=== PATIENT | male | born 1945 | race Caucasian/White ===

== ENCOUNTER 2018-06-16 09:45 | Observation (INO) | payer OTHER ==
--- OUTSIDE RECORDS SUMMARY | 2018-06-16 09:48 | XMS REPORT | Clinical Summary ---
:1945 [facility] Address [address] [place] [address] Care Team Providers Name Role Phone Ruslan Primary Care Provider Allergies No Known Allergies Medications Medication Sig Dispensed Refills Start Date End Date Status aspirin 81 MG EC Take 81 mg by mouth 0 Active tablet daily. DULoxetine Take 30 mg by mouth 0 Active (CYMBALTA) 30 MG once at bedtime. capsule gabapentin Take 800 mg by 0 Active (NEURONTIN) 800 MG mouth 3 (three) tablet times daily. traMADol (ULTRAM) Take 50 mg by mouth 0 Active 50 mg tablet daily. tamsulosin (FLOMAX) Take 0.4 mg by 0 Active 0.4 mg Cp24 24 hr mouth daily. capsule finasteride Take 5 mg by mouth 0 Active (PROSCAR) 5 mg daily. tablet atorvastatin Take 1 tablet (80 30 tablet 11 07/29/2016 07/29/2017 (LIPITOR) 80 MG mg total) by mouth tablet nightly. clopidogrel Take 1 tablet (75 30 tablet 2 07/29/2016 07/29/2017 (PLAVIX) 75 mg mg total) by mouth tablet daily. insulin NPH 22 units 10 mL 0 07/29/2016 07/29/2017 (HUMULIN,NOVOLIN) subcutaneous BID. 100 unit/mL injection senna-docusate Take 1 tablet by 60 tablet 11 07/29/2016 07/29/2017 (SENOKOT S) 8.6-50 mouth 2 (two) times mg per tablet daily. Active Problems Problem Noted Date Acute ischemic stroke 07/28/2016 Status post administration of tPA (rtPA) in a different facility within 2015 the last 24 hours prior to admission to current facility Diabetes mellitus Depression BPH (benign prostatic hyperplasia) Social History Tobacco Use Types Packs/Day Years Used Date Never Smoker Alcohol Use Drinks/Week oz/Week Comments No Sex Assigned at Date Recorded Not on file Job Start Date Occupation Industry Not on file Not on file Not on file Travel History Travel Start Travel End No recent travel history available. Last Filed Vital Signs Not on file Plan of Treatment Not on file Results Not on fileafter 06/15/2017 Insurance Payer Benefit Plan / Group Subscriber ID Type Phone Address MEDICARE MEDICARE A B xxxxxxxxxx Medicare AETNA - MGD CARE AETNA INDEMNITY NON CONTR xxxxxxxxx Comm Advance Directives For more information, please contact:[address] [phone] Code Status Date Activated Date Inactivated Comments Full Code 07/24/2016 2:48 PM 07/29/2016 7:23 PM This code status was determined by: Patient
--- NOTE | 2018-06-16 10:13 | RAD REPORT ---
EXAM DESCRIPTION: CT - CTHCSPWOC - 06/16/2018 10:01 am CLINICAL HISTORY: Fall, head and neck injury COMPARISON: CT head June 2017 TECHNIQUE: Axial 5 mm thick images of the head were obtained. Axial 2 mm thick images of the cervic al spine were obtained with sagittal and coronal reconstruction images generated and reviewed. All CT scans are performed using dose optimization technique as appropriate and may include automated exposure control or mA/KV adjustment according to patient size. FINDINGS: No intracranial hemorrhage, mass, edema or acute intracranial finding. No acute cortical b ased infarction identified. Moderate severity atrophy and chronic ischemic changes are present. Patie nt has a moderately large area of encephalomalacia from an old right parietal CVA. Ventricles are in proportion to volume loss. Dense arterial tree calcifications are present. Mastoid air cells are gerson r. Maxillary sinus air-fluid levels are present. There is fluid and mucosal thickening in the ethmoid air cells. Facial bones are incompletely visualized. A left posterior small scalp hematoma is presen t. Trauma is apparently to the posterior head and neck. Sinus findings are likely preexisting sinusit is. Partially imaged globes and orbital contents unremarkable. Cervical bodies are normal in height. There is a slight retrolisthesis of C5 on C6. C4-5, C5-6 and C6 -7 disc space narrowing present. Mild bilateral C4-5 more prominent bilateral C5-6, C6-7 bony foramin al stenosis. Facet degenerative changes are present. No fracture or acute bony abnormality. Central c anal detail is inherently limited. No paraspinal mass or hematoma. IMPRESSION: No hemorrhage, edema or acute intracranial finding. Patient has a small posterior left p arietal scalp hematoma. Patient has prominent atrophy and chronic ischemic change as well as old right parietal CVA change. Prominent cervical spine degenerative change C4-C7 as detailed. No acute findings seen. Air-fluid level in the paranasal sinuses. This is believed to be preexisting sinusitis. Trauma is bel ieved to be to the posterior head and neck.
[2018-06-16] MEDS ORDERED: TETANUS & DIPHTHERIA TOX,ADULT 0.5 ML VIAL ONE (10:38)
[2018-06-16 10:50] LABS: Absolute Lymphocytes (CBC) 0.4 K/uL (0.7-4.9); Absolute Monocytes 0.7 K/uL (0.1-1.3); Absolute Neutrophil 7.7 K/uL (1.8-8.0); Basophils % 0.2 % (0-1.3); Eosinophils % 0.6 % (0-4.4); Hematocrit 35.2 % (39.6-49.0); Lymphocytes % 4.6 % (15.3-44.8); MCH 31.6 pg (27.0-35.0); MCV 91.2 fL (80-100); MPV 8.4 fL (7.6-11.3); Monocytes % 7.9 % (3.3-12.3); RBC Red Blood Cell Count 3.86 M/uL (4.33-5.43)
[2018-06-16 10:58] LABS: Protime INR 1.08
--- NOTE | 2018-06-16 12:06 | RAD REPORT ---
EXAM DESCRIPTION: RAD - Pelvis - 06/16/2018 11:54 am CLINICAL HISTORY: BLUNT TRAUMA History of fall. 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 No fracture or dislocation. No AVN. Lower lum bar degenerative changes are seen. IMPRESSION: A fracture is not seen.
--- NOTE | 2018-06-16 12:07 | RAD REPORT ---
EXAM DESCRIPTION: RAD - Femur Left - 06/16/2018 11:54 am CLINICAL HISTORY: PAIN Fall COMPARISON: No comparisons FINDINGS: No acute fracture or dislocation is seen.
--- NOTE | 2018-06-16 12:07 | RAD REPORT ---
EXAM DESCRIPTION: RAD - Femur Right - 06/16/2018 11:54 am CLINICAL HISTORY: PAIN Fall COMPARISON: No comparisons FINDINGS: No fracture or dislocation is identified. Vascular calcification is noted.
--- NOTE | 2018-06-16 12:18 | EKG ---
Test Date: 2018-06-16 Test Time: 10:08:14 Certified Veterinary Technician: KAREN MEASUREMENT RESULTS: Intervals: Rate: 99 ID: [id number] QRSD: 98 QT: 336 QTc: 431 Kevin: P: 40 ID: [id number] QRS: -60 T: 69 INTERPRETIVE STATEMENTS: Normal sinus rhythm Left anterior fascicular block Abnormal ECG Compared to ECG 09/18/2017 09:13:01 Sinus arrhythmia no longer present Electronically Signed On 06-16-18 12:17:27 COMMUNICATIONS PROFESSOR by Yrn Kurtz
--- NOTE | 2018-06-16 12:35 | ER ---
Nurse's Notes [facility] Name: Clay Gagnon Age: 72 yrs Sex: Male : 1945 Arrival Date: 06/16/2018 Time: 09:46 Bed 7 Private MD: Diagnosis: Concussion;Superficial injury of head;Dehydration;Hyperglycemia, unspecified;Syncope and collapse Presentation: 06/16 09:46 Presenting complaint: EMS states: FALL IN BATHROOM. Care prior to arrival: IV ch initiated. 20 GA, in the left forearm, Glucose check: 348. Mechanism of Injury: Fall from standing position. Trauma event details: Injury occurred in the [facility], Injury occurred: at home. Injury occurred: June 16, 2018 Injury occurred at: 09:00. 09:46 Acuity: URIAH 2 09:46 Method Of Arrival: EMS: [facility] 13:50 Transition of care: patient was not received from another setting of care. Onset of ch symptoms was June 16, 2018 at 09:00. Risk Assessment: Do you want to hurt yourself or someone else? Patient reports no desire to harm self or others. Initial Sepsis Screen: Does the patient meet any 2 criteria? No. Patient's initial sepsis screen is negative. Does the patient have a suspected source of infection? No. Patient's initial sepsis screen is negative. Triage Assessment: 13:50 General: Appears in no apparent distress. comfortable. Trauma Activation: Consult Physician: ED Physician; Name: DARA; Notified At: 09:45; Arrived At: 09:45 Physician: General Surgeon; Name: ; Notified At: 09:45; Arrived At: Physician: Radiology; Name: ; Notified At: 09:45; Arrived At: Physician: Respiratory; Name: ; Notified At: 09:45; Arrived At: Physician: Lab; Name: ; Notified At: 09:45; Arrived At: Historical: - Allergies: 10:02 NKA; ch - Home Meds: 10:02 Dulcolax (bisacodyl) 5 mg Oral TbEC 2 tabs daily prn [Active]; paroxetine HCl 40 mg ch Oral tab 1 tab nightly [Active]; aspirin 325 mg Oral tab 1 tab once daily [Active]; gabapentin 800 mg Oral tab 1 tab 3 times per day [Active]; carbidopa-levodopa 25-100 mg Oral tab 1 tab 3 times per day [Active]; atorvastatin 80 mg Oral tab 1 tab nightly [Active]; duloxetine 30 mg Oral cpDR 1 cap once daily [Active]; metformin 1,000 mg Oral tab 1 tab 2 times per day [Active]; tamsulosin 0.4 mg Oral cp24 2 caps nightly [Active]; clopidogrel 75 mg Oral tab 1 tab once daily [Active]; donepezil 5 mg Oral tab 1 tab nightly [Active]; Januvia 100 mg Oral tab 1 tab once daily [Active]; finasteride 5 mg Oral tab 1 tab once daily [Active]; midodrine 5 mg Oral tab 1 tabs 3 times per day [Active]; Senokot 8.6 mg Oral tab 1 tabs twice daily [Active]; Centrum Silver 0.4-300-250 mg-mcg-mcg Oral tab daily [Active]; Novolin 70/30 [place] Sub-Q 20 unit daily [Active]; - PMHx: 10:02 CAD; CVA; Diabetes - IDDM; High Cholesterol; Parkinsons; ch 13:46 Dementia; ch - Immunization history: Last tetanus immunization: unknown. - Family history:: not pertinent. - Social history:: Smoking status: Patient/guardian denies using tobacco. - Ebola Screening: : Patient negative for fever greater than or equal to 101.5 degrees Fahrenheit, and additional compatible Ebola Virus Disease symptoms Patient denies exposure to infectious person Patient denies travel to an Ebola-affected area in the 21 days before illness onset No symptoms or risks identified at this time. - Hospitalizations: : No recent hospitalization is reported. Screenin:46 Abuse screen: Denies threats or abuse. Denies injuries from another. Tuberculosis ch screening: No symptoms or risk factors identified. 13:46 Nutritional screening: No deficits noted. Fall Risk Fall in past 12 months (25 points). ch Secondary diagnosis (15 points) IV access (20 points). Ambulatory Aid- Crutches/Cane/Walker (15 pts). Gait- Mental Status- Overestimates/Forgets Limitations (15 pts.). Total Morgan Fall Scale indicates High Risk Score (45 or more points). Fall prevention measures have been instituted. Side Rails Up X 2 Placed Close to Nursing Station Frequent Obs/Assessments Occuring Family Present and informed to notify staff if the need to leave the bedside As available patient and family educated on Fall Prevention Program and Strategies. Primary Survey: 09:46 A: Airway: patent. Breathing/Chest: Respiratory pattern: regular, Respiratory effort: ch spontaneous, unlabored, Breath sounds: clear. Circulation: Skin color: pink, Skin temperature: warm, dry. Disability Verbal Stimuli. 13:41 Reassessment Airway Airway Patent Breathing/Chest Respiratory pattern Regular ch Respiratory effort Spontaneous Unlabored Breath sounds Clear Circulation Heart rhythm Sinus rhythm Disability Alert. Secondary Survey: 09:52 HEENT: Head Other LEFT OCCIPUT CONTUSION. Gastrointestinal: No deficits noted. : ch INCONTINENT. Musculoskeletal: No deficits noted. 13:41 HEENT: Face No injury/deformity Eyes: No injury or deformity noted. Ears: clear Nose: ch clear. Assessment: 09:46 General: Appears in no apparent distress. comfortable, slender, Behavior is ch cooperative, appropriate for age, anxious, TREMULOUS. Pain: Complains of pain in pelvis. Neuro: Level of Consciousness is awake, obeys commands, confused, Oriented to person, place, situation. 09:50 Reassessment: PT TO CT. 11:00 Reassessment: PT RETURN TO RADIOLOGY. bp 12:00 Reassessment: PT TBA OBS, VS STABLE, NO ACUTE FINDINGS AT THIS TIME. bp 13:43 Reassessment: Patient appears in no apparent distress at this time. Patient and/or ch family updated on plan of care and expected duration. Pain level reassessed. pt urinates on himself, then tries to get out of bed. brief changed, linnens changed, pt cleaned. no s/s of distress. Patient states feeling better. Patient states symptoms have improved. Vital Signs: 09:46 BP 106 / 90; Pulse 99; Resp 19; Temp 98; Pulse Ox 95% ; Weight 68.04 kg; ch 10:30 BP 144 / 64; Pulse 98; Resp 22; Pulse Ox 96% ; bp 12:00 BP 135 / 65; Pulse 96; Resp 17; Pulse Ox 94% ; bp 12:53 BP 131 / 67; Pulse 91; Resp 23; Pulse Ox 93% ; bp 13:41 BP 137 / 67; Pulse 96; Resp 23; Temp 97.7(O); Pulse Ox 94% on R/A; Pain 6/10; ch [place] Coma Score: 09:46 Eye Response: spontaneous(4). Verbal Response: oriented(5). Motor Response: obeys commands(6). Total: 15. Trauma Score (Adult): 09:46 Eye Response: spontaneous(1); Verbal Response: oriented(1); Motor Response: obeys commands(2); Systolic BP: > 89 mm Hg(4); Respiratory Rate: 10 to 29 per min(4); Kishore Score: 15; Trauma Score: 12 ED Course: 09:46 Patient arrived in ED. ch 09:46 Patient has correct armband on for positive identification. Placed in gown. Bed in low ch position. Call light in reach. Side rails up X2. 09:46 Arm band placed on left wrist. Patient placed in an exam room, on a stretcher, on manager cardiac, on pulse oximetry. 09:46 Patient maintains SpO2 saturation greater than 95% on room air. Thermoregulation: warm blanket given to patient. 09:47 Damion Snider MD is Attending Physician. rn 09:48 Triage completed. ch 09:52 Maintain EMS IV. Dressing intact. Good blood return noted. Site clean \T\ dry. Gauge \T\ ch site: 20 GAUGE LEFT FA. 09:55 Chetna Brothers, RN is Primary Nurse. 09:58 CT completed. Patient tolerated procedure well. Patient moved to CT via stretcher. sj Patient moved back from CT. 10:01 CT Head C Spine In Process Unspecified. EDMS 10:09 EKG done, by medical technical writer. reviewed by Damion Snider MD. at1 11:52 XRAY Pelvis In Process Unspecified. EDMS 11:52 XRAY Femur RIGHT In Process Unspecified. EDMS 11:52 XRAY Femur LEFT In Process Unspecified. EDMS 12:34 Stoney Vu MD is Hospitalizing Provider. rn 12:51 Wound care: to SKIN TEAR located on scalp was cleaned with Hibiclens, dressed with bp STERI STRIPS. 13:46 No apparent distress. Resting quietly. ch 13:46 patcher bowling ball on. Pulse ox on. NIBP on. Warm blanket given. ch 13:46 No provider procedures requiring assistance completed. Patient admitted, IV remains in place. Administered Medications: 10:20 Drug: Tetanus-Diphtheria Toxoid Adult 0.5 ml {Kier Operator: [employer]. Exp: bp 07/29/2020. Lot #: [id number]. } Route: IM; Site: right deltoid; 13:34 Follow up: Response: No adverse reaction bp Intake: 09:46 PO: 0ml; Total: 0ml. ch Output: 09:46 Urine: 0ml; Total: 0ml. ch Outcome: 12:34 Decision to Hospitalize by Provider. rn 13:46 Admitted to Med/surg accompanied by nurse, accompanied by tech, family with patient, ch via stretcher, room 425, with chart, Report called to Lesli 13:46 Condition: stable 13:46 Discharge instructions given to patient, family, Instructed on the need for admit. 14:03 Patient left the ED. bp Signatures: Dispatcher [employer] EDMS Chetna Brothers, RN Leanne Cannon ch, Roman, MD MD rn Gonzales, Amanda, director business systems EKG Tat1 Sonny Toro RN RN bp
--- NOTE | 2018-06-16 12:35 | EDPHYS ---
Physician Documentation [facility] Name: Clay Gagnon Age: 72 yrs Sex: Male : 1945 Arrival Date: 06/16/2018 Time: 09:46 Bed 7 Private MD: ED Physician Damion Snider HPI: 06/16 09:51 This 72 yrs old Male presents to ER via EMS with complaints of Fall Injury. rn 09:51 Details of fall: The patient fell from an upright position. Onset: The symptoms/episode rn began/occurred just prior to arrival. Associated injuries: The patient sustained injury to the head. Severity of symptoms: At their worst the symptoms were mild, in the emergency department the symptoms are unchanged. The patient has not experienced similar symptoms in the past. Reports fall, head injury, doesn't remember all events, on blood thinners, has baseline dementia and coming from home. Reports chronic pain to lower extremities but both hips hurting more than usual.. Historical: - Allergies: 10:02 NKA; ch - Home Meds: 10:02 Dulcolax (bisacodyl) 5 mg Oral TbEC 2 tabs daily prn [Active]; paroxetine HCl 40 mg ch Oral tab 1 tab nightly [Active]; aspirin 325 mg Oral tab 1 tab once daily [Active]; gabapentin 800 mg Oral tab 1 tab 3 times per day [Active]; carbidopa-levodopa 25-100 mg Oral tab 1 tab 3 times per day [Active]; atorvastatin 80 mg Oral tab 1 tab nightly [Active]; duloxetine 30 mg Oral cpDR 1 cap once daily [Active]; metformin 1,000 mg Oral tab 1 tab 2 times per day [Active]; tamsulosin 0.4 mg Oral cp24 2 caps nightly [Active]; clopidogrel 75 mg Oral tab 1 tab once daily [Active]; donepezil 5 mg Oral tab 1 tab nightly [Active]; Januvia 100 mg Oral tab 1 tab once daily [Active]; finasteride 5 mg Oral tab 1 tab once daily [Active]; midodrine 5 mg Oral tab 1 tabs 3 times per day [Active]; Senokot 8.6 mg Oral tab 1 tabs twice daily [Active]; Centrum Silver 0.4-300-250 mg-mcg-mcg Oral tab daily [Active]; Novolin 70/30 [place] Sub-Q 20 unit daily [Active]; - PMHx: 10:02 CAD; CVA; Diabetes - IDDM; High Cholesterol; Parkinsons; ch 13:46 Dementia; ch - Immunization history: Last tetanus immunization: unknown. - Family history:: not pertinent. - Social history:: Smoking status: Patient/guardian denies using tobacco. - Ebola Screening: : Patient negative for fever greater than or equal to 101.5 degrees Fahrenheit, and additional compatible Ebola Virus Disease symptoms Patient denies exposure to infectious person Patient denies travel to an Ebola-affected area in the 21 days before illness onset No symptoms or risks identified at this time. - Hospitalizations: : No recent hospitalization is reported. ROS: 09:51 Constitutional: Negative for fever, chills, and weight loss, Eyes: Negative for injury, rn pain, redness, and discharge, Neck: Negative for injury, pain, and swelling, Cardiovascular: Negative for chest pain, palpitations, and edema, Respiratory: Negative for shortness of breath, cough, wheezing, and pleuritic chest pain, Abdomen/GI: Negative for abdominal pain, nausea, vomiting, diarrhea, and constipation, Back: Negative for injury and pain, MS/Extremity: + bilateral hip pain Skin: + contusion back of head Neuro: + headache Exam: 09:51 Constitutional: This is a well developed, well nourished patient who is awake, rn oriented to person and place, not time. Head/Face: Normocephalic, 2cm contusion and skin tear superior occiput of scalp, no active bleeding. Eyes: Pupils equal round and reactive to light, extra-ocular motions intact. ENT: Nares patent. No nasal discharge, no septal abnormalities noted. Tympanic membranes are normal and external auditory canals are clear. Oropharynx with no redness, swelling, or masses, exudates, or evidence of obstruction, uvula midline. Mucous membranes moist. Neck: no midline tenderness, no mass Cardiovascular: Regular rate and rhythm. No pulse deficits. Respiratory: Lungs have equal breath sounds bilaterally, clear to auscultation. No increased work of breathing Abdomen/GI: soft, non-tender Back: No spinal tenderness. MS/ Extremity: Pulses equal, no cyanosis. Neurovascular intact. Mild pain with ROM right hip. Neuro: Awake, GCS 15, oriented to person, place, not time. Cranial nerves II-XII grossly intact. Motor strength 5/5 in all extremities. Sensory grossly intact. Cerebellar exam normal. Vital Signs: 09:46 BP 106 / 90; Pulse 99; Resp 19; Temp 98; Pulse Ox 95% ; Weight 68.04 kg; ch 10:30 BP 144 / 64; Pulse 98; Resp 22; Pulse Ox 96% ; bp 12:00 BP 135 / 65; Pulse 96; Resp 17; Pulse Ox 94% ; bp 12:53 BP 131 / 67; Pulse 91; Resp 23; Pulse Ox 93% ; bp 13:41 BP 137 / 67; Pulse 96; Resp 23; Temp 97.7(O); Pulse Ox 94% on R/A; Pain 6/10; ch [place] Coma Score: 09:46 Eye Response: spontaneous(4). Verbal Response: oriented(5). Motor Response: obeys commands(6). Total: 15. Trauma Score (Adult): 09:46 Eye Response: spontaneous(1); Verbal Response: oriented(1); Motor Response: obeys commands(2); Systolic BP: > 89 mm Hg(4); Respiratory Rate: 10 to 29 per min(4); Kishore Score: 15; Trauma Score: 12 MDM: 09:47 Patient medically screened. rn 12:33 Differential diagnosis: abrasion, closed head injury, contusion, fracture. Data rn reviewed: vital signs, nurses notes, EMS record, lab test result(s), EKG, radiologic studies, CT scan, plain films, and as a result, I will admit patient. Counseling: I had a detailed discussion with the patient and/or guardian regarding: the historical points, exam findings, and any diagnostic results supporting the discharge/admit diagnosis, lab results, radiology results, the need for further work-up and treatment in the hospital. Response to treatment: the patient's symptoms have mildly improved after treatment, and as a result, I will admit patient. Admission orders: after a detailed discussion of the patient's condition and case, the admit orders are written by me. ED course: SPoke with Dr. Vu, will observe given head injury, syncope, dehydration, and hyperglycemia. WOund cleaned and steri-stripped.. 06/16 09:49 Order name: CBC with Diff; Complete Time: 11:21 rn 06/16 09:49 Order name: Basic Metabolic Panel; Complete Time: 11:21 rn 06/16 09:49 Order name: CT Head C Spine; Complete Time: 11:21 rn 06/16 09:49 Order name: XRAY Pelvis; Complete Time: 12:13 rn 06/16 09:49 Order name: Protime (+inr); Complete Time: 11:21 rn 06/16 09:49 Order name: Ptt, Activated; Complete Time: 11:21 rn 06/16 09:49 Order name: XRAY Femur RIGHT; Complete Time: 12:13 rn 06/16 09:49 Order name: XRAY Femur LEFT; Complete Time: 12:13 rn 06/16 09:49 Order name: IV Start; Complete Time: 09:55 rn 06/16 09:49 Order name: EKG - Nurse/Tech; Complete Time: 10:14 rn 06/16 09:49 Order name: EKG; Complete Time: 09:50 rn 06/16 13:34 Order name: Urine Dipstick-Ancillary (obtain specimen); Complete Time: 13:36 bp Administered Medications: 10:20 Drug: Tetanus-Diphtheria Toxoid Adult 0.5 ml {Drill Presser: Executive Intermediary. Exp: bp 07/29/2020. Lot #: [id number]. } Route: IM; Site: right deltoid; 13:34 Follow up: Response: No adverse reaction bp Disposition: 06/16/18 12:34 Hospitalization ordered by Stoney Vu for Observation. Preliminary diagnosis are Concussion, Superficial injury of head, Dehydration, Hyperglycemia, unspecified, Syncope and collapse. - Bed requested for Telemetry/MedSurg (observation). - Status is Observation. bp - Condition is Stable. - Problem is new. - Symptoms have improved. UTI on Admission? No Signatures: Dispatcher [employer] EDMS Pauline Soto Christina, RN RN ch Nieto, Roman, MD MD rn Peltier, Brian, RN RN bp Corrections: (The following items were deleted from the chart) 12:34 12:33 ED course: SPoke with Dr. Vu, will observe given head injury, syncope, rn dehydration, and hyperglycemia.. rn 13:27 12:34 Hospitalization Ordered by Stoney Vu MD for Observation. Preliminary diagnosis is bd Concussion; Superficial injury of head; Dehydration; Hyperglycemia, unspecified; Syncope and collapse. Bed requested for Telemetry/MedSurg (observation). Status is Observation. Condition is Stable. Problem is new. Symptoms have improved. UTI on Admission? No. rn 14:03 13:27 06/16/2018 12:34 Hospitalization Ordered by A Horace NUNEZ for Observation. bp Preliminary diagnosis is Concussion; Superficial injury of head; Dehydration; Hyperglycemia, unspecified; Syncope and collapse. Bed requested for Telemetry/MedSurg (observation). Status is Observation. Condition is Stable. Problem is new. Symptoms have improved. UTI on Admission? No. bd
[2018-06-16] MEDS ORDERED: Mastisol Adhesive Liq ONE (12:43)
[2018-06-16 14:16] VITALS: BMI 20.9
[2018-06-16] MEDS ORDERED: ONDANSETRON 4 MG/2 ML VIAL IV PRN (14:16)
[2018-06-16 14:49] LABS: Urine Blood TRACE (NEG); Urine Glucose 2+ (NEG); Urine Protein TRACE (NEG); Urine pH 5.5 (5.0-7.0)
[2018-06-16] MEDS: NA CHLORIDE 0.9% 1,000 ML IV SCH ×2 (15:35→19:24)
[2018-06-16] MEDS: ACETAMINOPHEN 500 MG TAB PO PRN (15:47)
[2018-06-16] MEDS ORDERED: INFLUENZA VACCINE (for 3y+) 0.5 ML DOSE IMVAC ONE (16:00)
[2018-06-16 16:31] LABS: Urine Appearance CLEAR; Urine Bilirubin NEGATIVE (NEG); Urine Blood NEGATIVE (NEG); Urine Color YELLOW; Urine Glucose 3+ (NEG); Urine Protein NEGATIVE (NEG); Urine Specific Gravity 1.025 (1.005-1.030)
[2018-06-16 16:32] LABS: Urine Microscopic Reflex NO UMIC
[2018-06-16] MEDS ORDERED: GLUCAGON 1 MG/VIAL IM PRN (18:13)
[2018-06-16] MEDS ORDERED: D50W 25 GM/50 ML SYRINGE IV PRN (18:13)
[2018-06-16] MEDS: INSULIN -REGULAR HUMAN 50 UNIT/0.5 ML ML SQ SCH ×2 (19:26→21:07)
[2018-06-17] MEDS: ACETAMINOPHEN 500 MG TAB PO PRN ×2 (00:21→07:37)
[2018-06-17 04:28] LABS: Absolute Monocytes 1.1 K/uL (0.1-1.3); Absolute Neutrophil 7.9 K/uL (1.8-8.0); Basophils % 0.3 % (0-1.3); Eosinophils % 0.1 % (0-4.4); Hematocrit 32.7 % (39.6-49.0); Lymphocytes % 9.8 % (15.3-44.8); MCH 30.9 pg (27.0-35.0); MCV 91.1 fL (80-100); MPV 8.8 fL (7.6-11.3); Monocytes % 10.6 % (3.3-12.3); RBC Red Blood Cell Count 3.59 M/uL (4.33-5.43)
[2018-06-17] MEDS: NA CHLORIDE 0.9% 1,000 ML IV SCH ×3 (04:37→20:16)
[2018-06-17 04:40] LABS: Potassium 4.2 mmol/L (3.5-5.1)
[2018-06-17] MEDS: INSULIN -REGULAR HUMAN 50 UNIT/0.5 ML ML SQ SCH ×4 (08:25→21:00)
[2018-06-17] MEDS: DULOXETINE 30 MG CAP PO SCH (08:26)
[2018-06-17] MEDS: ASPIRIN 325 MG TAB PO SCH (08:26)
[2018-06-17] MEDS: FINASTERIDE 5 MG TAB PO SCH (08:27)
[2018-06-17] MEDS: SITAGLIPTIN PHOS 100 MG TAB PO SCH (08:27)
[2018-06-17] MEDS: MIDODRINE HCL 5 MG TABLET PO SCH ×3 (08:27→22:05)
[2018-06-17] MEDS: GABAPENTIN 400 MG CAP PO SCH ×3 (08:28→22:06)
[2018-06-17] MEDS: CARBIDOPA/LEVODOPA 25/100 TAB PO SCH ×3 (08:28→22:07)
[2018-06-17] MEDS: CLOPIDOGREL 75 MG TABLET PO SCH (08:28)
[2018-06-17] MEDS: AMOX/K CLAV 875 MG TAB PO SCH ×2 (08:31→22:06)
--- NOTE | 2018-06-17 10:19 | RAD REPORT ---
EXAM DESCRIPTION: RAD - Chest Single View - 06/17/2018 9:30 am CLINICAL HISTORY: Fever COMPARISON: June 2017 TECHNIQUE: AP portable chest image was obtained 0917 hours . FINDINGS: Lungs are underinflated. No large mass or consolidations seen. Interstitial and patchy carmelo eolar opacification present in the right base. Shallow inspiration wall accentuate lung markings. How ever, early right base pneumonia is suspected. Failure/ volume overload not suspected. Heart and vasc ulature are normal. No measurable pleural effusion and no pneumothorax. No acute bony abnormality see n. Aortic tortuosity noted. IMPRESSION: Mild or early right lung base pneumonia.
[2018-06-17 21:00] VITALS: O2SAT 98
[2018-06-17] MEDS ORDERED: PARoxetine HCl 10 MG TAB PO SCH (21:00)
[2018-06-17] MEDS ORDERED: DONEPEZIL HCL 5 MG TAB PO SCH (21:00)
[2018-06-17] MEDS ORDERED: TAMSULOSIN 0.4 MG SR CAP PO SCH (21:00)
[2018-06-17] MEDS ORDERED: ATORVASTATIN 80 MG TAB PO SCH (21:00)
--- NOTE | 2018-06-17 23:17 | PN ---
Date of Progress Note: 06/17/2018 Subjective: The patient was seen this morning for followup. No new complaints or problems reported by the patient. He looked a lot more awake and alert this morning compared to yesterday. Denied any specific complaints. Objective: Vital Signs: Reviewed. HEENT: Unremarkable. Lungs: Clear to auscultation. Heart: Sounds normal. Abdomen: Soft. Bowel sounds normal. No guarding, rigidity, tenderness, or distention. Extremities: No leg edema. Neuro: No focal neurological deficit. He is able to move all the 4 extremities well against gravity . Posterior scalp abrasion looks unchanged. Laboratory Data: Sodium 142, potassium 4.2, chloride 111, bicarb 23, BUN 21, creatinine 1.0, glucose 162. White count 10, hemoglobin 11.1, platelets 168. Chest x-ray shows evidence of pneumonia. Impression: 1.Pneumonia. 2.Acute maxillary sinusitis. 3.Syncope. 4.Orthostatic hypotension. 5.Diabetes mellitus, type 2. Plan: We will go ahead and continue antibiotic Augmentin per order. Physical therapy to continue to work with the patient. Orthostatic vital signs reviewed. Continue home medications per order. Pos sible discharge to go home tomorrow depending on his condition. Social Service was consulted to help make arrangements for discharge planning including home health services and home physical therapy services. Continue SCD for DVT prophylaxis. AARON/MODL Voice ID: [id number] Report ID: [id number]
[2018-06-18] MEDS: NA CHLORIDE 0.9% 1,000 ML IV SCH (04:32)
--- NOTE | 2018-06-18 05:42 | HP ---
Date of Admission: 06/16/2018 Chief Complaint: Fall. History Of Present Illness: This is a 72-year-old male patient, who was at home and had fell down at home, was brought into emergency room. The patient has history of orthostatic hypotension, and he t akes his medication regularly as I understand; and today he fell down at home. We do not know exact circumstances surrounding this fall. We are not sure if the patient had lost consciousness or not wi th this fall. He had some head injury with superficial abrasion on the back of the scalp. He was br ought into emergency room, did not require any sutures. After he was evaluated in the ER, he was adm itted to the hospital. When I saw him, he was by himself. His was not with him. He was not or iented enough to answer any appropriate questions. Allergies: NO KNOWN ALLERGIES. Medications: List reviewed. Review of Systems: WASH TEST CHECKER: As mentioned above. Cardiovascular: As mentioned above. All other systems were reviewed and negative. Past Surgical History: Significant for appendectomy. Past Medical History: Significant for mixed hyperlipidemia, depression, type 2 diabetes mellitus, be nign prostatic hypertrophy with lower urinary symptoms, prior history of stroke, cerebral atheroscler osis, and orthostatic hypotension. Family History: Significant for diabetes, stroke, colon cancer. Social History: Negative for smoking, alcohol use. Physical Examination: Vital Signs: His last vital signs today before I saw him, temperature was 97.7, his pulse rate was 8 7, respiratory rate 18, blood pressure 135/64, oxygen saturation 95%. His height 5 feet 11 inches, w eight 150 pounds. General: The patient is awake, alert, not oriented, not in any distress. HEENT: Superficial abrasion to posterior scalp. No active bleeding. Conjunctivae nonerythematous. Sclerae white. Mouth, no thrush or edema noted. Ears/Nose, no mass, lesion, discharge noted. Neck: Supple. No JVD, lymph nodes, bruit, thyromegaly noted. Lungs: Bilateral good equal air entry. Clear to auscultation. No rhonchi. No rales. Heart: Normal heart sounds, no murmur or gallop. Abdomen: Soft, bowel sounds normal. No guarding, rigidity, tenderness, mass, hepatosplenomegaly, dis tention, or bruit noted. Extremities: No leg edema. No calf tenderness. Skin: No rash, ulcer, cellulitis. Lymphatics: No lymph node enlargement in neck, supraclavicular, infraclavicular region. Neuro: No focal neurological deficit. Chest: Unremarkable. External Genitalia: Deferred. Rectal: Deferred. Laboratory Data: White count 8.9, hemoglobin 12.2, platelets 171. Sodium 141, potassium 5, chloride 110, bicarb 24, BUN 22, creatinine 1.20, glucose . Urinalysis unremarkable. He has had a CAT scan of the head and cervical spine evidence of old stroke, no new or acute changes. Femur x-ray: Negative for fracture. EKG: No acute ST-T changes. Impression: 1.Syncope. 2.Orthostatic hypotension. 3.Acute maxillary sinusitis. 4.Mixed hyperlipidemia. 5.Type 2 diabetes mellitus. 6.Depression. 7.Anemia, unspecified. 8.Cerebral atherosclerosis. 9.Benign prostatic hypertrophy with lower urinary symptoms. Plan: Admit the patient to hospital for further evaluation and management of this problem. Home med ications will be continued per order. We will go ahead and start antibiotic, Augmentin. I will see him tomorrow for followup. Fall precaution was ordered. DVT prophylaxis was ordered with SCD. We w ill consult Physical Therapy tomorrow to help ambulate the patient, and we will also monitor his orthostatic vital signs tomorrow. AARON/MODL Voice ID: [id number]
[2018-06-18] MEDS: INSULIN -REGULAR HUMAN 50 UNIT/0.5 ML ML SQ SCH (07:30)
[2018-06-18 08:56] VITALS: BP 121/56; TEMP 99.6
[2018-06-18] MEDS: DULOXETINE 30 MG CAP PO SCH (09:11)
[2018-06-18] MEDS: SITAGLIPTIN PHOS 100 MG TAB PO SCH (09:11)
[2018-06-18] MEDS: AMOX/K CLAV 875 MG TAB PO SCH (09:11)
[2018-06-18] MEDS: ASPIRIN 325 MG TAB PO SCH (09:11)
[2018-06-18] MEDS: MIDODRINE HCL 5 MG TABLET PO SCH (09:11)
[2018-06-18] MEDS: CARBIDOPA/LEVODOPA 25/100 TAB PO SCH (09:11)
[2018-06-18] MEDS: GABAPENTIN 400 MG CAP PO SCH (09:11)
[2018-06-18] MEDS: FINASTERIDE 5 MG TAB PO SCH (09:11)
[2018-06-18] MEDS: CLOPIDOGREL 75 MG TABLET PO SCH (09:12)
[2018-06-18] MEDS ORDERED: INFLUENZA VACCINE (for 3y+) 0.5 ML DOSE IMVAC ONE (10:00)
--- NOTE | 2018-06-19 05:10 | DS ---
Date of Discharge: 06/18/2018 Disposition: Discharged to go home. Physical Examination: HEENT: Unremarkable. Lungs: Clear to auscultation. Heart: Sounds normal. Abdomen: Soft. Bowel sounds normal. No guarding, rigidity, tenderness, or distention. Extremities: No leg edema. Skin: Left posterior scalp area has superficial abrasion healing very well. No discharge or bleedin g. No sign of cellulitis. Hospital Course: A 72-year-old male patient admitted to the hospital after a fall. Please see laura Simon for more information. After the patient was evaluated in the emergency room, he was admi tted to the hospital with syncope. Further evaluation was unremarkable except his CAT scan of the he ad had shown some evidence of sinusitis. He had low-grade fever. Chest x-ray was done, which showed evidence of pneumonia. He was started on Augmentin; and this morning, he is afebrile, feeling ovidio r. He is having some sinus congestion as reported today, but giving antibiotic should help resolve p neumonia as well as this sinus infection. His vital signs otherwise remained stable. Physical Thera py was consulted, and Social Service was consulted to help make arrangements for home health services and home physical therapy. Final Diagnoses: 1.Syncope. 2.Pneumonia. 3.Acute maxillary sinusitis. 4.Orthostatic hypotension. 5.Mixed hyperlipidemia. 6.Type 2 diabetes mellitus. 7.Depression. 8.Cerebral atherosclerosis. 9.Benign prostatic hypertrophy, with lower urinary symptoms. 10.Anemia, unspecified. AARON/MODL Voice ID: [id number] Report ID: [id number]
== END 2018-06-18 11:25 | disposition home health service (06) ==
LOC: ER 09:45 → ERHOLD 12:36 → 4TH 13:52
PROVIDERS: ADMIT Internal Medicine; ATTEND Internal Medicine
DX: R55 Syncope and collapse (principal); J18.9 Pneumonia, unspecified organism; J01.00 Acute maxillary sinusitis, unspecified; I95.1 Orthostatic hypotension; E78.2 Mixed hyperlipidemia; E11.9 Type 2 diabetes mellitus without complications; F32.9 Major depressive disorder, single episode, unspecified; I67.2 Cerebral atherosclerosis; N40.1 Benign prostatic hyperplasia with lower urinary tract symptoms; D64.9 Anemia, unspecified; Z23 Encounter for immunization; S00.01XA Abrasion of scalp, initial encounter; W18.30XA Fall on same level, unspecified, initial encounter; Y92.009 Unspecified place in unspecified non-institutional (private) residence as the place of occurrence of the external cause
CPT/HCPCS: 36415; 70450; 71045; 72125; 72170; 73552 ×2; 80048 ×2; 81003 ×2; 82962 ×7; 85025 ×2; 85610; 85730; 90714; 93005; 97163; 99285; G0008 ×2; G0378 ×2; J7030 ×5; Q2035

== ENCOUNTER 2018-12-19 23:52 | Emergency (ER) | payer OTHER ==
--- OUTSIDE RECORDS SUMMARY | 2018-12-19 23:54 | XMS REPORT | Clinical Summary ---
:1945 Author Organization [facility] Address [address] [place] [address] Care Team Providers Name Role Phone Ruslan Primary Care Provider Allergies No Known Allergies Medications Medication Sig Dispensed Refills Start Date End Date Status aspirin 81 MG EC tablet Take 81 mg by 0 Active mouth daily. DULoxetine (CYMBALTA) Take 30 mg by 0 Active 30 MG capsule mouth once at bedtime. gabapentin (NEURONTIN) Take 800 mg by 0 Active 800 MG tablet mouth 3 (three) times daily. traMADol (ULTRAM) 50 mg Take 50 mg by 0 Active tablet mouth daily. tamsulosin (FLOMAX) 0.4 Take 0.4 mg by 0 Active mg Cp24 24 hr capsule mouth daily. finasteride (PROSCAR) 5 Take 5 mg by 0 Active mg tablet mouth daily. Active Problems Problem Noted Date Acute [...] Not on file Results Not on fileafter 12/18/2017 Insurance Payer Benefit Plan / Group Subscriber ID Type Phone Address MEDICARE MEDICARE A B xxxxxxxxxx Medicare AETNA - MGD CARE AETNA INDEMNITY NON CONTR xxxxxxxxx Comm (Home) [place] [address] Advance Directives For more information, please contact:[address] [phone] Code Status Date Activated Date Inactivated Comments Full Code 07/24/2016 2:48 PM 07/29/2016 7:23 PM This code status was determined by: Patient
[2018-12-20 00:17] LABS: Absolute Lymphocytes (CBC) 1.7 K/uL (0.7-4.9); Absolute Monocytes 0.6 K/uL (0.1-1.3); Absolute Neutrophil 3.5 K/uL (1.8-8.0); Basophils % 0.6 % (0-1.3); Eosinophils % 3.2 % (0-4.4); Hematocrit 34.3 % (39.6-49.0); Lymphocytes % 28.9 % (15.3-44.8); MPV 8.6 fL (7.6-11.3); Monocytes % 9.8 % (3.3-12.3)
[2018-12-20 00:20] LABS: Protime INR 0.89
[2018-12-20 00:27] LABS: Potassium 4.8 mmol/L (3.5-5.1)
[2018-12-20] MEDS ORDERED: ALTEPLASE 100 ML IV ONE (00:54)
[2018-12-20] MEDS ORDERED: Nicardipine/NS 25 MG/250 ML KIT IV ONE (01:06)
--- NOTE | 2018-12-20 01:17 | ER ---
Nurse's Notes [facility] Name: Clay Blackwell Jr Age: 73 yrs Sex: Male : 1945 Arrival Date: 12/19/2018 Time: 23:53 Bed 4 Private MD: Diagnosis: CVA Presentation: 12/19 23:54 Presenting complaint: EMS states: called for pt with AMS, states hx of cva and la1 tia. Last seen normal was approximately 2230. Pt with expressive aphasia and alert, oriented x1 to name only. Transition of care: patient was not received from another setting of care. An acute neurological deficit is present. The patients blood glucose was checked prior to arriving to the hospital and was found to be hyperglycemic. Onset of symptoms was December 19, 2018 at 22:30. Risk Assessment: Do you want to hurt yourself or someone else? Patient reports no desire to harm self or others. Initial Sepsis Screen: Does the patient meet any 2 criteria? No. Patient's initial sepsis screen is negative. Does the patient have a suspected source of infection? No. Patient's initial sepsis screen is negative. Care prior to arrival: IV initiated. Glucose check: 324. 23:54 Method Of Arrival: EMS: [facility] la1 23:54 Acuity: URIAH 1 la1 Triage Assessment: 12/20 00:38 The onset of the patients symptoms was December 19, 2018 at 22:30. jd3 Stroke Activation: Physician: Stroke Attending; Name: Shauna; Notified At: 23:48; Arrived At: 22:48 Physician: Chief Stroke Resident; Name: ; Notified At: 23:48; Arrived At: Physician: Stroke Resident; Name: ; Notified At: 23:48; Arrived At: Physician: ED Attending; Name: ; Notified At: 23:48; Arrived At: Physician: ED Resident; Name: ; Notified At: 23:48; Arrived At: Historical: - Allergies: 02:16 NKA; jd3 - Home Meds: 02:47 aspirin 325 mg Oral tab 1 tab once daily [Active]; atorvastatin 80 mg Oral tab 1 tab jd3 nightly [Active]; carbidopa-levodopa 25-100 mg Oral tab 1 tab 3 times per day [Active]; Centrum Silver 0.4-300-250 mg-mcg-mcg Oral tab daily [Active]; clopidogrel 75 mg Oral tab 1 tab once daily [Active]; donepezil 5 mg Oral tab 1 tab nightly [Active]; Dulcolax (bisacodyl) 5 mg Oral TbEC 2 tabs daily prn [Active]; duloxetine 30 mg Oral cpDR 1 cap once daily [Active]; finasteride 5 mg Oral tab 1 tab once daily [Active]; gabapentin 800 mg Oral tab 1 tab 3 times per day [Active]; Januvia 100 mg Oral tab 1 tab once daily [Active]; metformin 1,000 mg Oral tab 1 tab 2 times per day [Active]; midodrine 5 mg Oral tab 1 tabs 3 times per day [Active]; Novolin 70/30 [place]let Sub-Q 20 unit daily [Active]; paroxetine HCl 40 mg Oral tab 1 tab nightly [Active]; Senokot 8.6 mg Oral tab 1 tabs twice daily [Active]; tamsulosin 0.4 mg Oral cp24 2 caps nightly [Active]; - PMHx: 02:16 CAD; CVA; Dementia; Diabetes - IDDM; High Cholesterol; Parkinsons; jd3 - Immunization history:: Adult Immunizations unknown. - Social history:: Smoking status: unknown. - Ebola Screening: : Patient negative for fever greater than or equal to 101.5 degrees Fahrenheit, and additional compatible Ebola Virus Disease symptoms. Screenin:33 Abuse screen: Denies threats or abuse. Nutritional screening: No deficits noted. jd3 Tuberculosis screening: No symptoms or risk factors identified. Fall Risk Ambulatory Aid- None/Bed Rest/Nurse Assist (0 pts). Gait- Weak (10 pts.). Mental Status- Overestimates/Forgets Limitations (15 pts.). Total Morgan Fall Scale indicates Low Risk Score (25-44 pts). Fall prevention measures have been instituted. Side Rails Up X 2 Placed close to Nursing Station Frequent Obs/Assesments occuring. Assessment: 12/19 23:53 Reassessment: code stroke called at 2348. la1 12/20 00:21 VAN Scoring: Arm Drift: Patients demonstrates NO arm weakness. Patient is VAN Negative. jd3 The patient is alert, and able to follow commands. The patient does not exhibit slurred or garbled speech. The patient is exhibiting difficulty speaking. The patient does not exhibit difficulty understanding words. The patient is able to swallow own secretions with no drooling or need for suction. Patient tolerated one teaspoon of water. No drooling, immediate coughing, gurgling, or clearing of the throat was noted. The patient tolerated 90mL of water. No drooling, immediate coughing, gurgling, or clearing of the throat was noted. The patient passed the bedside swallow screening. Oral medications may be given as ordered. Contact Physician for further diet orders. Provider notified of bedside swallow screening results: Can Villatoro MD. General: Appears comfortable, Behavior is cooperative, anxious. Pain: Denies pain. Neuro: Level of Consciousness is awake, alert, obeys commands, Oriented to person, Flexo Operator are equal bilaterally Moves all extremities. Full function Speech pt with no slurring. pt reports trouble fluidly saying sentences and gets words mixed up with other words.. Facial symmetry appears normal, Intact. Cardiovascular: Denies chest pain, Capillary refill < 3 seconds Patient's skin is warm and dry. Rhythm is regular. Respiratory: Airway is patent Respiratory effort is even, unlabored, Respiratory pattern is regular, symmetrical, Denies shortness of breath. GI: No signs and/or symptoms were reported involving the gastrointestinal system. : No signs and/or symptoms were reported regarding the genitourinary system. EENT: Reports blurred vision in left eye. Derm: Skin is intact, Skin is dry, Skin is normal, Skin temperature is warm. Musculoskeletal: Circulation, motion, and sensation intact. Range of motion:. 00:40 Reassessment: PT person to notify Michael Diez called at [phone] who stated pt is la1 baseline alert, oriented x4 without troubles speaking or forming thoughts. 00:49 Reassessment: Spoke with pt's regarding consent for TPA, states she needs to aa1 speak with her daughter and will call back. Informed pt's that this is an extremely time sensitive matter and to call back as soon as possible. 01:02 Reassessment: Verbal consent obtained from over the phone with second RN Karla to la1 give TPA at 1303 at [phone] )lindsay blackwell. 01:15 T-PA (Activase) Screening: Indications: Definite evidence of stroke, ischemic, embolic, jd3 or hypertensive: Yes. Treatment will start within 4.5 hours onset of symptoms: Yes. Consent for thrombolytic therapy: Yes. Contraindications: Blood pressure is more than 185/110: Yes. 01:15 Reassessment: Patient appears in no apparent distress at this time. Patient and/or jd3 family updated on plan of care and expected duration. Pain level reassessed. 01:30 Reassessment: Patient appears in no apparent distress at this time. Patient and/or jd3 family updated on plan of care and expected duration. Pain level reassessed. pt with even and unlabored respirations, no signs of distress noted at this time. 02:22 Reassessment: [facility] jd3 02:30 Reassessment: Patient appears in no apparent distress at this time. No changes from [facility] previously documented assessment. Patient and/or family updated on plan of care and expected duration. Pain level reassessed. Patient states feeling better. 02:59 Reassessment: Patient appears in no apparent distress at this time. No changes from j previously documented assessment. Patient and/or family updated on plan of care and expected duration. Pain level reassessed. Vital Signs: 00:30 BP 182 / 76; Pulse 58; Resp 16 S; Temp 97.8(O); Pulse Ox 100% on R/A; Weight 72.57 kg jd3 (R); Height 5 ft. 8 in. (172.72 cm) (R); Pain 0/10; 00:47 Weight 76.7 kg (M); ag4 01:00 BP 164 / 72; Pulse 59; Resp 16; Pulse Ox 100% on R/A; aa1 01:23 BP 125 / 62; Pulse 67; Resp 18; Pulse Ox 100% on R/A; aa1 02:30 BP 140 / 71; Pulse 73; Resp 14 S; Pulse Ox 100% on R/A; Pain 0/10; jd3 00:47 Body Mass Index 25.71 (76.70 kg, 172.72 cm) ag4 NIH Stroke Scale Scores: 00:20 NIHSS Score: 5 jd3 01:02 NIHSS Score: 3 kdr 02:40 NIHSS Score: 3 jd3 ED Course: 12/19 23:53 Patient arrived in ED. la1 23:56 Triage completed. la1 12/20 00:01 Can Villatoro MD is Attending Physician. kdr 00:21 CT Stroke Brain w/o Contrast In Process Unspecified. EDMS 00:21 Osito Luevano, LUZ is Primary Nurse. jd3 00:35 X-ray completed. Portable x-ray completed in exam room. Patient tolerated procedure mh1 well. 00:36 Stroke CXR 1 View In Process Unspecified. EDMS 00:36 Patient has correct armband on for positive identification. Placed in gown. Bed in low jd3 position. Call light in reach. Side rails up X2. 00:38 Arm band placed on. jd3 00:55 Inserted saline lock: 18 gauge in right antecubital area, using aseptic technique. jd3 Blood collected. Maintain EMS IV. Dressing intact. Good blood return noted. Site clean \T\ dry. Gauge \T\ site: 20 G Left AC. 01:52 CT Head Angio In Process Unspecified. EDMS 01:53 CT Neck Angio In Process Unspecified. EDMS 02:41 No provider procedures requiring assistance completed. Patient transferred, IV remains jd3 in place. Administered Medications: 00:57 Drug: Cardene 5 mg/hr Route: IV; Rate: calculated rate; Site: left antecubital; aa1 03:00 Follow up: Response: No adverse reaction; IV Status: Order to discontinue infusion; IV jd3 Intake: 53ml 01:18 Drug: Alteplase (Bolus for Stroke) - Activase 0.09 mg/kg {Co-Signature: aa1 (Karla Guerra RN).} Route: IV Thrombolytics; Infused Over: 1 mins; 03:03 Follow up: Response: No adverse reaction; infusion completed jd3 Point of Care Testing: Blood Glucose: 00:07 Blood Glucose: 296 mg/dL; jd3 Ranges: Intake: 03:00 IV: 53ml; Total: 53ml. jd3 Outcome: 01:16 ER care complete, transfer ordered by . kdr 02:44 Condition: stable jd3 02:44 Instructed on the need for transfer, Demonstrated understanding of instructions. 02:58 [place] by ground EMS [place] [facility] [place]. jefraín X-rays sent w/ patient. Note: report given to EMS 03:04 Patient left the ED. juancho NIH Stroke Scale - NIH Stroke Score Date: 12/20/2018 Time: 00:20 Total Score = 5 1a. Level of Consciousness (LOC) - 0(Alert) 1b. Level of Consciousness (LOC) (Year \T\ Age) - 1(One) 1c. LOC Commands (Open \T\ Closes Eyes/Spine Surgeon) - 0(Both) 2. Best Gaze (Lateral Gaze Paresis) - 0(Normal) 3. Visual Field Loss - 1(Partial hemianopia) 4. Facial Palsy - 0(Normal) 5a. Left Arm: Motor (10-second hold) - 0(No drift) 5b. Right Arm: Motor (10-second hold) - 0(No drift) 6a. Left Leg: Motor (5-second hold - always test supine) - 0(No drift) 6b. Right Leg: Motor (5-second hold - always test supine) - 0(No drift) 7. Limb Ataxia (finger/nose \T\ heel/church - test with eyes open) - 1(Present in one limb) 8. Sensory Loss (pinprick arms/legs/face) - 0(Normal) 9. Best Language: Aphasia (description/naming/reading) - 2(Severe aphasia) 10. Dysarthria (speech clarity - read or repeat words) - 0(Normal) 11. Extinction and Inattention (visual/tactile/auditory/spatial/personal) - 0(No abnormality) Initials: juancho NIH Stroke Scale - NIH Stroke Score Date: 12/20/2018 Time: 01:02 Total Score = 3 1a. Level of Consciousness (LOC) - 0(Alert) 1b. Level of Consciousness (LOC) (Year \T\ Age) - 1(One) 1c. LOC Commands (Open \T\ Closes Eyes/Spine Surgeon) - 0(Both) 2. Best Gaze (Lateral Gaze Paresis) - 0(Normal) 3. Visual Field Loss - 0(No visual loss) 4. Facial Palsy - 0(Normal) 5a. Left Arm: Motor (10-second hold) - 0(No drift) 5b. Right Arm: Motor (10-second hold) - 0(No drift) 6a. Left Leg: Motor (5-second hold - always test supine) - 0(No drift) 6b. Right Leg: Motor (5-second hold - always test supine) - 0(No drift) 7. Limb Ataxia (finger/nose \T\ heel/church - test with eyes open) - 0(Absent) 8. Sensory Loss (pinprick arms/legs/face) - 0(Normal) 9. Best Language: Aphasia (description/naming/reading) - 1(Mild to moderate aphasia) 10. Dysarthria (speech clarity - read or repeat words) - 1(Mild to Moderate) 11. Extinction and Inattention (visual/tactile/auditory/spatial/personal) - 0(No abnormality) Initials: [facility] NIH Stroke Scale - NIH Stroke Score Date: 12/20/2018 Time: 02:40 Total Score = 3 1a. Level of Consciousness (LOC) - 0(Alert) 1b. Level of Consciousness (LOC) (Year \T\ Age) - 1(One) 1c. LOC Commands (Open \T\ Closes Eyes/Spine Surgeon) - 0(Both) 2. Best Gaze (Lateral Gaze Paresis) - 0(Normal) 3. Visual Field Loss - 1(Partial hemianopia) 4. Facial Palsy - 0(Normal) 5a. Left Arm: Motor (10-second hold) - 0(No drift) 5b. Right Arm: Motor (10-second hold) - 0(No drift) 6a. Left Leg: Motor (5-second hold - always test supine) - 0(No drift) 6b. Right Leg: Motor (5-second hold - always test supine) - 0(No drift) 7. Limb Ataxia (finger/nose \T\ heel/church - test with eyes open) - 0(Absent) 8. Sensory Loss (pinprick arms/legs/face) - 0(Normal) 9. Best Language: Aphasia (description/naming/reading) - 1(Mild to moderate aphasia) 10. Dysarthria (speech clarity - read or repeat words) - 0(Normal) 11. Extinction and Inattention (visual/tactile/auditory/spatial/personal) - 0(No abnormality) Initials: jd3 Signatures: Dispatcher [employer] EDMS Karla Guerra, LUZ RN aa1 Can Villatoro MD MD kdr Harvey, [facility] Ben Giron RN RN la1 Osito Luevano RN RN jd3 José Miguel Molina ag4 Karla Guerra RN aa1 Corrections: (The following items were deleted from the chart) 12/19 23:54 23:53 Reassessment: code stroke called at 2300 laTrish la1 12/20 00:41 00:21 NIHSS Score: 4 jd3 jd3 00:41 00:40 NIHSS Score: 5 jd3 jd3 02:40 01:15 Reassessment: aa1 jd3 02:44 02:42 Response: No adverse reaction jd3 jd3 02:50 00:59 T-PA (Activase) Screening: Indications: Definite evidence of stroke, jd3 ischemic, embolic, or hypertensive: Yes. Treatment will start within 4.5 hours onset of symptoms: Yes. Consent for thrombolytic therapy: Yes. Contraindications: Blood pressure is more than 185/110: Yes. jd3 03:03 02:10 Response: No adverse reaction [facility] jd3
--- NOTE | 2018-12-20 01:17 | EDPHYS ---
Physician Documentation [facility] Name: Clay Gagnon Jr Age: 73 yrs Sex: Male : 1945 Arrival Date: 12/19/2018 Time: 23:53 Bed 4 Private MD: ED Physician Can Villatoro HPI: 12/20 01:02 This 73 yrs old Male presents to ER via EMS with complaints of S/S of kdr Possible Stroke. 01:02 The patient's problem is reported as altered mental status, disoriented to place, time, kdr confused, responds to to verbal stimuli, to tactile stimuli, to noxious stimuli, dysphasia, incoherent speech, expressive aphasia. Onset: The symptoms/episode began/occurred suddenly, at 22:30. Duration: This was a single incident, The episode is continuous, the symptoms became persistent. Context: the episode(s) was witnessed, by family, occurred at home, occurred while the patient was at rest. The symptoms are alleviated by nothing. The symptoms are aggravated by nothing. Severity of symptoms: At their worst the symptoms were moderate in the emergency department the symptoms are unchanged. Patient's baseline: Neuro: alert and fully oriented, Motor: no deficits, Ambulation: walks without assistance, Speech: normal for age. It is unknown whether or not the patient has had similar symptoms in the past, The patient has had other CVA's that last known was in 2017. It is unknown whether or not the patient has recently seen a physician. Historical: - Allergies: 02:16 NKA; jd3 - Home Meds: 02:47 aspirin 325 mg Oral tab 1 tab once daily [Active]; atorvastatin 80 mg Oral tab 1 tab jd3 nightly [Active]; carbidopa-levodopa 25-100 mg Oral tab 1 tab 3 times per day [Active]; Centrum Silver 0.4-300-250 mg-mcg-mcg Oral tab daily [Active]; clopidogrel 75 mg Oral tab 1 tab once daily [Active]; donepezil 5 mg Oral tab 1 tab nightly [Active]; Dulcolax (bisacodyl) 5 mg Oral TbEC 2 tabs daily prn [Active]; duloxetine 30 mg Oral cpDR 1 cap once daily [Active]; finasteride 5 mg Oral tab 1 tab once daily [Active]; gabapentin 800 mg Oral tab 1 tab 3 times per day [Active]; Januvia 100 mg Oral tab 1 tab once daily [Active]; metformin 1,000 mg Oral tab 1 tab 2 times per day [Active]; midodrine 5 mg Oral tab 1 tabs 3 times per day [Active]; Novolin 70/30 [place] Sub-Q 20 unit daily [Active]; paroxetine HCl 40 mg Oral tab 1 tab nightly [Active]; Senokot 8.6 mg Oral tab 1 tabs twice daily [Active]; tamsulosin 0.4 mg Oral cp24 2 caps nightly [Active]; - PMHx: 02:16 CAD; CVA; Dementia; Diabetes - IDDM; High Cholesterol; Parkinsons; jd3 - Immunization history:: Adult Immunizations unknown. - Social history:: Smoking status: unknown. - Ebola Screening: : Patient negative for fever greater than or equal to 101.5 degrees Fahrenheit, and additional compatible Ebola Virus Disease symptoms. ROS: 01:02 Constitutional: Diffiuclt to obtain since the patient has expressive aphasia Eyes: kdr Negative for injury, pain, redness, and discharge, Neck: Negative for injury, pain, and swelling. 01:02 Unable to obtain ROS due to altered mental status. Exam: 01:02 Radiologist reports: Old right frontal infarct o/w negative kdr 01:02 Constitutional: The patient appears 01:02 Neuro: Orientation: to person, Not oriented to place, time, situation, Mentation: able to follow commands, slow to respond, confused, Memory: unable to test, Cerebellar function: dysmetria is noted on the left, unable to test. 04:08 Constitutional: This is a well developed, well nourished patient who is awake, alert, kdr and in moderate distress. Head/Face: Normocephalic, atraumatic. Eyes: Pupils equal round and reactive to light, extra-ocular motions intact. Lids and lashes normal. Conjunctiva and sclera are non-icteric and not injected. Cornea within normal limits. Periorbital areas with no swelling, redness, or edema. Neck: Trachea midline, no thyromegaly or masses palpated, and no cervical lymphadenopathy. Supple, full range of motion without nuchal rigidity, or vertebral point tenderness. No Meningismus. Chest/axilla: Normal chest wall appearance and motion. Nontender with no deformity. No lesions are appreciated. Cardiovascular: Regular rate and rhythm with a normal S1 and S2. No gallops, murmurs, or rubs. Normal PMI, no JVD. No pulse deficits. Respiratory: Lungs have equal breath sounds bilaterally, clear to auscultation and percussion. No rales, rhonchi or wheezes noted. No increased work of breathing, no retractions or nasal flaring. Abdomen/GI: Soft, non-tender, with normal bowel sounds. No distension or tympany. No guarding or rebound. No evidence of tenderness throughout. Back: No spinal tenderness. No costovertebral tenderness. Full range of motion. Skin: Warm, dry with normal turgor. Normal color with no rashes, no lesions, and no evidence of cellulitis. MS/ Extremity: Pulses equal, no cyanosis. Neurovascular intact. Full, normal range of motion. Psych: Awake, alert, with orientation to person, place and time. Behavior, mood, and affect are within normal limits. 04:08 Neuro: The patient appears to have both receptive and expressive aphasia. Vital Signs: 00:30 BP 182 / 76; Pulse 58; Resp 16 S; Temp 97.8(O); Pulse Ox 100% on R/A; Weight 72.57 kg jd3 (R); Height 5 ft. 8 in. (172.72 cm) (R); Pain 0/10; 00:47 Weight 76.7 kg (M); ag4 01:00 BP 164 / 72; Pulse 59; Resp 16; Pulse Ox 100% on R/A; aa1 01:23 BP 125 / 62; Pulse 67; Resp 18; Pulse Ox 100% on R/A; aa1 02:30 BP 140 / 71; Pulse 73; Resp 14 S; Pulse Ox 100% on R/A; Pain 0/10; jd3 00:47 Body Mass Index 25.71 (76.70 kg, 172.72 cm) ag4 NIH Stroke Scale Scores: 00:20 NIHSS Score: 5 jd3 01:02 NIHSS Score: 3 kdr 02:40 NIHSS Score: 3 jd3 MDM: 00:52 ED course: Awaiting to call back. Initially she had declined to give consent kdr without talking to her daughter who is a nurse. Also the patient's BP has elevated taking him out of range for t-PA at this time. Will get Cardene drip started while awaiting callback from /daughter.. 01:02 Data reviewed: vital signs, nurses notes, lab test result(s), radiologic studies. kdr Counseling: I had a detailed discussion with the patient and/or guardian regarding: the historical points, exam findings, and any diagnostic results supporting the discharge/admit diagnosis, lab results, radiology results, the need to transfer to another facility. 01:16 Patient medically screened. kdr 12/20 00:04 Order name: Basic Metabolic Panel; Complete Time: 00:34 kdr 12/20 00:04 Order name: CBC with Diff; Complete Time: 00:34 kdr 12/20 00:04 Order name: Protime (+inr); Complete Time: 00:34 kdr 12/20 00:04 Order name: Ptt, Activated; Complete Time: 00:34 kdr 12/20 00:04 Order name: CT Stroke Brain w/o Contrast kdr 12/20 00:04 Order name: Stroke CXR 1 View kdr 12/20 00:04 Order name: EKG; Complete Time: 00:07 kdr 12/20 00:04 Order name: Accucheck; Complete Time: 00:39 kdr 12/20 00:04 Order name: Cardiac monitoring; Complete Time: 00:39 kdr 12/20 00:04 Order name: EKG - Nurse/Tech; Complete Time: 00:39 kdr 12/20 00:44 Order name: CT Head Angio kdr 12/20 01:10 Order name: CT Neck Angio cm6 12/20 00:04 Order name: IV Saline Lock; Complete Time: 00:39 kdr 12/20 00:04 Order name: Labs collected and sent; Complete Time: 00:39 kdr 12/20 00:04 Order name: NPO; Complete Time: 00:39 kdr 12/20 00:04 Order name: O2 Per Protocol; Complete Time: 00:39 kdr 12/20 00:04 Order name: O2 Sat Monitoring; Complete Time: 00:40 kdr 12/20 00:04 Order name: Stroke Swallow Screen; Complete Time: 00:40 kdr Administered Medications: 00:57 Drug: Cardene 5 mg/hr Route: IV; Rate: calculated rate; Site: left antecubital; aa1 03:00 Follow up: Response: No adverse reaction; IV Status: Order to discontinue infusion; IV jd3 Intake: 53ml 01:18 Drug: Alteplase (Bolus for Stroke) - Activase 0.09 mg/kg {Co-Signature: aa1 (Karla Guerra RN).} Route: IV Thrombolytics; Infused Over: 1 mins; 03:03 Follow up: Response: No adverse reaction; infusion completed jd3 Point of Care Testing: Blood Glucose: 00:07 Blood Glucose: 296 mg/dL; jd3 Ranges: Critical Glucose Levels:Adult <50 mg/dl or >400 mg/dl <40 mg/dl or >180 mg/dl Disposition: 12/20/18 01:[address] [facility]. Diagnosis is CVA. - Reason for transfer: Higher level of care. - Accepting physician is Dr. Balderas. - Condition is Fair. - Problem is new. - Symptoms have improved. NIH Stroke Scale - NIH Stroke Score Date: 12/20/2018 Time: 00:20 Total Score = 5 1a. Level of Consciousness (LOC) - 0(Alert) 1b. Level of Consciousness (LOC) (Year \T\ Age) - 1(One) 1c. LOC Commands (Open \T\ Closes Eyes/Sap Basis Architect) - 0(Both) 2. Best Gaze (Lateral Gaze Paresis) - 0(Normal) 3. Visual Field Loss - 1(Partial hemianopia) 4. Facial Palsy - 0(Normal) 5a. Left Arm: Motor (10-second hold) - 0(No drift) 5b. Right Arm: Motor (10-second hold) - 0(No drift) 6a. Left Leg: Motor (5-second hold - always test supine) - 0(No drift) 6b. Right Leg: Motor (5-second hold - always test supine) - 0(No drift) 7. Limb Ataxia (finger/nose \T\ heel/church - test with eyes open) - 1(Present in one limb) 8. Sensory Loss (pinprick arms/legs/face) - 0(Normal) 9. Best Language: Aphasia (description/naming/reading) - 2(Severe aphasia) 10. Dysarthria (speech clarity - read or repeat words) - 0(Normal) 11. Extinction and Inattention (visual/tactile/auditory/spatial/personal) - 0(No abnormality) Initials: jd3 NIH Stroke Scale - NIH Stroke Score Date: 12/20/2018 Time: 01:02 Total Score = 3 1a. Level of Consciousness (LOC) - 0(Alert) 1b. Level of Consciousness (LOC) (Year \T\ Age) - 1(One) 1c. LOC Commands (Open \T\ Closes Eyes/Sap Basis Architect) - 0(Both) 2. Best Gaze (Lateral Gaze Paresis) - 0(Normal) 3. Visual Field Loss - 0(No visual loss) 4. Facial Palsy - 0(Normal) 5a. Left Arm: Motor (10-second hold) - 0(No drift) 5b. Right Arm: Motor (10-second hold) - 0(No drift) 6a. Left Leg: Motor (5-second hold - always test supine) - 0(No drift) 6b. Right Leg: Motor (5-second hold - always test supine) - 0(No drift) 7. Limb Ataxia (finger/nose \T\ heel/church - test with eyes open) - 0(Absent) 8. Sensory Loss (pinprick arms/legs/face) - 0(Normal) 9. Best Language: Aphasia (description/naming/reading) - 1(Mild to moderate aphasia) 10. Dysarthria (speech clarity - read or repeat words) - 1(Mild to Moderate) 11. Extinction and Inattention (visual/tactile/auditory/spatial/personal) - 0(No abnormality) Initials: maritza NIH Stroke Scale - NIH Stroke Score Date: 12/20/2018 Time: 02:40 Total Score = 3 1a. Level of Consciousness (LOC) - 0(Alert) 1b. Level of Consciousness (LOC) (Year \T\ Age) - 1(One) 1c. LOC Commands (Open \T\ Closes Eyes/Sap Basis Architect) - 0(Both) 2. Best Gaze (Lateral Gaze Paresis) - 0(Normal) 3. Visual Field Loss - 1(Partial hemianopia) 4. Facial Palsy - 0(Normal) 5a. Left Arm: Motor (10-second hold) - 0(No drift) 5b. Right Arm: Motor (10-second hold) - 0(No drift) 6a. Left Leg: Motor (5-second hold - always test supine) - 0(No drift) 6b. Right Leg: Motor (5-second hold - always test supine) - 0(No drift) 7. Limb Ataxia (finger/nose \T\ heel/church - test with eyes open) - 0(Absent) 8. Sensory Loss (pinprick arms/legs/face) - 0(Normal) 9. Best Language: Aphasia (description/naming/reading) - 1(Mild to moderate aphasia) 10. Dysarthria (speech clarity - read or repeat words) - 0(Normal) 11. Extinction and Inattention (visual/tactile/auditory/spatial/personal) - 0(No abnormality) Initials: jd3 Signatures: Dispatcher [employer] EDKarla Bella RN RN aa1 Can Villatoro MD MD kdr Osito Luevano RN RN jd3 Karla Guerra RN aa1 Corrections: (The following items were deleted from the chart) 03:04 01:16 12/20/2018 01:[address] [facility]. jd3 Diagnosis is CVA. Reason for transfer: Higher level of care. Accepting physician is Dr. Balderas. Condition is Fair. Problem is new. Symptoms have improved. kdr
[2018-12-20] MEDS ORDERED: NA CHLORIDE 0.9% 50 ML IV ONE (02:06)
[2018-12-20 06:55] VITALS: TEMP 97.8; O2SAT 100
[2018-12-20 06:59] VITALS: BP 140/71
--- NOTE | 2018-12-20 08:46 | EKG ---
Test Date: 2018-12-19 Test Time: 23:53:44 Dairy Nutritionist: MEASUREMENT RESULTS: Intervals: Rate: 60 CT: 160 QRSD: 102 QT: 412 QTc: 412 [place]: P: 34 CT: 160 QRS: -37 T: 2 INTERPRETIVE STATEMENTS: Normal sinus rhythm Left axis deviation Minimal voltage criteria for LVH, may be normal variant Abnormal ECG Compared to ECG 06/16/2018 10:08:14 Left-axis deviation now present Left ventricular hypertrophy now present Left anterior fascicular block no longer present Electronically Signed On 12-20-18 08:45:57 CDT by Yrn Kurtz
--- NOTE | 2018-12-21 10:10 | RAD REPORT ---
EXAM DESCRIPTION: RAD - Chest Single View - 12/20/2018 12:36 am CLINICAL HISTORY: The patient is 73 years old and is Male; AMS TECHNIQUE: Frontal view of the chest. COMPARISON: Chest radiograph June 17, 2018. FINDINGS: LUNGS: Unremarkable. No consolidation. PLEURAL SPACE: Unremarkable. No pneumothorax. HEART: Unremarkable. No cardiomegaly. MEDIASTINUM: Unremarkable. BONES/JOINTS: Minimal degenerative change of the bones is noted. IMPRESSION: No acute cardiopulmonary process. Electronically signed by: Kaylynn Mckinney MD 12/20/2018 12:46 AM CDT Due to temporary technical issues with the PACS/Fluency reporting system, reports are being signed by the in house radiologist as a courtesy to ensure prompt reporting. The interpreting radiologist is f ully responsible for the content of the report.
--- NOTE | 2018-12-21 10:12 | RAD REPORT ---
EXAM DESCRIPTION: CT - Head angio - 12/20/2018 2:15 am CLINICAL HISTORY: CVA;Confused COMPARISON: None. TECHNIQUE: CT HEAD ANGIOGRAPHY WITH IV CONTRAST, CT NECK ANGIOGRAPHY WITH IV CONTRAST on 12/20/2018 1 2:44 AM CDT This exam was performed according to our departmental dose-optimization program, which includes autom ated exposure control, adjustment of the mA and/or kV according to patient size and/or use of iterati ve reconstruction technique. MIP reconstructions were generated. Stenoses are calculated by NASCET criteria. FINDINGS: There are mild calcifications at the origin of the right internal carotid artery without f low-limiting stenosis. The left internal carotid artery is patent. Both common carotid arteries are p atent. The extracranial vertebral arteries are diffusely patent. Intracranially, there are heavy calc ifications of the distal vertebral arteries without stenosis. The basilar system is otherwise unremar kable. The A1 segment of the left anterior cerebral artery is not seen. Difficult to exclude multiple stenos es involving the proximal and distal M1 segment of the right middle cerebral artery. There is a possi ble high-grade stenosis of the distal left internal carotid artery. There appears to be stenosis of t he proximal M1 segment of the right middle cerebral artery. IMPRESSION: No convincing stenosis of the extracranial vasculature. 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 Electronically signed by: John Carnes MD 12/20/2018 2:06 AM CDT Due to temporary technical issues with the PACS/Fluency reporting system, reports are being signed by the in house radiologist as a courtesy to ensure prompt reporting. The interpreting radiologist is f ully responsible for the content of the report.
--- NOTE | 2018-12-21 10:16 | RAD REPORT ---
EXAM DESCRIPTION: CT - Ct Stroke Brain Wo Cont - 12/20/2018 12:31 am ADDENDUM #1 Clinical findings were discussed with and acknowledged by Dr. Can Villatoro on 12/20/2018 12:24 AM CDT . Electronically signed by: John Carnes MD 12/20/2018 12:57 AM CDT End of Addendum CLINICAL HISTORY: Expressive aphasia; Confused COMPARISON: None. TECHNIQUE: CT HEAD WITHOUT IV CONTRAST on 12/20/2018 12:04 AM CDT This exam was performed according to our departmental dose-optimization program, which includes autom ated exposure control, adjustment of the mA and/or kV according to patient size and/or use of iterati ve reconstruction technique. FINDINGS: There is no acute hemorrhage, mass effect or midline shift. There is encephalomalacia in t he right frontal and parietal lobes. There is a small old right basal ganglia lacunar infarct. There is no hydrocephalus. There is no significant volume loss for age. There are mild patchy hypodensities within the periventricular and subcortical white matter, consistent with microangiopathic ischemic c hanges. The calvarium is intact. Orbits and globes are unremarkable. The paranasal sinuses are clear. Mastoid air cells are clear. IMPRESSION: No acute intracranial findings. Electronically signed by: John Carnes MD 12/20/2018 12:24 AM CDT Due to temporary technical issues with the PACS/Fluency reporting system, reports are being signed by the in house radiologist as a courtesy to ensure prompt reporting. The interpreting radiologist is f ully responsible for the content of the report.
--- NOTE | 2018-12-21 10:26 | RAD REPORT ---
EXAM DESCRIPTION: CT - Neck Angio - 12/20/2018 1:53 am CLINICAL HISTORY: CVA;Confused COMPARISON: None. TECHNIQUE: CT HEAD ANGIOGRAPHY WITH IV CONTRAST, CT NECK ANGIOGRAPHY WITH IV CONTRAST on 12/20/2018 1 2:44 AM CDT This exam was performed according to our departmental dose-optimization program, which includes autom ated exposure control, adjustment of the mA and/or kV according to patient size and/or use of iterati ve reconstruction technique. MIP reconstructions were generated. Stenoses are calculated by NASCET criteria. FINDINGS: There are mild calcifications at the origin of the right internal carotid artery without f low-limiting stenosis. The left internal carotid artery is patent. Both common carotid arteries are p atent. The extracranial vertebral arteries are diffusely patent. Intracranially, there are heavy calc ifications of the distal vertebral arteries without stenosis. The basilar system is otherwise unremar kable. The A1 segment of the left anterior cerebral artery is not seen. Difficult to exclude multiple stenos es involving the proximal and distal M1 segment of the right middle cerebral artery. There is a possi ble high-grade stenosis of the distal left internal carotid artery. There appears to be stenosis of t he proximal M1 segment of the right middle cerebral artery. IMPRESSION: No convincing stenosis of the extracranial vasculature. 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 Electronically signed by: John Carnes MD 12/20/2018 2:06 AM CDT Due to temporary technical issues with the PACS/Fluency reporting system, reports are being signed by the in house radiologist as a courtesy to ensure prompt reporting. The interpreting radiologist is f ully responsible for the content of the report.
== END 2018-12-20 03:04 | disposition short-term general hospital (02) ==
LOC: ER 23:52
DX: I63.9 Cerebral infarction, unspecified (principal); R47.01 Aphasia; R29.705 NIHSS score 5; E11.9 Type 2 diabetes mellitus without complications; E78.00 Pure hypercholesterolemia, unspecified; G20 Parkinson's disease; F02.80 Dementia in other diseases classified elsewhere, unspecified severity, without behavioral disturbance, psychotic disturbance, mood disturbance, and anxiety; Z79.4 Long term (current) use of insulin; Z79.82 Long term (current) use of aspirin
CPT/HCPCS: 96365; 92977; 93005; 85025; 80048; 36415; 85610; 85730; 70496; 70498; 70450; 71045; 99291; 96366; 96374; Q9967 ×2; J2997

== ENCOUNTER 2018-12-24 10:42 | Inpatient (IN) | payer OTHER ==
--- OUTSIDE RECORDS SUMMARY | 2018-12-24 20:14 | XMS REPORT ---
:1945 [facility] Address [address] [place] [place] [address] Care Team Providers Name Role Phone CHERI PRESLEY Unavailable Unavailable Problems This patient has no known problems. Allergies, Adverse Reactions, Alerts This patient has no known allergies or adverse reactions. Medications This patient has no known medications. Results Test Description Test Time Test Comments Text Results Atomic Results Result Comments POCT-GLUCOSE METER 2018-12-24 18:12:00 Test Item Value Reference Range Comments POC-GLUCOSE METER (BEAKER) (test 178 mg/dL 70-110 TESTED AT [address] emwy=6724) [facility] [address] POCT-GLUCOSE [id number] 13:20:00 Test Item Value Reference Range Comments POC-GLUCOSE METER (BEAKER) 286 mg/dL 70-110 TESTED AT [address] (test uftk=1359) [facility] [address] POCT-GLUCOSE [id number] 10:35:00 Test Item Value Reference Range Comments POC-GLUCOSE METER (BEAKER) 267 mg/dL 70-110 TESTED AT [address] (test ujtj=1141) [facility] [address] POCT-GLUCOSE [id number] 21:15:00 Test Item Value Reference Range Comments POC-GLUCOSE METER (BEAKER) 249 mg/dL 70-110 TESTED AT [address] (test umtt=0233) [facility] [address] POCT-GLUCOSE [id number] 17:08:00 Test Item Value Reference Range Comments POC-GLUCOSE METER (BEAKER) 160 mg/dL 70-110 TESTED AT [address] (test ptfr=5692) [facility] [address] POCT-GLUCOSE [id number] 12:15:00 Test Item Value Reference Range Comments POC-GLUCOSE METER (BEAKER) 322 mg/dL 70-110 Verify with Lab draw/TESTED AT (test lmfg=4676) [address] [address] POCT-GLUCOSE [id number] 08:32:00 Test Item Value Reference Range Comments POC-GLUCOSE METER (BEAKER) 282 mg/dL 70-110 TESTED AT [address] (test psby=6622) [facility] [address] POCT-GLUCOSE [id number] 21:09:00 Test Item Value Reference Range Comments POC-GLUCOSE METER (BEAKER) 163 mg/dL 70-110 TESTED AT [address] (test pvsj=6388) [facility] [address] POCT-GLUCOSE [id number] 17:20:00 Test Item Value Reference Range Comments POC-GLUCOSE METER (BEAKER) 393 mg/dL 70-110 TESTED AT [address] (test cklw=0929) [facility] [address] POCT-GLUCOSE [id number] 13:10:00 Test Item Value Reference Range Comments POC-GLUCOSE METER (BEAKER) 344 mg/dL 70-110 Notified LUZ NUNEZ/TESTED AT [facility] (test akpg=9553) [address] [place] [address] POCT-GLUCOSE [id number] 08:54:00 Test Item Value Reference Range Comments POC-GLUCOSE METER (BEAKER) 245 mg/dL 70-110 TESTED AT [address] (test qlio=2670) [facility] [address] BASIC METABOLIC [id number] 04:26:00 Test Item Value Reference Range Comments SODIUM (BEAKER) (test 138 meq/L 136-145 ihha=502) POTASSIUM (BEAKER) (test 4.3 meq/L 3.5-5.1 ofoq=300) CHLORIDE (BEAKER) (test 109 meq/L 98-107 rcce=687) CO2 (BEAKER) (test 23 meq/L 22-29 bhuo=908) BLOOD UREA NITROGEN 29 mg/dL 7-21 (BEAKER) (test wrlh=424) CREATININE (BEAKER) (test 1.17 mg/dL 0.57-1.25 nlvn=158) GLUCOSE RANDOM (BEAKER) 220 mg/dL 70-105 (test wrrx=420) CALCIUM (BEAKER) (test 9.3 mg/dL 8.4-10.2 swii=173) EGFR (BEAKER) (test 61 mL/min/1.73 sq m ESTIMATED GFR IS NOT lirz=7733) ACCURATE CREATININE CLEARANCE IN PREDICTING GLOMERULAR FILTRATION RATE. ESTIMATED GFR IS NOT APPLICABLE FOR DIALYSIS PATIENTS. CBC W/PLT COUNT & AUTO [id number] 04:05:00 Test Item Value Reference Range Comments WHITE BLOOD CELL COUNT (BEAKER) (test nsig=892) 6.6 K/ L 3.5-10.5 RED BLOOD CELL COUNT (BEAKER) (test nwpc=670) 3.97 M/ L 4.63-6.08 HEMOGLOBIN (BEAKER) (test agff=351) 12.0 GM/DL 13.7-17.5 HEMATOCRIT (BEAKER) (test mlfj=130) 36.7 % 40.1-51.0 MEAN CORPUSCULAR VOLUME (BEAKER) (test mmtr=498) 92.4 fL 79.0-92.2 MEAN CORPUSCULAR HEMOGLOBIN (BEAKER) (test 30.2 pg 25.7-32.2 vpvz=828) MEAN CORPUSCULAR HEMOGLOBIN CONC (BEAKER) (test 32.7 GM/DL 32.3-36.5 yyai=989) RED CELL DISTRIBUTION WIDTH (BEAKER) (test 13.0 % 11.6-14.4 zpws=490) PLATELET COUNT (BEAKER) (test vigw=233) 174 K/CU MM 150-450 MEAN PLATELET VOLUME (BEAKER) (test ggck=886) 10.0 fL 9.4-12.4 NUCLEATED RED BLOOD CELLS (BEAKER) (test 0 /100 WBC 0-0 afco=198) NEUTROPHILS RELATIVE PERCENT (BEAKER) (test 66 % imea=153) LYMPHOCYTES RELATIVE PERCENT (BEAKER) (test 20 % qcrc=327) MONOCYTES RELATIVE PERCENT (BEAKER) (test 10 % syan=945) EOSINOPHILS RELATIVE PERCENT (BEAKER) (test 3 % qocd=856) BASOPHILS RELATIVE PERCENT (BEAKER) (test 1 % bnvz=715) NEUTROPHILS ABSOLUTE COUNT (BEAKER) (test 4.32 K/ L 1.78-5.38 ntoj=361) LYMPHOCYTES ABSOLUTE COUNT (BEAKER) (test 1.31 K/ L 1.32-3.57 xywj=068) MONOCYTES ABSOLUTE COUNT (BEAKER) (test 0.66 K/ L 0.30-0.82 toel=367) EOSINOPHILS ABSOLUTE COUNT (BEAKER) (test 0.22 K/ L 0.04-0.54 utcx=900) BASOPHILS ABSOLUTE COUNT (BEAKER) (test 0.03 K/ L 0.01-0.08 pgcw=272) IMMATURE GRANULOCYTES-RELATIVE PERCENT (BEAKER) 0 % 0-1 (test xtbc=9773) POCT-GLUCOSE [id number] 22:36:00 Test Item Value Reference Range Comments POC-GLUCOSE METER (BEAKER) 231 mg/dL 70-110 TESTED AT [address] (test hgon=2937) [facility] [address] POCT-GLUCOSE [id number] 18:13:00 Test Item Value Reference Range Comments POC-GLUCOSE METER (BEAKER) 258 mg/dL 70-110 TESTED AT [address] (test rdxd=3538) [facility] [address] POCT-GLUCOSE [id number] 12:31:00 Test Item Value Reference Range Comments POC-GLUCOSE METER (BEAKER) 264 mg/dL 70-110 TESTED AT [address] (test qdlr=3276) [facility] [address] POCT-GLUCOSE [id number] 08:18:00 Test Item Value Reference Range Comments POC-GLUCOSE METER (BEAKER) 238 mg/dL 70-110 TESTED AT [address] (test lycd=7942) [facility] [address] BASIC METABOLIC [id number] 07:43:00 Test Item Value Reference Range Comments SODIUM (BEAKER) (test 138 meq/L 136-145 lgxd=996) POTASSIUM (BEAKER) (test 4.5 meq/L 3.5-5.1 Specimen slightly fjco=498) hemolyzed CHLORIDE (BEAKER) (test 108 meq/L 98-107 zmoa=998) CO2 (BEAKER) (test 23 meq/L 22-29 uhtv=917) BLOOD UREA NITROGEN 20 mg/dL 7-21 (BEAKER) (test hrpi=700) CREATININE (BEAKER) (test 1.12 mg/dL 0.57-1.25 Specimen slightly qcwy=827) hemolyzed GLUCOSE RANDOM (BEAKER) 207 mg/dL 70-105 (test cvvv=320) CALCIUM (BEAKER) (test 9.4 mg/dL 8.4-10.2 ddmb=755) EGFR (BEAKER) (test 65 mL/min/1.73 sq m ESTIMATED GFR IS NOT mewm=8774) ACCURATE CREATININE CLEARANCE IN PREDICTING GLOMERULAR FILTRATION RATE. ESTIMATED GFR IS NOT APPLICABLE FOR DIALYSIS PATIENTS. CBC W/PLT COUNT & AUTO [id number] 05:36:00 Test Item Value Reference Range Comments WHITE BLOOD CELL COUNT (BEAKER) (test vnuz=165) 6.6 K/ L 3.5-10.5 RED BLOOD CELL COUNT (BEAKER) (test hgkb=139) 4.18 M/ L 4.63-6.08 HEMOGLOBIN (BEAKER) (test dcqq=047) 12.7 GM/DL 13.7-17.5 HEMATOCRIT (BEAKER) (test jjpg=367) 38.5 % 40.1-51.0 MEAN CORPUSCULAR VOLUME (BEAKER) (test hsoa=334) 92.1 fL 79.0-92.2 MEAN CORPUSCULAR HEMOGLOBIN (BEAKER) (test 30.4 pg 25.7-32.2 uhyb=441) MEAN CORPUSCULAR HEMOGLOBIN CONC (BEAKER) (test 33.0 GM/DL 32.3-36.5 awka=307) RED CELL DISTRIBUTION WIDTH (BEAKER) (test 12.9 % 11.6-14.4 xxui=389) PLATELET COUNT (BEAKER) (test oapc=396) 179 K/CU MM 150-450 MEAN PLATELET VOLUME (BEAKER) (test bqtb=892) 9.8 fL 9.4-12.4 NUCLEATED RED BLOOD CELLS (BEAKER) (test 0 /100 WBC 0-0 xumy=608) NEUTROPHILS RELATIVE PERCENT (BEAKER) (test 62 % qtur=825) LYMPHOCYTES RELATIVE PERCENT (BEAKER) (test 23 % xhuo=107) MONOCYTES RELATIVE PERCENT (BEAKER) (test 10 % pepb=392) EOSINOPHILS RELATIVE PERCENT (BEAKER) (test 3 % yfkh=125) BASOPHILS RELATIVE PERCENT (BEAKER) (test 1 % lrke=351) NEUTROPHILS ABSOLUTE COUNT (BEAKER) (test 4.11 K/ L 1.78-5.38 oman=109) LYMPHOCYTES ABSOLUTE COUNT (BEAKER) (test 1.53 K/ L 1.32-3.57 etif=234) MONOCYTES ABSOLUTE COUNT (BEAKER) (test 0.68 K/ L 0.30-0.82 pauf=440) EOSINOPHILS ABSOLUTE COUNT (BEAKER) (test 0.22 K/ L 0.04-0.54 kwpd=958) BASOPHILS ABSOLUTE COUNT (BEAKER) (test 0.05 K/ L 0.01-0.08 fbfb=883) IMMATURE GRANULOCYTES-RELATIVE PERCENT (BEAKER) 0 % 0-1 (test atfi=3573) MR, BRAIN, WITHOUT [id number] 02:37:00Reason for exam:->strokeFINAL REPORT MR, BRAIN, WITHOUT CONTRAST INDICATION: Strokestroke TECHNIQUE: Multiplanar, multisequence MR imaging of the brain was obtained. COMPARISON: None FINDINGS: Tiny focus of restricted diffusion within the right inferior frontal lobe with concomitant decreased signal onADC and FLAIR hyperintensity (axial DTI image 20), which may represent tiny acute infarct. Of note, acute blood products would similarly restricted diffusion ( which is a relevant consideration considering intraventricular blood products) Remote appearing right MCA distribution infarct with no restricted diffusion and significant volume loss throughout the frontal and parietal parenchyma. Additional remote infarcts involving the anterior and posterior watershed distribution on the right, and right centrum semiovale are also present. Layering hemosiderin level within the lateral ventricles compatiblewith blood products. No hydrocephalus. Brain parenchyma is otherwise normal in morphology. Midline structures are normally developed. Scattered T2/FLAIR hyperintense foci within the periventricular andsubcortical white matter are nonspecific, however , statistically represent chronic microvascular ischemic changes. No hydrocephalus. Orbits are within normal limits. No obstructive paranasal sinus disease. IMPRESSION: Tiny focus of restricted diffusion within the right inferior frontal lobe with concomitant decreased signal on ADC and FLAIR hyperintensity (axial DTI image 20), which may represent tiny acute infarct. Of note, acute blood products with similarly restricted diffusion (which is a relevant consideration considering intraventricular blood products) Chronic appearing right MCA infarct Layering blood products within the lateral ventricles. No hydrocephalus. Findings regarding layering blood products within the lateral ventricles were discussed with neurology by Dr. Henry 2:33 AM. Reportedly, CT and CT angiogram from outside institution were acquired better not available currently for review (not yet uploaded to PACS) Signed: Alfreda Henry MDReport Verified Date/Time: 12/21/2018 02:37:32 Reading Location: [facility] Neuro Reading Room POCT-GLUCOSE [id number] 23:22:00 Test Item Value Reference Range Comments POC-GLUCOSE METER (BEAKER) 214 mg/dL 70-110 TESTED AT [address] (test inkh=7559) [place] [address] [id number] 21:29:00 Test Item Value Reference Range Comments RPR SCREEN (BEAKER) (test vdwz=756) Nonreactive Nonreactive POCT-GLUCOSE [id number] 17:29:00 Test Item Value Reference Range Comments POC-GLUCOSE METER (BEAKER) 243 mg/dL 70-110 TESTED AT [address] (test nlug=7476) [place] [address] POCT-GLUCOSE [id number] 16:32:00 Test Item Value Reference Range Comments POC-GLUCOSE METER (BEAKER) 221 mg/dL 70-110 TESTED AT [address] (test gcrb=3168) [place] [address] HEMOGLOBIN [id number] 12:18:00 Test Item Value Reference Range Comments HEMOGLOBIN A1C (BEAKER) (test cbru=995) 10.9 % 4.3-6.1 POCT-GLUCOSE [id number] 11:59:00 Test Item Value Reference Range Comments POC-GLUCOSE METER (BEAKER) 165 mg/dL 70-110 TESTED AT [address] (test tsxw=1348) [place] [address] POCT-GLUCOSE [id number] 10:11:00 Test Item Value Reference Range Comments POC-GLUCOSE METER (BEAKER) 191 mg/dL 70-110 TESTED AT [address] (test ikcs=8787) [place] [address] BASIC METABOLIC [id number] 07:30:00 Test Item Value Reference Range Comments SODIUM (BEAKER) (test 138 meq/L 136-145 czpo=433) POTASSIUM (BEAKER) (test 4.3 meq/L 3.5-5.1 Specimen slightly emeo=349) hemolyzed CHLORIDE (BEAKER) (test 106 meq/L 98-107 oyir=069) CO2 (BEAKER) (test 19 meq/L 22-29 ptjv=558) BLOOD UREA NITROGEN 23 mg/dL 7-21 (BEAKER) (test ikiy=271) CREATININE (BEAKER) (test 1.23 mg/dL 0.57-1.25 Specimen slightly rubv=069) hemolyzed GLUCOSE RANDOM (BEAKER) 232 mg/dL 70-105 (test pfzh=319) CALCIUM (BEAKER) (test 9.2 mg/dL 8.4-10.2 bxnw=858) EGFR (BEAKER) (test 58 mL/min/1.73 sq m ESTIMATED GFR IS NOT meyl=6676) ACCURATE CREATININE CLEARANCE IN PREDICTING GLOMERULAR FILTRATION RATE. ESTIMATED GFR IS NOT APPLICABLE FOR DIALYSIS PATIENTS. TSH/FREE T4 IF [id number] 06:32:00 Test Item Value Reference Range Comments THYROID STIMULATING HORMONE (BEAKER) (test 0.73 uIU/mL 0.35-4.94 pbpu=277) VITAMIN B12 AND [id number] 06:32:00 Test Item Value Reference Range Comments VITAMIN B12 (BEAKER) (test ofop=504) 540 pg/mL 213-816 FOLATE (BEAKER) (test bojx=457) 12.0 ng/mL >=7.0 POCT-GLUCOSE [id number] 06:29:00 Test Item Value Reference Range Comments POC-GLUCOSE METER (BEAKER) 236 mg/dL 70-110 TESTED AT [address] (test pxwo=4667) [facility] [address] LIPID [id number] 06:05:00 Test Item Value Reference Range Comments TRIGLYCERIDES (BEAKER) (test 108 mg/dL Specimen slightly hemolyzed hvng=623) CHOLESTEROL (BEAKER) (test 148 mg/dL Specimen slightly hemolyzed qoqg=629) HDL CHOLESTEROL (BEAKER) (test 38 mg/dL ckcw=756) LDL CHOLESTEROL CALCULATED 88 mg/dL (BEAKER) (test qevq=973) Triglyceride Reference Range: Low Risk <150 Borderline 150- 199 High Risk 200-499 Very High Risk >=500Cholesterol Reference Range: Low Risk <200 Borderline 200-239 High Risk > 240HDL Cholesterol Reference Range: Low Risk >=60 High Risk <40LDL Cholesterol Reference Range: Optimal <100 Near Optimal 100-129 Borderline 130-159 High 160-189 Very High >=190HEPATIC FUNCTION [id number] 06:05:00 Test Item Value Reference Range Comments TOTAL PROTEIN (BEAKER) (test 5.8 gm/dL 6.0-8.3 Specimen slightly hemolyzed pgng=756) ALBUMIN (BEAKER) (test 3.4 g/dL 3.5-5.0 Specimen slightly hemolyzed euwd=7140) BILIRUBIN TOTAL (BEAKER) (test 0.4 mg/dL 0.2-1.2 Specimen slightly hemolyzed fxwj=035) BILIRUBIN DIRECT (BEAKER) (test 0.2 mg/dL 0.1-0.5 Specimen slightly hemolyzed ozsb=564) ALKALINE PHOSPHATASE (BEAKER) 118 U/L 40-150 (test jlac=725) AST (SGOT) (BEAKER) (test 15 U/L 5-34 Specimen slightly hemolyzed uqwv=098) ALT (SGPT) (BEAKER) (test 9 U/L 6-55 Specimen slightly hemolyzed bojr=699)
--- OUTSIDE RECORDS SUMMARY | 2018-12-24 20:14 | XMS REPORT | Clinical Summary ---
:1945 Author Organization [facility] Address [address] [place] [address] Care Team Providers Name Role Phone Pcp, No Primary Care Provider Unavailable Allergies No Known Allergies Medications Medication Sig Dispensed Refills Start End Date Status Date aspirin 81 MG EC Take 81 mg by 0 Active tablet mouth daily. DULoxetine Take 30 mg by 0 Active (CYMBALTA) 30 MG mouth once at capsule bedtime. gabapentin Take 800 mg by 0 Active (NEURONTIN) 800 MG mouth 3 (three) tablet times daily. finasteride Take 5 mg by mouth 0 Active (PROSCAR) 5 mg daily. tablet metFORMIN 0 Active (GLUCOPHAGE) 1000 9 MG tablet atorvastatin 0 Active (LIPITOR) 80 MG 9 tablet tamsulosin (FLOMAX) AT BEDTIME 0 Active 0.4 mg Cap 24 hr 7 capsule PARoxetine (PAXIL) AT BEDTIME 0 Active 40 MG tablet 7 midodrine 1.25 MG THREE TIMES A DAY 0 Active halftab half tablet 7 donepezil (ARICEPT) AT BEDTIME 0 Active 5 MG tablet 7 carbidopa-levodopa THREE TIMES A DAY 0 Active (PARCOPA) 25-100 mg 7 per disintegrating tablet bisacodyl 5 mg Tab DAILY NEEDED 0 Active PRN For 7 Constipation nystatin Apply topically 2 30 g 0 01/01/20 Active (MYCOSTATIN) (two) times daily 9 19 100,000 unit/gram for 7 days. ointment JANUVIA 100 mg Take 0.5 tablets 0 Active tablet (50 mg total) by 9 mouth daily. glucometer (COOL Use to check blood 1 each 0 Active BLOOD GLUCOSE sugar. 9 MET[address]) [facility] blood sugar 1 strip by 100 strip 0 Active diagnostic (COOL Miscellaneous 9 GLUCOSE TEST STRIP) route 3 (three) Strp times daily. lancets (SURE-TOUCH Use to check blood 100 each 0 Active LANCET) [facility] sugar. 9 traMADol (ULTRAM) Take 50 mg by 0 12/25/19 Discontinued 50 mg tablet mouth daily. 19 tamsulosin (FLOMAX) Take 0.4 mg by 0 12/25/19 Discontinued 0.4 mg Cp24 24 hr mouth daily. 19 capsule JANUVIA 100 mg 0 12/25/19 Discontinued tablet 9 19 donepezil (ARICEPT) 3 12/25/19 Discontinued 5 MG tablet 9 19 clopidogrel 0 12/25/19 Discontinued (PLAVIX) 75 mg 9 19 tablet carbidopa-levodopa 3 12/25/19 Discontinued (SINEMET) 25-100 mg 9 19 per tablet metFORMIN TWICE DAILY WITH 0 12/25/19 Discontinued (GLUCOPHAGE) 1000 MEALS 7 19 MG tablet finasteride DAILY 0 12/25/19 Discontinued (PROSCAR) 5 mg 7 19 tablet gabapentin THREE TIMES A DAY 0 12/25/19 Discontinued (NEURONTIN) 800 MG 7 19 tablet enoxaparin DAILY 0 12/25/19 Discontinued (LOVENOX) 80 mg/0.8 8 19 mL Syrg DULoxetine DAILY 0 12/25/19 Discontinued (CYMBALTA) 30 MG 7 19 capsule aspirin 325 MG DAILY 0 12/25/19 Discontinued tablet 7 19 atorvastatin AT BEDTIME 0 12/25/19 Discontinued (LIPITOR) 80 MG 7 19 tablet clopidogrel DAILY 0 12/25/19 Discontinued (PLAVIX) 75 mg 7 19 tablet Active Problems Problem Noted Date Stroke 12/20/2018 Received intravenous tissue plasminogen activator (tPA) in emergency 2018 department Essential hypertension 12/20/2018 Acute ischemic stroke 12/20/2018 Parkinson's disease 12/20/2018 Acute ischemic stroke 07/28/2016 Status post administration of tPA (rtPA) in a different facility within 2015 the last 24 hours prior to admission to current facility Diabetes mellitus Depression BPH (benign prostatic hyperplasia) Encounters Date Type Specialty Care Team Description 12/20/2018 - Hospital Encounter General Internal Mark Adan Acute ischemic stroke (HCC); 12/24/2018 Medicine Melina, Status post administration of tPA (rtPA) in a different facility within the last 24 hours prior to admission to current facility; Type 2 diabetes mellitus with diabetic polyneuropathy, without long-term current use of insulin (HCC); Elvi Shaw, Depression, unspecified depression type; Benign prostatic hyperplasia with urinary frequency; Essential hypertension; Parkinson's disease (HCC); Received intravenous tissue plasminogen activator (tPA) in emergency department; Impaired mobility and ADLs; Abnormal gait 12/20/2018 Travel after 12/23/2017 Social History Tobacco Use Types Packs/Day Years Used Date Never Smoker Alcohol Use Drinks/Week oz/Week Comments No Sex Assigned at Date Recorded Not on file Job Start Date Occupation Industry Not on file Not on file Not on file Travel History Travel Start Travel End No recent travel history available. Last Filed Vital Signs Vital Sign Reading Time Taken Blood Pressure 117/62 12/24/2018 3:18 PM CDT Pulse 64 12/24/2018 3:18 PM CDT Temperature 35.6 C (96.1 F) 12/24/2018 3:18 PM CDT Respiratory Rate 16 12/24/2018 3:18 PM CDT Oxygen Saturation 96% 12/24/2018 3:18 PM CDT Inhaled Oxygen Concentration 30% 12/22/2018 6:00 AM CDT Weight 74.7 kg (164 lb 9.6 oz) 12/24/2018 6:00 AM CDT Height 180.3 cm (5' 11") 12/20/2018 4:15 AM CDT Body Mass Index 22.96 12/24/2018 6:00 AM CDT Plan of Treatment Not on file Procedures Procedure Name Priority Date/Time Associated Diagnosis Comments POCT-GLUCOSE METER Routine 12/24/2018 5:21 PM Results for this CDT procedure are in the results section. POCT-GLUCOSE METER Routine 12/24/2018 1:17 PM Results for this CDT procedure are in the results section. ECG 12-LEAD Routine 12/24/2018 1:07 PM CDT Procedure Note - Interface, External Ris In - 12/24/2018 1:48 PM CDT Ventricular Rate 65 BPM Atrial Rate 65 BPM P-R Interval 144 ms QRS Duration 102 ms Q-T Interval 418 ms QTC Calculation(Bazett) 434 ms P [place] -7 degrees R [place] -55 degrees T [place] 25 degrees Sinus rhythm with Premature atrial complexes Left anterior fascicular block Abnormal ECG When compared with ECG of 25-JUL-2016 15:10, Premature atrial complexes are now Present POCT-GLUCOSE METER Routine 12/24/2018 10:30 AM CDT ECHOCARDIOGRAM REPORT - SCAN 12/23/2018 9:13 PM CDT POCT-GLUCOSE METER Routine 12/23/2018 9:09 PM CDT POCT-GLUCOSE METER Routine 12/23/2018 5:02 PM CDT POCT-GLUCOSE METER Routine 12/23/2018 12:13 PM CDT POCT-GLUCOSE METER Routine 12/23/2018 7:56 AM CDT POCT-GLUCOSE METER Routine 12/22/2018 9:05 PM CDT 2D ECHO W/ DOPPLER Routine 12/22/2018 8:09 PM CDT Results for this (CW/PW/COLOR) procedure are in the results section. POCT-GLUCOSE METER Routine 12/22/2018 5:18 PM CDT POCT-GLUCOSE METER Routine 12/22/2018 1:03 PM CDT POCT-GLUCOSE METER Routine 12/22/2018 8:51 AM CDT CBC W/PLT COUNT & AUTO Routine 12/22/2018 3:36 AM CDT Results for this DIFFERENTIAL procedure are in the results section. CBC W/PLT COUNT & AUTO Routine 12/22/2018 3:36 AM CDT Results for this DIFFERENTIAL procedure are in the results section. BASIC METABOLIC PANEL (7) Routine 12/22/2018 3:36 AM CDT POCT-GLUCOSE METER Routine 12/21/2018 10:28 PM CDT POCT-GLUCOSE METER Routine 12/21/2018 5:43 PM CDT POCT-GLUCOSE METER Routine 12/21/2018 11:55 AM CDT POCT-GLUCOSE METER Routine 12/21/2018 8:16 AM CDT BASIC METABOLIC PANEL (7) Routine 12/21/2018 6:57 AM CDT CBC W/PLT COUNT & AUTO Routine 12/21/2018 5:08 AM CDT Results for this DIFFERENTIAL procedure are in the results section. CBC W/PLT COUNT & AUTO Routine 12/21/2018 5:08 AM CDT Results for this DIFFERENTIAL procedure are in the results section. MR BRAIN WITHOUT IV CONTRAST Routine 12/21/2018 2:05 AM CDT POCT-GLUCOSE METER Routine 12/20/2018 10:03 PM CDT POCT-GLUCOSE METER Routine 12/20/2018 5:11 PM CDT POCT-GLUCOSE METER Routine 12/20/2018 4:30 PM CDT POCT-GLUCOSE METER Routine 12/20/2018 11:56 AM CDT POCT-GLUCOSE METER Routine 12/20/2018 10:09 AM CDT POCT-GLUCOSE METER Routine 12/20/2018 6:22 AM CDT BASIC METABOLIC PANEL (7) Routine 12/20/2018 5:04 AM CDT VITAMIN B12 AND FOLATE Routine 12/20/2018 5:04 AM CDT TSH/FREE T4 IF INDICATED Routine 12/20/2018 5:04 AM CDT RPR Routine 12/20/2018 5:04 AM CDT LIPID PANEL Routine 12/20/2018 5:04 AM CDT HEPATIC FUNCTION PANEL Routine 12/20/2018 5:04 AM CDT HEMOGLOBIN A1C Routine 12/20/2018 5:04 AM CDT after 12/23/2017 Results POC-Glucose meter (12/24/2018 5:21 PM CDT)Only the most recent of21 resultswithin the time period is included. POC-Glucose Meter 178 (H)Comment: TESTED AT 70 - 110 mg/dL [place] [id number] [facility] [id number] Specimen Blood Performing Organization Address City/State/Zipcode Phone Number [address] [address] [phone] CENTER ECHOCARDIOGRAM REPORT - SCAN (12/23/2018 9:13 PM CDT) Narrative Performed At 2D Echo W/Doppler(CW/PW/Color) (12/22/2018 8:09 PM CDT) Ejection Fraction [facility] Specimen Narrative Performed At Transthoracic Echocardiography Report (TTE) 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 Clinical History BUBBLE STUDY DM,STROKE, HTN HGB 12 HCT 36.7 % Contrast Medium: Definity. Amount - 2 ml Height: 71 inches Weight: 78.47 kg (173 lbs) BSA: 1.98 m^2 BMI: 24.13 kg/m^2 HR: 76 bpm BP: 102/56 mmHg Summary LV endocardium is well visualized with IV ultrasound enhancing agent. The left ventricle is chamber size (by vol index) is normal. No evidence of LV hypertrophy. All of the LV segments contract normally . LVEF by Quiros's method of disk assessment is normal (60%) . Grade 1 diastolic dysfunction (impaired relaxation and low-normal LA pressure). Unable to estimate peak systolic PA pressure; inadequate TR velocity signal. Otherwise, essentially normal exam. IV saline contrast injection was negative for a PFO (patent foramen ovale) at rest and post Valsalva . Signature Findings Rhythm/BPRegular sinus rhythm during the exam. Left Ventricle LV endocardium is well visualized with IV ul trasound enhancing agent. Th e left ventricle is chamber size (by vol index) is normal. No evidence of LV hypertrophy. Al l of the LV segments contract normally . LV EF by Quiros's method of disk assessment is no rmal (60%) . Gr john 1 diastolic dysfunction (impaired relaxation an d low-normal LA pressure). Left AtriumLA size is normal . Right VentricleThe right ventricular chamber size and systolic fu nction are within normal limits. Right Atrium RA cavity size is normal . Atrial SeptumIV saline contrast injection was negative for a PFO (p atent foramen ovale) at rest and post Valsalva . Aortic Valve Normal AoV structure and function. Mitral Valve Normal MV structure and function. Tricuspid ValveNormal TV structure and function. Un able to estimate peak systolic PA pressure; in adequate TR velocity signal. Pulmonic Valve Normal PV structure and function. AortaAortic root size (SInus of Valsalva diameter) is no rmal . PericardiumNo pericardial effusion is visualized. IVC/SVC/PA/PV/PleuralThe inferior vena cava is not well visualized. Chambers/Structures Left Ventricle LVIDd: 4.17 cm LV Septum Diastolic: 0.96 cm LV Septum Systolic: 2.95 cm LV PW Diastolic: 0.8 cm LVEDV Quiros's:60.72 ml LVESV Quiros's:23.19 mlLVEDVI: 31 ml/m^2 LVEF Quiros's: 61.8 %LVESV I: 12 ml/m^2 LVOT Diameter: 2.15 cm Doppler/Quantitative Measurements Mitral Valve MV Peak E-Wave: 0.51 m/sMV Peak A-Wave: 1.25 m/s E/A Ratio: 0.41 Peak Gradient: 1.03 mmHg Deceleration Time: 359.3 msec MV Ollie. Peak: Tissue Doppler E' Septal Velocity: 0.08 m/sE/E': 6.17 Aortic Valve Peak Velocity: 1.5 m/s Mean Velocity: 1.02 m/s Peak Gradient: 9.02 mmHg Mean Gradient: 4.75 mmHg AV Area (continuity): 2.55 cm^2 AV VTI: 23.67 cm AV DVI: 0.7 LVOT Peak Velocity: 0.92 m/s Peak Gradient: 3.39 mmHg Mean Velocity: 0.69 m/s Mean Gradient: 2.09 mmHg LVOT Diameter: 2.15 cmLVOT VTI: 16.62 cm LVOT Area: 3.63 cm^2LVOT SV:60.31 ml LVOT CO: 4.58 l/min LVOT CI: 2.31 l/min/m^2 Tricuspid Valve TR Velocity: 1.91 m/s TR Gradient: 14.6 mmHg Procedure Note Interface, External Ris In - 12/23/2018 11:31 AM CDT Transthoracic Echocardiography Report (TTE) Demographics Patient Name CLAY SWEENEY Date of Study 12/22/2018 FERMÍN Gender Male Visit Number [id number] Race Unknown Room Number 2214 Number Date of 1945 Referring Physician Adan Flores Age 73 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 Clinical History BUBBLE STUDY DM,STROKE, HTN HGB 12 HCT 36.7 % Contrast Medium: Definity. Amount - 2 ml Height: 71 inches Weight: 78.47 kg (173 lbs) BSA: 1.98 m^2 BMI: 24.13 kg/m^2 HR: 76 bpm BP: 102/56 mmHg Summary LV endocardium is well visualized with IV ultrasound enhancing agent. The left ventricle is chamber size (by vol index) is normal. No evidence of LV hypertrophy. All of the LV segments contract normally . LVEF by Quiros's method of disk assessment is normal (60%) . Grade 1 diastolic dysfunction (impaired relaxation and low-normal LA pressure). Unable to estimate peak systolic PA pressure; inadequate TR velocity signal. Otherwise, essentially normal exam. IV saline contrast injection was negative for a PFO (patent foramen ovale) at rest and post Valsalva . Signature Findings Rhythm/BP Regular sinus rhythm during the exam. Left Ventricle LV endocardium is well visualized with IV ultrasound enhancing agent. The left ventricle is chamber size (by vol index) is normal. No evidence of LV hypertrophy. All of the LV segments contract normally . LVEF by Quiros's method of disk assessment is normal (60%) . Grade 1 diastolic dysfunction (impaired relaxation and low-normal LA pressure). Left Atrium LA size is normal . Right Ventricle The right ventricular chamber size and systolic function are within normal limits. Right Atrium RA cavity size is normal . Atrial Septum IV saline contrast injection was negative for a PFO (patent foramen ovale) at rest and post Valsalva . Aortic Valve Normal AoV structure and function. Mitral Valve Normal MV structure and function. Tricuspid Valve Normal TV structure and function. Unable to estimate peak systolic PA pressure; inadequate TR velocity signal. Pulmonic Valve Normal PV structure and function. Aorta Aortic root size (SInus of Valsalva diameter) is normal . Pericardium No pericardial effusion is visualized. IVC/SVC/PA/PV/Pleural The inferior vena cava is not well visualized. Chambers/Structures Left Ventricle LVIDd: 4.17 cm LV Septum Diastolic: 0.96 cm LV Septum Systolic: 2.95 cm LV PW Diastolic: 0.8 cm LVEDV Quiros's:60.72 ml LVESV Quiros's:23.19 ml LVEDVI: 31 ml/m^2 LVEF Quiros's: 61.8 % LVESVI: 12 ml/m^2 LVOT Diameter: 2.15 cm Doppler/Quantitative Measurements Mitral Valve MV Peak E-Wave: 0.51 m/s MV Peak A-Wave: 1.25 m/s E/A Ratio: 0.41 Peak Gradient: 1.03 mmHg Deceleration Time: 359.3 msec MV Ollie. Peak: Tissue Doppler E' Septal Velocity: 0.08 m/s E/E': 6.17 Aortic Valve Peak Velocity: 1.5 m/s Mean Velocity: 1.02 m/s Peak Gradient: 9.02 mmHg Mean Gradient: 4.75 mmHg AV Area (continuity): 2.55 cm^2 AV VTI: 23.67 cm AV DVI: 0.7 LVOT Peak Velocity: 0.92 m/s Peak Gradient: 3.39 mmHg Mean Velocity: 0.69 m/s Mean Gradient: 2.09 mmHg LVOT Diameter: 2.15 cm LVOT VTI: 16.62 cm LVOT Area: 3.63 cm^2 LVOT SV:60.31 ml LVOT CO: 4.58 l/min LVOT CI: 2.31 l/min/m^2 Tricuspid Valve TR Velocity: 1.91 m/s TR Gradient: 14.6 mmHg Performing Organization Address City/State/Zipcode Phone Number [email or web address] CBC with platelet count + automated diff (12/22/2018 3:36 AM CDT)Only the most recent of2 resultswithin the time period is included. WBC 6.6 3.5 - 10.5 K/L [facility] RBC 3.97 (L) 4.63 - 6.08 M/L [facility] Hemoglobin 12.0 (L) 13.7 - 17.5 GM/DL [facility] Hematocrit 36.7 (L) 40.1 - 51.0 % [facility] MCV 92.4 (H) 79.0 - 92.2 fL [facility] MCH 30.2 25.7 - 32.2 pg [facility] MCHC 32.7 32.3 - 36.5 GM/DL [facility] RDW 13.0 11.6 - 14.4 % [facility] Platelets 174 150 - 450 K/CU MM [facility] MPV 10.0 9.4 - 12.4 fL [facility] nRBC 0 0 - 0 /100 WBC [facility] % Neutros 66 % [facility] % Lymphs 20 % [facility] % Monos 10 % [facility] % Eos 3 % [facility] % Baso 1 % [facility] # Neutros 4.32 1.78 - 5.38 K/L [facility] # Lymphs 1.31 (L) 1.32 - 3.57 K/L [facility] # Monos 0.66 0.30 - 0.82 K/L [facility] # Eos 0.22 0.04 - 0.54 K/L [facility] # Baso 0.03 0.01 - 0.08 K/L [facility] Immature Granulocytes-Relative 0 0 - 1 % [facility] Specimen Blood Performing Organization Address City/[facility]/Zipcode Phone Number [facility] [address] [place] [address] [phone] [place] Basic Metabolic Panel (12/22/2018 3:36 AM CDT)Only the most recent of3 resultswithin the time period is included. Sodium 138 136 - 145 meq/L [facility] Potassium 4.3 3.5 - 5.1 meq/L [facility] Chloride 109 (H) 98 - 107 meq/L [facility] CO2 23 22 - 29 meq/L [facility] BUN 29 (H) 7 - 21 mg/dL [facility] Creatinine 1.17 0.57 - 1.25 mg/dL [facility] Glucose 220 (H) 70 - 105 mg/dL [facility] Calcium 9.3 8.4 - 10.2 mg/dL [facility] EGFR 61Comment: ESTIMATED GFR IS mL/min/1.73 sq m [facility] NOT ACCURATE CRE[facility]ININE [facility] CENTER CLEARANCE IN PREDICTING GLOMERULAR FILTRATION RATE. ESTIMATED GFR IS NOT APPLICABLE FOR DIALYSIS PATIENTS. Specimen Blood Performing Organization Address City/[facility]/Zipcode Phone Number [facility] [address] [place] [address] [phone] [place] MR brain without IV contrast (12/21/2018 2:05 AM CDT) Specimen Narrative Performed At FINAL REPORT [employer] MR, BRAIN, WITHOUT CONTRAST INDICATION: Stroke stroke TECHNIQUE: Multiplanar, multisequence MR imaging of the brain was obtained. COMPARISON: None FINDINGS: Tiny focus of restricted diffusion within the right inferior frontal lobe with concomitant decreased signal on ADC and FLAIR hyperintensity (axial DTI image 20), which may represent tiny acute infarct. Of note, acute blood products would similarly restricted diffusion (which is a relevant consideration considering intraventricular blood products) Remote appearing right MCA distribution infarct with no restricted diffusion and significant volume loss throughout the frontal and parietal parenchyma. Additional remote infarcts involving the anterior and posterior watershed distribution on the right, and right centrum semiovale are also present. Layering hemosiderin level within the lateral ventricles compatible with blood products. No hydrocephalus. Brain parenchyma is otherwise normal in morphology. Midline structures are normally developed. Scattered T2/FLAIR hyperintense foci within the periventricular and subcortical white matter are nonspecific, however, statistically represent chronic microvascular ischemic changes. No [...] review (not yet uploaded to PACS) Signed: Eulalio Henry MD Report Verified Date/Time:12/21/2018 02:37:32 Reading Location: [address] Neuro Reading Room Procedure Note Interface, External Ris In - 12/21/2018 2:39 AM CDT FINAL REPORT MR, BRAIN, WITHOUT CONTRAST INDICATION: Stroke stroke TECHNIQUE: Multiplanar, multisequence MR imaging of the brain was obtained. COMPARISON: None FINDINGS: Tiny focus of restricted diffusion within the right inferior frontal lobe with concomitant decreased signal on ADC and FLAIR hyperintensity (axial DTI image 20), which may represent tiny acute infarct. Of note, acute blood products would similarly restricted diffusion (which is a relevant consideration considering intraventricular blood products) Remote appearing right MCA distribution infarct with no restricted diffusion and significant volume loss throughout the frontal and parietal parenchyma. Additional remote infarcts involving the anterior and posterior watershed distribution on the right, and right centrum semiovale are also present. Layering hemosiderin level within the lateral ventricles compatible with blood products. No hydrocephalus. Brain parenchyma is otherwise normal in morphology. Midline structures are normally developed. Scattered T2/FLAIR hyperintense foci within the periventricular and subcortical white matter are nonspecific, however, statistically represent chronic microvascular ischemic changes. No [...] review (not yet uploaded to PACS) Signed: Eulalio Henry MD Report Verified Date/Time: 12/21/2018 02:37:32 Reading Location: [address] Neuro Reading Room Performing Organization Address City/[facility] Phone Number [facility] Vitamin B12 and Folate (12/20/2018 5:04 AM CDT) Vitamin B12 540 213 - 816 pg/mL [facility] Folate 12.0 >=7.0 ng/mL [facility] Specimen Blood Performing Organization Address City/[facility] Cent[facility]ode Phone Number [address] [address] [phone] CENTER TSH/Free T4 If Indicated (12/20/2018 5:04 AM CDT) TSH 0.73 0.35 - 4.94 uIU/mL [facility] Specimen Blood Performing Organization Address City/[facility]/Zipcode Phone Number [address] [address] [phone] CENTER RPR (12/20/2018 5:04 AM CDT) RPR Nonreactive Nonreactive [facility] Specimen Blood Performing Organization Address City/[facility]/Zipcode Phone Number [facility] [address] [place] [address] CENTER Hemoglobin A1c (12/20/2018 5:04 AM CDT) Hemoglobin A1C 10.9 (H) 4.3 - 6.1 % [facility] Specimen Blood Performing Organization Address [facility] Cent[facility]ode Phone Number [facility] [address] [place] [phone] [place] Hepatic function panel (12/20/2018 5:04 AM CDT) Protein, Total 5.8 (L)Comment: Specimen 6.0 - 8.3 gm/dL [facility] slightly hemolyzed [facility] Albumin 3.4 (L)Comment: Specimen 3.5 - 5.0 g/dL [facility] slightly hemolyzed [facility] Total Bilirubin 0.4Comment: Specimen 0.2 - 1.2 mg/dL [facility] Bilirubin, Direct 0.2Comment: Specimen 0.1 - 0.5 mg/dL [facility] slightly hemolyzed [facility] Alkaline Phosphatase 118 40 - 150 U/L [facility] AST 15Comment: Specimen 5 - 34 U/L [facility] slightly hemolyzed [facility] ALT 9Comment: Specimen 6 - 55 U/L [facility] slightly hemolyzed [facility] Specimen Blood Performing Organization Address City/[facility] Centercode Phone Number [facility] [address] [place] [phone] [place] Lipid panel (12/20/2018 5:04 AM CDT) Triglycerides 108Comment: Specimen slightly mg/dL [facility] hemolyzed [facility] Cholesterol 148Comment: Specimen slightly mg/dL [facility] hemolyzed [facility] HDL 38 mg/dL [facility] LDL Calculated 88 mg/dL [facility] Specimen Blood Narrative Performed At Triglyceride Reference Range: [facility] Low Risk <150 [id number] High Risk 200-499 Very High Risk>=500 Cholesterol Reference Range: Low Risk <200 [id number] High Risk>240 HDL Cholesterol Reference Range: Low Risk >=60 High Risk <40 LDL Cholesterol Reference Range: Optimal<100 Near [id number] [id number] Very High >=190 Performing Organization Address City/State/Zipcode Phone Number [facility] [address] [place], [place] [id number] CENTER after 12/23/2017 Insurance Payer Benefit Plan / Group Subscriber ID Type Phone Address MEDICARE MEDICARE A B xxxxxxxxxx Medicare AETNA - MGD CARE AETNA INDEMNITY NON CONTR xxxxxxxxx Comm Advance Directives For more information, please contact:[address] [phone] Code Status Date Activated Date Inactivated Comments Full Code 12/20/2018 4:47 AM This code status was determined by: Patient Full Code 07/24/2016 2:48 PM 07/29/2016 7:23 PM This code status was determined by: Patient
[2018-12-24] MEDS ORDERED: D50W 25 GM/50 ML SYRINGE IV PRN (20:48)
[2018-12-24] MEDS ORDERED: GLUCAGON 1 MG/VIAL IM PRN (20:48)
[2018-12-24] MEDS ORDERED: PARoxetine HCl 10 MG TAB PO SCH (21:00)
[2018-12-24] MEDS: INSULIN -REGULAR HUMAN 50 UNIT/0.5 ML ML SQ SCH (21:00)
[2018-12-24 21:20] VITALS: BMI 23.5
[2018-12-24] MEDS: CARBIDOPA/LEVODOPA 25/100 TAB PO SCH (22:14)
[2018-12-24] MEDS: GABAPENTIN 400 MG CAP PO SCH (22:14)
[2018-12-24] MEDS: ATORVASTATIN 80 MG TAB PO SCH (22:14)
[2018-12-24] MEDS: DONEPEZIL HCL 5 MG TAB PO SCH (22:14)
[2018-12-24] MEDS: TAMSULOSIN 0.4 MG SR CAP PO SCH (22:14)
[2018-12-24] MEDS: DULOXETINE 30 MG CAP PO SCH (22:15)
[2018-12-24 23:00] LABS: Urine Appearance CLEAR; Urine Bilirubin NEGATIVE (NEG); Urine Blood NEGATIVE (NEG); Urine Color YELLOW; Urine Glucose NEGATIVE (NEG); Urine Protein NEGATIVE (NEG); Urine Specific Gravity <=1.005 (1.005-1.030); Urine pH 5.5 (5.0-7.0)
[2018-12-24 23:18] LABS: Urine Bacteria <20 /HPF (NONE SEEN); Urine RBC <5 /HPF (NONE SEEN)
[2018-12-24 23:19] LABS: Urine Culture Reflex Order NOT NEEDED
[2018-12-24] MEDS: TRAMADOL HCL 50 MG TAB PO PRN (23:31)
[2018-12-25] MEDS ORDERED: BISACODYL E.C. 5 MG TAB PO PRN (00:23)
[2018-12-25 06:52] LABS: Absolute Monocytes 0.6 K/uL (0.1-1.3); Absolute Neutrophil 3.6 K/uL (1.8-8.0); Basophils % 0.7 % (0-1.3); Eosinophils % 4.5 % (0-4.4); Hematocrit 33.2 % (39.6-49.0); Lymphocytes % 18.6 % (15.3-44.8); MPV 8.3 fL (7.6-11.3); Monocytes % 10.7 % (3.3-12.3); RBC Red Blood Cell Count 3.71 M/uL (4.33-5.43)
[2018-12-25 07:09] LABS: Albumin 3.1 g/dL (3.4-5.0); Magnesium 1.9 mg/dL (1.8-2.4); Potassium 4.5 mmol/L (3.5-5.1); Prealbumin 20.7 mg/dL (20-40)
[2018-12-25] MEDS: ENOXAPARIN 40 MG/0.4 ML SQ SCH (07:19)
[2018-12-25] MEDS: INSULIN -REGULAR HUMAN 50 UNIT/0.5 ML ML SQ SCH ×4 (07:30→20:55)
[2018-12-25] MEDS: TRAMADOL HCL 50 MG TAB PO PRN ×2 (08:47→19:54)
[2018-12-25] MEDS: FINASTERIDE 5 MG TAB PO SCH (08:49)
[2018-12-25] MEDS: CARBIDOPA/LEVODOPA 25/100 TAB PO SCH ×3 (08:49→21:52)
[2018-12-25] MEDS: ASPIRIN EC 81 MG TAB PO SCH (08:49)
[2018-12-25] MEDS: GABAPENTIN 400 MG CAP PO SCH ×3 (08:49→21:00)
[2018-12-25] MEDS: SITAGLIPTIN PHOS 100 MG TAB PO SCH (08:54)
[2018-12-25] MEDS: METFORMIN HCL 500 MG TAB PO SCH ×2 (08:54→17:06)
[2018-12-25] MEDS ORDERED: MIDODRINE HCL 5 MG TABLET PO SCH (09:00)
--- NOTE | 2018-12-25 09:34 | P.RH.PN ---
Estimated Length of Stay: 14 Expected Discharge Date: 01/06/19 Discharge Disposition Plan: Home Family Support: Yes Assisted Goal: Mobility, Transfers, Self Care Vital Signs: Last Vital Signs Temp 97.6 F 12/25/18 06:30 Pulse 67 12/25/18 06:30 Resp 16 12/25/18 06:30 BP 116/62 12/25/18 06:30 Pulse Ox 98 12/25/18 06:30 Laboratory: Laboratory Last Values WBC 5.5 K/uL (4.3-10.9) 12/25/18 06:18 RBC 3.71 M/uL (4.33-5.43) L 12/25/18 06:18 Hgb 11.3 g/dL (13.6-17.9) L 12/25/18 06:18 Hct 33.2 % (39.6-49.0) L 12/25/18 06:18 MCV 89.7 fL (80-100) 12/25/18 06:18 MCH 30.4 pg (27.0-35.0) 12/25/18 06:18 MCHC 33.9 g/dL (32.0-36.0) 12/25/18 06:18 RDW 13.4 % (12.1-15.2) 12/25/18 06:18 Plt Count 189 K/uL (152-406) 12/25/18 06:18 MPV 8.3 fL (7.6-11.3) 12/25/18 06:18 Neutrophils % 65.5 % (41.7-73.7) 12/25/18 06:18 Lymphocytes % 18.6 % (15.3-44.8) 12/25/18 06:18 Monocytes % 10.7 % (3.3-12.3) 12/25/18 06:18 Eosinophils % 4.5 % (0-4.4) H 12/25/18 06:18 Basophils % 0.7 % (0-1.3) 12/25/18 06:18 Absolute Neutrophils 3.6 K/uL (1.8-8.0) 12/25/18 06:18 Absolute Lymphocytes 1.0 K/uL (0.7-4.9) 12/25/18 06:18 Absolute Monocytes 0.6 K/uL (0.1-1.3) 12/25/18 06:18 Absolute Eosinophils 0.2 K/uL (0-0.5) 12/25/18 06:18 Absolute Basophils 0.0 K/uL (0-0.5) 12/25/18 06:18 Sodium 142 mmol/L (136-145) 12/25/18 06:18 Potassium 4.5 mmol/L (3.5-5.1) 12/25/18 06:18 Chloride 112 mmol/L (98-107) H 12/25/18 06:18 Carbon Dioxide 27 mmol/L (21-32) 12/25/18 06:18 BUN 18 mg/dL (7-18) 12/25/18 06:18 Creatinine 1.03 mg/dL (0.55-1.3) 12/25/18 06:18 Estimated GFR 71 mL/min (=/>90) L 12/25/18 06:18 Glucose 130 mg/dL (74-106) H 12/25/18 06:18 POC Glucose 151 mg/dl (65-120) H 12/25/18 07:39 Calcium 9.1 mg/dL (8.5-10.1) 12/25/18 06:18 Magnesium 1.9 mg/dL (1.8-2.4) 12/25/18 06:18 Albumin 3.1 g/dL (3.4-5.0) L 12/25/18 06:18 Prealbumin 20.7 mg/dL (20-40) 12/25/18 06:18 Urine Color Yellow 12/24/18 22:30 Urine Appearance Clear 12/24/18 22:30 Urine pH 5.5 (5.0-7.0) 12/24/18 22:30 Ur Specific [place] <=1.005 (1.005-1.030) 12/24/18 22:30 Urine Ketones Negative (NEG) 12/24/18 22:30 Urine Blood Negative (NEG) 12/24/18 22:30 Urine Nitrite Negative (NEG) 12/24/18 22:30 Urine Bilirubin Negative (NEG) 12/24/18 22:30 Urine Urobilinogen 1.0 mg/dL (0.2-1.0) 12/24/18 22:30 Ur Leukocyte Esterase 1+ (NEG) H 12/24/18 22:30 Urine RBC <5 /HPF (NONE SEEN) 12/24/18 22:30 Urine WBC <5 /HPF (<5) 12/24/18 22:30 Ur Squamous Epith Cells <5 /HPF (NONE SEEN) 12/24/18 22:30 Urine Bacteria <20 /HPF (NONE SEEN) 12/24/18 22:30 Urine Culture Reflexed Not needed 12/24/18 22:30 Urine Glucose Negative (NEG) 12/24/18 22:30 Urine Total Protein Negative (NEG) 12/24/18 22:30 Weight: 168 lb 12.8 oz Wound Present: No Negative Pressure Wound Therapy Present: No Physician Update: Labs have been reviewed and are stable. Hgb is 11.3, WBC 5.5, Glucose 130 to 151, prealbumin 20.7. UA shows 1+ esterase. He is being evaluated by physical, occupational and speech therapy. Summary: Patient's care plan and fdc goals have been reviewed and revised as necessary. Please see the Rehabilitation Signature page for all necessary signatures.
[2018-12-25] MEDS: NYSTATIN OINT 15 GM TUBE TOP SCH ×2 (11:21→19:51)
[2018-12-25] MEDS: MIDODRINE HCL 5 MG TABLET PO SCH (19:51)
[2018-12-25] MEDS: ATORVASTATIN 80 MG TAB PO SCH (21:50)
[2018-12-25] MEDS: DULOXETINE 30 MG CAP PO SCH (21:51)
[2018-12-25] MEDS: DONEPEZIL HCL 5 MG TAB PO SCH (21:51)
[2018-12-25] MEDS: TAMSULOSIN 0.4 MG SR CAP PO SCH (21:52)
[2018-12-26] MEDS: INSULIN -REGULAR HUMAN 50 UNIT/0.5 ML ML SQ SCH ×4 (07:30→20:10)
[2018-12-26] MEDS: ENOXAPARIN 40 MG/0.4 ML SQ SCH (07:39)
[2018-12-26] MEDS: NYSTATIN OINT 15 GM TUBE TOP SCH ×2 (07:39→19:58)
[2018-12-26] MEDS: MIDODRINE HCL 5 MG TABLET PO SCH ×2 (08:26→19:58)
[2018-12-26] MEDS: ASPIRIN EC 81 MG TAB PO SCH (08:28)
[2018-12-26] MEDS: GABAPENTIN 400 MG CAP PO SCH ×3 (08:29→19:59)
[2018-12-26] MEDS: SITAGLIPTIN PHOS 100 MG TAB PO SCH (08:29)
[2018-12-26] MEDS: METFORMIN HCL 500 MG TAB PO SCH ×2 (08:29→18:11)
[2018-12-26] MEDS: FINASTERIDE 5 MG TAB PO SCH (08:30)
[2018-12-26] MEDS: CARBIDOPA/LEVODOPA 25/100 TAB PO SCH ×3 (08:34→19:59)
[2018-12-26] MEDS: TRAMADOL HCL 50 MG TAB PO PRN (11:10)
[2018-12-26] MEDS: DULOXETINE 30 MG CAP PO SCH (19:59)
[2018-12-26] MEDS: DONEPEZIL HCL 5 MG TAB PO SCH (19:59)
[2018-12-26] MEDS: TAMSULOSIN 0.4 MG SR CAP PO SCH (19:59)
[2018-12-26] MEDS: ATORVASTATIN 80 MG TAB PO SCH (20:02)
[2018-12-27] MEDS: ENOXAPARIN 40 MG/0.4 ML SQ SCH (06:53)
[2018-12-27] MEDS: NYSTATIN OINT 15 GM TUBE TOP SCH ×2 (06:54→19:28)
[2018-12-27] MEDS: INSULIN -REGULAR HUMAN 50 UNIT/0.5 ML ML SQ SCH ×4 (08:13→20:21)
[2018-12-27] MEDS: ASPIRIN EC 81 MG TAB PO SCH (08:14)
[2018-12-27] MEDS: GABAPENTIN 400 MG CAP PO SCH ×3 (08:14→20:07)
[2018-12-27] MEDS: MIDODRINE HCL 5 MG TABLET PO SCH ×2 (08:14→19:28)
[2018-12-27] MEDS: METFORMIN HCL 500 MG TAB PO SCH ×2 (08:14→16:25)
[2018-12-27] MEDS: SITAGLIPTIN PHOS 100 MG TAB PO SCH (08:15)
[2018-12-27] MEDS: FINASTERIDE 5 MG TAB PO SCH (08:16)
[2018-12-27] MEDS: CARBIDOPA/LEVODOPA 25/100 TAB PO SCH ×3 (08:16→20:08)
[2018-12-27] MEDS: TRAMADOL HCL 50 MG TAB PO PRN (15:18)
[2018-12-27] MEDS: TAMSULOSIN 0.4 MG SR CAP PO SCH (20:08)
[2018-12-27] MEDS: DONEPEZIL HCL 5 MG TAB PO SCH (20:08)
[2018-12-27] MEDS: ATORVASTATIN 80 MG TAB PO SCH (20:08)
[2018-12-27] MEDS: DULOXETINE 30 MG CAP PO SCH (20:08)
[2018-12-28] MEDS: ENOXAPARIN 40 MG/0.4 ML SQ SCH (06:53)
[2018-12-28] MEDS: INSULIN -REGULAR HUMAN 50 UNIT/0.5 ML ML SQ SCH ×4 (07:30→20:35)
[2018-12-28] MEDS: GABAPENTIN 400 MG CAP PO SCH ×3 (08:19→20:34)
[2018-12-28] MEDS: METFORMIN HCL 500 MG TAB PO SCH ×2 (08:20→17:01)
[2018-12-28] MEDS: FINASTERIDE 5 MG TAB PO SCH (08:20)
[2018-12-28] MEDS: SITAGLIPTIN PHOS 100 MG TAB PO SCH (08:20)
[2018-12-28] MEDS: CARBIDOPA/LEVODOPA 25/100 TAB PO SCH ×3 (08:21→20:34)
[2018-12-28] MEDS: ASPIRIN EC 81 MG TAB PO SCH (08:22)
[2018-12-28] MEDS: NYSTATIN OINT 15 GM TUBE TOP SCH ×2 (08:22→20:35)
[2018-12-28] MEDS: MIDODRINE HCL 5 MG TABLET PO SCH ×2 (08:22→20:34)
[2018-12-28] MEDS: ATORVASTATIN 80 MG TAB PO SCH (20:34)
[2018-12-28] MEDS: DULOXETINE 30 MG CAP PO SCH (20:34)
[2018-12-28] MEDS: TAMSULOSIN 0.4 MG SR CAP PO SCH (20:34)
[2018-12-28] MEDS: DONEPEZIL HCL 5 MG TAB PO SCH (20:34)
[2018-12-28] MEDS: LOPERAMIDE HCL 2 MG CAPSULE PO PRN (22:04)
[2018-12-29] MEDS: LOPERAMIDE HCL 2 MG CAPSULE PO PRN (04:00)
[2018-12-29] MEDS: ENOXAPARIN 40 MG/0.4 ML SQ SCH (07:03)
[2018-12-29] MEDS: INSULIN -REGULAR HUMAN 50 UNIT/0.5 ML ML SQ SCH ×4 (07:30→20:31)
[2018-12-29] MEDS: GABAPENTIN 400 MG CAP PO SCH ×3 (08:24→20:31)
[2018-12-29] MEDS: METFORMIN HCL 500 MG TAB PO SCH ×2 (08:24→17:06)
[2018-12-29] MEDS: CARBIDOPA/LEVODOPA 25/100 TAB PO SCH ×3 (08:25→20:31)
[2018-12-29] MEDS: MIDODRINE HCL 5 MG TABLET PO SCH ×2 (08:25→20:02)
[2018-12-29] MEDS: FINASTERIDE 5 MG TAB PO SCH (08:25)
[2018-12-29] MEDS: ASPIRIN EC 81 MG TAB PO SCH (08:26)
[2018-12-29] MEDS: SITAGLIPTIN PHOS 100 MG TAB PO SCH (08:26)
[2018-12-29] MEDS: NYSTATIN OINT 15 GM TUBE TOP SCH (08:27)
[2018-12-29] MEDS ORDERED: NYSTATIN OINT 15 GM TUBE TOP PRN (08:29)
[2018-12-29] MEDS: TAMSULOSIN 0.4 MG SR CAP PO SCH (20:03)
[2018-12-29] MEDS: DONEPEZIL HCL 5 MG TAB PO SCH (20:03)
[2018-12-29] MEDS: ATORVASTATIN 80 MG TAB PO SCH (20:03)
[2018-12-29] MEDS: DULOXETINE 30 MG CAP PO SCH (20:03)
[2018-12-30] MEDS: ENOXAPARIN 40 MG/0.4 ML SQ SCH (07:18)
[2018-12-30] MEDS: INSULIN -REGULAR HUMAN 50 UNIT/0.5 ML ML SQ SCH ×4 (07:19→20:44)
[2018-12-30] MEDS: ASPIRIN EC 81 MG TAB PO SCH (08:08)
[2018-12-30] MEDS: METFORMIN HCL 500 MG TAB PO SCH ×2 (08:08→16:27)
[2018-12-30] MEDS: MIDODRINE HCL 5 MG TABLET PO SCH ×2 (08:09→19:57)
[2018-12-30] MEDS: SITAGLIPTIN PHOS 100 MG TAB PO SCH (08:09)
[2018-12-30] MEDS: GABAPENTIN 400 MG CAP PO SCH ×3 (08:09→20:00)
[2018-12-30] MEDS: CARBIDOPA/LEVODOPA 25/100 TAB PO SCH ×3 (08:10→20:00)
[2018-12-30] MEDS: FINASTERIDE 5 MG TAB PO SCH (08:10)
[2018-12-30] MEDS: TAMSULOSIN 0.4 MG SR CAP PO SCH (20:00)
[2018-12-30] MEDS: DULOXETINE 30 MG CAP PO SCH (20:00)
[2018-12-30] MEDS: ATORVASTATIN 80 MG TAB PO SCH (20:00)
[2018-12-30] MEDS: DONEPEZIL HCL 5 MG TAB PO SCH (20:00)
[2018-12-31 06:54] LABS: Absolute Lymphocytes (CBC) 1.2 K/uL (0.7-4.9); Absolute Monocytes 0.6 K/uL (0.1-1.3); Absolute Neutrophil 3.2 K/uL (1.8-8.0); Basophils % 0.7 % (0-1.3); Eosinophils % 6.4 % (0-4.4); Hematocrit 32.8 % (39.6-49.0); MPV 8.5 fL (7.6-11.3); Monocytes % 11.7 % (3.3-12.3); RBC Red Blood Cell Count 3.68 M/uL (4.33-5.43)
[2018-12-31 07:13] LABS: Albumin 3.1 g/dL (3.4-5.0); Potassium 4.3 mmol/L (3.5-5.1); Prealbumin 17.4 mg/dL (20-40)
[2018-12-31] MEDS: INSULIN -REGULAR HUMAN 50 UNIT/0.5 ML ML SQ SCH ×4 (07:30→20:20)
[2018-12-31] MEDS: ENOXAPARIN 40 MG/0.4 ML SQ SCH (07:33)
[2018-12-31] MEDS: GABAPENTIN 400 MG CAP PO SCH ×3 (08:14→20:01)
[2018-12-31] MEDS: SITAGLIPTIN PHOS 100 MG TAB PO SCH (08:15)
[2018-12-31] MEDS: ASPIRIN EC 81 MG TAB PO SCH (08:15)
[2018-12-31] MEDS: TRAMADOL HCL 50 MG TAB PO PRN (08:15)
[2018-12-31] MEDS: CARBIDOPA/LEVODOPA 25/100 TAB PO SCH ×3 (08:16→20:01)
[2018-12-31] MEDS: MIDODRINE HCL 5 MG TABLET PO SCH ×2 (08:16→19:58)
[2018-12-31] MEDS: FINASTERIDE 5 MG TAB PO SCH (08:16)
[2018-12-31] MEDS: METFORMIN HCL 500 MG TAB PO SCH ×2 (08:17→16:26)
--- NOTE | 2018-12-31 11:28 | FAST ---
SHIFT START DATE/TIME: 12/31/2018 07:00 (CDT) SHIFT END DATE/TIME: 12/31/2018 19:00 (CDT) NAME JACQUIE SWEENEY DATE OF : 1945 DATE OF ADMISSION: 12/24/2018 20:11 (CDT) PHONE: AGE: 73 GENDER: Male ENCOUNTER PHYSICIAN: Dr. Jose Johns M.D. ADMISSION DIAGNOSIS: - Stroke 01 - Left Body (Right Brain) (01.1) Right Tiny Frontal Lobe Infarct. EATING: EATING - STEP 1: Does the patient require the assistance of a person or device, or need extra time when eating? Yes. EATING - STEP 2: Does the patient require the assistance of a helper? Yes. EATING - STEP 3: Does the patient perform half or more of the eating tasks? Yes. EATING - STEP 4: Does the patient need only supervision, cuing, coaxing OR help to apply an orthosis OR help to cut fo od, open containers, pour liquids, or butter bread? Yes. EATING - SCORE: 5-SUP GROOMING: Comb/brush hair Oral care Wash, rinse, and dry face Wash, rinse, and dry hands GROOMING - STEP 1: Does the patient require the assistance of a person or device, or need extra time when grooming? Yes. GROOMING - STEP 2: Does the patient require the assistance of a helper? Yes. GROOMING - STEP 3: How much assistance does the patient require from the helper? Cuing, coaxing, instructions, or encour agement for completion of grooming GROOMING - SCORE: 5-SUP BATHING: Activity did not occur on this shift BATHING - SCORE: 0-UNK DRESSING - UPPER BODY: Activity did not occur on this shift ARTICLES SCORE Total number of steps: 0 DRESSING - UPPER BODY - SCORE: 0-UNK DRESSING - LOWER BODY: Activity did not occur on this shift ARTICLES SCORE Total number of steps: 0 DRESSING - LOWER BODY - SCORE: 0-UNK TOILETING: TOILETING - STEP 1: Does the patient require the assistance of a person or device, or need extra time with toileting? Yes . TOILETING - STEP 2: Does the patient require the assistance of a helper? Yes. TOILETING - STEP 3: How much assistance does the patient require from the helper? Hands-on assistance from the helper TOILETING - STEP 4: Of the 3 tasks: 1) Adjusting clothing prior to use, 2) Cleansing of perineal area, 3) Adjusting clot leyla after use; How many tasks does the patient perform WITHOUT assistance of the helper? Two tasks TOILETING - SCORE: 3-MOD BLADDER MANAGEMENT: BLADDER MANAGEMENT - STEP 1: Does the patient control the bladder completely and intentionally without equipment or devices or med ications, and is always continent? No. BLADDER MANAGEMENT - STEP 2: Does the patient require the assistance of a helper? No, patient requires and independently uses an a ssistive device, such as a urinal, bedpan, bedside commode, catheter, absorbent pad, or collecting de vice BLADDER MANAGEMENT - SCORE: 6-JAKY BOWEL MANAGEMENT: Activity did not occur on this shift BOWEL MANAGEMENT - SCORE: 7-IND TRANSFERS: BED, CHAIR, WHEELCHAIR: TRANSFERS: BED, CHAIR, WHEELCHAIR - STEP 1: Does the patient require assistance of a person or device, or need extra time with bed, chair, or whe elchair transfers? Yes. TRANSFERS: BED, CHAIR, WHEELCHAIR - STEP 2: Does the patient require the assistance of a helper? Yes. TRANSFERS: BED, CHAIR, WHEELCHAIR - STEP 3: How much assistance does the patient require from the helper? Steadying/guiding assistance TRANSFERS: BED, CHAIR, WHEELCHAIR - SCORE: 4-MIN TRANSFERS: TOILET: TRANSFERS: TOILET - STEP 1: Does the patient require the assistance of a person or device, or need extra time with toilet transfe rs? Yes. TRANSFERS: TOILET - STEP 2: Does the patient require the assistance of a helper? Yes. TRANSFERS: TOILET - STEP 3: How much assistance does the patient require from the helper? Patient performs half or more of the tr ansferring tasks TRANSFERS: TOILET - STEP 4: Does the patient need only incidental help such as contact guard or steadying during toilet transfer? Yes. TRANSFERS: TOILET - SCORE: 4-MIN TRANSFERS: SHOWER: Activity did not occur on this shift TRANSFERS: SHOWER - SCORE: 0-UNK TRANSFERS: TUB: Activity did not occur on this shift TRANSFERS: TUB - SCORE: 0-UNK LOCOMOTION: WALK: Activity did not occur on this shift LOCOMOTION: WALK - SCORE: 0-UNK LOCOMOTION: WHEELCHAIR: Activity did not occur on this shift LOCOMOTION: WHEELCHAIR - SCORE: 0-UNK COMPREHENSION: COMPREHENSION - SCORE: 0-UNK EXPRESSION EXPRESSION - SCORE: 0-UNK SOCIAL INTERACTION: SOCIAL INTERACTION - SCORE: 0-UNK PROBLEM SOLVING: PROBLEM SOLVING - SCORE: 0-UNK MEMORY: MEMORY - SCORE: 0-UNK SIGNATURE PANEL: The following modified sections: Eating - Score, Grooming - Score, Bathing - Score, Dressing - Upper Body - Score, Dressing - Lower Body - Score, Toileting - Score, Bladder Management - Score, Bowel Man agement - Score, Transfers: Bed, Chair, Wheelchair - Score, Transfers: Toilet - Score, Transfers: Nevin wer - Score, Transfers: Tub - Score, Locomotion: Walk - Score, Locomotion: Wheelchair - Score, Compre hension - Score, Expression - Score, Social Interaction - Score, Problem Solving - Score, Memory - Sc ore were [electronically] signed by Mansoor Watt on FriDec 31 2018 11:27:49 GMT-0500 (Central Daylight Time)
--- NOTE | 2018-12-31 11:38 | R.PREADM ---
ANTICIPATED REHAB ADMISSION DATE 12/26/2018 REFERRING FACILITY [facility] REFERRAL DATE AND TIME 12/24/2018 12:44 (CDT) ACUTE ADMIT DATE 12/20/2018 Previous Rehabilitation(s): No. ACUTE FEEDER/FOLDER/DC LICENSED EMBALMER Consuelo Rashid REFERRING PHYSICIAN Elvi Shaw REHAB FACILITY [facility] CLINICAL LIAISON Caleb Daley PHYSICIAN REVIEWER Dr. Jose Johns M.D. [facility]# [id number] [id number] NAME CLAY GAGNON ADDRESS [address] [place] [address] [facility] PHONE [facility] [address] DATE OF 1945 AGE 73 GENDER male MARITAL STATUS RACE white ADMIT FROM 02 - [facility] PRE-HOSPITAL LIVING SETTING 01 - Home (private home/apt. board/care, assisted living, usp, transitional living) HOME TYPE AND DETAILS Type of home: apartment # of levels in the residence: 1 # of steps to enter the residence: 0 # of steps within the residence: 0 PRE-HOSPITAL LIVING WITH Family/Relatives FAMILY SUPPORT Yes PRIMARY FAMILY CONTACT NAME Keri Rodriguez PRIMARY FAMILY CONTACT PHONE 1ST EMERGENCY CONTACT Keri Rodriguez 1ST CONTACT PHONE PATIENT EMPLOYMENT STATUS Retired (for age) PATIENT EMPLOYER No Employer PAYOR INFORMATION: 1ST PAYOR NAME MEDICARE 1ST PAYOR PHONE [phone] 1ST PAYOR INJURY/ILLNESS DUE TO ACCIDENT? No ANOTHER REPUBLICAN RESPONSIBLE? No PRIMARY REHAB/ACUTE DIAGNOSIS: Right Tiny Frontal Lobe Infarct ONSET DATE 12/20/2018 REHAB IMPAIRMENT CATEGORY (CELINE): 01 Stroke (STR) MEETS 60% rule AFFECTED EXTREMITIES: LLE, and LUE PRIMARY DIAGNOSIS-RELATED SURGERIES: N/A COMORBID REHAB/ACUTE DIAGNOSES: - Non-Tiered Type 2 diabetes mellitus with diabetic neuropathy, unspecified (E11.40) - N/A BPH DEPRESSION CAD TIA MCA CVA parkinson's disease INTERVENTIONS: - Depression Medications Psycho/social Safety - CAD 02 sats Activity management Medications VS RISK FOR COMPLICATIONS: - Depression Serotonin side effects - CAD CHF Cardiac Arrest AL Pain SUMMARY OF ACUTE HOSPITALIZATION: Pt. is a 73 yo Right-handed white male. On 12/20/2018 Pt. presented to [facility] with sudden onset of left-side weakness. On 12/20/2018 he was admitted to [facility] with diagnosis Right Tiny Frontal Lobe Infarct. His impairment category is Stroke 01 - Left Body (Right Brain) (01.1). Pre-morbidly, Pt. was independent/mod-I in Self-Care, Sphincter Control, Transfers Control, Locomotio n, Communication, and Social Cognition; and he had good Sphincter Control. Currently, he has deficits of Self-Care, Transfers Control, Locomotion, Endurance, Balance, and Safet y Awareness. Pt. is now referred to [facility] for acute in-patient rehabilitation in order to maximize patient's functional independence in activities of daily living, strength, ROM, and mobi lity. Patient has realistic goal of being discharged at assistance level 6-Juanita to reside at Home with Fam shakeel/Relatives. Clay Gagnon is a 73 year old male that lives in an apartment with his . Patient is independent with ADLs and ambulation. On 12/20/2018, he was doing well until he woke up to help his to go to the bathroom, and while pulling her up felt dizzy, felt down and hit the left side of his head and reported left sided weakness and was admitted to [facility] and treated. He is now medically stable but in need of 24-hour nursing, doctor supervision and oversite participate in 3hours of therapy a day/15 hours per week and receive care with an intensive interdisciplinary approach. PAST MEDICAL HISTORY BPH CAD DEPRESSION MCA CVA TIA Type 2 diabetes mellitus with diabetic neuropathy, unspecified (E11.40) parkinson's disease PAST SURGICAL HISTORY: APPENDECTOMY MEDICATION ALLERGIES: No Known Drug Allergies (NKDA) ENVIRONMENTAL ALLERGIES: None Known - Substance Allergies None Known - Other Allergies None Known CODE STATUS: Full code WEIGHT/HEIGHT/BMI: WEIGHT 164 lbs HEIGHT 5' 11" BMI 22.9 DIET: - Diet Type Regular - Diet - Solid Texture Regular - Diet - Liquid Texture Regular - Tube Feed N/A REVIEW OF SYSTEMS: - Gen Alert and awake Lying in bed No apparent distress Oriented to: person, time, and place - Vital Signs Temperature: 96.6 F SBP/DBP: 148/72 Pulse: 68 Resp: 18 Vital signs stable, afebrile - CVS RRR VITAL SIGNS Temperature: 96.6 F SBP/DBP: 148/72 Pulse: 68 Resp: 18 Vital signs stable, afebrile FUNCTIONAL STATUS: - Self-Care A. Eating Ind sup B. Grooming Ind CGA C. Bathing Ind sup D. Dressing - Upper Ind sup E. Dressing - Lower Ind maxA F. Toileting Ind sup - Sphincter Control G: Bladder control Ind Ind H: Bowel control Ind Ind - Transfers Control I. Bed/Chair/Wheelchair Ind Lamar J. Toilet Ind CGA K. Tub/Shower Ind ADNO - Locomotion L. Walk/Wheelchair (C) Ind Lamar L. Walk/Wheelchair (W) Ind Lamar M. Stairs Ind ADNO - Communication N. Comprehension (B) Ind Juanita O. Expression (B) Ind Juanita - Social Cognition P. Social Interaction Ind Juanita Q. Problem Solving Ind Juanita R. Memory Ind Juanita - Endurance Fair - Balance Fair - Safety Awareness Fair CURRENT FUNC. DEFICITS: Self-Care, Transfers Control, Locomotion, Endurance, Balance, and Safety Awareness THERAPY NOTES FROM ACUTE CARE: Attached. SPECIAL NEEDS: - Safety Concerns Skin breakdown precautions needed due to skin breakdown risk PATIENT NEEDS ACTIVE AND ONGOING THERAPEUTIC INTERVENTION OF MULTIPLE THERAPY DISCIPLINES, INCLUDING: - Occupational Therapy Evaluate and Treat. Visual Perceptual Training. Cognitive Retraining. - Speech Therapy Cognitive Training. Memory Strategies. Expressive Language Skills. Speech Intelligibility Training. R eceptive Language Skills. - Physical Therapy Evaluate and Treat. PATIENT NEEDS CLOSE MEDICAL SUPERVISION BY A REHABILITATION PHYSICIAN FOR: Bowel and Bladder Management Coordination of Treatment Team Diabetes Management Medical and Co-Morbidity Management Pain Management DVT Management PATIENT REQUIRES 24X7 REHAB NURSING FOR MEDICAL AND FUNCTIONAL MGT. OF THE FOLLOWING DEFICITS: ADL's Ambulation Bowel and Bladder Management Cognition Communication Disease Management Medication Management Patient/Family Education Providing Safe Environment Transfers Pain Management DVT Management PATIENT REQUIRES INTENSIVE, COORDINATED INTERDISCIPLINARY APPROACH TO REHAB: Arranging Home Equipment/Services Discharge Planning Family Intervention/Training Ramp Agent/Case Management PATIENT REHAB POTENTIAL: Expected level of measurable improvement will be of a practical value to patient's functional capacit y or adaptations to impairments Has a viable Discharge Plan Medically appropriate; condition is sufficiently stable to participate in intensive rehab program Patient is able and expected to receive 3 hours of individualized therapy daily on at least 5 of ever y 7 days Patient's prognosis for significant practical improvement within a reasonable period of time appears Good DISCHARGE PLAN: - Estimated Length of Stay (days) 17. - Consensus on plan Discharge plan has been discussed with primary caregiver. Patient/Family is in agreement with the greta n. Primary caregiver is in agreement with the plan. - Patient/Family Goals Return home with assistance. - Planned Living Setting Upon Discharge Home, to live with Family/Relatives. Transitional Living. RECOMMENDED CARE LEVEL: IRF RECOMMENDATION DETAILS: Recommended Admission to Comprehensive Rehabilitation Program to Increase Functional [place] SCREENER'S COMPLETENESS CONFIRMATION: - Screening Confirmation The patient data collection on this preadmission screening form is finished PHYSICIANS REVIEW AND ADMISSION DETERMINATION Admit - Based on my review of the Pre-Admission Screening results, in my medical judgment and experie nce, I concur with the findings and recommend admission to [facility], as this patient requires an IRF level of care. SIGNATURE PANEL: Clinical Liaison - [electronically] signed by Caleb Daley on 12/24/2018 at 13:29 (CDT) Physician Reviewer - [electronically] signed by Dr. Jose Johns M.D. on 12/24/2018 at 13:52 (CDT )
--- NOTE | 2018-12-31 11:38 | R.HP ---
FACILITY: [facility] ENCOUNTER DATE AND TIME: 12/25/2018 12:46 (CDT) MR#: [id number] NAME CLAY GAGNON AD[address]ESS: [address] CITY: [place] STATE: [place]IP [id number] PHONE: DATE OF : 1945 AGE: 73 GENDER: Male DEXTERITY Right-handed MARITAL STATUS RACE White PRE-HOSPITAL LIVING SETTING 01 - Home (private home/apt. board/care, assisted living, care home, transitional living) PRE-HOSPITAL LIVING WITH Family/Relatives ENCOUNTER PHYSICIAN: Dr. Jose Johns M.D. REFERRING DOCTOR: rhonda Shaw DATE OF ADMISSION: 12/24/2018 20:11 (CDT) REFERRING FACILITY [facility] HOME TYPE AND DETAILS: Type of home: apartment # of levels in the residence: 1 # of steps to enter the residence: 0 # of steps within the residence: 0 ADMISSION DIAGNOSIS: Right Tiny Frontal Lobe Infarct ONSET DATE: 12/20/2018 PRIMARY DIAGNOSIS-RELATED SURGERIES: N/A SECONDARY/COMORBID DIAGNOSES (TIERED): - Non-Tiered Type 2 diabetes mellitus with diabetic neuropathy, unspecified (E11.40) - N/A BPH DEPRESSION CAD TIA MCA CVA parkinson's disease HISTORY OF PRESENT ILLNESS (HPI): Pt. is a 73 yo Right-handed white male. On 12/20/2018 Pt. presented to [facility] with sudden worsening expressive and rec eptive aphasia with moreleft-side weakness. On 12/20/2018 he was admitted to [facility] with diagnosis Right Tiny Frontal Lobe Infarct. His impairment category is Stroke 01 - Left Body (Right Brain) (01.1). Pre-morbidly, Pt. was independent/mod-I in Self-Care, Sphincter Control, Transfers Control, Locomotio n, Communication, and Social Cognition; and he had good Sphincter Control. Currently, he has deficits of Self-Care, Transfers Control, Locomotion, Endurance, Balance, and Safet y Awareness. Pt. is now referred to [facility] for acute in-patient rehabilitation in order to maximize patient's functional independence in activities of daily living, strength, ROM, and mobi lity. Patient has realistic goal of being discharged at assistance level 6-Juanita to reside at Home with Fam shakeel/Relatives. Clay Gagnon is a 73 year old male that lives in an apartment with his . Patient is independent with ADLs and ambulation. On 12/20/2018, he was doing well until he woke up to help his to go to the bathroom, and while pulling her up felt dizzy, felt down and hit the left side of his head and reported left sided weakness and was admitted to [facility] and treated. He is now medically stable but in need of 24-hour nursing, doctor supervision and oversite participate in 3hours of therapy a day/15 hours per week and receive care with an intensive interdisciplinary approach. MEDICATION ALLERGIES: No Known Drug Allergies (NKDA) ENVIRONMENTAL ALLERGIES: None Known - Substance Allergies None Known - Other Allergies None Known PAST MEDICAL HISTORY: BPH CAD DEPRESSION MCA CVA TIA Type 2 diabetes mellitus with diabetic neuropathy, unspecified (E11.40) parkinson's disease PAST SURGICAL HISTORY: APPENDECTOMY FAMILY HISTORY: Family history is not contributory. SOCIAL HISTORY: - Home Living Family/Relatives REVIEW OF SYSTEMS: - Gen No Chills Fatigue No Fever - Eyes No Double Vision No itchiness - ENMT Difficulty Swallowing - CVS No Chest Discomfort No Chest Pain Fatigue No Weight Gain - Resp No Cough No Shortness of Breath - GI Continent No Abdominal Pain No Constipation No Diarrhea - Continent No Kidney Pain No Painful Urination No Urinary Urgency - MSK No Joint Pain Muscle Cramps Stiffness - Skin No Itching No Rash No Suspicious Lesions - Neuro Coordination Difficulty Difficulty with Concentration Memory Loss No Seizures Weakness - Psych No Anxiety No Depression No HIV Exposure No Persistent Infections No Seasonal Allergies - Endo No Cold/Heat Intolerance No Excessive Hunger No Excessive Thirst No Excessive Urination PHYSICAL EXAM - Gen Alert and awake Lying in bed No apparent distress Oriented to: person and place - Skin No skin breakdown. Normacephalic - Eyes No abnormalities - ENMT No abnormalities - Neck No abnormalities - CVS RRR - Chest No abnormalities - Resp Clear to auscultation - Abd +bowel sounds - GI Non distended Deferred - No abnormalities - Ext No significant edema - MSK 4+/5 weakness in left upper and lower extremity - Neuro 4/5 strength left upper and lower extremities. - Psych Mild depression. VITAL SIGNS Temperature: 96.6 F SBP/DBP: 148/72 Pulse: 68 Resp: 18 NURSING: - Shower allowing shower - Lab Results blood Sugar Check ACHS - Bladder care per protocol - Skin care per protocol PRECAUTIONS: - Weight Bearing Precaution WBAT left LE ACTIVITIES OOB only with supervision FUNCTIONAL STATUS: - Self-Care A. Eating Ind sup B. Grooming Ind CGA C. Bathing Ind sup D. Dressing - Upper Ind sup E. Dressing - Lower Ind maxA F. Toileting Ind sup - Sphincter Control G: Bladder control Ind Ind H: Bowel control Ind Ind - Transfers Control I. Bed/Chair/Wheelchair Ind Lamar J. Toilet Ind CGA K. Tub/Shower Ind ADNO - Locomotion L. Walk/Wheelchair (C) Ind Lamar L. Walk/Wheelchair (W) Ind Lamar M. Stairs Ind ADNO - Communication N. Comprehension (B) Ind Juanita O. Expression (B) Ind Juanita - Social Cognition P. Social Interaction Ind Juanita Q. Problem Solving Ind Juanita R. Memory Ind Juanita - Endurance Fair - Balance Fair - Safety Awareness Fair CURRENT FUNC. DEFICITS: Self-Care, Transfers Control, Locomotion, Endurance, Balance, and Safety Awareness ASSESSMENT: Pt. is a 73 yo Right-handed white male.On 12/20/2018 Pt. presented to [facility] w ith sudden onset of left-side weakness.On 12/20/2018 he was admitted to [facility] with diagnosis Right Tiny Frontal Lobe Infarct.His impairment category is Stroke 01 - Left Body ([facility] Brain) (01.1).Pre-morbidly, Pt. was independent/mod-I in Self-Care, Sphincter Control, Transfers Control, Locomotion, Communication, and Social Cognition; and he had good Sphincter Control.Currently , he has deficits of Self-Care, Transfers Control, Locomotion, Endurance, Balance, and Safety Awarene ss.Pt. is now referred to [facility] for acute in-patient rehabilitation in or jay to maximize patient's functional independence in activities of daily living, strength, ROM, and m obility.- Rehab Goal Patient has realistic goal of being discharged at assistance level 6-Juanita to reside at Home with Fam shakeel/Relatives. Clay Gagnon is a 73 year old male that lives in an apartment with his . Patient is independent with ADLs and ambulation. On 12/20/2018, he was doing well until he woke up to help his to go to the bathroom, and while pulling her up felt dizzy, felt down and hit the left side of his head and reported left sided weakness and was admitted to [facility] and treated. He is now medically stable but in need of 24-hour nursing, doctor supervision and oversite participate in 3hours of therapy a day/15 hours per week and receive care with an intensive interdisciplinary approach.REHAB PLAN: for Dementia, TBI, Stroke, or others - Physical Therapy Gait dysfunction - to improve, our physical therapists will perform initial evaluation of pt's status upon admission and devise an individualized program for Gait Training, and Wheel Chair mobility Inability to transfer - to improve, our physical therapists will perform initial evaluation of pt's s tatus upon admission and devise an individualized program for Bed mobility Need for home safety evaluation - to improve, our physical therapists will perform initial evaluation of pt's status upon admission and devise an individualized program for Home Evaluation Need in caregiver upon discharge - to improve, our physical therapists will perform initial evaluatio n of pt's status upon admission and devise an individualized program for Caregiver Training New precaution - to improve, our physical therapists will perform initial evaluation of pt's status u elías admission and devise an individualized program for Patient precaution education Edema - to improve, our physical therapists will perform initial evaluation of pt's status upon admi ssion and devise an individualized program for Elevation Training, and Lymphedema Therapy Poor balance - to improve, our physical therapists will perform initial evaluation of pt's status upo n admission and devise an individualized program for Balance Training Poor endurance - to improve, our physical therapists will perform initial evaluation of pt's status u elías admission and devise an individualized program for Endurance Training Weakness - to improve, our physical therapists will perform initial evaluation of pt's status upon ad mission and devise an individualized program for Aquatic Therapy, Neuromuscular Reeducation, and Stre ngthening Achieving independence - to improve, our physical therapists will perform initial evaluation of pt's status upon admission and devise an individualized program for Community Reintegration Activities - Occupational Therapy ADL deficits - to improve, our occupation therapists will perform initial evaluation of pt's status u elías admission and devise an individualized program for Bathing, Bed mobility, Community Reintegration , Cooking, Dressing, Eating, Fine Motor Skills, Grooming, Homemaking, Kitchen Mobility, Laundry, Nafisa ent Education, Safety Awareness, Splinting - Positioning, Transfers(Toilet, Tub, Shower), and Wheel C hair Management Need for health care consultant - to improve, our occupation therapists will perform initial evaluation of pt's s tatus upon admission and devise an individualized program for Caregiver Training Weakness - to improve, our occupation therapists will perform initial evaluation of pt's status upon admission and devise an individualized program for Aquatic Therapy, Balance, Endurance, UE ROM, and U E strengthening MEDICAL PLAN: - Diet Type Start Regular - Diet - Liquid Texture Start Regular - Tube Feed Start N/A - Lab Results blood Sugar Check ACHS - Bladder care per protocol - Weight Bearing Precaution WBAT left LE - Skin care per protocol - Diet - Solid Texture Regular - Shower shower DISCHARGE PLAN: - Estimated Length of Stay (days) 17. - Consensus on plan Discharge plan has been discussed with primary caregiver. Patient/Family is in agreement with the greta n. Primary caregiver is in agreement with the plan. - Patient/Family Goals Return home with assistance. - Planned Living Setting Upon Discharge Home, to live with Family/Relatives. Transitional Living. SIGNATURE PANEL: (CDT)
--- NOTE | 2018-12-31 11:38 | FAST ---
ENCOUNTER DATE AND TIME: 12/25/2018 08:00 (CDT) NAME JACQUIE SWEENEY DATE OF : 1945 DATE OF ADMISSION: 12/24/2018 20:11 (CDT) PHONE: AGE: 73 GENDER: Male ENCOUNTER PHYSICIAN: Dr. Jose Johns M.D. ADMISSION DIAGNOSIS: - Stroke 01 - Left Body (Right Brain) (01.1) Right Tiny Frontal Lobe Infarct. EATING: Activity did not occur on this shift EATING - SCORE: 0-UNK GROOMING: Comb/brush hair Wash, rinse, and dry face Wash, rinse, and dry hands GROOMING - STEP 1: Does the patient require the assistance of a person or device, or need extra time when grooming? Yes. GROOMING - STEP 2: Does the patient require the assistance of a helper? Yes. GROOMING - STEP 3: How much assistance does the patient require from the helper? Only prior equipment preparation/set up from the helper GROOMING - SCORE: 5-SUP BATHING: Abdomen Buttocks Chest Left arm Left upper leg Perineal area Right arm Right lower leg and foot Right upper leg BATHING - STEP 1: Does the patient require the assistance of a person or device, or need extra time when bathing? Yes. BATHING - STEP 2: Does the patient require the assistance of a helper? Yes. BATHING - STEP 3: How much assistance does the patient require from the helper? Only incidental help such as placement of a wash cloth in his/her hand a few times as s/he bathes OR help to bathe just one or two areas of the body BATHING - SCORE: 4-MIN DRESSING - UPPER BODY: T-shirt/pullover shirt (four steps) ARTICLES SCORE Total number of steps: 4 DRESSING - UPPER BODY - STEP 1: Does the patient require help from a person or device, or need extra time when dressing above the nessa st? Yes. DRESSING - UPPER BODY - STEP 2: Does the patient require the assistance of a helper? Yes. DRESSING - UPPER BODY - STEP 3: Does the helper touch the patient while dressing? No. DRESSING - UPPER BODY - SCORE: 5-SUP DRESSING - LOWER BODY: Sock - Left foot (one step) Sock - Right foot (one step) Underwear (three steps) ARTICLES SCORE Total number of steps: 5 DRESSING - LOWER BODY - STEP 1: Does the patient require help from a person or device, or need extra time when dressing below the nessa st? Yes. DRESSING - LOWER BODY - STEP 2: Does the patient require the assistance of a helper? Yes. DRESSING - LOWER BODY - STEP 3: Does the helper touch the patient while dressing? Yes. DRESSING - LOWER BODY - STEP 4: How many of the total steps does the patient complete on his/her own? 5 DRESSING - LOWER BODY - SCORE: 4-MIN TOILETING: Activity did not occur on this shift TOILETING - SCORE: 0-UNK BLADDER MANAGEMENT: Activity did not occur on this shift BLADDER MANAGEMENT - SCORE: 7-IND BOWEL MANAGEMENT: Activity did not occur on this shift BOWEL MANAGEMENT - SCORE: 7-IND TRANSFERS: BED, CHAIR, WHEELCHAIR: Activity did not occur on this shift TRANSFERS: BED, CHAIR, WHEELCHAIR - SCORE: 0-UNK TRANSFERS: TOILET: Activity did not occur on this shift TRANSFERS: TOILET - SCORE: 0-UNK TRANSFERS: SHOWER: Activity did not occur on this shift TRANSFERS: SHOWER - SCORE: 0-UNK TRANSFERS: TUB: TRANSFERS: TUB - STEP 1: Does the patient require the assistance of a person or device, or need extra time with tub transfers? Yes. TRANSFERS: TUB - STEP 2: Does the patient require the assistance of a helper? Yes. TRANSFERS: TUB - STEP 3: How much assistance does the patient require from the helper? Incidental help such as contact guardin g or steadying, OR help to lift one leg into the tub TRANSFERS: TUB - SCORE: 4-MIN LOCOMOTION: WALK: Activity did not occur on this shift LOCOMOTION: WALK - SCORE: 0-UNK LOCOMOTION: WHEELCHAIR: Activity did not occur on this shift LOCOMOTION: WHEELCHAIR - SCORE: 0-UNK LOCOMOTION: STAIRS: Activity did not occur on this shift LOCOMOTION: STAIRS - SCORE: 0-UNK COMPREHENSION: COMPREHENSION: TYPE: Both COMPREHENSION - STEP 1: Does the patient require help from a person or device, or need extra time to understand complex and a bstract ideas (such as current events, finances, discharge planning, medical issues, relationships, e tc)? Yes. COMPREHENSION - STEP 2: Does the patient require help to understand questions or statements about basic needs or ideas (such as hunger, thirst, sleep, safety, daily schedule, room location, or discomfort) half or more of the t zane? No. COMPREHENSION - STEP 3: How often does the patient need help to understand directions and conversation about basic needs? 10% - 24% of the time COMPREHENSION - SCORE: 4-MIN EXPRESSION EXPRESSION: TYPE: Both EXPRESSION - STEP 1: Does the patient require help from a person or device, or need extra time expressing complex and abst ract ideas (such as current events, finances, discharge planning, medical issues, relationships, etc) ? Yes. EXPRESSION - STEP 2: Does the patient require help to express basic necessities or ideas (such as hunger, thirst, sleep, s afety, daily schedule, room location, or discomfort) half or more of the time? No. EXPRESSION - STEP 3: How often does the patient need help to express directions and conversation about basic needs? 10-24% of the time EXPRESSION - SCORE: 4-MIN SOCIAL INTERACTION: SOCIAL INTERACTION - STEP 1: Does the patient require a helper to interact with others in social and therapeutic situations? Yes. SOCIAL INTERACTION - STEP 2: Does the patient interact appropriately half or more of the time? Yes. SOCIAL INTERACTION - STEP 3: How often does the patient need help to interact appropriately? Less than 10% of the time SOCIAL INTERACTION - SCORE: 5-SUP PROBLEM SOLVING: PROBLEM SOLVING - STEP 1: Does the patient need help from a person or device, or need extra time to solve complex problems such as managing a checking account or confronting interpersonal problems? Yes. PROBLEM SOLVING - STEP 2: Does the patient solve basic routine problems half or more of the time? Yes. PROBLEM SOLVING - STEP 3: How often does the patient need help to solve basic routine problems? 25%-49% of the time PROBLEM SOLVING - SCORE: 3-MOD MEMORY: MEMORY - STEP 1: Does the patient need help from a person or device, or need extra time to remember frequently encount ered people, daily routines, and executing requests? Yes. MEMORY - STEP 2: How often does the patient need help to remember frequently encountered people, daily routines, and e xecuting requests? 25% - 49% of the time MEMORY - SCORE: 3-MOD SIGNATURE PANEL: The following modified sections: Eating - Score, Grooming - Score, Bathing - Score, Dressing - Upper Body - Score, Dressing - Lower Body - Score, Toileting - Score, Transfers: Bed, Chair, Wheelchair - S core, Transfers: Toilet - Score, Transfers: Shower - Score, Transfers: Tub - Score, Comprehension - S core, Expression - Score, Social Interaction - Score, Problem Solving - Score, Memory - Score were [e lectronically] signed by Veronica Sung OT on FriDec 25 2018 12:50:56 T-0500 ([place] Da ylight Time)
--- NOTE | 2018-12-31 11:38 | FAST ---
SHIFT START DATE/TIME: 12/25/2018 19:00 (CDT) SHIFT END DATE/TIME: 12/26/2018 07:00 (CDT) NAME JACQUIE SWEENEY DATE OF : 1945 DATE OF ADMISSION: 12/24/2018 20:11 (CDT) PHONE: AGE: 73 GENDER: Male ENCOUNTER PHYSICIAN: Dr. Jose Johns M.D. ADMISSION DIAGNOSIS: - Stroke 01 - Left Body (Right Brain) (01.1) Right Tiny Frontal Lobe Infarct. EATING: Activity did not occur on this shift EATING - SCORE: 0-UNK GROOMING: Activity did not occur on this shift GROOMING - SCORE: 0-UNK BATHING: Activity did not occur on this shift BATHING - SCORE: 0-UNK DRESSING - UPPER BODY: Patient is not dressing in public clothing ARTICLES SCORE Total number of steps: 0 DRESSING - UPPER BODY - SCORE: 0-UNK DRESSING - LOWER BODY: Patient is not dressing in public clothing ARTICLES SCORE Total number of steps: 0 DRESSING - LOWER BODY - SCORE: 0-UNK TOILETING: TOILETING - STEP 1: Does the patient require the assistance of a person or device, or need extra time with toileting? Yes . TOILETING - STEP 2: Does the patient require the assistance of a helper? Yes. TOILETING - STEP 3: How much assistance does the patient require from the helper? Hands-on assistance from the helper TOILETING - STEP 4: Of the 3 tasks: 1) Adjusting clothing prior to use, 2) Cleansing of perineal area, 3) Adjusting clot leyla after use; How many tasks does the patient perform WITHOUT assistance of the helper? Three tasks with steadying assistance from the helper TOILETING - SCORE: 4-MIN BLADDER MANAGEMENT: BLADDER MANAGEMENT - STEP 1: Does the patient control the bladder completely and intentionally without equipment or devices or med ications, and is always continent? No. BLADDER MANAGEMENT - STEP 2: Does the patient require the assistance of a helper? Yes. BLADDER MANAGEMENT - STEP 3: How much assistance does the patient require from the helper? Only set-up of equipment - such as plac ing it within reach of the patient or emptying a device - to maintain either satisfactory voiding pat tern or managing an external device, such as an absorbent pad, ileal device, or catheter BLADDER MANAGEMENT - SCORE: 5-SUP BOWEL MANAGEMENT: Activity did not occur on this shift BOWEL MANAGEMENT - SCORE: 7-IND TRANSFERS: BED, CHAIR, WHEELCHAIR: TRANSFERS: BED, CHAIR, WHEELCHAIR - STEP 1: Does the patient require assistance of a person or device, or need extra time with bed, chair, or whe elchair transfers? Yes. TRANSFERS: BED, CHAIR, WHEELCHAIR - STEP 2: Does the patient require the assistance of a helper? Yes. TRANSFERS: BED, CHAIR, WHEELCHAIR - STEP 3: How much assistance does the patient require from the helper? Steadying/guiding assistance TRANSFERS: BED, CHAIR, WHEELCHAIR - SCORE: 4-MIN TRANSFERS: TOILET: Activity did not occur on this shift TRANSFERS: TOILET - SCORE: 0-UNK TRANSFERS: SHOWER: Activity did not occur on this shift TRANSFERS: SHOWER - SCORE: 0-UNK TRANSFERS: TUB: Activity did not occur on this shift TRANSFERS: TUB - SCORE: 0-UNK LOCOMOTION: WALK: Activity did not occur on this shift LOCOMOTION: WALK - SCORE: 0-UNK LOCOMOTION: WHEELCHAIR: Activity did not occur on this shift LOCOMOTION: WHEELCHAIR - SCORE: 0-UNK COMPREHENSION: COMPREHENSION: TYPE: Both COMPREHENSION - STEP 1: Does the patient require help from a person or device, or need extra time to understand complex and a bstract ideas (such as current events, finances, discharge planning, medical issues, relationships, e tc)? No. COMPREHENSION - STEP 2: Does the patient need extra time, require an assistive device (such as glasses for visual comprehensi on or a hearing aid for auditory comprehension) or does s/he have mild difficulty understanding compl ex and abstract information? Yes. COMPREHENSION - SCORE: 6-JAKY EXPRESSION EXPRESSION: TYPE: Both EXPRESSION - STEP 1: Does the patient require help from a person or device, or need extra time expressing complex and abst ract ideas (such as current events, finances, discharge planning, medical issues, relationships, etc) ? No. EXPRESSION - STEP 2: Does the patient need extra time, require an assistive device (such as augmentive communication syste m or a communication board), OR does s/he have mild difficulty expressing complex and abstract ideas (including mild dysarthria or mild word-find problems)? Yes. EXPRESSION - SCORE: 6-JAKY SOCIAL INTERACTION: SOCIAL INTERACTION - STEP 1: Does the patient require a helper to interact with others in social and therapeutic situations? No. SOCIAL INTERACTION - STEP 2: Does the patient need extra time in social situations, OR does s/he interact with staff, other patien ts, and family members ONLY in structured environments, OR does s/he require medication for social in teraction? Yes, patient needs extra time SOCIAL INTERACTION - SCORE: 6-JAKY PROBLEM SOLVING: PROBLEM SOLVING - STEP 1: Does the patient need help from a person or device, or need extra time to solve complex problems such as managing a checking account or confronting interpersonal problems? No. PROBLEM SOLVING - STEP 2: Does the patient require extra time to make decisions or solve problems, OR does s/he have slight dif ficulty reading, initiating, or self-correcting in unfamiliar situations? Yes, patient needs extra ti me. PROBLEM SOLVING - SCORE: 6-JAKY MEMORY: MEMORY - STEP 1: Does the patient need help from a person or device, or need extra time to remember frequently encount ered people, daily routines, and executing requests? No. MEMORY - STEP 2: Does the patient have slight difficulty recognizing frequently encountered people, daily routines, or executing requests without the need for repetition or using self-initiated or environmental cues to remember? Yes. MEMORY - SCORE: 6-JAKY SIGNATURE PANEL: This form was reviewed and signed by Ayde Moreno CNA on Sat Dec 26 2018 02:11:26 GMT-0500 ([place] Daylight Time) The following modified sections: Eating - Score, Grooming - Score, Bathing - Score, Dressing - Upper Body - Score, Dressing - Lower Body - Score, Toileting - Score, Bladder Management - Score, Bowel Man agement - Score, Transfers: Bed, Chair, Wheelchair - Score, Transfers: Toilet - Score, Transfers: Nevin wer - Score, Transfers: Tub - Score, Locomotion: Walk - Score, Locomotion: Wheelchair - Score, Compre hension - Score, Expression - Score, Social Interaction - Score, Problem Solving - Score, Memory - Sc ore were [electronically] signed by Ayde Moreno CNA on Sat Dec 26 2018 02:09:55 GMT-0500 ([place] Daylight Time)
--- NOTE | 2018-12-31 11:38 | FAST ---
SHIFT START DATE/TIME: 12/25/2018 07:00 (CDT) SHIFT END DATE/TIME: 12/25/2018 19:00 (CDT) NAME JACQUIE SWEENEY DATE OF : 1945 DATE OF ADMISSION: 12/24/2018 20:11 (CDT) PHONE: AGE: 73 GENDER: Male ENCOUNTER PHYSICIAN: Dr. Jose Johns M.D. ADMISSION DIAGNOSIS: - Stroke 01 - Left Body (Right Brain) (01.1) Right Tiny Frontal Lobe Infarct. EATING: EATING - STEP 1: Does the patient require the assistance of a person or device, or need extra time when eating? Yes. EATING - STEP 2: Does the patient require the assistance of a helper? No, patient only requires an assistive device, O R s/he takes more than reasonable time to eat, OR there is a safety concern, OR s/he requires modifie d food consistency EATING - SCORE: 6-JAKY GROOMING: Activity did not occur on this shift GROOMING - SCORE: 0-UNK BATHING: Activity did not occur on this shift BATHING - SCORE: 0-UNK DRESSING - UPPER BODY: Activity did not occur on this shift ARTICLES SCORE Total number of steps: 0 DRESSING - UPPER BODY - SCORE: 0-UNK DRESSING - LOWER BODY: Activity did not occur on this shift ARTICLES SCORE Total number of steps: 0 DRESSING - LOWER BODY - SCORE: 0-UNK TOILETING: TOILETING - STEP 1: Does the patient require the assistance of a person or device, or need extra time with toileting? Yes . TOILETING - STEP 2: Does the patient require the assistance of a helper? Yes. TOILETING - STEP 3: How much assistance does the patient require from the helper? Hands-on assistance from the helper TOILETING - STEP 4: Of the 3 tasks: 1) Adjusting clothing prior to use, 2) Cleansing of perineal area, 3) Adjusting clot leyla after use; How many tasks does the patient perform WITHOUT assistance of the helper? No tasks; h elper performs all three tasks TOILETING - SCORE: 1-DEP BLADDER MANAGEMENT: [place] removes incontinent device (Depends, pull ups, etc.); cleans the patient after accident / inco ntinent episode; and, applies new incontinent device. BLADDER MANAGEMENT - SCORE: 1-DEP BLADDER MANAGEMENT - FREQUENCY OF ACCIDENTS: BLADDER MANAGEMENT(FA) - STEP 1: How many accidents has the patient had during the current shift? 1 BOWEL MANAGEMENT: BOWEL MANAGEMENT - STEP 1: Does the patient control bowels completely and intentionally without equipment devices or medications AND is always continent? Yes. BOWEL MANAGEMENT - SCORE: 7-IND BOWEL MANAGEMENT - FREQUENCY OF ACCIDENTS: BOWEL MANAGEMENT(FA) - STEP 1: How many accidents has the patient had during the current shift? 0 TRANSFERS: BED, CHAIR, WHEELCHAIR: TRANSFERS: BED, CHAIR, WHEELCHAIR - STEP 1: Does the patient require assistance of a person or device, or need extra time with bed, chair, or whe elchair transfers? Yes. TRANSFERS: BED, CHAIR, WHEELCHAIR - STEP 2: Does the patient require the assistance of a helper? Yes. TRANSFERS: BED, CHAIR, WHEELCHAIR - STEP 3: How much assistance does the patient require from the helper? Steadying/guiding assistance TRANSFERS: BED, CHAIR, WHEELCHAIR - SCORE: 4-MIN TRANSFERS: TOILET: Activity did not occur on this shift TRANSFERS: TOILET - SCORE: 0-UNK TRANSFERS: SHOWER: Activity did not occur on this shift TRANSFERS: SHOWER - SCORE: 0-UNK TRANSFERS: TUB: Activity did not occur on this shift TRANSFERS: TUB - SCORE: 0-UNK LOCOMOTION: WALK: Activity did not occur on this shift LOCOMOTION: WALK - SCORE: 0-UNK LOCOMOTION: WHEELCHAIR: Activity did not occur on this shift LOCOMOTION: WHEELCHAIR - SCORE: 0-UNK COMPREHENSION: COMPREHENSION - SCORE: 0-UNK EXPRESSION EXPRESSION - SCORE: 0-UNK SOCIAL INTERACTION: SOCIAL INTERACTION - SCORE: 0-UNK PROBLEM SOLVING: PROBLEM SOLVING - SCORE: 0-UNK MEMORY: MEMORY - SCORE: 0-UNK SIGNATURE PANEL: The following modified sections: Eating - Score, Grooming - Score, Bathing - Score, Dressing - Upper Body - Score, Dressing - Lower Body - Score, Toileting - Score, Bladder Management - Score, Bowel Man agement - Score, Transfers: Bed, Chair, Wheelchair - Score, Transfers: Toilet - Score, Transfers: Nevin wer - Score, Transfers: Tub - Score, Locomotion: Walk - Score, Locomotion: Wheelchair - Score, Compre hension - Score, Expression - Score, Social Interaction - Score, Problem Solving - Score, Memory - Sc ore were [electronically] signed by Rhonda Rodas CNA on FriDec 25 2018 16:19:02 T-0500 (Centra l Daylight Time)
--- NOTE | 2018-12-31 11:38 | PAPE ---
PATIENT: [facility] MR# [id number] REFERRING DOCTOR rhonda Shaw EVALUATION DATE AND TIME 12/25/2018 12:52 (CDT) NAME JACQUIE SWEENEY DATE OF 1945 AGE 73 PHONE GENDER male EVALUATING PHYSICIAN Dr. Jose Johns M.D. ADMISSION DIAGNOSIS: Right Tiny Frontal Lobe Infarct ONSET DATE 12/20/2018 SECONDARY/COMORBID DIAGNOSES TIERED: - Non-Tiered Type 2 diabetes mellitus with diabetic neuropathy, unspecified (E11.40) - N/A BPH DEPRESSION CAD TIA MCA CVA parkinson's disease POST-ADMISSION FUNCTIONAL/MEDICAL STATUS: - Bladder Same accident frequency: Ind - No accidents in the past 7 days - Bowel Same accident frequency: Ind - No accidents in the past 7 days - Walking Same score based on distance walked: 3(>=150ft) - Wheelchair Same score based on distance traveled: 0(N/A) STATUS CHANGE EVALUATION: No change in Functional or Medical Status is identified compared with Pre-Admission screening. PATIENT NEEDS CLOSE MEDICAL SUPERVISION BY A REHABILITATION PHYSICIAN FOR: Bowel and Bladder Management Coordination of Treatment Team Diabetes Management Medical and Co-Morbidity Management Pain Management DVT Management PATIENT REQUIRES 24X7 REHAB NURSING FOR MEDICAL AND FUNCTIONAL MGT. OF THE FOLLOWING DEFICITS: ADL's Ambulation Bowel and Bladder Management Cognition Communication Disease Management Medication Management Patient/Family Education Providing Safe Environment Transfers Pain Management DVT Management PATIENT REQUIRES INTENSIVE, COORDINATED INTERDISCIPLINARY APPROACH TO REHAB: Arranging Home Equipment/Services Discharge Planning Family Intervention/Training Field Support Engineer/Case Management LIST OF IDENTIFIED AND POTENTIAL PROBLEMS: Alteration in leisure activities Bladder, Incontinence Bowel, Incontinence Depression, Actual or Potential Diabetes, Hyperglycemia/hypoglycemia Issues Infection, Actual or Potential Mobility Impaired Pain, Alteration in Comfort Self Care Deficit Skin Integrity, Actual or Potential Urinary Tract Infection (UTI), Actual or Potential RISK FOR COMPLICATIONS - Depression Serotonin side effects. - CAD CHF. Cardiac Arrest. UT. Pain. INTERVENTIONS - Depression Medications. Psycho/social. Safety. - CAD 02 sats. Activity management. Medications. VS. PATIENT COULD BE AT RISK FOR COMPLICATIONS FROM ADVERSE MEDICAL CONDITIONS DUE TO HIS/HER COMORBIDITI ES AND THE RIGORS OF THE INTENSIVE REHABILLITATION PROGRAM. METHODS OR INTERVENTIONS TO AVOID COMPLIC ATIONS INCLUDE: - Deep Vein Thrombosis (DVT) Prophylaxis therapy for prevention . Sequential Compression Device (SCD). TE D Hose. - Bleeding Stroke patients assessed for lethargy or change in status. - Infection Clinical staff to assess and manage the signs and symptoms of infection including fever, redness, war mth, etc. - Urinary Tract Infection - Aspiration Clinical staff will assess and manage coughing, drooling, congestion. - Falls Patient will be evaluated for Fall Precautions and will be placed on Fall Precautions as indicated pe r protocol. - Skin Breakdown Nursing will assess skin daily using assessment tool and will place on Skin Breakdown Precautions as indicated per protocol. - Pain Clinical staff may employ non-medication methods such as massage, distraction, decrease stimulus, etc . as needed. Clinical staff will assess patient's pain level every shift per protocol to assess and e nsure pain management effectiveness. Medications will be given and the pain level re-assessed. PRELIMINARY PLAN OF CARE: - Physical Therapy Patient needs Physical Therapy for a daily minimum of 1.5 hours at least 5 out of 7 days, to improve: Mobility, Strengthening, Transfers, Stretching, ROM, Endurance, Ability to manage stairs, Gait, and Balance. - Speech Therapy Patient needs Speech Therapy for a daily minimum of 0.5 hours at least 5 out of 7 days, to improve: S wallowing, Cognition, Language Skills, and Compensatory Strategies. - Rehabilitation Nursing Patient requires 24x7 Rehabilitation Nursing for: Pain Issues, Identifying and preventing risk factor s, Monitoring and reporting current medical conditions, Assisting with ambulation and transfer, Nalini ting with all ADL-s, Teaching patients about disease process and medications, Family teaching, Provid ing safe environment, Bowel and Bladder Issues, Skin Integrity, and Medication Management. Patient needs Field Support Engineer and/or Case Management for: Discharge Planning, Arranging Home Equipmen t or Services, and Family Interventions. - Dietary and Nutrition Services Patient needs Dietary and Nutrition Services for: Adequate Nutrition, Nutritional Supplements, and Nu tritional Education. - Occupational Therapy Patient needs Occupational Therapy for a daily minimum of 1.5 hours at least 5 out of 7 days, to impr ove Activities of Daily Living, including: Eating, Grooming, Bathing, Dressing, Toileting, Toilet Tra nsfers, Community Reintegration, Higher functional activities, Adaptive Equipment, Splinting, Househo ld Tasks, and Other activities as determined. POTENTIAL FUNCTIONAL GOALS FOR PATIENT TO ACHIEVE BY DISCHARGE: - Safety Precaution Patient will remain free from falls or injury at time of discharge. - Bed Mobility Patient will perform bed mobility at 4-Lamar level of assistance. - Transfers Patient will complete transfers from bed to chair at 4-Lamar level of assistance. - Mobility Patient will ambulate 150 ft with 4-Lamar level of assistance with RW. PATIENT REHAB POTENTIAL Expected level of measurable improvement will be of a practical value to patient's functional capacit y or adaptations to impairments Has a viable Discharge Plan Medically appropriate; condition is sufficiently stable to participate in intensive rehab program Patient is able and expected to receive 3 hours of individualized therapy daily on at least 5 of ever y 7 days Patient's prognosis for significant practical improvement within a reasonable period of time appears Good DISCHARGE PLAN: - Estimated Length of Stay (days) 17. - Consensus on plan Discharge plan has been discussed with primary caregiver. Patient/Family is in agreement with the greta n. Primary caregiver is in agreement with the plan. - Patient/Family Goals Return home with assistance. - Planned Living Setting Upon Discharge Home, to live with Family/Relatives. Transitional Living. CONCLUSION ON REHABILITATION NECESSITY: I have evaluated patient's pre-admission functional status and, comparing it to the patient's post-ad mission functional status now, I conclude that the pre-admission assessment was accurate. Patient's c ondition on admission supports the medical necessity of admission to IRF. It is safe to proceed with patient's therapy program. SIGNATURE PANEL: (CDT)
--- NOTE | 2018-12-31 11:38 | FAST ---
SHIFT START DATE/TIME: 12/24/2018 19:00 (CDT) SHIFT END DATE/TIME: 12/25/2018 07:00 (CDT) NAME JACQUIE SWEENEY DATE OF : 1945 DATE OF ADMISSION: 12/24/2018 20:11 (CDT) PHONE: AGE: 73 GENDER: Male ENCOUNTER PHYSICIAN: Dr. Jose Johns M.D. ADMISSION DIAGNOSIS: - Stroke 01 - Left Body (Right Brain) (01.1) Right Tiny Frontal Lobe Infarct. EATING: Activity did not occur on this shift EATING - SCORE: 0-UNK GROOMING: Activity did not occur on this shift GROOMING - SCORE: 0-UNK BATHING: Activity did not occur on this shift BATHING - SCORE: 0-UNK DRESSING - UPPER BODY: Activity did not occur on this shift ARTICLES SCORE Total number of steps: 0 DRESSING - UPPER BODY - SCORE: 0-UNK DRESSING - LOWER BODY: Activity did not occur on this shift ARTICLES SCORE Total number of steps: 0 DRESSING - LOWER BODY - SCORE: 0-UNK TOILETING: TOILETING - SCORE: 0-UNK BLADDER MANAGEMENT: [place] removes incontinent device (Depends, pull ups, etc.); cleans the patient after accident / inco ntinent episode; and, applies new incontinent device. BLADDER MANAGEMENT - SCORE: 1-DEP BLADDER MANAGEMENT - FREQUENCY OF ACCIDENTS: BLADDER MANAGEMENT(FA) - STEP 1: How many accidents has the patient had during the current shift? 0 BOWEL MANAGEMENT: Activity did not occur on this shift BOWEL MANAGEMENT - SCORE: 7-IND BOWEL MANAGEMENT - FREQUENCY OF ACCIDENTS: BOWEL MANAGEMENT(FA) - STEP 1: How many accidents has the patient had during the current shift? 0 TRANSFERS: BED, CHAIR, WHEELCHAIR: TRANSFERS: BED, CHAIR, WHEELCHAIR - STEP 1: Does the patient require assistance of a person or device, or need extra time with bed, chair, or whe elchair transfers? Yes. TRANSFERS: BED, CHAIR, WHEELCHAIR - STEP 2: Does the patient require the assistance of a helper? Yes. TRANSFERS: BED, CHAIR, WHEELCHAIR - STEP 3: How much assistance does the patient require from the helper? Steadying/guiding assistance TRANSFERS: BED, CHAIR, WHEELCHAIR - SCORE: 4-MIN TRANSFERS: TOILET: Activity did not occur on this shift TRANSFERS: TOILET - SCORE: 0-UNK TRANSFERS: SHOWER: Activity did not occur on this shift TRANSFERS: SHOWER - SCORE: 0-UNK TRANSFERS: TUB: Activity did not occur on this shift TRANSFERS: TUB - SCORE: 0-UNK LOCOMOTION: WALK: Activity did not occur on this shift LOCOMOTION: WALK - SCORE: 0-UNK LOCOMOTION: WHEELCHAIR: Activity did not occur on this shift LOCOMOTION: WHEELCHAIR - SCORE: 0-UNK COMPREHENSION: COMPREHENSION: TYPE: Both COMPREHENSION - STEP 1: Does the patient require help from a person or device, or need extra time to understand complex and a bstract ideas (such as current events, finances, discharge planning, medical issues, relationships, e tc)? Yes. COMPREHENSION - STEP 2: Does the patient require help to understand questions or statements about basic needs or ideas (such as hunger, thirst, sleep, safety, daily schedule, room location, or discomfort) half or more of the t zane? No. COMPREHENSION - STEP 3: How often does the patient need help to understand directions and conversation about basic needs? Les s than 10% of the time COMPREHENSION - SCORE: 5-SUP EXPRESSION EXPRESSION: TYPE: Both EXPRESSION - STEP 1: Does the patient require help from a person or device, or need extra time expressing complex and abst ract ideas (such as current events, finances, discharge planning, medical issues, relationships, etc) ? Yes. EXPRESSION - STEP 2: Does the patient require help to express basic necessities or ideas (such as hunger, thirst, sleep, s afety, daily schedule, room location, or discomfort) half or more of the time? No. EXPRESSION - STEP 3: How often does the patient need help to express directions and conversation about basic needs? Less t jiang 10% of the time EXPRESSION - SCORE: 5-SUP SOCIAL INTERACTION: SOCIAL INTERACTION - STEP 1: Does the patient require a helper to interact with others in social and therapeutic situations? No. SOCIAL INTERACTION - STEP 2: Does the patient need extra time in social situations, OR does s/he interact with staff, other patien ts, and family members ONLY in structured environments, OR does s/he require medication for social in teraction? Yes, patient requires medication for social interaction SOCIAL INTERACTION - SCORE: 6-JAKY PROBLEM SOLVING: PROBLEM SOLVING - STEP 1: Does the patient need help from a person or device, or need extra time to solve complex problems such as managing a checking account or confronting interpersonal problems? Yes. PROBLEM SOLVING - STEP 2: Does the patient solve basic routine problems half or more of the time? Yes. PROBLEM SOLVING - STEP 3: How often does the patient need help to solve basic routine problems? 10%-24% of the time PROBLEM SOLVING - SCORE: 4-MIN MEMORY: MEMORY - STEP 1: Does the patient need help from a person or device, or need extra time to remember frequently encount ered people, daily routines, and executing requests? Yes. MEMORY - STEP 2: How often does the patient need help to remember frequently encountered people, daily routines, and e xecuting requests? 10% - 24% of the time MEMORY - SCORE: 4-MIN SIGNATURE PANEL: The following modified sections: Dressing - Lower Body - Score, Eating - Score, Grooming - Score, Bat leyla - Score, Dressing - Upper Body - Score, Bladder Management - Score, Bowel Management - Score, Tr ansfers: Bed, Chair, Wheelchair - Score, Transfers: Toilet - Score, Transfers: Shower - Score, Transf ers: Tub - Score, Locomotion: Walk - Score, Locomotion: Wheelchair - Score, Comprehension - Score, Ex pression - Score, Social Interaction - Score, Problem Solving - Score, Memory - Score were [gertrudis see] signed by Theresa Lundberg RN on FriDec 25 2018 05:17:14 T-0500 (Central Daylight Time)
--- NOTE | 2018-12-31 11:38 | FAST ---
ENCOUNTER DATE AND TIME: 12/25/2018 08:00 (CDT) NAME JACQUIE SWEENEY DATE OF : 1945 DATE OF ADMISSION: 12/24/2018 20:11 (CDT) PHONE: AGE: 73 GENDER: Male ENCOUNTER PHYSICIAN: Dr. Jose Johns M.D. ADMISSION DIAGNOSIS: - Stroke 01 - Left Body (Right Brain) (01.1) Right Tiny Frontal Lobe Infarct. EATING: Activity did not occur on this shift EATING - SCORE: 0-UNK GROOMING: Activity did not occur on this shift GROOMING - SCORE: 0-UNK BATHING: Activity did not occur on this shift BATHING - SCORE: 0-UNK DRESSING - UPPER BODY: Activity did not occur on this shift Patient is not dressing in public clothing ARTICLES SCORE Total number of steps: 0 DRESSING - UPPER BODY - SCORE: 0-UNK DRESSING - LOWER BODY: Activity did not occur on this shift Patient is not dressing in public clothing ARTICLES SCORE Total number of steps: 0 DRESSING - LOWER BODY - SCORE: 0-UNK TOILETING: Activity did not occur on this shift TOILETING - SCORE: 0-UNK BLADDER MANAGEMENT: Activity did not occur on this shift BLADDER MANAGEMENT - SCORE: 7-IND BOWEL MANAGEMENT: Activity did not occur on this shift BOWEL MANAGEMENT - SCORE: 7-IND TRANSFERS: BED, CHAIR, WHEELCHAIR: TRANSFERS: BED, CHAIR, WHEELCHAIR - STEP 1: Does the patient require assistance of a person or device, or need extra time with bed, chair, or whe elchair transfers? Yes. TRANSFERS: BED, CHAIR, WHEELCHAIR - STEP 2: Does the patient require the assistance of a helper? Yes. TRANSFERS: BED, CHAIR, WHEELCHAIR - STEP 3: How much assistance does the patient require from the helper? Steadying/guiding assistance TRANSFERS: BED, CHAIR, WHEELCHAIR - SCORE: 4-MIN TRANSFERS: TOILET: Activity did not occur on this shift TRANSFERS: TOILET - SCORE: 0-UNK TRANSFERS: SHOWER: Activity did not occur on this shift TRANSFERS: SHOWER - SCORE: 0-UNK TRANSFERS: TUB: Activity did not occur on this shift TRANSFERS: TUB - SCORE: 0-UNK LOCOMOTION: WALK: LOCOMOTION: WALK - STEP 1: Does the patient need help from a person or device, or need extra time to walk 150 feet? Yes. LOCOMOTION: WALK - STEP 2: How much assistance does the patient require to walk a minimum of 150 feet? Only incidental help such as contact guarding or steadying LOCOMOTION: WALK - SCORE: 4-MIN LOCOMOTION: WHEELCHAIR: Activity did not occur on this shift LOCOMOTION: WHEELCHAIR - SCORE: 0-UNK LOCOMOTION: STAIRS: LOCOMOTION: STAIRS - STEP 1: Does the patient need help to go up and down 12 to 14 stairs? Yes. LOCOMOTION: STAIRS - STEP 2: How much assistance does the patient need from the helper to go a minimum of 12 to 14 stairs? Only in cidental help such as contact guarding or steadying LOCOMOTION: STAIRS - SCORE: 4-MIN COMPREHENSION: COMPREHENSION - SCORE: 0-UNK EXPRESSION EXPRESSION - SCORE: 0-UNK SOCIAL INTERACTION: SOCIAL INTERACTION - SCORE: 0-UNK PROBLEM SOLVING: PROBLEM SOLVING - SCORE: 0-UNK MEMORY: MEMORY - SCORE: 0-UNK SIGNATURE PANEL: The following modified sections: Transfers: Bed, Chair, Wheelchair - Score, Transfers: Toilet - Score , Locomotion: Walk - Score, Locomotion: Wheelchair - Score, Locomotion: Stairs - Score were [electron fransico] signed by Rolo Boyce PT on FriDec 25 2018 16:19:49 T-0500 (Central Daylight Time)
--- NOTE | 2018-12-31 11:39 | FAST ---
SHIFT START DATE/TIME: 12/29/2018 19:00 (CDT) SHIFT END DATE/TIME: 12/30/2018 07:00 (CDT) NAME JACQUIE SWEENEY DATE OF : 1945 DATE OF ADMISSION: 12/24/2018 20:11 (CDT) PHONE: AGE: 73 GENDER: Male ENCOUNTER PHYSICIAN: Dr. Jose Johns M.D. ADMISSION DIAGNOSIS: - Stroke 01 - Left Body (Right Brain) (01.1) Right Tiny Frontal Lobe Infarct. EATING: Activity did not occur on this shift EATING - SCORE: 0-UNK GROOMING: Activity did not occur on this shift GROOMING - SCORE: 0-UNK BATHING: Activity did not occur on this shift BATHING - SCORE: 0-UNK DRESSING - UPPER BODY: Patient is not dressing in public clothing ARTICLES SCORE Total number of steps: 0 DRESSING - UPPER BODY - SCORE: 0-UNK DRESSING - LOWER BODY: Patient is not dressing in public clothing ARTICLES SCORE Total number of steps: 0 DRESSING - LOWER BODY - SCORE: 0-UNK TOILETING: TOILETING - STEP 1: Does the patient require the assistance of a person or device, or need extra time with toileting? Yes . TOILETING - STEP 2: Does the patient require the assistance of a helper? Yes. TOILETING - STEP 3: How much assistance does the patient require from the helper? Hands-on assistance from the helper TOILETING - STEP 4: Of the 3 tasks: 1) Adjusting clothing prior to use, 2) Cleansing of perineal area, 3) Adjusting clot leyla after use; How many tasks does the patient perform WITHOUT assistance of the helper? No tasks; michael mayers performs all three tasks TOILETING - SCORE: 1-DEP BLADDER MANAGEMENT: BLADDER MANAGEMENT - STEP 1: Does the patient control the bladder completely and intentionally without equipment or devices or med ications, and is always continent? No. BLADDER MANAGEMENT - STEP 2: Does the patient require the assistance of a helper? Yes. BLADDER MANAGEMENT - STEP 3: How much assistance does the patient require from the helper? Only set-up of equipment - such as plac ing it within reach of the patient or emptying a device - to maintain either satisfactory voiding pat tern or managing an external device, such as an absorbent pad, ileal device, or catheter BLADDER MANAGEMENT - SCORE: 5-SUP BOWEL MANAGEMENT: Activity did not occur on this shift BOWEL MANAGEMENT - SCORE: 7-IND TRANSFERS: BED, CHAIR, WHEELCHAIR: Activity did not occur on this shift TRANSFERS: BED, CHAIR, WHEELCHAIR - SCORE: 0-UNK TRANSFERS: TOILET: Activity did not occur on this shift TRANSFERS: TOILET - SCORE: 0-UNK TRANSFERS: SHOWER: Activity did not occur on this shift TRANSFERS: SHOWER - SCORE: 0-UNK TRANSFERS: TUB: Activity did not occur on this shift TRANSFERS: TUB - SCORE: 0-UNK LOCOMOTION: WALK: Activity did not occur on this shift LOCOMOTION: WALK - SCORE: 0-UNK LOCOMOTION: WHEELCHAIR: Activity did not occur on this shift LOCOMOTION: WHEELCHAIR - SCORE: 0-UNK COMPREHENSION: COMPREHENSION: TYPE: Both COMPREHENSION - STEP 1: Does the patient require help from a person or device, or need extra time to understand complex and a bstract ideas (such as current events, finances, discharge planning, medical issues, relationships, e tc)? Yes. COMPREHENSION - STEP 2: Does the patient require help to understand questions or statements about basic needs or ideas (such as hunger, thirst, sleep, safety, daily schedule, room location, or discomfort) half or more of the t zane? No. COMPREHENSION - STEP 3: How often does the patient need help to understand directions and conversation about basic needs? 10% - 24% of the time COMPREHENSION - SCORE: 4-MIN EXPRESSION EXPRESSION: TYPE: Both EXPRESSION - STEP 1: Does the patient require help from a person or device, or need extra time expressing complex and abst ract ideas (such as current events, finances, discharge planning, medical issues, relationships, etc) ? No. EXPRESSION - STEP 2: Does the patient need extra time, require an assistive device (such as augmentive communication syste m or a communication board), OR does s/he have mild difficulty expressing complex and abstract ideas (including mild dysarthria or mild word-find problems)? Yes. EXPRESSION - SCORE: 6-JAKY SOCIAL INTERACTION: SOCIAL INTERACTION - STEP 1: Does the patient require a helper to interact with others in social and therapeutic situations? No. SOCIAL INTERACTION - STEP 2: Does the patient need extra time in social situations, OR does s/he interact with staff, other patien ts, and family members ONLY in structured environments, OR does s/he require medication for social in teraction? Yes, patient needs extra time SOCIAL INTERACTION - SCORE: 6-JAKY PROBLEM SOLVING: PROBLEM SOLVING - STEP 1: Does the patient need help from a person or device, or need extra time to solve complex problems such as managing a checking account or confronting interpersonal problems? Yes. PROBLEM SOLVING - STEP 2: Does the patient solve basic routine problems half or more of the time? Yes. PROBLEM SOLVING - STEP 3: How often does the patient need help to solve basic routine problems? 10%-24% of the time PROBLEM SOLVING - SCORE: 4-MIN MEMORY: MEMORY - STEP 1: Does the patient need help from a person or device, or need extra time to remember frequently encount ered people, daily routines, and executing requests? No. MEMORY - STEP 2: Does the patient have slight difficulty recognizing frequently encountered people, daily routines, or executing requests without the need for repetition or using self-initiated or environmental cues to remember? Yes. MEMORY - SCORE: 6-JAKY SIGNATURE PANEL: The following modified sections: Eating - Score, Grooming - Score, Dressing - Upper Body - Score, Kong ssing - Lower Body - Score, Toileting - Score, Bladder Management - Score, Bowel Management - Score, Transfers: Bed, Chair, Wheelchair - Score, Transfers: Toilet - Score, Transfers: Shower - Score, Call sfers: Tub - Score, Locomotion: Walk - Score, Locomotion: Wheelchair - Score, Comprehension - Score, Expression - Score, Social Interaction - Score, Problem Solving - Score, Memory - Score were [electro nically] signed by Shanon Torre CNA on FriDec 30 2018 01:23:24 GMT-0500 (Central Daylight Time)
--- NOTE | 2018-12-31 11:39 | FAST ---
SHIFT START DATE/TIME: 12/27/2018 07:00 (CDT) SHIFT END DATE/TIME: 12/27/2018 19:00 (CDT) NAME JACQUIE SWEENEY DATE OF : 1945 DATE OF ADMISSION: 12/24/2018 20:11 (CDT) PHONE: AGE: 73 GENDER: Male ENCOUNTER PHYSICIAN: Dr. Jose Johns M.D. ADMISSION DIAGNOSIS: - Stroke 01 - Left Body (Right Brain) (01.1) Right Tiny Frontal Lobe Infarct. EATING: EATING - STEP 1: Does the patient require the assistance of a person or device, or need extra time when eating? Yes. EATING - STEP 2: Does the patient require the assistance of a helper? Yes. EATING - STEP 3: Does the patient perform half or more of the eating tasks? Yes. EATING - STEP 4: Does the patient need only supervision, cuing, coaxing OR help to apply an orthosis OR help to cut fo od, open containers, pour liquids, or butter bread? Yes. EATING - SCORE: 5-SUP GROOMING: Comb/brush hair Oral care GROOMING - STEP 1: Does the patient require the assistance of a person or device, or need extra time when grooming? Yes. GROOMING - STEP 2: Does the patient require the assistance of a helper? Yes. GROOMING - STEP 3: How much assistance does the patient require from the helper? Only prior equipment preparation/set up from the helper GROOMING - SCORE: 5-SUP BATHING: Activity did not occur on this shift BATHING - SCORE: 0-UNK DRESSING - UPPER BODY: Activity did not occur on this shift ARTICLES SCORE Total number of steps: 0 DRESSING - UPPER BODY - SCORE: 0-UNK DRESSING - LOWER BODY: Activity did not occur on this shift ARTICLES SCORE Total number of steps: 0 DRESSING - LOWER BODY - SCORE: 0-UNK TOILETING: TOILETING - STEP 1: Does the patient require the assistance of a person or device, or need extra time with toileting? Yes . TOILETING - STEP 2: Does the patient require the assistance of a helper? Yes. TOILETING - STEP 3: How much assistance does the patient require from the helper? Hands-on assistance from the helper TOILETING - STEP 4: Of the 3 tasks: 1) Adjusting clothing prior to use, 2) Cleansing of perineal area, 3) Adjusting clot leyla after use; How many tasks does the patient perform WITHOUT assistance of the helper? Two tasks TOILETING - SCORE: 3-MOD BLADDER MANAGEMENT: BLADDER MANAGEMENT - STEP 1: Does the patient control the bladder completely and intentionally without equipment or devices or med ications, and is always continent? No. BLADDER MANAGEMENT - STEP 2: Does the patient require the assistance of a helper? No, patient requires and independently uses an a ssistive device, such as a urinal, bedpan, bedside commode, catheter, absorbent pad, or collecting de vice BLADDER MANAGEMENT - SCORE: 6-JAKY BOWEL MANAGEMENT: BOWEL MANAGEMENT - STEP 1: Does the patient control bowels completely and intentionally without equipment devices or medications AND is always continent? No. BOWEL MANAGEMENT - STEP 2: Does the patient require the assistance of a helper? No, patient requires and manages independently a n assistive device such as a bedpan, bedside commode, absorbent pad, incontinent device, or collectin g device BOWEL MANAGEMENT - SCORE: 6-JAKY BOWEL MANAGEMENT - FREQUENCY OF ACCIDENTS: BOWEL MANAGEMENT(FA) - STEP 1: How many accidents has the patient had during the current shift? 1 TRANSFERS: BED, CHAIR, WHEELCHAIR: TRANSFERS: BED, CHAIR, WHEELCHAIR - STEP 1: Does the patient require assistance of a person or device, or need extra time with bed, chair, or whe elchair transfers? Yes. TRANSFERS: BED, CHAIR, WHEELCHAIR - STEP 2: Does the patient require the assistance of a helper? Yes. TRANSFERS: BED, CHAIR, WHEELCHAIR - STEP 3: How much assistance does the patient require from the helper? Steadying/guiding assistance TRANSFERS: BED, CHAIR, WHEELCHAIR - SCORE: 4-MIN TRANSFERS: TOILET: TRANSFERS: TOILET - STEP 1: Does the patient require the assistance of a person or device, or need extra time with toilet transfe rs? Yes. TRANSFERS: TOILET - STEP 2: Does the patient require the assistance of a helper? Yes. TRANSFERS: TOILET - STEP 3: How much assistance does the patient require from the helper? Patient performs half or more of the tr ansferring tasks TRANSFERS: TOILET - STEP 4: Does the patient need only incidental help such as contact guard or steadying during toilet transfer? No. Patient needs more than incidental help TRANSFERS: TOILET - SCORE: 3-MOD TRANSFERS: SHOWER: Activity did not occur on this shift TRANSFERS: SHOWER - SCORE: 0-UNK TRANSFERS: TUB: Activity did not occur on this shift TRANSFERS: TUB - SCORE: 0-UNK LOCOMOTION: WALK: Activity did not occur on this shift LOCOMOTION: WALK - SCORE: 0-UNK LOCOMOTION: WHEELCHAIR: Activity did not occur on this shift LOCOMOTION: WHEELCHAIR - SCORE: 0-UNK COMPREHENSION: COMPREHENSION: TYPE: Both COMPREHENSION - STEP 1: Does the patient require help from a person or device, or need extra time to understand complex and a bstract ideas (such as current events, finances, discharge planning, medical issues, relationships, e tc)? Yes. COMPREHENSION - STEP 2: Does the patient require help to understand questions or statements about basic needs or ideas (such as hunger, thirst, sleep, safety, daily schedule, room location, or discomfort) half or more of the t zane? No. COMPREHENSION - STEP 3: How often does the patient need help to understand directions and conversation about basic needs? Les s than 10% of the time COMPREHENSION - SCORE: 5-SUP EXPRESSION EXPRESSION: TYPE: Both EXPRESSION - STEP 1: Does the patient require help from a person or device, or need extra time expressing complex and abst ract ideas (such as current events, finances, discharge planning, medical issues, relationships, etc) ? Yes. EXPRESSION - STEP 2: Does the patient require help to express basic necessities or ideas (such as hunger, thirst, sleep, s afety, daily schedule, room location, or discomfort) half or more of the time? No. EXPRESSION - STEP 3: How often does the patient need help to express directions and conversation about basic needs? Less t jiang 10% of the time EXPRESSION - SCORE: 5-SUP SOCIAL INTERACTION: SOCIAL INTERACTION - STEP 1: Does the patient require a helper to interact with others in social and therapeutic situations? Yes. SOCIAL INTERACTION - STEP 2: Does the patient interact appropriately half or more of the time? Yes. SOCIAL INTERACTION - STEP 3: How often does the patient need help to interact appropriately? Less than 10% of the time SOCIAL INTERACTION - SCORE: 5-SUP PROBLEM SOLVING: PROBLEM SOLVING - STEP 1: Does the patient need help from a person or device, or need extra time to solve complex problems such as managing a checking account or confronting interpersonal problems? Yes. PROBLEM SOLVING - STEP 2: Does the patient solve basic routine problems half or more of the time? Yes. PROBLEM SOLVING - STEP 3: How often does the patient need help to solve basic routine problems? Less than 10% of the time PROBLEM SOLVING - SCORE: 5-SUP MEMORY: MEMORY - STEP 1: Does the patient need help from a person or device, or need extra time to remember frequently encount ered people, daily routines, and executing requests? Yes. MEMORY - STEP 2: How often does the patient need help to remember frequently encountered people, daily routines, and e xecuting requests? 10% - 24% of the time MEMORY - SCORE: 4-MIN SIGNATURE PANEL: The following modified sections: Eating - Score, Grooming - Score, Bathing - Score, Dressing - Upper Body - Score, Dressing - Lower Body - Score, Toileting - Score, Bladder Management - Score, Bowel Man agement - Score, Transfers: Bed, Chair, Wheelchair - Score, Transfers: Toilet - Score, Transfers: Nevin wer - Score, Transfers: Tub - Score, Locomotion: Walk - Score, Locomotion: Wheelchair - Score, Compre hension - Score, Expression - Score, Social Interaction - Score, Problem Solving - Score, Memory - Sc ore were [electronically] signed by Mansoor Watt on FriDec 27 2018 10:11:47 T-0500 (Central Daylight Time)
--- NOTE | 2018-12-31 11:39 | FAST ---
SHIFT START DATE/TIME: 12/30/2018 19:00 (CDT) SHIFT END DATE/TIME: 12/31/2018 07:00 (CDT) NAME JACQUIE SWEENEY DATE OF : 1945 DATE OF ADMISSION: 12/24/2018 20:11 (CDT) PHONE: AGE: 73 GENDER: Male ENCOUNTER PHYSICIAN: Dr. Jose Johns M.D. ADMISSION DIAGNOSIS: - Stroke 01 - Left Body (Right Brain) (01.1) Right Tiny Frontal Lobe Infarct. EATING: Activity did not occur on this shift EATING - SCORE: 0-UNK GROOMING: Activity did not occur on this shift GROOMING - SCORE: 0-UNK BATHING: Activity did not occur on this shift BATHING - SCORE: 0-UNK DRESSING - UPPER BODY: Activity did not occur on this shift ARTICLES SCORE Total number of steps: 0 DRESSING - UPPER BODY - SCORE: 0-UNK DRESSING - LOWER BODY: Activity did not occur on this shift ARTICLES SCORE Total number of steps: 0 DRESSING - LOWER BODY - SCORE: 0-UNK TOILETING: Activity did not occur on this shift TOILETING - SCORE: 0-UNK BLADDER MANAGEMENT: BLADDER MANAGEMENT - STEP 1: Does the patient control the bladder completely and intentionally without equipment or devices or med ications, and is always continent? No. BLADDER MANAGEMENT - STEP 2: Does the patient require the assistance of a helper? Yes. BLADDER MANAGEMENT - STEP 3: How much assistance does the patient require from the helper? Patient requires contact assistance fro m the helper BLADDER MANAGEMENT - STEP 4: How much contact assistance does the patient require from the helper? Patient requires moderate heidy tance, and performs 50% to 75% of bladder management tasks - [place] positions AND holds urinal or bed ortega BLADDER MANAGEMENT - SCORE: 3-MOD BOWEL MANAGEMENT: Activity did not occur on this shift BOWEL MANAGEMENT - SCORE: 7-IND TRANSFERS: BED, CHAIR, WHEELCHAIR: TRANSFERS: BED, CHAIR, WHEELCHAIR - STEP 1: Does the patient require assistance of a person or device, or need extra time with bed, chair, or whe elchair transfers? Yes. TRANSFERS: BED, CHAIR, WHEELCHAIR - STEP 2: Does the patient require the assistance of a helper? Yes. TRANSFERS: BED, CHAIR, WHEELCHAIR - STEP 3: How much assistance does the patient require from the helper? Steadying/guiding assistance TRANSFERS: BED, CHAIR, WHEELCHAIR - SCORE: 4-MIN TRANSFERS: TOILET: TRANSFERS: TOILET - STEP 1: Does the patient require the assistance of a person or device, or need extra time with toilet transfe rs? Yes. TRANSFERS: TOILET - STEP 2: Does the patient require the assistance of a helper? Yes. TRANSFERS: TOILET - STEP 3: How much assistance does the patient require from the helper? Patient performs half or more of the tr ansferring tasks TRANSFERS: TOILET - STEP 4: Does the patient need only incidental help such as contact guard or steadying during toilet transfer? Yes. TRANSFERS: TOILET - SCORE: 4-MIN TRANSFERS: SHOWER: Activity did not occur on this shift TRANSFERS: SHOWER - SCORE: 0-UNK TRANSFERS: TUB: Activity did not occur on this shift TRANSFERS: TUB - SCORE: 0-UNK LOCOMOTION: WALK: Activity did not occur on this shift LOCOMOTION: WALK - SCORE: 0-UNK LOCOMOTION: WHEELCHAIR: Activity did not occur on this shift LOCOMOTION: WHEELCHAIR - SCORE: 0-UNK COMPREHENSION: COMPREHENSION: TYPE: Both COMPREHENSION - STEP 1: Does the patient require help from a person or device, or need extra time to understand complex and a bstract ideas (such as current events, finances, discharge planning, medical issues, relationships, e tc)? No. COMPREHENSION - STEP 2: Does the patient need extra time, require an assistive device (such as glasses for visual comprehensi on or a hearing aid for auditory comprehension) or does s/he have mild difficulty understanding compl ex and abstract information? No. COMPREHENSION - SCORE: 7-IND EXPRESSION EXPRESSION: TYPE: Both EXPRESSION - STEP 1: Does the patient require help from a person or device, or need extra time expressing complex and abst ract ideas (such as current events, finances, discharge planning, medical issues, relationships, etc) ? No. EXPRESSION - STEP 2: Does the patient need extra time, require an assistive device (such as augmentive communication syste m or a communication board), OR does s/he have mild difficulty expressing complex and abstract ideas (including mild dysarthria or mild word-find problems)? No. EXPRESSION - SCORE: 7-IND SOCIAL INTERACTION: SOCIAL INTERACTION - STEP 1: Does the patient require a helper to interact with others in social and therapeutic situations? No. SOCIAL INTERACTION - STEP 2: Does the patient need extra time in social situations, OR does s/he interact with staff, other patien ts, and family members ONLY in structured environments, OR does s/he require medication for social in teraction? Yes, patient requires medication for social interaction SOCIAL INTERACTION - SCORE: 6-JAKY PROBLEM SOLVING: Patient requires bed/chair alarms due to attempts to get up unassisted when helper is needed. PROBLEM SOLVING - STEP 1: How often do the bed/chair alarms go off? Occasionally - the alarms go off about 25% or less PROBLEM SOLVING - SCORE: 4-MIN MEMORY: MEMORY - STEP 1: How often do the bed/chair alarms go off? Occasionally - the alarms go off about 25% of the time or l ess MEMORY - SCORE: 4-MIN SIGNATURE PANEL: The following modified sections: Eating - Score, Grooming - Score, Bathing - Score, Dressing - Upper Body - Score, Dressing - Lower Body - Score, Toileting - Score, Bladder Management - Score, Bowel Man agement - Score, Transfers: Bed, Chair, Wheelchair - Score, Transfers: Toilet - Score, Transfers: Nevin wer - Score, Transfers: Tub - Score, Locomotion: Walk - Score, Locomotion: Wheelchair - Score, Compre hension - Score, Expression - Score, Social Interaction - Score, Problem Solving - Score, Memory - Sc ore were [electronically] signed by Sarah Ann CNA on FriDec 31 2018 02:07:52 T-0500 ([facility] Time)
--- NOTE | 2018-12-31 11:39 | FAST ---
ENCOUNTER DATE AND TIME: 12/29/2018 08:00 (CDT) NAME JACQUIE SWEENEY DATE OF : 1945 DATE OF ADMISSION: 12/24/2018 20:11 (CDT) PHONE: AGE: 73 GENDER: Male ENCOUNTER PHYSICIAN: Dr. Jose Johns M.D. ADMISSION DIAGNOSIS: - Stroke 01 - Left Body (Right Brain) (01.1) Right Tiny Frontal Lobe Infarct. EATING: Activity did not occur on this shift EATING - SCORE: 0-UNK GROOMING: Activity did not occur on this shift GROOMING - SCORE: 0-UNK BATHING: Activity did not occur on this shift BATHING - SCORE: 0-UNK DRESSING - UPPER BODY: Activity did not occur on this shift Patient is not dressing in public clothing ARTICLES SCORE Total number of steps: 0 DRESSING - UPPER BODY - SCORE: 0-UNK DRESSING - LOWER BODY: Activity did not occur on this shift Patient is not dressing in public clothing ARTICLES SCORE Total number of steps: 0 DRESSING - LOWER BODY - SCORE: 0-UNK TOILETING: Activity did not occur on this shift TOILETING - SCORE: 0-UNK BLADDER MANAGEMENT: Activity did not occur on this shift BLADDER MANAGEMENT - SCORE: 7-IND BOWEL MANAGEMENT: Activity did not occur on this shift BOWEL MANAGEMENT - SCORE: 7-IND TRANSFERS: BED, CHAIR, WHEELCHAIR: TRANSFERS: BED, CHAIR, WHEELCHAIR - STEP 1: Does the patient require assistance of a person or device, or need extra time with bed, chair, or whe elchair transfers? Yes. TRANSFERS: BED, CHAIR, WHEELCHAIR - STEP 2: Does the patient require the assistance of a helper? Yes. TRANSFERS: BED, CHAIR, WHEELCHAIR - STEP 3: How much assistance does the patient require from the helper? Only supervision TRANSFERS: BED, CHAIR, WHEELCHAIR - SCORE: 5-SUP TRANSFERS: TOILET: Activity did not occur on this shift TRANSFERS: TOILET - SCORE: 0-UNK TRANSFERS: SHOWER: Activity did not occur on this shift TRANSFERS: SHOWER - SCORE: 0-UNK TRANSFERS: TUB: Activity did not occur on this shift TRANSFERS: TUB - SCORE: 0-UNK LOCOMOTION: WALK: LOCOMOTION: WALK - STEP 1: Does the patient need help from a person or device, or need extra time to walk 150 feet? Yes. LOCOMOTION: WALK - STEP 2: How much assistance does the patient require to walk a minimum of 150 feet? Only supervision, cuing, or coaxing LOCOMOTION: WALK - SCORE: 5-SUP LOCOMOTION: WHEELCHAIR: LOCOMOTION: WHEELCHAIR - STEP 1: Does the patient need help to go 150 feet in a wheelchair? Yes. LOCOMOTION: WHEELCHAIR - STEP 2: How much assistance does the patient need from the helper? Only supervision, cuing, or coaxing LOCOMOTION: WHEELCHAIR - SCORE: 5-SUP LOCOMOTION: STAIRS: LOCOMOTION: STAIRS - STEP 1: Does the patient need help to go up and down 12 to 14 stairs? Yes. LOCOMOTION: STAIRS - STEP 2: How much assistance does the patient need from the helper to go a minimum of 12 to 14 stairs? Only vuong pervision, cuing, or coaxing LOCOMOTION: STAIRS - SCORE: 5-SUP COMPREHENSION: COMPREHENSION - SCORE: 0-UNK EXPRESSION EXPRESSION - SCORE: 0-UNK SOCIAL INTERACTION: SOCIAL INTERACTION - SCORE: 0-UNK PROBLEM SOLVING: PROBLEM SOLVING - SCORE: 0-UNK MEMORY: MEMORY - SCORE: 0-UNK SIGNATURE PANEL: The following modified sections: Transfers: Bed, Chair, Wheelchair - Score, Transfers: Toilet - Score , Locomotion: Walk - Score, Locomotion: Wheelchair - Score, Locomotion: Stairs - Score were [electron fransico] signed by Pan Hannah PTA on FriDec 29 2018 15:31:14 GMT-0500 (Central Daylight Time)
--- NOTE | 2018-12-31 11:39 | R.PN ---
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 SUBJECTIVE: Pt denied any depression. Pt denied any Shortness of Breath. VITAL SIGNS Temperature: 97.4 F SBP/DBP: 126/64 Pulse: 65 Resp: 16 MEDICATION ALLERGIES: No Known Drug Allergies (NKDA) ENVIRONMENTAL ALLERGIES: None Known - Substance Allergies None Known - Other Allergies None Known NURSING: - Shower allowing shower - Lab Results blood Sugar Check ACHS - Bladder care per protocol - Skin care per protocol PRECAUTIONS: - Weight Bearing Precaution WBAT left LE ACTIVITIES OOB only with supervision THERAPIES: - Occupational Therapy Evaluate and Treat. Visual Perceptual Training. Cognitive Retraining. - Speech Therapy Cognitive Training. Memory Strategies. Expressive Language Skills. Speech Intelligibility Training. R eceptive Language Skills. - Physical Therapy Evaluate and Treat. PHYSICAL EXAM - Gen Alert and awake Lying in bed No apparent distress Oriented to: person and place - Skin No skin breakdown. Normacephalic - Eyes No abnormalities - ENMT No abnormalities - Neck No abnormalities - CVS RRR - Chest No abnormalities - Resp Clear to auscultation - Abd +bowel sounds - GI Non distended Deferred - No abnormalities - Ext No significant edema - MSK 4+/5 weakness in left upper and lower extremity - Neuro 4/5 strength left upper and lower extremities. - Psych Mild depression. ASSESSMENT: Pt. is a 73 yo Right-handed white male.On 12/20/2018 Pt. presented to [facility] w ith sudden worsening expressive and receptive aphasia with moreleft-side weakness.On 12/20/2018 Pt. p resented to [facility] with sudden onset of left-side weakness.On 12/20/2018 he wa s admitted to [facility] with diagnosis Right Tiny Frontal Lobe Infarct.His impair ment category is Stroke 01 - Left Body (Right Brain) (01.1).Pre-morbidly, Pt. was independent/mod-I in Self-Care, Sphincter Control, Transfers Control, Locomotion, Communication, and Social Cognition; and he had good Sphincter Control.Currently, he has deficits of Self-Care, Transfers Control, Locomot ion, Endurance, Balance, and Safety Awareness.Pt. is now referred to [facility] for acute in-patient rehabilitation in order to maximize patient's functional independence in activ ities of daily living, strength, ROM, and mobility.- Rehab Goal Patient has realistic goal of being discharged at assistance level 6-Juanita to reside at Home with Fam shakeel/Relatives. MDM/PLAN: - Physical Therapy Gait dysfunction - to improve, our physical therapists will perform initial evaluation of pt's statu s upon admission and devise an individualized program for Gait Training, and Wheel Chair mobility Inability to transfer - to improve, our physical therapists will perform initial evaluation of pt's status upon admission and devise an individualized program for Bed mobility Need for home safety evaluation - to improve, our physical therapists will perform initial evaluatio n of pt's status upon admission and devise an individualized program for Home Evaluation Need in caregiver upon discharge - to improve, our physical therapists will perform initial evaluati on of pt's status upon admission and devise an individualized program for Caregiver Training New precaution - to improve, our physical therapists will perform initial evaluation of pt's status upon admission and devise an individualized program for Patient precaution education Edema - to improve, our physical therapists will perform initial evaluation of pt's status upon admis corinne and devise an individualized program for Elevation Training, and Lymphedema Therapy Poor balance - to improve, our physical therapists will perform initial evaluation of pt's status up on admission and devise an individualized program for Balance Training Poor endurance - to improve, our physical therapists will perform initial evaluation of pt's status upon admission and devise an individualized program for Endurance Training Weakness - to improve, our physical therapists will perform initial evaluation of pt's status upon a dmission and devise an individualized program for Aquatic Therapy, Neuromuscular Reeducation, and Str engthening Achieving independence - to improve, our physical therapists will perform initial evaluation of pt's status upon admission and devise an individualized program for Community Reintegration Activities - Occupational Therapy ADL deficits - to improve, our occupation therapists will perform initial evaluation of pt's status upon admission and devise an individualized program for Bathing, Bed mobility, Community Reintegratio n, Cooking, Dressing, Eating, Fine Motor Skills, Grooming, Homemaking, Kitchen Mobility, Laundry, Pat ient Education, Safety Awareness, Splinting - Positioning, Transfers(Toilet, Tub, Shower), and Wheel Chair Management Need for hearing healthcare practitioner - to improve, our occupation therapists will perform initial evaluation of pt's status upon admission and devise an individualized program for Caregiver Training Weakness - to improve, our occupation therapists will perform initial evaluation of pt's status upon admission and devise an individualized program for Aquatic Therapy, Balance, Endurance, UE ROM, and UE strengthening - Diet Type Continue Regular - Diet - Liquid Texture Continue Regular - Tube Feed Continue N/A - Lab Results blood Sugar Check ACHS - Bladder care per protocol - Weight Bearing Precaution WBAT left LE - Skin care per protocol - Diet - Solid Texture Continue Regular - Shower allowing shower for Dementia, TBI, Stroke, or others FUNCTIONAL STATUS: UPDATED AT WEEKLY TEAM CONFERENCE - Bladder Same accident frequency: 7-Ind - No accidents in the past 7 days - Bowel Same accident frequency: 7-Ind - No accidents in the past 7 days - Walking Same score based on distance walked: 3(>=150ft) - Wheelchair Same score based on distance traveled: 0(N/A) FUNCTIONAL STATUS: - Self-Care A. Eating sup B. Grooming CGA C. Bathing sup D. Dressing - Upper sup E. Dressing - Lower maxA F. Toileting sup - Sphincter Control G: Bladder control Ind H: Bowel control Ind - Transfers Control I. Bed/Chair/Wheelchair Lamar J. Toilet CGA K. Tub/Shower ADNO - Locomotion L. Walk/Wheelchair (C) Lamar L. Walk/Wheelchair (W) Lamar M. Stairs ADNO - Communication N. Comprehension (B) Juanita O. Expression (B) Juanita - Social Cognition P. Social Interaction Juanita Q. Problem Solving Juanita R. Memory Juanita - Endurance Fair - Balance Fair - Safety Awareness Fair [facility] DEFICITS: Self-Care, Transfers Control, Locomotion, Endurance, Balance, and Safety Awareness SIGNATURE PANEL: (CDT)
--- NOTE | 2018-12-31 11:39 | FAST ---
ENCOUNTER DATE AND TIME: 12/28/2018 08:00 (CDT) NAME JACQUIE SWEENEY DATE OF : 1945 DATE OF ADMISSION: 12/24/2018 20:11 (CDT) PHONE: AGE: 73 GENDER: Male ENCOUNTER PHYSICIAN: Dr. Jose Johns M.D. ADMISSION DIAGNOSIS: - Stroke 01 - Left Body (Right Brain) (01.1) Right Tiny Frontal Lobe Infarct. EATING: Activity did not occur on this shift EATING - SCORE: 0-UNK GROOMING: Activity did not occur on this shift GROOMING - SCORE: 0-UNK BATHING: Activity did not occur on this shift BATHING - SCORE: 0-UNK DRESSING - UPPER BODY: Activity did not occur on this shift Patient is not dressing in public clothing ARTICLES SCORE Total number of steps: 0 DRESSING - UPPER BODY - SCORE: 0-UNK DRESSING - LOWER BODY: Activity did not occur on this shift Patient is not dressing in public clothing ARTICLES SCORE Total number of steps: 0 DRESSING - LOWER BODY - SCORE: 0-UNK TOILETING: Activity did not occur on this shift TOILETING - SCORE: 0-UNK BLADDER MANAGEMENT: Activity did not occur on this shift BLADDER MANAGEMENT - SCORE: 7-IND BOWEL MANAGEMENT: Activity did not occur on this shift BOWEL MANAGEMENT - SCORE: 7-IND TRANSFERS: BED, CHAIR, WHEELCHAIR: TRANSFERS: BED, CHAIR, WHEELCHAIR - STEP 1: Does the patient require assistance of a person or device, or need extra time with bed, chair, or whe elchair transfers? Yes. TRANSFERS: BED, CHAIR, WHEELCHAIR - STEP 2: Does the patient require the assistance of a helper? Yes. TRANSFERS: BED, CHAIR, WHEELCHAIR - STEP 3: How much assistance does the patient require from the helper? Only supervision TRANSFERS: BED, CHAIR, WHEELCHAIR - SCORE: 5-SUP TRANSFERS: TOILET: Activity did not occur on this shift TRANSFERS: TOILET - SCORE: 0-UNK TRANSFERS: SHOWER: Activity did not occur on this shift TRANSFERS: SHOWER - SCORE: 0-UNK TRANSFERS: TUB: Activity did not occur on this shift TRANSFERS: TUB - SCORE: 0-UNK LOCOMOTION: WALK: LOCOMOTION: WALK - STEP 1: Does the patient need help from a person or device, or need extra time to walk 150 feet? Yes. LOCOMOTION: WALK - STEP 2: How much assistance does the patient require to walk a minimum of 150 feet? Only supervision, cuing, or coaxing LOCOMOTION: WALK - SCORE: 5-SUP LOCOMOTION: WHEELCHAIR: Activity did not occur on this shift LOCOMOTION: WHEELCHAIR - SCORE: 0-UNK LOCOMOTION: STAIRS: LOCOMOTION: STAIRS - STEP 1: Does the patient need help to go up and down 12 to 14 stairs? Yes. LOCOMOTION: STAIRS - STEP 2: How much assistance does the patient need from the helper to go a minimum of 12 to 14 stairs? Only vuong pervision, cuing, or coaxing LOCOMOTION: STAIRS - SCORE: 5-SUP COMPREHENSION: COMPREHENSION - SCORE: 0-UNK EXPRESSION EXPRESSION - SCORE: 0-UNK SOCIAL INTERACTION: SOCIAL INTERACTION - SCORE: 0-UNK PROBLEM SOLVING: PROBLEM SOLVING - SCORE: 0-UNK MEMORY: MEMORY - SCORE: 0-UNK SIGNATURE PANEL: The following modified sections: Transfers: Bed, Chair, Wheelchair - Score, Transfers: Toilet - Score , Locomotion: Walk - Score, Locomotion: Wheelchair - Score, Locomotion: Stairs - Score were [james bateman] signed by Rolo Boyce PT on FriDec 28 2018 16:06:25 GMT-0500 (Central Daylight Time)
--- NOTE | 2018-12-31 11:39 | FAST ---
SHIFT START DATE/TIME: 12/28/2018 07:00 (CDT) SHIFT END DATE/TIME: 12/28/2018 19:00 (CDT) NAME JACQUIE SWEENEY DATE OF : 1945 DATE OF ADMISSION: 12/24/2018 20:11 (CDT) PHONE: AGE: 73 GENDER: Male ENCOUNTER PHYSICIAN: Dr. Jose Johns M.D. ADMISSION DIAGNOSIS: - Stroke 01 - Left Body (Right Brain) (01.1) Right Tiny Frontal Lobe Infarct. EATING: EATING - STEP 1: Does the patient require the assistance of a person or device, or need extra time when eating? Yes. EATING - STEP 2: Does the patient require the assistance of a helper? Yes. EATING - STEP 3: Does the patient perform half or more of the eating tasks? Yes. EATING - STEP 4: Does the patient need only supervision, cuing, coaxing OR help to apply an orthosis OR help to cut fo od, open containers, pour liquids, or butter bread? Yes. EATING - SCORE: 5-SUP GROOMING: Comb/brush hair Wash, rinse, and dry face Wash, rinse, and dry hands GROOMING - STEP 1: Does the patient require the assistance of a person or device, or need extra time when grooming? Yes. GROOMING - STEP 2: Does the patient require the assistance of a helper? Yes. GROOMING - STEP 3: How much assistance does the patient require from the helper? Only prior equipment preparation/set up from the helper GROOMING - SCORE: 5-SUP BATHING: Activity did not occur on this shift BATHING - SCORE: 0-UNK DRESSING - UPPER BODY: T-shirt/pullover shirt (four steps) ARTICLES SCORE Total number of steps: 4 DRESSING - UPPER BODY - STEP 1: Does the patient require help from a person or device, or need extra time when dressing above the nessa st? Yes. DRESSING - UPPER BODY - STEP 2: Does the patient require the assistance of a helper? Yes. DRESSING - UPPER BODY - STEP 3: Does the helper touch the patient while dressing? No. DRESSING - UPPER BODY - SCORE: 5-SUP DRESSING - LOWER BODY: Sock - Left foot (one step) Sock - Right foot (one step) Underwear (three steps) Zippered pants (four steps) ARTICLES SCORE Total number of steps: 9 DRESSING - LOWER BODY - STEP 1: Does the patient require help from a person or device, or need extra time when dressing below the nessa st? Yes. DRESSING - LOWER BODY - STEP 2: Does the patient require the assistance of a helper? Yes. DRESSING - LOWER BODY - STEP 3: Does the helper touch the patient while dressing? No. DRESSING - LOWER BODY - SCORE: 5-SUP TOILETING: TOILETING - STEP 1: Does the patient require the assistance of a person or device, or need extra time with toileting? Yes . TOILETING - STEP 2: Does the patient require the assistance of a helper? Yes. TOILETING - STEP 3: How much assistance does the patient require from the helper? Hands-on assistance from the helper TOILETING - STEP 4: Of the 3 tasks: 1) Adjusting clothing prior to use, 2) Cleansing of perineal area, 3) Adjusting clot leyla after use; How many tasks does the patient perform WITHOUT assistance of the helper? Two tasks TOILETING - SCORE: 3-MOD BLADDER MANAGEMENT: BLADDER MANAGEMENT - STEP 1: Does the patient control the bladder completely and intentionally without equipment or devices or med ications, and is always continent? No. BLADDER MANAGEMENT - STEP 2: Does the patient require the assistance of a helper? No, patient requires and independently uses an a ssistive device, such as a urinal, bedpan, bedside commode, catheter, absorbent pad, or collecting de vice BLADDER MANAGEMENT - SCORE: 6-JAKY BLADDER MANAGEMENT - FREQUENCY OF ACCIDENTS: BLADDER MANAGEMENT(FA) - STEP 1: How many accidents has the patient had during the current shift? 0 BOWEL MANAGEMENT: [place] removes incontinent device (depends, pull ups, etc.); cleans the patient after accident / inco ntinent episode; and, applies new device (depends, pull-ups, padding, etc.). BOWEL MANAGEMENT - SCORE: 1-DEP BOWEL MANAGEMENT - FREQUENCY OF ACCIDENTS: BOWEL MANAGEMENT(FA) - STEP 1: How many accidents has the patient had during the current shift? 1 TRANSFERS: BED, CHAIR, WHEELCHAIR: TRANSFERS: BED, CHAIR, WHEELCHAIR - STEP 1: Does the patient require assistance of a person or device, or need extra time with bed, chair, or whe elchair transfers? Yes. TRANSFERS: BED, CHAIR, WHEELCHAIR - STEP 2: Does the patient require the assistance of a helper? Yes. TRANSFERS: BED, CHAIR, WHEELCHAIR - STEP 3: How much assistance does the patient require from the helper? Steadying/guiding assistance TRANSFERS: BED, CHAIR, WHEELCHAIR - SCORE: 4-MIN TRANSFERS: TOILET: TRANSFERS: TOILET - STEP 1: Does the patient require the assistance of a person or device, or need extra time with toilet transfe rs? Yes. TRANSFERS: TOILET - STEP 2: Does the patient require the assistance of a helper? Yes. TRANSFERS: TOILET - STEP 3: How much assistance does the patient require from the helper? Patient performs half or more of the tr ansferring tasks TRANSFERS: TOILET - STEP 4: Does the patient need only incidental help such as contact guard or steadying during toilet transfer? No. Patient needs more than incidental help TRANSFERS: TOILET - SCORE: 3-MOD TRANSFERS: SHOWER: Activity did not occur on this shift TRANSFERS: SHOWER - SCORE: 0-UNK TRANSFERS: TUB: Activity did not occur on this shift TRANSFERS: TUB - SCORE: 0-UNK LOCOMOTION: WALK: Activity did not occur on this shift LOCOMOTION: WALK - SCORE: 0-UNK LOCOMOTION: WHEELCHAIR: Activity did not occur on this shift LOCOMOTION: WHEELCHAIR - SCORE: 0-UNK COMPREHENSION: COMPREHENSION: TYPE: Both COMPREHENSION - STEP 1: Does the patient require help from a person or device, or need extra time to understand complex and a bstract ideas (such as current events, finances, discharge planning, medical issues, relationships, e tc)? Yes. COMPREHENSION - STEP 2: Does the patient require help to understand questions or statements about basic needs or ideas (such as hunger, thirst, sleep, safety, daily schedule, room location, or discomfort) half or more of the t zane? No. COMPREHENSION - STEP 3: How often does the patient need help to understand directions and conversation about basic needs? Les s than 10% of the time COMPREHENSION - SCORE: 5-SUP EXPRESSION EXPRESSION: TYPE: Both EXPRESSION - STEP 1: Does the patient require help from a person or device, or need extra time expressing complex and abst ract ideas (such as current events, finances, discharge planning, medical issues, relationships, etc) ? Yes. EXPRESSION - STEP 2: Does the patient require help to express basic necessities or ideas (such as hunger, thirst, sleep, s afety, daily schedule, room location, or discomfort) half or more of the time? No. EXPRESSION - STEP 3: How often does the patient need help to express directions and conversation about basic needs? Less t jiang 10% of the time EXPRESSION - SCORE: 5-SUP SOCIAL INTERACTION: SOCIAL INTERACTION - STEP 1: Does the patient require a helper to interact with others in social and therapeutic situations? Yes. SOCIAL INTERACTION - STEP 2: Does the patient interact appropriately half or more of the time? Yes. SOCIAL INTERACTION - STEP 3: How often does the patient need help to interact appropriately? Less than 10% of the time SOCIAL INTERACTION - SCORE: 5-SUP PROBLEM SOLVING: PROBLEM SOLVING - STEP 1: Does the patient need help from a person or device, or need extra time to solve complex problems such as managing a checking account or confronting interpersonal problems? Yes. PROBLEM SOLVING - STEP 2: Does the patient solve basic routine problems half or more of the time? Yes. PROBLEM SOLVING - STEP 3: How often does the patient need help to solve basic routine problems? Less than 10% of the time PROBLEM SOLVING - SCORE: 5-SUP MEMORY: MEMORY - STEP 1: Does the patient need help from a person or device, or need extra time to remember frequently encount ered people, daily routines, and executing requests? Yes. MEMORY - STEP 2: How often does the patient need help to remember frequently encountered people, daily routines, and e xecuting requests? Less than 10% of the time MEMORY - SCORE: 5-SUP SIGNATURE PANEL: The following modified sections: Eating - Score, Grooming - Score, Bathing - Score, Dressing - Upper Body - Score, Dressing - Lower Body - Score, Toileting - Score, Bladder Management - Score, Bowel Man agement - Score, Transfers: Bed, Chair, Wheelchair - Score, Transfers: Toilet - Score, Transfers: Nevin wer - Score, Transfers: Tub - Score, Locomotion: Walk - Score, Locomotion: Wheelchair - Score, Compre hension - Score, Expression - Score, Social Interaction - Score, Problem Solving - Score, Memory - Sc ore were [electronically] signed by Sarah FosterNJenna on FriDec 28 2018 14:46:21 T-0500 (Centra l Daylight Time)
--- NOTE | 2018-12-31 11:39 | FAST ---
SHIFT START DATE/TIME: 12/28/2018 19:00 (CDT) SHIFT END DATE/TIME: 12/29/2018 07:00 (CDT) NAME JACQUIE SWEENEY DATE OF : 1945 DATE OF ADMISSION: 12/24/2018 20:11 (CDT) PHONE: AGE: 73 GENDER: Male ENCOUNTER PHYSICIAN: Dr. Jose Johns M.D. ADMISSION DIAGNOSIS: - Stroke 01 - Left Body (Right Brain) (01.1) Right Tiny Frontal Lobe Infarct. EATING: Activity did not occur on this shift EATING - SCORE: 0-UNK GROOMING: Activity did not occur on this shift GROOMING - SCORE: 0-UNK BATHING: Activity did not occur on this shift BATHING - SCORE: 0-UNK DRESSING - UPPER BODY: Patient is not dressing in public clothing ARTICLES SCORE Total number of steps: 0 DRESSING - UPPER BODY - SCORE: 0-UNK DRESSING - LOWER BODY: Patient is not dressing in public clothing ARTICLES SCORE Total number of steps: 0 DRESSING - LOWER BODY - SCORE: 0-UNK TOILETING: TOILETING - STEP 1: Does the patient require the assistance of a person or device, or need extra time with toileting? Yes . TOILETING - STEP 2: Does the patient require the assistance of a helper? Yes. TOILETING - STEP 3: How much assistance does the patient require from the helper? Hands-on assistance from the helper TOILETING - STEP 4: Of the 3 tasks: 1) Adjusting clothing prior to use, 2) Cleansing of perineal area, 3) Adjusting clot leyla after use; How many tasks does the patient perform WITHOUT assistance of the helper? No tasks; h talib performs all three tasks TOILETING - SCORE: 1-DEP BLADDER MANAGEMENT: [place] removes incontinent device (Depends, pull ups, etc.); cleans the patient after accident / inco ntinent episode; and, applies new incontinent device. BLADDER MANAGEMENT - SCORE: 1-DEP BLADDER MANAGEMENT - FREQUENCY OF ACCIDENTS: BLADDER MANAGEMENT(FA) - STEP 1: How many accidents has the patient had during the current shift? 1 BOWEL MANAGEMENT: [place] removes incontinent device (depends, pull ups, etc.); cleans the patient after accident / inco ntinent episode; and, applies new device (depends, pull-ups, padding, etc.). BOWEL MANAGEMENT - SCORE: 1-DEP BOWEL MANAGEMENT - FREQUENCY OF ACCIDENTS: BOWEL MANAGEMENT(FA) - STEP 1: How many accidents has the patient had during the current shift? 1 TRANSFERS: BED, CHAIR, WHEELCHAIR: Activity did not occur on this shift TRANSFERS: BED, CHAIR, WHEELCHAIR - SCORE: 0-UNK TRANSFERS: TOILET: Activity did not occur on this shift TRANSFERS: TOILET - SCORE: 0-UNK TRANSFERS: SHOWER: Activity did not occur on this shift TRANSFERS: SHOWER - SCORE: 0-UNK TRANSFERS: TUB: Activity did not occur on this shift TRANSFERS: TUB - SCORE: 0-UNK LOCOMOTION: WALK: Activity did not occur on this shift LOCOMOTION: WALK - SCORE: 0-UNK LOCOMOTION: WHEELCHAIR: Activity did not occur on this shift LOCOMOTION: WHEELCHAIR - SCORE: 0-UNK COMPREHENSION: COMPREHENSION: TYPE: Both COMPREHENSION - STEP 1: Does the patient require help from a person or device, or need extra time to understand complex and a bstract ideas (such as current events, finances, discharge planning, medical issues, relationships, e tc)? Yes. COMPREHENSION - STEP 2: Does the patient require help to understand questions or statements about basic needs or ideas (such as hunger, thirst, sleep, safety, daily schedule, room location, or discomfort) half or more of the t zane? No. COMPREHENSION - STEP 3: How often does the patient need help to understand directions and conversation about basic needs? 10% - 24% of the time COMPREHENSION - SCORE: 4-MIN EXPRESSION EXPRESSION: TYPE: Both EXPRESSION - STEP 1: Does the patient require help from a person or device, or need extra time expressing complex and abst ract ideas (such as current events, finances, discharge planning, medical issues, relationships, etc) ? No. EXPRESSION - STEP 2: Does the patient need extra time, require an assistive device (such as augmentive communication syste m or a communication board), OR does s/he have mild difficulty expressing complex and abstract ideas (including mild dysarthria or mild word-find problems)? No. EXPRESSION - SCORE: 7-IND SOCIAL INTERACTION: SOCIAL INTERACTION - STEP 1: Does the patient require a helper to interact with others in social and therapeutic situations? No. SOCIAL INTERACTION - STEP 2: Does the patient need extra time in social situations, OR does s/he interact with staff, other patien ts, and family members ONLY in structured environments, OR does s/he require medication for social in teraction? Yes, patient requires medication for social interaction SOCIAL INTERACTION - SCORE: 6-JAKY PROBLEM SOLVING: PROBLEM SOLVING - STEP 1: Does the patient need help from a person or device, or need extra time to solve complex problems such as managing a checking account or confronting interpersonal problems? Yes. PROBLEM SOLVING - STEP 2: Does the patient solve basic routine problems half or more of the time? Yes. PROBLEM SOLVING - STEP 3: How often does the patient need help to solve basic routine problems? 10%-24% of the time PROBLEM SOLVING - SCORE: 4-MIN MEMORY: MEMORY - STEP 1: Does the patient need help from a person or device, or need extra time to remember frequently encount ered people, daily routines, and executing requests? No. MEMORY - STEP 2: Does the patient have slight difficulty recognizing frequently encountered people, daily routines, or executing requests without the need for repetition or using self-initiated or environmental cues to remember? Yes. MEMORY - SCORE: 6-JAKY SIGNATURE PANEL: The following modified sections: Eating - Score, Grooming - Score, Dressing - Upper Body - Score, Kong ssing - Lower Body - Score, Toileting - Score, Bladder Management - Score, Bowel Management - Score, Transfers: Bed, Chair, Wheelchair - Score, Transfers: Toilet - Score, Transfers: Shower - Score, Call sfers: Tub - Score, Locomotion: Walk - Score, Locomotion: Wheelchair - Score, Comprehension - Score, Expression - Score, Social Interaction - Score, Problem Solving - Score, Memory - Score were [electro nically] signed by Shanon Torre CNA on FriDec 29 2018 01:15:46 GMT-0500 (Central Daylight Time)
--- NOTE | 2018-12-31 11:39 | FAST ---
ENCOUNTER DATE AND TIME: 12/30/2018 08:00 (CDT) NAME JACQUIE SWEENEY DATE OF : 1945 DATE OF ADMISSION: 12/24/2018 20:11 (CDT) PHONE: AGE: 73 GENDER: Male ENCOUNTER PHYSICIAN: Dr. Jose Johns M.D. ADMISSION DIAGNOSIS: - Stroke 01 - Left Body (Right Brain) (01.1) Right Tiny Frontal Lobe Infarct. EATING: Activity did not occur on this shift EATING - SCORE: 0-UNK GROOMING: Wash, rinse, and dry face Wash, rinse, and dry hands GROOMING - STEP 1: Does the patient require the assistance of a person or device, or need extra time when grooming? No. GROOMING - SCORE: 7-IND BATHING: Abdomen Buttocks Chest Left arm Left lower leg and foot Left upper leg Perineal area Right arm Right lower leg and foot Right upper leg BATHING - STEP 1: Does the patient require the assistance of a person or device, or need extra time when bathing? Yes. BATHING - STEP 2: Does the patient require the assistance of a helper? Yes. BATHING - STEP 3: How much assistance does the patient require from the helper? Only supervision, cuing, coaxing, instr uctions, encouragement BATHING - SCORE: 5-SUP DRESSING - UPPER BODY: T-shirt/pullover shirt (four steps) ARTICLES SCORE Total number of steps: 4 DRESSING - UPPER BODY - STEP 1: Does the patient require help from a person or device, or need extra time when dressing above the nessa st? No. DRESSING - UPPER BODY - SCORE: 7-IND DRESSING - LOWER BODY: Elastic waist pants (three steps) Sock - Left foot (one step) Sock - Right foot (one step) Underwear (three steps) ARTICLES SCORE Total number of steps: 8 DRESSING - LOWER BODY - STEP 1: Does the patient require help from a person or device, or need extra time when dressing below the nessa st? Yes. DRESSING - LOWER BODY - STEP 2: Does the patient require the assistance of a helper? Yes. DRESSING - LOWER BODY - STEP 3: Does the helper touch the patient while dressing? No. DRESSING - LOWER BODY - SCORE: 5-SUP TOILETING: Activity did not occur on this shift TOILETING - SCORE: 0-UNK BLADDER MANAGEMENT: Activity did not occur on this shift BLADDER MANAGEMENT - SCORE: 7-IND BOWEL MANAGEMENT: Activity did not occur on this shift BOWEL MANAGEMENT - SCORE: 7-IND TRANSFERS: BED, CHAIR, WHEELCHAIR: Activity did not occur on this shift TRANSFERS: BED, CHAIR, WHEELCHAIR - SCORE: 0-UNK TRANSFERS: TOILET: Activity did not occur on this shift TRANSFERS: TOILET - SCORE: 0-UNK TRANSFERS: SHOWER: Activity did not occur on this shift TRANSFERS: SHOWER - SCORE: 0-UNK TRANSFERS: TUB: TRANSFERS: TUB - STEP 1: Does the patient require the assistance of a person or device, or need extra time with tub transfers? Yes. TRANSFERS: TUB - STEP 2: Does the patient require the assistance of a helper? Yes. TRANSFERS: TUB - STEP 3: How much assistance does the patient require from the helper? Incidental help such as contact guardin g or steadying, OR help to lift one leg into the tub TRANSFERS: TUB - SCORE: 4-MIN LOCOMOTION: WALK: Activity did not occur on this shift LOCOMOTION: WALK - SCORE: 0-UNK LOCOMOTION: WHEELCHAIR: Activity did not occur on this shift LOCOMOTION: WHEELCHAIR - SCORE: 0-UNK LOCOMOTION: STAIRS: Activity did not occur on this shift LOCOMOTION: STAIRS - SCORE: 0-UNK COMPREHENSION: COMPREHENSION - SCORE: 0-UNK EXPRESSION EXPRESSION - SCORE: 0-UNK SOCIAL INTERACTION: SOCIAL INTERACTION - SCORE: 0-UNK PROBLEM SOLVING: PROBLEM SOLVING - SCORE: 0-UNK MEMORY: MEMORY - SCORE: 0-UNK SIGNATURE PANEL: The following modified sections: Eating - Score, Grooming - Score, Bathing - Score, Dressing - Upper Body - Score, Dressing - Lower Body - Score, Toileting - Score, Transfers: Bed, Chair, Wheelchair - S core, Transfers: Toilet - Score, Transfers: Shower - Score, Transfers: Tub - Score, Comprehension - S core, Expression - Score, Social Interaction - Score, Problem Solving - Score, Memory - Score were [e lectronically] signed by ANGELICA Pal on FriDec 30 2018 12:26:50 GMT-0500 ([facility] Time)
--- NOTE | 2018-12-31 11:39 | FAST ---
SHIFT START DATE/TIME: 12/29/2018 07:00 (CDT) SHIFT END DATE/TIME: 12/29/2018 19:00 (CDT) NAME JACQUIE SWEENEY DATE OF : 1945 DATE OF ADMISSION: 12/24/2018 20:11 (CDT) PHONE: AGE: 73 GENDER: Male ENCOUNTER PHYSICIAN: Dr. Jose Johns M.D. ADMISSION DIAGNOSIS: - Stroke 01 - Left Body (Right Brain) (01.1) Right Tiny Frontal Lobe Infarct. EATING: EATING - STEP 1: Does the patient require the assistance of a person or device, or need extra time when eating? Yes. EATING - STEP 2: Does the patient require the assistance of a helper? Yes. EATING - STEP 3: Does the patient perform half or more of the eating tasks? Yes. EATING - STEP 4: Does the patient need only supervision, cuing, coaxing OR help to apply an orthosis OR help to cut fo od, open containers, pour liquids, or butter bread? Yes. EATING - SCORE: 5-SUP GROOMING: Comb/brush hair Wash, rinse, and dry face Wash, rinse, and dry hands GROOMING - STEP 1: Does the patient require the assistance of a person or device, or need extra time when grooming? Yes. GROOMING - STEP 2: Does the patient require the assistance of a helper? Yes. GROOMING - STEP 3: How much assistance does the patient require from the helper? Only prior equipment preparation/set up from the helper GROOMING - SCORE: 5-SUP BATHING: Activity did not occur on this shift BATHING - SCORE: 0-UNK DRESSING - UPPER BODY: T-shirt/pullover shirt (four steps) ARTICLES SCORE Total number of steps: 4 DRESSING - UPPER BODY - STEP 1: Does the patient require help from a person or device, or need extra time when dressing above the nessa st? Yes. DRESSING - UPPER BODY - STEP 2: Does the patient require the assistance of a helper? Yes. DRESSING - UPPER BODY - STEP 3: Does the helper touch the patient while dressing? No. DRESSING - UPPER BODY - SCORE: 5-SUP DRESSING - LOWER BODY: Elastic waist pants (three steps) Slip-on shoe - Left foot (one step) Slip-on shoe - Right foot (one step) Underwear (three steps) ARTICLES SCORE Total number of steps: 8 DRESSING - LOWER BODY - STEP 1: Does the patient require help from a person or device, or need extra time when dressing below the nessa st? Yes. DRESSING - LOWER BODY - STEP 2: Does the patient require the assistance of a helper? Yes. DRESSING - LOWER BODY - STEP 3: Does the helper touch the patient while dressing? No. DRESSING - LOWER BODY - SCORE: 5-SUP TOILETING: TOILETING - STEP 1: Does the patient require the assistance of a person or device, or need extra time with toileting? Yes . TOILETING - STEP 2: Does the patient require the assistance of a helper? Yes. TOILETING - STEP 3: How much assistance does the patient require from the helper? Hands-on assistance from the helper TOILETING - STEP 4: Of the 3 tasks: 1) Adjusting clothing prior to use, 2) Cleansing of perineal area, 3) Adjusting clot leyla after use; How many tasks does the patient perform WITHOUT assistance of the helper? Two tasks TOILETING - SCORE: 3-MOD BLADDER MANAGEMENT: [place] removes incontinent device (Depends, pull ups, etc.); cleans the patient after accident / inco ntinent episode; and, applies new incontinent device. BLADDER MANAGEMENT - SCORE: 1-DEP BLADDER MANAGEMENT - FREQUENCY OF ACCIDENTS: BLADDER MANAGEMENT(FA) - STEP 1: How many accidents has the patient had during the current shift? 2 BOWEL MANAGEMENT: [place] removes incontinent device (depends, pull ups, etc.); cleans the patient after accident / inco ntinent episode; and, applies new device (depends, pull-ups, padding, etc.). BOWEL MANAGEMENT - SCORE: 1-DEP BOWEL MANAGEMENT - FREQUENCY OF ACCIDENTS: BOWEL MANAGEMENT(FA) - STEP 1: How many accidents has the patient had during the current shift? 1 TRANSFERS: BED, CHAIR, WHEELCHAIR: TRANSFERS: BED, CHAIR, WHEELCHAIR - STEP 1: Does the patient require assistance of a person or device, or need extra time with bed, chair, or whe elchair transfers? Yes. TRANSFERS: BED, CHAIR, WHEELCHAIR - STEP 2: Does the patient require the assistance of a helper? Yes. TRANSFERS: BED, CHAIR, WHEELCHAIR - STEP 3: How much assistance does the patient require from the helper? Steadying/guiding assistance TRANSFERS: BED, CHAIR, WHEELCHAIR - SCORE: 4-MIN TRANSFERS: TOILET: TRANSFERS: TOILET - STEP 1: Does the patient require the assistance of a person or device, or need extra time with toilet transfe rs? Yes. TRANSFERS: TOILET - STEP 2: Does the patient require the assistance of a helper? Yes. TRANSFERS: TOILET - STEP 3: How much assistance does the patient require from the helper? Patient performs half or more of the tr ansferring tasks TRANSFERS: TOILET - STEP 4: Does the patient need only incidental help such as contact guard or steadying during toilet transfer? No. Patient needs more than incidental help TRANSFERS: TOILET - SCORE: 3-MOD TRANSFERS: SHOWER: Activity did not occur on this shift TRANSFERS: SHOWER - SCORE: 0-UNK TRANSFERS: TUB: Activity did not occur on this shift TRANSFERS: TUB - SCORE: 0-UNK LOCOMOTION: WALK: Activity did not occur on this shift LOCOMOTION: WALK - SCORE: 0-UNK LOCOMOTION: WHEELCHAIR: LOCOMOTION: WHEELCHAIR - STEP 1: Does the patient need help to go 150 feet in a wheelchair? Yes. LOCOMOTION: WHEELCHAIR - STEP 2: How much assistance does the patient need from the helper? Only supervision, cuing, or coaxing LOCOMOTION: WHEELCHAIR - SCORE: 5-SUP COMPREHENSION: COMPREHENSION: TYPE: Both COMPREHENSION - STEP 1: Does the patient require help from a person or device, or need extra time to understand complex and a bstract ideas (such as current events, finances, discharge planning, medical issues, relationships, e tc)? Yes. COMPREHENSION - STEP 2: Does the patient require help to understand questions or statements about basic needs or ideas (such as hunger, thirst, sleep, safety, daily schedule, room location, or discomfort) half or more of the t zane? No. COMPREHENSION - STEP 3: How often does the patient need help to understand directions and conversation about basic needs? Les s than 10% of the time COMPREHENSION - SCORE: 5-SUP EXPRESSION EXPRESSION: TYPE: Both EXPRESSION - STEP 1: Does the patient require help from a person or device, or need extra time expressing complex and abst ract ideas (such as current events, finances, discharge planning, medical issues, relationships, etc) ? Yes. EXPRESSION - STEP 2: Does the patient require help to express basic necessities or ideas (such as hunger, thirst, sleep, s afety, daily schedule, room location, or discomfort) half or more of the time? No. EXPRESSION - STEP 3: How often does the patient need help to express directions and conversation about basic needs? Less t jiang 10% of the time EXPRESSION - SCORE: 5-SUP SOCIAL INTERACTION: SOCIAL INTERACTION - STEP 1: Does the patient require a helper to interact with others in social and therapeutic situations? Yes. SOCIAL INTERACTION - STEP 2: Does the patient interact appropriately half or more of the time? Yes. SOCIAL INTERACTION - STEP 3: How often does the patient need help to interact appropriately? Less than 10% of the time SOCIAL INTERACTION - SCORE: 5-SUP PROBLEM SOLVING: PROBLEM SOLVING - STEP 1: Does the patient need help from a person or device, or need extra time to solve complex problems such as managing a checking account or confronting interpersonal problems? Yes. PROBLEM SOLVING - STEP 2: Does the patient solve basic routine problems half or more of the time? Yes. PROBLEM SOLVING - STEP 3: How often does the patient need help to solve basic routine problems? Less than 10% of the time PROBLEM SOLVING - SCORE: 5-SUP MEMORY: MEMORY - STEP 1: Does the patient need help from a person or device, or need extra time to remember frequently encount ered people, daily routines, and executing requests? Yes. MEMORY - STEP 2: How often does the patient need help to remember frequently encountered people, daily routines, and e xecuting requests? Less than 10% of the time MEMORY - SCORE: 5-SUP SIGNATURE PANEL: The following modified sections: Eating - Score, Grooming - Score, Bathing - Score, Dressing - Upper Body - Score, Dressing - Lower Body - Score, Toileting - Score, Bladder Management - Score, Bowel Man agement - Score, Transfers: Bed, Chair, Wheelchair - Score, Transfers: Toilet - Score, Transfers: Nevin wer - Score, Transfers: Tub - Score, Locomotion: Walk - Score, Locomotion: Wheelchair - Score, Expres corinne - Score, Social Interaction - Score, Problem Solving - Score, Memory - Score, Comprehension - Sc ore were [electronically] signed by Sarah FosterNJenna on FriDec 29 2018 12:54:41 T-0500 ([place] Daylight Time)
--- NOTE | 2018-12-31 11:39 | FAST ---
SHIFT START DATE/TIME: 12/26/2018 07:00 (CDT) SHIFT END DATE/TIME: 12/26/2018 19:00 (CDT) NAME JACQUIE SWEENEY DATE OF : 1945 DATE OF ADMISSION: 12/24/2018 20:11 (CDT) PHONE: AGE: 73 GENDER: Male ENCOUNTER PHYSICIAN: Dr. Jose Johns M.D. ADMISSION DIAGNOSIS: - Stroke 01 - Left Body (Right Brain) (01.1) Right Tiny Frontal Lobe Infarct. EATING: EATING - STEP 1: Does the patient require the assistance of a person or device, or need extra time when eating? Yes. EATING - STEP 2: Does the patient require the assistance of a helper? No, patient only requires an assistive device, O R s/he takes more than reasonable time to eat, OR there is a safety concern, OR s/he requires modifie d food consistency EATING - SCORE: 6-JAKY GROOMING: Comb/brush hair Oral care Wash, rinse, and dry face Wash, rinse, and dry hands GROOMING - STEP 1: Does the patient require the assistance of a person or device, or need extra time when grooming? Yes. GROOMING - STEP 2: Does the patient require the assistance of a helper? Yes. GROOMING - STEP 3: How much assistance does the patient require from the helper? Cuing, coaxing, instructions, or encour agement for completion of grooming GROOMING - SCORE: 5-SUP BATHING: Activity did not occur on this shift BATHING - SCORE: 0-UNK DRESSING - UPPER BODY: Activity did not occur on this shift ARTICLES SCORE Total number of steps: 0 DRESSING - UPPER BODY - SCORE: 0-UNK DRESSING - LOWER BODY: Activity did not occur on this shift ARTICLES SCORE Total number of steps: 0 DRESSING - LOWER BODY - SCORE: 0-UNK TOILETING: TOILETING - STEP 1: Does the patient require the assistance of a person or device, or need extra time with toileting? Yes . TOILETING - STEP 2: Does the patient require the assistance of a helper? Yes. TOILETING - STEP 3: How much assistance does the patient require from the helper? Hands-on assistance from the helper TOILETING - STEP 4: Of the 3 tasks: 1) Adjusting clothing prior to use, 2) Cleansing of perineal area, 3) Adjusting clot leyla after use; How many tasks does the patient perform WITHOUT assistance of the helper? Three tasks with steadying assistance from the helper TOILETING - SCORE: 4-MIN BLADDER MANAGEMENT: BLADDER MANAGEMENT - STEP 1: Does the patient control the bladder completely and intentionally without equipment or devices or med ications, and is always continent? No. BLADDER MANAGEMENT - STEP 2: Does the patient require the assistance of a helper? No, patient requires and independently uses an a ssistive device, such as a urinal, bedpan, bedside commode, catheter, absorbent pad, or collecting de vice BLADDER MANAGEMENT - SCORE: 6-JAKY BOWEL MANAGEMENT: BOWEL MANAGEMENT - STEP 1: Does the patient control bowels completely and intentionally without equipment devices or medications AND is always continent? No. BOWEL MANAGEMENT - STEP 2: Does the patient require the assistance of a helper? No, patient requires and manages independently a n assistive device such as a bedpan, bedside commode, absorbent pad, incontinent device, or collectin g device BOWEL MANAGEMENT - SCORE: 6-JAKY TRANSFERS: BED, CHAIR, WHEELCHAIR: TRANSFERS: BED, CHAIR, WHEELCHAIR - STEP 1: Does the patient require assistance of a person or device, or need extra time with bed, chair, or whe elchair transfers? Yes. TRANSFERS: BED, CHAIR, WHEELCHAIR - STEP 2: Does the patient require the assistance of a helper? Yes. TRANSFERS: BED, CHAIR, WHEELCHAIR - STEP 3: How much assistance does the patient require from the helper? Steadying/guiding assistance TRANSFERS: BED, CHAIR, WHEELCHAIR - SCORE: 4-MIN TRANSFERS: TOILET: TRANSFERS: TOILET - STEP 1: Does the patient require the assistance of a person or device, or need extra time with toilet transfe rs? Yes. TRANSFERS: TOILET - STEP 2: Does the patient require the assistance of a helper? Yes. TRANSFERS: TOILET - STEP 3: How much assistance does the patient require from the helper? Patient performs half or more of the tr ansferring tasks TRANSFERS: TOILET - STEP 4: Does the patient need only incidental help such as contact guard or steadying during toilet transfer? Yes. TRANSFERS: TOILET - SCORE: 4-MIN TRANSFERS: SHOWER: Activity did not occur on this shift TRANSFERS: SHOWER - SCORE: 0-UNK TRANSFERS: TUB: Activity did not occur on this shift TRANSFERS: TUB - SCORE: 0-UNK LOCOMOTION: WALK: Activity did not occur on this shift LOCOMOTION: WALK - SCORE: 0-UNK LOCOMOTION: WHEELCHAIR: Activity did not occur on this shift LOCOMOTION: WHEELCHAIR - SCORE: 0-UNK COMPREHENSION: COMPREHENSION: TYPE: Both COMPREHENSION - STEP 1: Does the patient require help from a person or device, or need extra time to understand complex and a bstract ideas (such as current events, finances, discharge planning, medical issues, relationships, e tc)? Yes. COMPREHENSION - STEP 2: Does the patient require help to understand questions or statements about basic needs or ideas (such as hunger, thirst, sleep, safety, daily schedule, room location, or discomfort) half or more of the t zane? No. COMPREHENSION - STEP 3: How often does the patient need help to understand directions and conversation about basic needs? 25% - 49% of the time COMPREHENSION - SCORE: 3-MOD EXPRESSION EXPRESSION: TYPE: Both EXPRESSION - STEP 1: Does the patient require help from a person or device, or need extra time expressing complex and abst ract ideas (such as current events, finances, discharge planning, medical issues, relationships, etc) ? Yes. EXPRESSION - STEP 2: Does the patient require help to express basic necessities or ideas (such as hunger, thirst, sleep, s afety, daily schedule, room location, or discomfort) half or more of the time? No. EXPRESSION - STEP 3: How often does the patient need help to express directions and conversation about basic needs? 25-49% of the time EXPRESSION - SCORE: 3-MOD SOCIAL INTERACTION: SOCIAL INTERACTION - STEP 1: Does the patient require a helper to interact with others in social and therapeutic situations? Yes. SOCIAL INTERACTION - STEP 2: Does the patient interact appropriately half or more of the time? Yes. SOCIAL INTERACTION - STEP 3: How often does the patient need help to interact appropriately? 10-24% of the time SOCIAL INTERACTION - SCORE: 4-MIN PROBLEM SOLVING: PROBLEM SOLVING - STEP 1: Does the patient need help from a person or device, or need extra time to solve complex problems such as managing a checking account or confronting interpersonal problems? Yes. PROBLEM SOLVING - STEP 2: Does the patient solve basic routine problems half or more of the time? Yes. PROBLEM SOLVING - STEP 3: How often does the patient need help to solve basic routine problems? 10%-24% of the time PROBLEM SOLVING - SCORE: 4-MIN MEMORY: MEMORY - STEP 1: Does the patient need help from a person or device, or need extra time to remember frequently encount ered people, daily routines, and executing requests? Yes. MEMORY - STEP 2: How often does the patient need help to remember frequently encountered people, daily routines, and e xecuting requests? 10% - 24% of the time MEMORY - SCORE: 4-MIN SIGNATURE PANEL: The following modified sections: Eating - Score, Grooming - Score, Bathing - Score, Dressing - Upper Body - Score, Dressing - Lower Body - Score, Toileting - Score, Bladder Management - Score, Bowel Man agement - Score, Transfers: Bed, Chair, Wheelchair - Score, Transfers: Toilet - Score, Transfers: Nevin wer - Score, Transfers: Tub - Score, Locomotion: Walk - Score, Locomotion: Wheelchair - Score, Compre hension - Score, Expression - Score, Social Interaction - Score, Problem Solving - Score, Memory - Sc ore were [electronically] signed by Mansoor Watt on FriDec 26 2018 08:35:13 GMT-0500 (Central Daylight Time)
--- NOTE | 2018-12-31 11:39 | FAST ---
SHIFT START DATE/TIME: 12/26/2018 19:00 (CDT) SHIFT END DATE/TIME: 12/27/2018 07:00 (CDT) NAME JACQUIE SWEENEY DATE OF : 1945 DATE OF ADMISSION: 12/24/2018 20:11 (CDT) PHONE: AGE: 73 GENDER: Male ENCOUNTER PHYSICIAN: Dr. Jose Johns M.D. ADMISSION DIAGNOSIS: - Stroke 01 - Left Body (Right Brain) (01.1) Right Tiny Frontal Lobe Infarct. EATING: Activity did not occur on this shift EATING - SCORE: 0-UNK GROOMING: Activity did not occur on this shift GROOMING - SCORE: 0-UNK BATHING: Activity did not occur on this shift BATHING - SCORE: 0-UNK DRESSING - UPPER BODY: Activity did not occur on this shift ARTICLES SCORE Total number of steps: 0 DRESSING - UPPER BODY - SCORE: 0-UNK DRESSING - LOWER BODY: Activity did not occur on this shift ARTICLES SCORE Total number of steps: 0 DRESSING - LOWER BODY - SCORE: 0-UNK TOILETING: Activity did not occur on this shift TOILETING - SCORE: 0-UNK BLADDER MANAGEMENT: Austin removes incontinent device (Depends, pull ups, etc.); cleans the patient after accident / inco ntinent episode; and, applies new incontinent device. BLADDER MANAGEMENT - SCORE: 1-DEP BOWEL MANAGEMENT: Austin removes incontinent device (depends, pull ups, etc.); cleans the patient after accident / inco ntinent episode; and, applies new device (depends, pull-ups, padding, etc.). BOWEL MANAGEMENT - SCORE: 1-DEP TRANSFERS: BED, CHAIR, WHEELCHAIR: Activity did not occur on this shift TRANSFERS: BED, CHAIR, WHEELCHAIR - SCORE: 0-UNK TRANSFERS: TOILET: Activity did not occur on this shift TRANSFERS: TOILET - SCORE: 0-UNK TRANSFERS: SHOWER: Activity did not occur on this shift TRANSFERS: SHOWER - SCORE: 0-UNK TRANSFERS: TUB: Activity did not occur on this shift TRANSFERS: TUB - SCORE: 0-UNK LOCOMOTION: WALK: Activity did not occur on this shift LOCOMOTION: WALK - SCORE: 0-UNK LOCOMOTION: WHEELCHAIR: Activity did not occur on this shift LOCOMOTION: WHEELCHAIR - SCORE: 0-UNK COMPREHENSION: COMPREHENSION: TYPE: Both COMPREHENSION - STEP 1: Does the patient require help from a person or device, or need extra time to understand complex and a bstract ideas (such as current events, finances, discharge planning, medical issues, relationships, e tc)? No. COMPREHENSION - STEP 2: Does the patient need extra time, require an assistive device (such as glasses for visual comprehensi on or a hearing aid for auditory comprehension) or does s/he have mild difficulty understanding compl ex and abstract information? No. COMPREHENSION - SCORE: 7-IND EXPRESSION EXPRESSION: TYPE: Both EXPRESSION - STEP 1: Does the patient require help from a person or device, or need extra time expressing complex and abst ract ideas (such as current events, finances, discharge planning, medical issues, relationships, etc) ? No. EXPRESSION - STEP 2: Does the patient need extra time, require an assistive device (such as augmentive communication syste m or a communication board), OR does s/he have mild difficulty expressing complex and abstract ideas (including mild dysarthria or mild word-find problems)? No. EXPRESSION - SCORE: 7-IND SOCIAL INTERACTION: SOCIAL INTERACTION - STEP 1: Does the patient require a helper to interact with others in social and therapeutic situations? No. SOCIAL INTERACTION - STEP 2: Does the patient need extra time in social situations, OR does s/he interact with staff, other patien ts, and family members ONLY in structured environments, OR does s/he require medication for social in teraction? Yes, patient requires medication for social interaction SOCIAL INTERACTION - SCORE: 6-JAKY PROBLEM SOLVING: Patient requires bed/chair alarms due to attempts to get up unassisted when helper is needed. PROBLEM SOLVING - STEP 1: How often do the bed/chair alarms go off? Occasionally - the alarms go off about 25% or less PROBLEM SOLVING - SCORE: 4-MIN MEMORY: MEMORY - STEP 1: How often do the bed/chair alarms go off? Occasionally - the alarms go off about 25% of the time or l ess MEMORY - SCORE: 4-MIN SIGNATURE PANEL: The following modified sections: Eating - Score, Grooming - Score, Bathing - Score, Dressing - Upper Body - Score, Dressing - Lower Body - Score, Toileting - Score, Bladder Management - Score, Bowel Man agement - Score, Transfers: Bed, Chair, Wheelchair - Score, Transfers: Toilet - Score, Transfers: Nevin wer - Score, Transfers: Tub - Score, Locomotion: Walk - Score, Locomotion: Wheelchair - Score, Compre hension - Score, Expression - Score, Social Interaction - Score, Problem Solving - Score, Memory - Sc ore were [electronically] signed by Sarah Ann CNA on FriDec 27 2018 01:01:28 T-0500 ([facility] ylight Time)
--- NOTE | 2018-12-31 11:39 | FAST ---
ENCOUNTER DATE AND TIME: 12/28/2018 08:00 (CDT) NAME JACQUIE SWEENEY DATE OF : 1945 DATE OF ADMISSION: 12/24/2018 20:11 (CDT) PHONE: AGE: 73 GENDER: Male ENCOUNTER PHYSICIAN: Dr. Jose Johns M.D. ADMISSION DIAGNOSIS: - Stroke 01 - Left Body (Right Brain) (01.1) Right Tiny Frontal Lobe Infarct. EATING: Activity did not occur on this shift EATING - SCORE: 0-UNK GROOMING: Comb/brush hair Wash, rinse, and dry face Wash, rinse, and dry hands GROOMING - STEP 1: Does the patient require the assistance of a person or device, or need extra time when grooming? No. GROOMING - SCORE: 7-IND BATHING: Abdomen Buttocks Chest Left arm Left lower leg and foot Left upper leg Perineal area Right arm Right lower leg and foot Right upper leg BATHING - STEP 1: Does the patient require the assistance of a person or device, or need extra time when bathing? Yes. BATHING - STEP 2: Does the patient require the assistance of a helper? Yes. BATHING - STEP 3: How much assistance does the patient require from the helper? Only incidental help such as placement of a wash cloth in his/her hand a few times as s/he bathes OR help to bathe just one or two areas of the body BATHING - SCORE: 4-MIN DRESSING - UPPER BODY: T-shirt/pullover shirt (four steps) ARTICLES SCORE Total number of steps: 4 DRESSING - UPPER BODY - STEP 1: Does the patient require help from a person or device, or need extra time when dressing above the nessa st? Yes. DRESSING - UPPER BODY - STEP 2: Does the patient require the assistance of a helper? Yes. DRESSING - UPPER BODY - STEP 3: Does the helper touch the patient while dressing? No. DRESSING - UPPER BODY - SCORE: 5-SUP DRESSING - LOWER BODY: Slip-on shoe - Left foot (one step) Slip-on shoe - Right foot (one step) Sock - Left foot (one step) Sock - Right foot (one step) Underwear (three steps) Zippered pants (four steps) ARTICLES SCORE Total number of steps: 11 DRESSING - LOWER BODY - STEP 1: Does the patient require help from a person or device, or need extra time when dressing below the nessa st? Yes. DRESSING - LOWER BODY - STEP 2: Does the patient require the assistance of a helper? Yes. DRESSING - LOWER BODY - STEP 3: Does the helper touch the patient while dressing? Yes. DRESSING - LOWER BODY - STEP 4: How many of the total steps does the patient complete on his/her own? 11 DRESSING - LOWER BODY - SCORE: 4-MIN TOILETING: Activity did not occur on this shift TOILETING - SCORE: 0-UNK BLADDER MANAGEMENT: Activity did not occur on this shift BLADDER MANAGEMENT - SCORE: 7-IND BOWEL MANAGEMENT: Activity did not occur on this shift BOWEL MANAGEMENT - SCORE: 7-IND TRANSFERS: BED, CHAIR, WHEELCHAIR: Activity did not occur on this shift TRANSFERS: BED, CHAIR, WHEELCHAIR - SCORE: 0-UNK TRANSFERS: TOILET: Activity did not occur on this shift TRANSFERS: TOILET - SCORE: 0-UNK TRANSFERS: SHOWER: Activity did not occur on this shift TRANSFERS: SHOWER - SCORE: 0-UNK TRANSFERS: TUB: TRANSFERS: TUB - STEP 1: Does the patient require the assistance of a person or device, or need extra time with tub transfers? Yes. TRANSFERS: TUB - STEP 2: Does the patient require the assistance of a helper? Yes. TRANSFERS: TUB - STEP 3: How much assistance does the patient require from the helper? Incidental help such as contact guardin g or steadying, OR help to lift one leg into the tub TRANSFERS: TUB - SCORE: 4-MIN LOCOMOTION: WALK: Activity did not occur on this shift LOCOMOTION: WALK - SCORE: 0-UNK LOCOMOTION: WHEELCHAIR: Activity did not occur on this shift LOCOMOTION: WHEELCHAIR - SCORE: 0-UNK LOCOMOTION: STAIRS: Activity did not occur on this shift LOCOMOTION: STAIRS - SCORE: 0-UNK COMPREHENSION: COMPREHENSION: TYPE: Both COMPREHENSION - STEP 1: Does the patient require help from a person or device, or need extra time to understand complex and a bstract ideas (such as current events, finances, discharge planning, medical issues, relationships, e tc)? Yes. COMPREHENSION - STEP 2: Does the patient require help to understand questions or statements about basic needs or ideas (such as hunger, thirst, sleep, safety, daily schedule, room location, or discomfort) half or more of the t zane? No. COMPREHENSION - STEP 3: How often does the patient need help to understand directions and conversation about basic needs? 25% - 49% of the time COMPREHENSION - SCORE: 3-MOD EXPRESSION EXPRESSION: TYPE: Both EXPRESSION - STEP 1: Does the patient require help from a person or device, or need extra time expressing complex and abst ract ideas (such as current events, finances, discharge planning, medical issues, relationships, etc) ? Yes. EXPRESSION - STEP 2: Does the patient require help to express basic necessities or ideas (such as hunger, thirst, sleep, s afety, daily schedule, room location, or discomfort) half or more of the time? No. EXPRESSION - STEP 3: How often does the patient need help to express directions and conversation about basic needs? 10-24% of the time EXPRESSION - SCORE: 4-MIN SOCIAL INTERACTION: SOCIAL INTERACTION - STEP 1: Does the patient require a helper to interact with others in social and therapeutic situations? Yes. SOCIAL INTERACTION - STEP 2: Does the patient interact appropriately half or more of the time? Yes. SOCIAL INTERACTION - STEP 3: How often does the patient need help to interact appropriately? Less than 10% of the time SOCIAL INTERACTION - SCORE: 5-SUP PROBLEM SOLVING: PROBLEM SOLVING - STEP 1: Does the patient need help from a person or device, or need extra time to solve complex problems such as managing a checking account or confronting interpersonal problems? Yes. PROBLEM SOLVING - STEP 2: Does the patient solve basic routine problems half or more of the time? Yes. PROBLEM SOLVING - STEP 3: How often does the patient need help to solve basic routine problems? 25%-49% of the time PROBLEM SOLVING - SCORE: 3-MOD MEMORY: MEMORY - STEP 1: Does the patient need help from a person or device, or need extra time to remember frequently encount ered people, daily routines, and executing requests? Yes. MEMORY - STEP 2: How often does the patient need help to remember frequently encountered people, daily routines, and e xecuting requests? 25% - 49% of the time MEMORY - SCORE: 3-MOD SIGNATURE PANEL: The following modified sections: Eating - Score, Grooming - Score, Bathing - Score, Dressing - Upper Body - Score, Dressing - Lower Body - Score, Toileting - Score, Transfers: Bed, Chair, Wheelchair - S core, Transfers: Toilet - Score, Transfers: Shower - Score, Transfers: Tub - Score, Comprehension - S core, Expression - Score, Social Interaction - Score, Problem Solving - Score, Memory - Score were [e lectronically] signed by Veronica Sung OT on FriDec 28 2018 13:01:17 [facility]-0500 ([place] ylight Time)
--- NOTE | 2018-12-31 11:40 | FAST ---
SHIFT START DATE/TIME: 12/30/2018 07:00 (CDT) SHIFT END DATE/TIME: 12/30/2018 19:00 (CDT) NAME JACQUIE SWEENEY DATE OF : 1945 DATE OF ADMISSION: 12/24/2018 20:11 (CDT) PHONE: AGE: 73 GENDER: Male ENCOUNTER PHYSICIAN: Dr. Jose Johns M.D. ADMISSION DIAGNOSIS: - Stroke 01 - Left Body (Right Brain) (01.1) Right Tiny Frontal Lobe Infarct. EATING: EATING - STEP 1: Does the patient require the assistance of a person or device, or need extra time when eating? Yes. EATING - STEP 2: Does the patient require the assistance of a helper? Yes. EATING - STEP 3: Does the patient perform half or more of the eating tasks? Yes. EATING - STEP 4: Does the patient need only supervision, cuing, coaxing OR help to apply an orthosis OR help to cut fo od, open containers, pour liquids, or butter bread? Yes. EATING - SCORE: 5-SUP GROOMING: Comb/brush hair Oral care Wash, rinse, and dry face Wash, rinse, and dry hands GROOMING - STEP 1: Does the patient require the assistance of a person or device, or need extra time when grooming? Yes. GROOMING - STEP 2: Does the patient require the assistance of a helper? Yes. GROOMING - STEP 3: How much assistance does the patient require from the helper? Incidental touching assistance from the helper while grooming GROOMING - SCORE: 4-MIN BATHING: Activity did not occur on this shift BATHING - SCORE: 0-UNK DRESSING - UPPER BODY: Activity did not occur on this shift ARTICLES SCORE Total number of steps: 0 DRESSING - UPPER BODY - SCORE: 0-UNK DRESSING - LOWER BODY: Activity did not occur on this shift ARTICLES SCORE Total number of steps: 0 DRESSING - LOWER BODY - SCORE: 0-UNK TOILETING: TOILETING - STEP 1: Does the patient require the assistance of a person or device, or need extra time with toileting? Yes . TOILETING - STEP 2: Does the patient require the assistance of a helper? Yes. TOILETING - STEP 3: How much assistance does the patient require from the helper? Hands-on assistance from the helper TOILETING - STEP 4: Of the 3 tasks: 1) Adjusting clothing prior to use, 2) Cleansing of perineal area, 3) Adjusting clot leyla after use; How many tasks does the patient perform WITHOUT assistance of the helper? Three tasks with steadying assistance from the helper TOILETING - SCORE: 4-MIN BLADDER MANAGEMENT: BLADDER MANAGEMENT - STEP 1: Does the patient control the bladder completely and intentionally without equipment or devices or med ications, and is always continent? No. BLADDER MANAGEMENT - STEP 2: Does the patient require the assistance of a helper? No, patient requires and independently uses an a ssistive device, such as a urinal, bedpan, bedside commode, catheter, absorbent pad, or collecting de vice BLADDER MANAGEMENT - SCORE: 6-JAKY BOWEL MANAGEMENT: Activity did not occur on this shift BOWEL MANAGEMENT - SCORE: 7-IND TRANSFERS: BED, CHAIR, WHEELCHAIR: TRANSFERS: BED, CHAIR, WHEELCHAIR - STEP 1: Does the patient require assistance of a person or device, or need extra time with bed, chair, or whe elchair transfers? Yes. TRANSFERS: BED, CHAIR, WHEELCHAIR - STEP 2: Does the patient require the assistance of a helper? Yes. TRANSFERS: BED, CHAIR, WHEELCHAIR - STEP 3: How much assistance does the patient require from the helper? Steadying/guiding assistance TRANSFERS: BED, CHAIR, WHEELCHAIR - SCORE: 4-MIN TRANSFERS: TOILET: TRANSFERS: TOILET - STEP 1: Does the patient require the assistance of a person or device, or need extra time with toilet transfe rs? Yes. TRANSFERS: TOILET - STEP 2: Does the patient require the assistance of a helper? Yes. TRANSFERS: TOILET - STEP 3: How much assistance does the patient require from the helper? Patient performs half or more of the tr ansferring tasks TRANSFERS: TOILET - STEP 4: Does the patient need only incidental help such as contact guard or steadying during toilet transfer? Yes. TRANSFERS: TOILET - SCORE: 4-MIN TRANSFERS: SHOWER: Activity did not occur on this shift TRANSFERS: SHOWER - SCORE: 0-UNK TRANSFERS: TUB: Activity did not occur on this shift TRANSFERS: TUB - SCORE: 0-UNK LOCOMOTION: WALK: Activity did not occur on this shift LOCOMOTION: WALK - SCORE: 0-UNK LOCOMOTION: WHEELCHAIR: Activity did not occur on this shift LOCOMOTION: WHEELCHAIR - SCORE: 0-UNK COMPREHENSION: COMPREHENSION: TYPE: Both COMPREHENSION - STEP 1: Does the patient require help from a person or device, or need extra time to understand complex and a bstract ideas (such as current events, finances, discharge planning, medical issues, relationships, e tc)? Yes. COMPREHENSION - STEP 2: Does the patient require help to understand questions or statements about basic needs or ideas (such as hunger, thirst, sleep, safety, daily schedule, room location, or discomfort) half or more of the t zane? No. COMPREHENSION - STEP 3: How often does the patient need help to understand directions and conversation about basic needs? 25% - 49% of the time COMPREHENSION - SCORE: 3-MOD EXPRESSION EXPRESSION: TYPE: Both EXPRESSION - STEP 1: Does the patient require help from a person or device, or need extra time expressing complex and abst ract ideas (such as current events, finances, discharge planning, medical issues, relationships, etc) ? Yes. EXPRESSION - STEP 2: Does the patient require help to express basic necessities or ideas (such as hunger, thirst, sleep, s afety, daily schedule, room location, or discomfort) half or more of the time? No. EXPRESSION - STEP 3: How often does the patient need help to express directions and conversation about basic needs? 10-24% of the time EXPRESSION - SCORE: 4-MIN SOCIAL INTERACTION: SOCIAL INTERACTION - STEP 1: Does the patient require a helper to interact with others in social and therapeutic situations? Yes. SOCIAL INTERACTION - STEP 2: Does the patient interact appropriately half or more of the time? Yes. SOCIAL INTERACTION - STEP 3: How often does the patient need help to interact appropriately? Less than 10% of the time SOCIAL INTERACTION - SCORE: 5-SUP PROBLEM SOLVING: PROBLEM SOLVING - STEP 1: Does the patient need help from a person or device, or need extra time to solve complex problems such as managing a checking account or confronting interpersonal problems? Yes. PROBLEM SOLVING - STEP 2: Does the patient solve basic routine problems half or more of the time? Yes. PROBLEM SOLVING - STEP 3: How often does the patient need help to solve basic routine problems? 10%-24% of the time PROBLEM SOLVING - SCORE: 4-MIN MEMORY: MEMORY - STEP 1: Does the patient need help from a person or device, or need extra time to remember frequently encount ered people, daily routines, and executing requests? Yes. MEMORY - STEP 2: How often does the patient need help to remember frequently encountered people, daily routines, and e xecuting requests? 25% - 49% of the time MEMORY - SCORE: 3-MOD SIGNATURE PANEL: The following modified sections: Eating - Score, Grooming - Score, Bathing - Score, Dressing - Upper Body - Score, Dressing - Lower Body - Score, Toileting - Score, Bladder Management - Score, Bowel Man agement - Score, Transfers: Bed, Chair, Wheelchair - Score, Transfers: Toilet - Score, Transfers: Nevin wer - Score, Transfers: Tub - Score, Locomotion: Walk - Score, Locomotion: Wheelchair - Score, Compre hension - Score, Expression - Score, Social Interaction - Score, Problem Solving - Score, Memory - Sc ore were [electronically] signed by Mansoor Watt on FriDec 30 2018 14:41:58 T-0500 (Central Daylight Time)
--- NOTE | 2018-12-31 15:39 | FAST ---
ENCOUNTER DATE AND TIME: 12/31/2018 08:00 (CDT) NAME JACQUIE SWEENEY DATE OF : 1945 DATE OF ADMISSION: 12/24/2018 20:11 (CDT) PHONE: AGE: 73 GENDER: Male ENCOUNTER PHYSICIAN: Dr. Jose Johns M.D. ADMISSION DIAGNOSIS: - Stroke 01 - Left Body (Right Brain) (01.1) Right Tiny Frontal Lobe Infarct. EATING: Activity did not occur on this shift EATING - SCORE: 0-UNK GROOMING: Activity did not occur on this shift GROOMING - SCORE: 0-UNK BATHING: Activity did not occur on this shift BATHING - SCORE: 0-UNK DRESSING - UPPER BODY: Activity did not occur on this shift Patient is not dressing in public clothing ARTICLES SCORE Total number of steps: 0 DRESSING - UPPER BODY - SCORE: 0-UNK DRESSING - LOWER BODY: Activity did not occur on this shift Patient is not dressing in public clothing ARTICLES SCORE Total number of steps: 0 DRESSING - LOWER BODY - SCORE: 0-UNK TOILETING: Activity did not occur on this shift TOILETING - SCORE: 0-UNK BLADDER MANAGEMENT: Activity did not occur on this shift BLADDER MANAGEMENT - SCORE: 7-IND BOWEL MANAGEMENT: Activity did not occur on this shift BOWEL MANAGEMENT - SCORE: 7-IND TRANSFERS: BED, CHAIR, WHEELCHAIR: TRANSFERS: BED, CHAIR, WHEELCHAIR - STEP 1: Does the patient require assistance of a person or device, or need extra time with bed, chair, or whe elchair transfers? Yes. TRANSFERS: BED, CHAIR, WHEELCHAIR - STEP 2: Does the patient require the assistance of a helper? Yes. TRANSFERS: BED, CHAIR, WHEELCHAIR - STEP 3: How much assistance does the patient require from the helper? Only supervision TRANSFERS: BED, CHAIR, WHEELCHAIR - SCORE: 5-SUP TRANSFERS: TOILET: Activity did not occur on this shift TRANSFERS: TOILET - SCORE: 0-UNK TRANSFERS: SHOWER: Activity did not occur on this shift TRANSFERS: SHOWER - SCORE: 0-UNK TRANSFERS: TUB: Activity did not occur on this shift TRANSFERS: TUB - SCORE: 0-UNK LOCOMOTION: WALK: LOCOMOTION: WALK - STEP 1: Does the patient need help from a person or device, or need extra time to walk 150 feet? Yes. LOCOMOTION: WALK - STEP 2: How much assistance does the patient require to walk a minimum of 150 feet? Only supervision, cuing, or coaxing LOCOMOTION: WALK - SCORE: 5-SUP LOCOMOTION: WHEELCHAIR: LOCOMOTION: WHEELCHAIR - STEP 1: Does the patient need help to go 150 feet in a wheelchair? Yes. LOCOMOTION: WHEELCHAIR - STEP 2: How much assistance does the patient need from the helper? Only supervision, cuing, or coaxing LOCOMOTION: WHEELCHAIR - SCORE: 5-SUP LOCOMOTION: STAIRS: LOCOMOTION: STAIRS - STEP 1: Does the patient need help to go up and down 12 to 14 stairs? Yes. LOCOMOTION: STAIRS - STEP 2: How much assistance does the patient need from the helper to go a minimum of 12 to 14 stairs? Only vuong pervision, cuing, or coaxing LOCOMOTION: STAIRS - SCORE: 5-SUP COMPREHENSION: COMPREHENSION - SCORE: 0-UNK EXPRESSION EXPRESSION - SCORE: 0-UNK SOCIAL INTERACTION: SOCIAL INTERACTION - SCORE: 0-UNK PROBLEM SOLVING: PROBLEM SOLVING - SCORE: 0-UNK MEMORY: MEMORY - SCORE: 0-UNK SIGNATURE PANEL: The following modified sections: Transfers: Bed, Chair, Wheelchair - Score, Transfers: Toilet - Score , Locomotion: Walk - Score, Locomotion: Wheelchair - Score, Locomotion: Stairs - Score were [electron ically] signed by Pan Hannah PTA on FriDec 31 2018 15:38:32 GMT-0500 (Central Daylight Time)
--- NOTE | 2018-12-31 18:02 | R.PN ---
ENCOUNTER DATE AND TIME: 12/31/2018 17:57 (CDT) NAME JACQUIE SWEENEY DATE OF : 1945 DATE OF ADMISSION: 12/24/2018 20:11 (CDT) Right Tiny Frontal Lobe InfarctCHIEF COMPLAINT: Right frontal lobe stroke with left sided deficits. SUBJECTIVE: Pt denied any depression. Pt denied any Shortness of Breath. Ambulated 500' with standby assistance using a rolling walker. Up and down 15 steps with standby assi stance. Hgb 11.5, prealbumin 17.4, glucose 160 to 281. VITAL SIGNS Temperature: 97.4 F SBP/DBP: 118/60 Pulse: 62 Resp: 16 MEDICATION ALLERGIES: No Known Drug Allergies (NKDA) ENVIRONMENTAL ALLERGIES: None Known - Substance Allergies None Known - Other Allergies None Known NURSING: - Shower allowing shower - Lab Results blood Sugar Check ACHS - Bladder care per protocol - Skin care per protocol PRECAUTIONS: - Weight Bearing Precaution WBAT left LE ACTIVITIES OOB only with supervision THERAPIES: - Occupational Therapy Evaluate and Treat. Visual Perceptual Training. Cognitive Retraining. - Speech Therapy Cognitive Training. Memory Strategies. Expressive Language Skills. Speech Intelligibility Training. R eceptive Language Skills. - Physical Therapy Evaluate and Treat. PHYSICAL EXAM - Gen Alert and awake Lying in bed No apparent distress Oriented to: person and place - Skin No skin breakdown. Normacephalic - Eyes No abnormalities - ENMT No abnormalities - Neck No abnormalities - CVS RRR - Chest No abnormalities - Resp Clear to auscultation - Abd +bowel sounds - GI Non distended Deferred - No abnormalities - Ext No significant edema - MSK 4+/5 weakness in left upper and lower extremity - Neuro 4/5 strength left upper and lower extremities. - Psych Mild depression. ASSESSMENT: Pt. is a 73 yo Right-handed white male.On 12/20/2018 Pt. presented to [facility] w ith sudden worsening expressive and receptive aphasia with moreleft-side weakness.On 12/20/2018 Pt. p resented to [facility] with sudden onset of left-side weakness.On 12/20/2018 he wa s admitted to [facility] with diagnosis Right Tiny Frontal Lobe Infarct.His impair ment category is Stroke 01 - Left Body (Right Brain) (01.1).Pre-morbidly, Pt. was independent/mod-I in Self-Care, Sphincter Control, Transfers Control, Locomotion, Communication, and Social Cognition; and he had good Sphincter Control.Currently, he has deficits of Self-Care, Transfers Control, Locomot ion, Endurance, Balance, and Safety Awareness.Pt. is now referred to [facility] for acute in-patient rehabilitation in order to maximize patient's functional independence in activ ities of daily living, strength, ROM, and mobility.- Rehab Goal Patient has realistic goal of being discharged at assistance level 6-Juanita to reside at Home with Fam shakeel/Relatives. MDM/PLAN: - Physical Therapy Gait dysfunction - to improve, our physical therapists will perform initial evaluation of pt's statu s upon admission and devise an individualized program for Gait Training, and Wheel Chair mobility Inability to transfer - to improve, our physical therapists will perform initial evaluation of pt's status upon admission and devise an individualized program for Bed mobility Need for home safety evaluation - to improve, our physical therapists will perform initial evaluatio n of pt's status upon admission and devise an individualized program for Home Evaluation Need in caregiver upon discharge - to improve, our physical therapists will perform initial evaluati on of pt's status upon admission and devise an individualized program for Caregiver Training New precaution - to improve, our physical therapists will perform initial evaluation of pt's status upon admission and devise an individualized program for Patient precaution education Edema - to improve, our physical therapists will perform initial evaluation of pt's status upon admi ssion and devise an individualized program for Elevation Training, and Lymphedema Therapy Poor balance - to improve, our physical therapists will perform initial evaluation of pt's status up on admission and devise an individualized program for Balance Training Poor endurance - to improve, our physical therapists will perform initial evaluation of pt's status upon admission and devise an individualized program for Endurance Training Weakness - to improve, our physical therapists will perform initial evaluation of pt's status upon a dmission and devise an individualized program for Aquatic Therapy, Neuromuscular Reeducation, and Str engthening Achieving independence - to improve, our physical therapists will perform initial evaluation of pt's status upon admission and devise an individualized program for Community Reintegration Activities - Occupational Therapy ADL deficits - to improve, our occupation therapists will perform initial evaluation of pt's status upon admission and devise an individualized program for Bathing, Bed mobility, Community Reintegratio n, Cooking, Dressing, Eating, Fine Motor Skills, Grooming, Homemaking, Kitchen Mobility, Laundry, Pat ient Education, Safety Awareness, Splinting - Positioning, Transfers(Toilet, Tub, Shower), and Wheel Chair Management Need for childcare aide - to improve, our occupation therapists will perform initial evaluation of pt's status upon admission and devise an individualized program for Caregiver Training Weakness - to improve, our occupation therapists will perform initial evaluation of pt's status upon admission and devise an individualized program for Aquatic Therapy, Balance, Endurance, UE ROM, and UE strengthening - Diet Type Continue Regular - Diet - Liquid Texture Continue Regular - Tube Feed Continue N/A - Lab Results blood Sugar Check ACHS - Bladder care per protocol - Weight Bearing Precaution WBAT left LE - Skin care per protocol - Diet - Solid Texture Continue Regular - Shower allowing shower for Dementia, TBI, Stroke, or others FUNCTIONAL STATUS: UPDATED AT WEEKLY TEAM CONFERENCE - Bladder Same accident frequency: 7-Ind - No accidents in the past 7 days - Bowel Same accident frequency: 7-Ind - No accidents in the past 7 days - Walking Same score based on distance walked: 3(>=150ft) - Wheelchair Same score based on distance traveled: 0(N/A) FUNCTIONAL STATUS: - Self-Care A. Eating sup B. Grooming CGA C. Bathing sup D. Dressing - Upper sup E. Dressing - Lower maxA F. Toileting sup - Sphincter Control G: Bladder control Ind H: Bowel control Ind - Transfers Control I. Bed/Chair/Wheelchair Lamar J. Toilet CGA K. Tub/Shower ADNO - Locomotion L. Walk/Wheelchair (C) Lamar L. Walk/Wheelchair (W) Lamar M. Stairs ADNO - Communication N. Comprehension (B) Juanita O. Expression (B) Juanita - Social Cognition P. Social Interaction Juanita Q. Problem Solving Juanita R. Memory Juanita - Endurance Fair - Balance Fair - Safety Awareness Fair CURRENT FUNC. DEFICITS: Self-Care, Transfers Control, Locomotion, Endurance, Balance, and Safety Awareness SIGNATURE PANEL: (CDT)
[2018-12-31] MEDS: DULOXETINE 30 MG CAP PO SCH (20:01)
[2018-12-31] MEDS: DONEPEZIL HCL 5 MG TAB PO SCH (20:01)
[2018-12-31] MEDS: TAMSULOSIN 0.4 MG SR CAP PO SCH (20:01)
[2018-12-31] MEDS: ATORVASTATIN 80 MG TAB PO SCH (20:01)
--- NOTE | 2019-01-01 02:48 | FAST ---
SHIFT START DATE/TIME: 12/31/2018 19:00 (CDT) SHIFT END DATE/TIME: 01/01/2019 07:00 (CDT) NAME JACQUIE SWEENEY DATE OF : 1945 DATE OF ADMISSION: 12/24/2018 20:11 (CDT) PHONE: AGE: 73 GENDER: Male ENCOUNTER PHYSICIAN: Dr. Jose Johns M.D. ADMISSION DIAGNOSIS: - Stroke 01 - Left Body (Right Brain) (01.1) Right Tiny Frontal Lobe Infarct. EATING: Activity did not occur on this shift EATING - SCORE: 0-UNK GROOMING: Activity did not occur on this shift GROOMING - SCORE: 0-UNK BATHING: Activity did not occur on this shift BATHING - SCORE: 0-UNK DRESSING - UPPER BODY: Patient is not dressing in public clothing ARTICLES SCORE Total number of steps: 0 DRESSING - UPPER BODY - SCORE: 0-UNK DRESSING - LOWER BODY: Patient is not dressing in public clothing ARTICLES SCORE Total number of steps: 0 DRESSING - LOWER BODY - SCORE: 0-UNK TOILETING: Activity did not occur on this shift TOILETING - SCORE: 0-UNK BLADDER MANAGEMENT: [place] removes incontinent device (Depends, pull ups, etc.); cleans the patient after accident / inco ntinent episode; and, applies new incontinent device. BLADDER MANAGEMENT - SCORE: 1-DEP BOWEL MANAGEMENT: Activity did not occur on this shift BOWEL MANAGEMENT - SCORE: 7-IND TRANSFERS: BED, CHAIR, WHEELCHAIR: Activity did not occur on this shift TRANSFERS: BED, CHAIR, WHEELCHAIR - SCORE: 0-UNK TRANSFERS: TOILET: Activity did not occur on this shift TRANSFERS: TOILET - SCORE: 0-UNK TRANSFERS: SHOWER: Activity did not occur on this shift TRANSFERS: SHOWER - SCORE: 0-UNK TRANSFERS: TUB: Activity did not occur on this shift TRANSFERS: TUB - SCORE: 0-UNK LOCOMOTION: WALK: Activity did not occur on this shift LOCOMOTION: WALK - SCORE: 0-UNK LOCOMOTION: WHEELCHAIR: Activity did not occur on this shift LOCOMOTION: WHEELCHAIR - SCORE: 0-UNK COMPREHENSION: COMPREHENSION: TYPE: Both COMPREHENSION - STEP 1: Does the patient require help from a person or device, or need extra time to understand complex and a bstract ideas (such as current events, finances, discharge planning, medical issues, relationships, e tc)? No. COMPREHENSION - STEP 2: Does the patient need extra time, require an assistive device (such as glasses for visual comprehensi on or a hearing aid for auditory comprehension) or does s/he have mild difficulty understanding compl ex and abstract information? No. COMPREHENSION - SCORE: 7-IND EXPRESSION EXPRESSION: TYPE: Both EXPRESSION - STEP 1: Does the patient require help from a person or device, or need extra time expressing complex and abst ract ideas (such as current events, finances, discharge planning, medical issues, relationships, etc) ? No. EXPRESSION - STEP 2: Does the patient need extra time, require an assistive device (such as augmentive communication syste m or a communication board), OR does s/he have mild difficulty expressing complex and abstract ideas (including mild dysarthria or mild word-find problems)? No. EXPRESSION - SCORE: 7-IND SOCIAL INTERACTION: SOCIAL INTERACTION - STEP 1: Does the patient require a helper to interact with others in social and therapeutic situations? No. SOCIAL INTERACTION - STEP 2: Does the patient need extra time in social situations, OR does s/he interact with staff, other patien ts, and family members ONLY in structured environments, OR does s/he require medication for social in teraction? Yes, patient requires medication for social interaction SOCIAL INTERACTION - SCORE: 6-JAKY PROBLEM SOLVING: Patient requires bed/chair alarms due to attempts to get up unassisted when helper is needed. PROBLEM SOLVING - STEP 1: How often do the bed/chair alarms go off? Occasionally - the alarms go off about 25% or less PROBLEM SOLVING - SCORE: 4-MIN MEMORY: MEMORY - STEP 1: How often do the bed/chair alarms go off? Occasionally - the alarms go off about 25% of the time or l ess MEMORY - SCORE: 4-MIN SIGNATURE PANEL: The following modified sections: Eating - Score, Grooming - Score, Bathing - Score, Dressing - Upper Body - Score, Dressing - Lower Body - Score, Toileting - Score, Bladder Management - Score, Bowel Man agement - Score, Transfers: Bed, Chair, Wheelchair - Score, Transfers: Toilet - Score, Transfers: Nevin wer - Score, Transfers: Tub - Score, Locomotion: Walk - Score, Locomotion: Wheelchair - Score, Compre hension - Score, Expression - Score, Social Interaction - Score, Problem Solving - Score, Memory - Sc ore were [electronically] signed by Sarah Ann CNA on FriJan 01 2019 02:47:32 T-0500 ([place] Da ylight Time)
[2019-01-01] MEDS: INSULIN -REGULAR HUMAN 50 UNIT/0.5 ML ML SQ SCH ×4 (07:30→20:23)
[2019-01-01] MEDS: ENOXAPARIN 40 MG/0.4 ML SQ SCH (08:12)
[2019-01-01] MEDS: MIDODRINE HCL 5 MG TABLET PO SCH ×2 (08:12→20:16)
[2019-01-01] MEDS: SITAGLIPTIN PHOS 100 MG TAB PO SCH (08:13)
[2019-01-01] MEDS: FINASTERIDE 5 MG TAB PO SCH (08:13)
[2019-01-01] MEDS: ASPIRIN EC 81 MG TAB PO SCH (08:13)
[2019-01-01] MEDS: CARBIDOPA/LEVODOPA 25/100 TAB PO SCH ×3 (08:13→20:15)
[2019-01-01] MEDS: METFORMIN HCL 500 MG TAB PO SCH ×2 (08:13→17:22)
[2019-01-01] MEDS: GABAPENTIN 400 MG CAP PO SCH ×3 (08:13→20:15)
--- NOTE | 2019-01-01 09:39 | P.RH.PN ---
Estimated Length of Stay: 10 Expected Discharge Date: 01/02/19 Discharge Disposition Plan: Home Family Support: Yes Vital Signs: Last Vital Signs Temp 97.4 F 01/01/19 09:19 Pulse 60 01/01/19 09:19 Resp 16 01/01/19 09:19 BP 135/65 01/01/19 09:19 Pulse Ox 98 01/01/19 09:19 Laboratory: Laboratory Last Values WBC 5.4 K/uL (4.3-10.9) 12/31/18 06:26 RBC 3.68 M/uL (4.33-5.43) L 12/31/18 06:26 Hgb 11.5 g/dL (13.6-17.9) L 12/31/18 06:26 Hct 32.8 % (39.6-49.0) L 12/31/18 06:26 MCV 89.2 fL (80-100) 12/31/18 06:26 MCH 31.2 pg (27.0-35.0) 12/31/18 06:26 MCHC 35.0 g/dL (32.0-36.0) 12/31/18 06:26 RDW 13.6 % (12.1-15.2) 12/31/18 06:26 Plt Count 214 K/uL (152-406) 12/31/18 06:26 MPV 8.5 fL (7.6-11.3) 12/31/18 06:26 Neutrophils % 59.2 % (41.7-73.7) 12/31/18 06:26 Lymphocytes % 22.0 % (15.3-44.8) 12/31/18 06:26 Monocytes % 11.7 % (3.3-12.3) 12/31/18 06:26 Eosinophils % 6.4 % (0-4.4) H 12/31/18 06:26 Basophils % 0.7 % (0-1.3) 12/31/18 06:26 Absolute Neutrophils 3.2 K/uL (1.8-8.0) 12/31/18 06:26 Absolute Lymphocytes 1.2 K/uL (0.7-4.9) 12/31/18 06:26 Absolute Monocytes 0.6 K/uL (0.1-1.3) 12/31/18 06:26 Absolute Eosinophils 0.3 K/uL (0-0.5) 12/31/18 06:26 Absolute Basophils 0.0 K/uL (0-0.5) 12/31/18 06:26 Sodium 139 mmol/L (136-145) 12/31/18 06:26 Potassium 4.3 mmol/L (3.5-5.1) 12/31/18 06:26 Chloride 105 mmol/L (98-107) 12/31/18 06:26 Carbon Dioxide 27 mmol/L (21-32) 12/31/18 06:26 BUN 24 mg/dL (7-18) H 12/31/18 06:26 Creatinine 0.96 mg/dL (0.55-1.3) 12/31/18 06:26 Estimated GFR 77 mL/min (=/>90) L 12/31/18 06:26 Glucose 168 mg/dL (74-106) H 12/31/18 06:26 POC Glucose 176 mg/dl (65-120) H 01/01/19 07:35 Calcium 9.0 mg/dL (8.5-10.1) 12/31/18 06:26 Magnesium 1.9 mg/dL (1.8-2.4) 12/25/18 06:18 Albumin 3.1 g/dL (3.4-5.0) L 12/31/18 06:26 Prealbumin 17.4 mg/dL (20-40) L 12/31/18 06:26 Urine Color Yellow 12/24/18 22:30 Urine Appearance Clear 12/24/18 22:30 Urine pH 5.5 (5.0-7.0) 12/24/18 22:30 Ur Specific [place] <=1.005 (1.005-1.030) 12/24/18 22:30 Urine Ketones Negative (NEG) 12/24/18 22:30 Urine Blood Negative (NEG) 12/24/18 22:30 Urine Nitrite Negative (NEG) 12/24/18 22:30 Urine Bilirubin Negative (NEG) 12/24/18 22:30 Urine Urobilinogen 1.0 mg/dL (0.2-1.0) 12/24/18 22:30 Ur Leukocyte Esterase 1+ (NEG) H 12/24/18 22:30 Urine RBC <5 /HPF (NONE SEEN) 12/24/18 22:30 Urine WBC <5 /HPF (<5) 12/24/18 22:30 Ur Squamous Epith Cells <5 /HPF (NONE SEEN) 12/24/18 22:30 Urine Bacteria <20 /HPF (NONE SEEN) 12/24/18 22:30 Urine Culture Reflexed Not needed 12/24/18 22:30 Urine Glucose Negative (NEG) 12/24/18 22:30 Urine Total Protein Negative (NEG) 12/24/18 22:30 Weight: 171 lb Wound Present: No Closed Surgical Incision Present: No Negative Pressure Wound Therapy Present: No Physician Update: His labs have been reviewed. Prealbumin is mildly low at 17.4 , WBC 5.4, Hgb is 11.5, glucose is 160-281. He is at supervison due to cognitive deficits. He is physical able to do more but has mild diffuse wealkess. Functional Improvement: Patient has met all short-term goals and is progressing toward long-term goals. Patient has good work ethic, however does requiring consistent VC for instruction on repeated issues. Functional Improvement Occupational Therapy: Pt can benift with further therapy to address and Cont with the POC and the goals by the supervising OTR and cont to address pt's overall weakness, cont to address pt's coordination with UE's and following simple steps while working on pt's coordination FMC/GMC with activities and adl tasks. Cont to increase pt's static/dynamic standing balance for adl tasks and functional tasks. Speech Therapy Update: Pt. is at MOD I for Auditory Comprehension and Social Interaction. He is at SUPV for Verbal Expression due to word-finding difficulties. Pt. required MIN A for Problem Solving and MOD A for Memory. Pt. will require constant supervision upon d/c home, at least for the first week or two to determine how he is able to function in and around the home. Summary: Patient's care plan and correction goals have been reviewed and revised as necessary. Please see the Rehabilitation Signature page for all necessary signatures.
--- NOTE | 2019-01-01 12:34 | FAST ---
ENCOUNTER DATE AND TIME: 01/01/2019 08:00 (CDT) NAME JACQUIE SWEENEY DATE OF : 1945 DATE OF ADMISSION: 12/24/2018 20:11 (CDT) PHONE: AGE: 73 GENDER: Male ENCOUNTER PHYSICIAN: Dr. Jose Johns M.D. ADMISSION DIAGNOSIS: - Stroke 01 - Left Body (Right Brain) (01.1) Right Tiny Frontal Lobe Infarct. EATING: Activity did not occur on this shift EATING - SCORE: 0-UNK GROOMING: Wash, rinse, and dry face Wash, rinse, and dry hands GROOMING - STEP 1: Does the patient require the assistance of a person or device, or need extra time when grooming? No. GROOMING - SCORE: 7-IND BATHING: Abdomen Buttocks Chest Left arm Left lower leg and foot Left upper leg Perineal area Right arm Right lower leg and foot Right upper leg BATHING - STEP 1: Does the patient require the assistance of a person or device, or need extra time when bathing? Yes. BATHING - STEP 2: Does the patient require the assistance of a helper? No. The patient only requires an assistive devic e such as a bath eileen, OR the patient takes more than reasonable time to bathe, OR there is a concern for safety such as regulating water temperature as the patient bathes. BATHING - SCORE: 6-JAKY DRESSING - UPPER BODY: T-shirt/pullover shirt (four steps) ARTICLES SCORE Total number of steps: 4 DRESSING - UPPER BODY - STEP 1: Does the patient require help from a person or device, or need extra time when dressing above the nessa st? No. DRESSING - UPPER BODY - SCORE: 7-IND DRESSING - LOWER BODY: Elastic waist pants (three steps) Sock - Left foot (one step) Sock - Right foot (one step) Underwear (three steps) ARTICLES SCORE Total number of steps: 8 DRESSING - LOWER BODY - STEP 1: Does the patient require help from a person or device, or need extra time when dressing below the nessa st? Yes. DRESSING - LOWER BODY - STEP 2: Does the patient require the assistance of a helper? No. Patient requires an assistive device such as a door attendant. OR s/he takes more than reasonable time as s/he dresses the lower body, OR there is a con cern for safety when s/he dresses the lower body DRESSING - LOWER BODY - SCORE: 6-JAKY TOILETING: TOILETING - STEP 1: Does the patient require the assistance of a person or device, or need extra time with toileting? Yes . TOILETING - STEP 2: Does the patient require the assistance of a helper? No. TOILETING - SCORE: 6-JAKY BLADDER MANAGEMENT: Activity did not occur on this shift BLADDER MANAGEMENT - SCORE: 7-IND BOWEL MANAGEMENT: Activity did not occur on this shift BOWEL MANAGEMENT - SCORE: 7-IND TRANSFERS: BED, CHAIR, WHEELCHAIR: Activity did not occur on this shift TRANSFERS: BED, CHAIR, WHEELCHAIR - SCORE: 0-UNK TRANSFERS: TOILET: TRANSFERS: TOILET - STEP 1: Does the patient require the assistance of a person or device, or need extra time with toilet transfe rs? Yes. TRANSFERS: TOILET - STEP 2: Does the patient require the assistance of a helper? No. Patient only requires an assistive device vuong ch as a grab bar or special seat, OR s/he takes more than reasonable time to perform toilet transfers , OR there is a safety concern when s/he performs toilet transfers. TRANSFERS: TOILET - SCORE: 6-JAKY TRANSFERS: SHOWER: Activity did not occur on this shift TRANSFERS: SHOWER - SCORE: 0-UNK TRANSFERS: TUB: TRANSFERS: TUB - STEP 1: Does the patient require the assistance of a person or device, or need extra time with tub transfers? Yes. TRANSFERS: TUB - STEP 2: Does the patient require the assistance of a helper? No. Only requires the assistance of an assistive device, OR takes more than reasonable time, OR there is a concern for safety when s/he performs tub transfers TRANSFERS: TUB - SCORE: 6-JAKY LOCOMOTION: WALK: Activity did not occur on this shift LOCOMOTION: WALK - SCORE: 0-UNK LOCOMOTION: WHEELCHAIR: Activity did not occur on this shift LOCOMOTION: WHEELCHAIR - SCORE: 0-UNK LOCOMOTION: STAIRS: Activity did not occur on this shift LOCOMOTION: STAIRS - SCORE: 0-UNK COMPREHENSION: COMPREHENSION - SCORE: 0-UNK EXPRESSION EXPRESSION - SCORE: 0-UNK SOCIAL INTERACTION: SOCIAL INTERACTION - SCORE: 0-UNK PROBLEM SOLVING: PROBLEM SOLVING - SCORE: 0-UNK MEMORY: MEMORY - SCORE: 0-UNK SIGNATURE PANEL: The following modified sections: Eating - Score, Grooming - Score, Bathing - Score, Dressing - Upper Body - Score, Dressing - Lower Body - Score, Toileting - Score, Transfers: Bed, Chair, Wheelchair - S core, Transfers: Toilet - Score, Transfers: Shower - Score, Transfers: Tub - Score, Comprehension - S core, Expression - Score, Social Interaction - Score, Problem Solving - Score, Memory - Score were [e lectronically] signed by ANGELICA Pal on FriJan 01 2019 12:33:35 T-0500 ([facility] Time)
--- NOTE | 2019-01-01 15:21 | FAST ---
ENCOUNTER DATE AND TIME: 01/01/2019 08:00 (CDT) NAME JACQUIE SWEENEY DATE OF : 1945 DATE OF ADMISSION: 12/24/2018 20:11 (CDT) PHONE: AGE: 73 GENDER: Male ENCOUNTER PHYSICIAN: Dr. Jose Johns M.D. ADMISSION DIAGNOSIS: - Stroke 01 - Left Body (Right Brain) (01.1) Right Tiny Frontal Lobe Infarct. EATING: Activity did not occur on this shift EATING - SCORE: 0-UNK GROOMING: Activity did not occur on this shift GROOMING - SCORE: 0-UNK BATHING: Activity did not occur on this shift BATHING - SCORE: 0-UNK DRESSING - UPPER BODY: Activity did not occur on this shift Patient is not dressing in public clothing ARTICLES SCORE Total number of steps: 0 DRESSING - UPPER BODY - SCORE: 0-UNK DRESSING - LOWER BODY: Activity did not occur on this shift Patient is not dressing in public clothing ARTICLES SCORE Total number of steps: 0 DRESSING - LOWER BODY - SCORE: 0-UNK TOILETING: Activity did not occur on this shift TOILETING - SCORE: 0-UNK BLADDER MANAGEMENT: Activity did not occur on this shift BLADDER MANAGEMENT - SCORE: 7-IND BOWEL MANAGEMENT: Activity did not occur on this shift BOWEL MANAGEMENT - SCORE: 7-IND TRANSFERS: BED, CHAIR, WHEELCHAIR: TRANSFERS: BED, CHAIR, WHEELCHAIR - STEP 1: Does the patient require assistance of a person or device, or need extra time with bed, chair, or whe elchair transfers? Yes. TRANSFERS: BED, CHAIR, WHEELCHAIR - STEP 2: Does the patient require the assistance of a helper? Yes. TRANSFERS: BED, CHAIR, WHEELCHAIR - STEP 3: How much assistance does the patient require from the helper? Only supervision TRANSFERS: BED, CHAIR, WHEELCHAIR - SCORE: 5-SUP TRANSFERS: TOILET: Activity did not occur on this shift TRANSFERS: TOILET - SCORE: 0-UNK TRANSFERS: SHOWER: Activity did not occur on this shift TRANSFERS: SHOWER - SCORE: 0-UNK TRANSFERS: TUB: Activity did not occur on this shift TRANSFERS: TUB - SCORE: 0-UNK LOCOMOTION: WALK: LOCOMOTION: WALK - STEP 1: Does the patient need help from a person or device, or need extra time to walk 150 feet? Yes. LOCOMOTION: WALK - STEP 2: How much assistance does the patient require to walk a minimum of 150 feet? Only supervision, cuing, or coaxing LOCOMOTION: WALK - SCORE: 5-SUP LOCOMOTION: WHEELCHAIR: LOCOMOTION: WHEELCHAIR - STEP 1: Does the patient need help to go 150 feet in a wheelchair? Yes. LOCOMOTION: WHEELCHAIR - STEP 2: How much assistance does the patient need from the helper? Only supervision, cuing, or coaxing LOCOMOTION: WHEELCHAIR - SCORE: 5-SUP LOCOMOTION: STAIRS: LOCOMOTION: STAIRS - STEP 1: Does the patient need help to go up and down 12 to 14 stairs? Yes. LOCOMOTION: STAIRS - STEP 2: How much assistance does the patient need from the helper to go a minimum of 12 to 14 stairs? Only vuong pervision, cuing, or coaxing LOCOMOTION: STAIRS - SCORE: 5-SUP COMPREHENSION: COMPREHENSION - SCORE: 0-UNK EXPRESSION EXPRESSION - SCORE: 0-UNK SOCIAL INTERACTION: SOCIAL INTERACTION - SCORE: 0-UNK PROBLEM SOLVING: PROBLEM SOLVING - SCORE: 0-UNK MEMORY: MEMORY - SCORE: 0-UNK SIGNATURE PANEL: The following modified sections: Transfers: Bed, Chair, Wheelchair - Score, Transfers: Toilet - Score , Locomotion: Walk - Score, Locomotion: Wheelchair - Score, Locomotion: Stairs - Score were [electron fransico] signed by Pan Hannah PTA on FriJan 01 2019 15:21:21 GMT-0500 (Central Daylight Time)
--- NOTE | 2019-01-01 17:51 | FAST ---
SHIFT START DATE/TIME: 01/01/2019 07:00 (CDT) SHIFT END DATE/TIME: 01/01/2019 19:00 (CDT) NAME JACQUIE SWEENEY DATE OF : 1945 DATE OF ADMISSION: 12/24/2018 20:11 (CDT) PHONE: AGE: 73 GENDER: Male ENCOUNTER PHYSICIAN: Dr. Jose Johns M.D. ADMISSION DIAGNOSIS: - Stroke 01 - Left Body (Right Brain) (01.1) Right Tiny Frontal Lobe Infarct. EATING: EATING - STEP 1: Does the patient require the assistance of a person or device, or need extra time when eating? Yes. EATING - STEP 2: Does the patient require the assistance of a helper? No, patient only requires an assistive device, O R s/he takes more than reasonable time to eat, OR there is a safety concern, OR s/he requires modifie d food consistency EATING - SCORE: 6-JAKY GROOMING: Activity did not occur on this shift GROOMING - SCORE: 0-UNK BATHING: Activity did not occur on this shift BATHING - SCORE: 0-UNK DRESSING - UPPER BODY: T-shirt/pullover shirt (four steps) ARTICLES SCORE Total number of steps: 4 DRESSING - UPPER BODY - STEP 1: Does the patient require help from a person or device, or need extra time when dressing above the nessa st? Yes. DRESSING - UPPER BODY - STEP 2: Does the patient require the assistance of a helper? No. Patient only requires an assistive device, s uch as a button hook, velcro, or ham trimmer. OR s/he takes more than reasonable time as s/he dresses the upper body. OR there is a concern for safety when s/he dresses the upper body DRESSING - UPPER BODY - SCORE: 6-JAKY DRESSING - LOWER BODY: Zippered pants (four steps) ARTICLES SCORE Total number of steps: 4 DRESSING - LOWER BODY - STEP 1: Does the patient require help from a person or device, or need extra time when dressing below the nessa st? Yes. DRESSING - LOWER BODY - STEP 2: Does the patient require the assistance of a helper? Yes. DRESSING - LOWER BODY - STEP 3: Does the helper touch the patient while dressing? Yes. DRESSING - LOWER BODY - STEP 4: How many of the total steps does the patient complete on his/her own? 3 DRESSING - LOWER BODY - SCORE: 4-MIN TOILETING: TOILETING - STEP 1: Does the patient require the assistance of a person or device, or need extra time with toileting? Yes . TOILETING - STEP 2: Does the patient require the assistance of a helper? Yes. TOILETING - STEP 3: How much assistance does the patient require from the helper? Hands-on assistance from the helper TOILETING - STEP 4: Of the 3 tasks: 1) Adjusting clothing prior to use, 2) Cleansing of perineal area, 3) Adjusting clot leyla after use; How many tasks does the patient perform WITHOUT assistance of the helper? Two tasks TOILETING - SCORE: 3-MOD BLADDER MANAGEMENT: Mchenry removes incontinent device (Depends, pull ups, etc.); cleans the patient after accident / inco ntinent episode; and, applies new incontinent device. BLADDER MANAGEMENT - SCORE: 1-DEP BLADDER MANAGEMENT - FREQUENCY OF ACCIDENTS: BLADDER MANAGEMENT(FA) - STEP 1: How many accidents has the patient had during the current shift? 1 BOWEL MANAGEMENT: Mchenry removes incontinent device (depends, pull ups, etc.); cleans the patient after accident / inco ntinent episode; and, applies new device (depends, pull-ups, padding, etc.). BOWEL MANAGEMENT - SCORE: 1-DEP BOWEL MANAGEMENT - FREQUENCY OF ACCIDENTS: BOWEL MANAGEMENT(FA) - STEP 1: How many accidents has the patient had during the current shift? 1 TRANSFERS: BED, CHAIR, WHEELCHAIR: TRANSFERS: BED, CHAIR, WHEELCHAIR - STEP 1: Does the patient require assistance of a person or device, or need extra time with bed, chair, or whe elchair transfers? Yes. TRANSFERS: BED, CHAIR, WHEELCHAIR - STEP 2: Does the patient require the assistance of a helper? Yes. TRANSFERS: BED, CHAIR, WHEELCHAIR - STEP 3: How much assistance does the patient require from the helper? Steadying/guiding assistance TRANSFERS: BED, CHAIR, WHEELCHAIR - SCORE: 4-MIN TRANSFERS: TOILET: TRANSFERS: TOILET - STEP 1: Does the patient require the assistance of a person or device, or need extra time with toilet transfe rs? Yes. TRANSFERS: TOILET - STEP 2: Does the patient require the assistance of a helper? Yes. TRANSFERS: TOILET - STEP 3: How much assistance does the patient require from the helper? Patient performs half or more of the tr ansferring tasks TRANSFERS: TOILET - STEP 4: Does the patient need only incidental help such as contact guard or steadying during toilet transfer? Yes. TRANSFERS: TOILET - SCORE: 4-MIN TRANSFERS: SHOWER: Activity did not occur on this shift TRANSFERS: SHOWER - SCORE: 0-UNK TRANSFERS: TUB: Activity did not occur on this shift TRANSFERS: TUB - SCORE: 0-UNK LOCOMOTION: WALK: Activity did not occur on this shift LOCOMOTION: WALK - SCORE: 0-UNK LOCOMOTION: WHEELCHAIR: Activity did not occur on this shift LOCOMOTION: WHEELCHAIR - SCORE: 0-UNK COMPREHENSION: COMPREHENSION - SCORE: 0-UNK EXPRESSION EXPRESSION - SCORE: 0-UNK SOCIAL INTERACTION: SOCIAL INTERACTION - SCORE: 0-UNK PROBLEM SOLVING: PROBLEM SOLVING - SCORE: 0-UNK MEMORY: MEMORY - SCORE: 0-UNK SIGNATURE PANEL: The following modified sections: Eating - Score, Grooming - Score, Bathing - Score, Dressing - Upper Body - Score, Dressing - Lower Body - Score, Toileting - Score, Bladder Management - Score, Bowel Man agement - Score, Transfers: Bed, Chair, Wheelchair - Score, Transfers: Toilet - Score, Transfers: Nevin wer - Score, Transfers: Tub - Score, Locomotion: Walk - Score, Locomotion: Wheelchair - Score, Compre hension - Score, Expression - Score, Social Interaction - Score, Problem Solving - Score, Memory - Sc ore were [electronically] signed by Rhonda Rodas CNA on FriJan 01 2019 17:50:46 T-0500 ([facility] Time)
[2019-01-01] MEDS: ATORVASTATIN 80 MG TAB PO SCH (20:15)
[2019-01-01] MEDS: DULOXETINE 30 MG CAP PO SCH (20:15)
[2019-01-01] MEDS: TAMSULOSIN 0.4 MG SR CAP PO SCH (20:15)
[2019-01-01] MEDS: DONEPEZIL HCL 5 MG TAB PO SCH (20:15)
[2019-01-01] MEDS: PROMOD 30 ML DOSE PO SCH (20:16)
[2019-01-01] MEDS: TRAMADOL HCL 50 MG TAB PO PRN (20:17)
--- NOTE | 2019-01-02 02:21 | FAST ---
SHIFT START DATE/TIME: 01/01/2019 19:00 (CDT) SHIFT END DATE/TIME: 01/02/2019 07:00 (CDT) NAME JACQUIE SWEENEY DATE OF : 1945 DATE OF ADMISSION: 12/24/2018 20:11 (CDT) PHONE: AGE: 73 GENDER: Male ENCOUNTER PHYSICIAN: Dr. Jose Johns M.D. ADMISSION DIAGNOSIS: - Stroke 01 - Left Body (Right Brain) (01.1) Right Tiny Frontal Lobe Infarct. EATING: Activity did not occur on this shift EATING - SCORE: 0-UNK GROOMING: Activity did not occur on this shift GROOMING - SCORE: 0-UNK BATHING: Activity did not occur on this shift BATHING - SCORE: 0-UNK DRESSING - UPPER BODY: Patient is not dressing in public clothing ARTICLES SCORE Total number of steps: 0 DRESSING - UPPER BODY - SCORE: 0-UNK DRESSING - LOWER BODY: Patient is not dressing in public clothing ARTICLES SCORE Total number of steps: 0 DRESSING - LOWER BODY - SCORE: 0-UNK TOILETING: TOILETING - STEP 1: Does the patient require the assistance of a person or device, or need extra time with toileting? Yes . TOILETING - STEP 2: Does the patient require the assistance of a helper? Yes. TOILETING - STEP 3: How much assistance does the patient require from the helper? Hands-on assistance from the helper TOILETING - STEP 4: Of the 3 tasks: 1) Adjusting clothing prior to use, 2) Cleansing of perineal area, 3) Adjusting clot leyla after use; How many tasks does the patient perform WITHOUT assistance of the helper? Three tasks with steadying assistance from the helper TOILETING - SCORE: 4-MIN BLADDER MANAGEMENT: BLADDER MANAGEMENT - STEP 1: Does the patient control the bladder completely and intentionally without equipment or devices or med ications, and is always continent? No. BLADDER MANAGEMENT - STEP 2: Does the patient require the assistance of a helper? Yes. BLADDER MANAGEMENT - STEP 3: How much assistance does the patient require from the helper? Only set-up of equipment - such as plac ing it within reach of the patient or emptying a device - to maintain either satisfactory voiding pat tern or managing an external device, such as an absorbent pad, ileal device, or catheter BLADDER MANAGEMENT - SCORE: 5-SUP BOWEL MANAGEMENT: Activity did not occur on this shift BOWEL MANAGEMENT - SCORE: 7-IND TRANSFERS: BED, CHAIR, WHEELCHAIR: Activity did not occur on this shift TRANSFERS: BED, CHAIR, WHEELCHAIR - SCORE: 0-UNK TRANSFERS: TOILET: Activity did not occur on this shift TRANSFERS: TOILET - SCORE: 0-UNK TRANSFERS: SHOWER: Activity did not occur on this shift TRANSFERS: SHOWER - SCORE: 0-UNK TRANSFERS: TUB: Activity did not occur on this shift TRANSFERS: TUB - SCORE: 0-UNK LOCOMOTION: WALK: Activity did not occur on this shift LOCOMOTION: WALK - SCORE: 0-UNK LOCOMOTION: WHEELCHAIR: Activity did not occur on this shift LOCOMOTION: WHEELCHAIR - SCORE: 0-UNK COMPREHENSION: COMPREHENSION: TYPE: Both COMPREHENSION - STEP 1: Does the patient require help from a person or device, or need extra time to understand complex and a bstract ideas (such as current events, finances, discharge planning, medical issues, relationships, e tc)? Yes. COMPREHENSION - STEP 2: Does the patient require help to understand questions or statements about basic needs or ideas (such as hunger, thirst, sleep, safety, daily schedule, room location, or discomfort) half or more of the t zane? No. COMPREHENSION - STEP 3: How often does the patient need help to understand directions and conversation about basic needs? 10% - 24% of the time COMPREHENSION - SCORE: 4-MIN EXPRESSION EXPRESSION: TYPE: Both EXPRESSION - STEP 1: Does the patient require help from a person or device, or need extra time expressing complex and abst ract ideas (such as current events, finances, discharge planning, medical issues, relationships, etc) ? No. EXPRESSION - STEP 2: Does the patient need extra time, require an assistive device (such as augmentive communication syste m or a communication board), OR does s/he have mild difficulty expressing complex and abstract ideas (including mild dysarthria or mild word-find problems)? Yes. EXPRESSION - SCORE: 6-JAKY SOCIAL INTERACTION: SOCIAL INTERACTION - STEP 1: Does the patient require a helper to interact with others in social and therapeutic situations? No. SOCIAL INTERACTION - STEP 2: Does the patient need extra time in social situations, OR does s/he interact with staff, other patien ts, and family members ONLY in structured environments, OR does s/he require medication for social in teraction? Yes, patient needs extra time SOCIAL INTERACTION - SCORE: 6-JAKY PROBLEM SOLVING: PROBLEM SOLVING - STEP 1: Does the patient need help from a person or device, or need extra time to solve complex problems such as managing a checking account or confronting interpersonal problems? Yes. PROBLEM SOLVING - STEP 2: Does the patient solve basic routine problems half or more of the time? Yes. PROBLEM SOLVING - STEP 3: How often does the patient need help to solve basic routine problems? 10%-24% of the time PROBLEM SOLVING - SCORE: 4-MIN MEMORY: MEMORY - STEP 1: Does the patient need help from a person or device, or need extra time to remember frequently encount ered people, daily routines, and executing requests? Yes. MEMORY - STEP 2: How often does the patient need help to remember frequently encountered people, daily routines, and e xecuting requests? 10% - 24% of the time MEMORY - SCORE: 4-MIN
[2019-01-02] MEDS: ENOXAPARIN 40 MG/0.4 ML SQ SCH (07:08)
[2019-01-02] MEDS: INSULIN -REGULAR HUMAN 50 UNIT/0.5 ML ML SQ SCH (07:30)
[2019-01-02] MEDS: PROMOD 30 ML DOSE PO SCH (08:00)
[2019-01-02] MEDS: MIDODRINE HCL 5 MG TABLET PO SCH (08:13)
[2019-01-02] MEDS: GABAPENTIN 400 MG CAP PO SCH (08:13)
[2019-01-02] MEDS: CARBIDOPA/LEVODOPA 25/100 TAB PO SCH (08:13)
[2019-01-02] MEDS: ASPIRIN EC 81 MG TAB PO SCH (08:14)
[2019-01-02] MEDS: SITAGLIPTIN PHOS 100 MG TAB PO SCH (08:14)
[2019-01-02] MEDS: FINASTERIDE 5 MG TAB PO SCH (08:14)
[2019-01-02] MEDS: METFORMIN HCL 500 MG TAB PO SCH (08:15)
[2019-01-02 09:25] VITALS: BP 120/61; TEMP 97.8
--- NOTE | 2019-01-02 10:33 | FAST ---
SHIFT START DATE/TIME: 01/02/2019 07:00 (CDT) SHIFT END DATE/TIME: 01/02/2019 19:00 (CDT) NAME JACQUIE SWEENEY DATE OF : 1945 DATE OF ADMISSION: 12/24/2018 20:11 (CDT) PHONE: AGE: 73 GENDER: Male ENCOUNTER PHYSICIAN: Dr. Jose Johns M.D. ADMISSION DIAGNOSIS: - Stroke 01 - Left Body (Right Brain) (01.1) Right Tiny Frontal Lobe Infarct. EATING: EATING - STEP 1: Does the patient require the assistance of a person or device, or need extra time when eating? Yes. EATING - STEP 2: Does the patient require the assistance of a helper? No, patient only requires an assistive device, O R s/he takes more than reasonable time to eat, OR there is a safety concern, OR s/he requires modifie d food consistency EATING - SCORE: 6-JAKY GROOMING: Comb/brush hair Wash, rinse, and dry face Wash, rinse, and dry hands GROOMING - STEP 1: Does the patient require the assistance of a person or device, or need extra time when grooming? Yes. GROOMING - STEP 2: Does the patient require the assistance of a helper? No. The patient only requires an assistive devic e, OR takes more than reasonable time to groom, OR there is a concern for safety as the patient groom s GROOMING - SCORE: 6-JAKY BATHING: Activity did not occur on this shift BATHING - SCORE: 0-UNK DRESSING - UPPER BODY: Activity did not occur on this shift ARTICLES SCORE Total number of steps: 0 DRESSING - UPPER BODY - SCORE: 0-UNK DRESSING - LOWER BODY: Elastic waist pants (three steps) Slip-on shoe - Left foot (one step) Slip-on shoe - Right foot (one step) Underwear (three steps) ARTICLES SCORE Total number of steps: 8 DRESSING - LOWER BODY - STEP 1: Does the patient require help from a person or device, or need extra time when dressing below the nessa st? Yes. DRESSING - LOWER BODY - STEP 2: Does the patient require the assistance of a helper? No. Patient requires an assistive device such as a outcomes specialist. OR s/he takes more than reasonable time as s/he dresses the lower body, OR there is a con cern for safety when s/he dresses the lower body DRESSING - LOWER BODY - SCORE: 6-JAKY TOILETING: TOILETING - STEP 1: Does the patient require the assistance of a person or device, or need extra time with toileting? Yes . TOILETING - STEP 2: Does the patient require the assistance of a helper? No. TOILETING - SCORE: 6-JAKY BLADDER MANAGEMENT: BLADDER MANAGEMENT - STEP 1: Does the patient control the bladder completely and intentionally without equipment or devices or med ications, and is always continent? No. BLADDER MANAGEMENT - STEP 2: Does the patient require the assistance of a helper? No, patient requires and independently uses an a ssistive device, such as a urinal, bedpan, bedside commode, catheter, absorbent pad, or collecting de vice BLADDER MANAGEMENT - SCORE: 6-JAKY BLADDER MANAGEMENT - FREQUENCY OF ACCIDENTS: BLADDER MANAGEMENT(FA) - STEP 1: How many accidents has the patient had during the current shift? 0 BOWEL MANAGEMENT: Activity did not occur on this shift BOWEL MANAGEMENT - SCORE: 7-IND BOWEL MANAGEMENT - FREQUENCY OF ACCIDENTS: BOWEL MANAGEMENT(FA) - STEP 1: How many accidents has the patient had during the current shift? 0 TRANSFERS: BED, CHAIR, WHEELCHAIR: TRANSFERS: BED, CHAIR, WHEELCHAIR - STEP 1: Does the patient require assistance of a person or device, or need extra time with bed, chair, or whe elchair transfers? Yes. TRANSFERS: BED, CHAIR, WHEELCHAIR - STEP 2: Does the patient require the assistance of a helper? No. Patient only requires an assistive device fo r bed, chair, wheelchair transfers such as a sliding board, grab bar, or brace, OR s/he takes more th an reasonable time, OR there is a safety concern when s/he performs the transfers TRANSFERS: BED, CHAIR, WHEELCHAIR - SCORE: 6-JAKY TRANSFERS: TOILET: TRANSFERS: TOILET - STEP 1: Does the patient require the assistance of a person or device, or need extra time with toilet transfe rs? Yes. TRANSFERS: TOILET - STEP 2: Does the patient require the assistance of a helper? No. Patient only requires an assistive device vuong ch as a grab bar or special seat, OR s/he takes more than reasonable time to perform toilet transfers , OR there is a safety concern when s/he performs toilet transfers. TRANSFERS: TOILET - SCORE: 6-JAKY TRANSFERS: SHOWER: Activity did not occur on this shift TRANSFERS: SHOWER - SCORE: 0-UNK TRANSFERS: TUB: Activity did not occur on this shift TRANSFERS: TUB - SCORE: 0-UNK LOCOMOTION: WALK: Activity did not occur on this shift LOCOMOTION: WALK - SCORE: 0-UNK LOCOMOTION: WHEELCHAIR: LOCOMOTION: WHEELCHAIR - STEP 1: Does the patient need help to go 150 feet in a wheelchair? Yes. LOCOMOTION: WHEELCHAIR - STEP 2: How much assistance does the patient need from the helper? Only supervision, cuing, or coaxing LOCOMOTION: WHEELCHAIR - SCORE: 5-SUP COMPREHENSION: COMPREHENSION: TYPE: Both COMPREHENSION - STEP 1: Does the patient require help from a person or device, or need extra time to understand complex and a bstract ideas (such as current events, finances, discharge planning, medical issues, relationships, e tc)? Yes. COMPREHENSION - STEP 2: Does the patient require help to understand questions or statements about basic needs or ideas (such as hunger, thirst, sleep, safety, daily schedule, room location, or discomfort) half or more of the t zane? No. COMPREHENSION - STEP 3: How often does the patient need help to understand directions and conversation about basic needs? Les s than 10% of the time COMPREHENSION - SCORE: 5-SUP EXPRESSION EXPRESSION: TYPE: Both EXPRESSION - STEP 1: Does the patient require help from a person or device, or need extra time expressing complex and abst ract ideas (such as current events, finances, discharge planning, medical issues, relationships, etc) ? Yes. EXPRESSION - STEP 2: Does the patient require help to express basic necessities or ideas (such as hunger, thirst, sleep, s afety, daily schedule, room location, or discomfort) half or more of the time? No. EXPRESSION - STEP 3: How often does the patient need help to express directions and conversation about basic needs? Less t jiang 10% of the time EXPRESSION - SCORE: 5-SUP SOCIAL INTERACTION: SOCIAL INTERACTION - STEP 1: Does the patient require a helper to interact with others in social and therapeutic situations? No. SOCIAL INTERACTION - STEP 2: Does the patient need extra time in social situations, OR does s/he interact with staff, other patien ts, and family members ONLY in structured environments, OR does s/he require medication for social in teraction? Yes, patient needs extra time SOCIAL INTERACTION - SCORE: 6-JAKY PROBLEM SOLVING: PROBLEM SOLVING - STEP 1: Does the patient need help from a person or device, or need extra time to solve complex problems such as managing a checking account or confronting interpersonal problems? Yes. PROBLEM SOLVING - STEP 2: Does the patient solve basic routine problems half or more of the time? Yes. PROBLEM SOLVING - STEP 3: How often does the patient need help to solve basic routine problems? Less than 10% of the time PROBLEM SOLVING - SCORE: 5-SUP MEMORY: MEMORY - STEP 1: Does the patient need help from a person or device, or need extra time to remember frequently encount ered people, daily routines, and executing requests? Yes. MEMORY - STEP 2: How often does the patient need help to remember frequently encountered people, daily routines, and e xecuting requests? Less than 10% of the time MEMORY - SCORE: 5-SUP SIGNATURE PANEL: The following modified sections: Eating - Score, Grooming - Score, Bathing - Score, Dressing - Upper Body - Score, Dressing - Lower Body - Score, Toileting - Score, Bladder Management - Score, Bowel Man agement - Score, Transfers: Bed, Chair, Wheelchair - Score, Transfers: Toilet - Score, Transfers: Nevin wer - Score, Transfers: Tub - Score, Locomotion: Walk - Score, Locomotion: Wheelchair - Score, Compre hension - Score, Expression - Score, Social Interaction - Score, Problem Solving - Score, Memory - Sc ore were [electronically] signed by Parris Irving C.N.A. on Sat Jan 02 2019 10:32:20 T-0500 (Centra l Daylight Time)
== END 2019-01-02 10:15 | disposition home health service (06) | DRG 57 ==
LOC: 5TH 20:11
PROVIDERS: ADMIT Psychiatry & Neurology Neurology with Special Qualifications in Child Neurology; ATTEND Psychiatry & Neurology Neurology with Special Qualifications in Child Neurology
DX: I69.354 Hemiplegia and hemiparesis following cerebral infarction affecting left non-dominant side (principal); I69.320 Aphasia following cerebral infarction; N40.0 Benign prostatic hyperplasia without lower urinary tract symptoms; I25.10 Atherosclerotic heart disease of native coronary artery without angina pectoris; E11.40 Type 2 diabetes mellitus with diabetic neuropathy, unspecified; G20 Parkinson's disease
CPT/HCPCS: 36415; 80048; 81001; 82040; 82962; 83735; 84134; 85025; 87086; 87088; 92507; 92508; 92523; 97110; 97112; 97116; 97150; 97163; 97167; 97530; 97542; J1650

== ENCOUNTER 2020-01-16 19:38 | Observation (INO) | payer OTHER ==
--- OUTSIDE RECORDS SUMMARY | 2020-01-16 19:41 | XMS REPORT | Clinical Summary ---
:1945 Author Organization [facility] Address [address] [place] [address] Care Team Providers Name Role Phone Pcp Primary Care Provider Unavailable Allergies No Known Allergies Medications Medication Sig Dispensed Refills Start Date End Date Status aspirin 81 MG EC Take 81 mg by mouth 0 Active tablet daily. DULoxetine (CYMBALTA) Take 30 mg by mouth 0 Active 30 MG capsule once at bedtime. gabapentin Take 800 mg by 0 Acti ve (NEURONTIN) 800 MG mouth 3 (three) tablet times daily. finasteride (PROSCAR) Take 5 mg by mouth 0 Active 5 mg tablet daily. metFORMIN 0 12/01/2018 Active (GLUCOPHAGE) 1000 MG tablet atorvastatin 0 10/16/2018 Active (LIPITOR) 80 MG tablet tamsulosin (FLOMAX) AT BEDTIME 0 08/30/2016 Active 0.4 mg Cap 24 hr capsule PARoxetine (PAXIL) 40 AT BEDTIME 0 08/30/2016 Active MG tablet midodrine 1.25 MG THREE TIMES A DAY 0 06/12/2017 Active halftab half tablet donepezil (ARICEPT) 5 AT BEDTIME 0 08/30/2016 Active MG tablet carbidopa-levodopa THREE TIMES A DAY 0 09/13/2016 Active (PARCOPA) 25-100 mg per disintegrating tablet bisacodyl 5 mg Tab DAILY NEEDED PRN 0 08/30/2016 Active For Constipation JANUVIA 100 mg tablet Take 0.5 tablets 0 12/24/2018 Active (50 mg total) by mouth daily. glucometer (COOL Use to check blood 1 each 0 12/24/2018 Active BLOOD GLUCOSE METER) sugar. [facility] blood sugar 1 strip by 100 strip 0 12/24/2018 Active diagnostic (COOL Miscellaneous route GLUCOSE TEST STRIP) 3 (three) times Strp daily. lancets (SURE-TOUCH Use to check blood 100 each 0 12/24/2018 Active LANCET) Misc sugar. Active Problems Problem Noted Date Stroke 12/20/2018 Received intravenous tissue plasminogen activator (tPA ) in emergency 12/20/2018 department Essential hypertension 12/20/2018 Acute ischemic stroke 12/20/2018 Parkinson's disease 12/20/2018 Acute ischemic stroke 07/28/2016 Status post administration of tPA (rtPA) in a [facility] facility within 07/24/2016 the last 24 [facility] Diabetes mellitus Depression BPH (benign prostatic hyperplasia) [...] Not on file Results Not on fileafter 01/15/2019 Insurance Payer Benefit Plan / Group Subscriber ID Type Phone A ddress MEDICARE MEDICARE A B xxxxxxxxxxx Medicare A[employer] - MGD CARE A[employer] INDEMNITY NON CONTR xxxxxxxxx Comm Advance Directives For more information, please contact:[address] [phone] Code Status Date Activated Date Inactivated Comments Full Code 12/20/2018 4:47 AM 12/24/2018 9:09 PM This code status was determined by: Patient Full Code 07/24/2016 2:48 PM 07/29/2016 7:23 PM This code status was determined by: Patient
--- OUTSIDE RECORDS SUMMARY | 2020-01-16 19:42 | XMS REPORT | Continuity of Care Document ---
:1945 Author Organization [facility] t Address [address] [place] [address] Care Team Providers Name Role Phone Pcp Primary Care Physician Unavailable CAROLYN PRESLEY Attending Clinician Unavailable CAROLYN PRESLEY Admitting Clinician Unavailable Problems Condition Condition Condition Status Onset Resolution Last Treating Co mments Source Name Details Category Date Date Treatment Clinician Date Stroke Stroke Disease [facility] Received Received Disease Active [facility]ou [facility]12 [facility] - s tissue s tissue 00:00: Medica l plasminoge plasminoge 00 Ce nter n n activator activator (tPA) in (tPA) in emergency emergency department department Essential Essential Disease Active [facility] hypertensi hypertensi 5-12 [facility] - on on 00:00: Medical 00 [place] Acute Acute Disease Active [facility] ischemic ischemic 5-12 [facility] - stroke stroke 00:00: Medical 00 [place] Parkinson' Parkinson' Disease Active [facility] s disease s disease 5-12 [facility] - 00:[facility]: Medical 00 Center Acute Acute Disease Active 2015-[address] [facility] [address] ischemic ischemic 2-18 [facility] - stroke stroke 00:00: Medical 00 Center Status Status Disease Active 2015-[address] [facility] [address] post post 2-14 [facility] - administra administra 00:00: Me dical tion of tion of 00 Center tPA (rtPA) tPA (rtPA) in a in a different different facility facility within the within the last 24 last 24 hours hours prior to prior to admission admission to current to current facility facility Diabetes Diabetes Disease Active [facility] mellitus mellitus [facility] Depression Depression Disease Active [facility] BPH BPH Disease Active [facility] (benign (benign [facility] - prostatic prostatic Medi mahsa hyperplasi hyperplasi Ce nter a) a) Allergies, Adverse Reactions, Alerts This patient has no known allergies or adverse reactions. Social History Social Habit Start Date Stop Date Quantity Comments Source Sex Assigned At [facility] Smoking Status Start Date Stop Date Source [facility] [place] Medications Ordered Filled Start Stop Current Ordering Indication Dosage Frequency Signature Comments Components Source Medication Medication Date Date Medication? Clinician (SIG) Name Name NORMA Valdovinos Yes 50mg QD Take 0.[address] mg tablet 5-16 tablets [facility] - 00:00: (50 mg Medical 00 total) by Center mouth daily. glucometer Yes Use to [facility] (COOL BLOOD 5-16 check [facility] - GLUCOSE 00:00: blood Medical METER) Mis 00 sugar. [place] blood sugar Yes 1{strip Q.[id number] 1 strip by [facility] diagnostic 5-16 } [id number] Miscellane [facility] - (COOL 00:00: 3D ous route Medical GLUCOSE 00 3 (three) Center TEST STRIP) times Strp daily. lancets Yes Use to [facility] (SURE-TOUCH 5-16 check [facility] - LANCET) 00:00: blood Medical Misc 00 sugar. [place] metFORMIN Yes [facility] (GLUCOPHAGE 4-23 [facility] - ) 1000 MG 00:00: Medical tablet 00 [place] atorvastati Yes [facility] n (LIPITOR) 3-08 [facility] - 80 MG 00:00: Medical tablet 00 [place] midodrine 2016-[address] 1.25 MG 1-02 TIMES A [facility] - halftab 00:00: DAY Medical half tablet 00 [place] carbidopa-l Yes THREE [facility] evodopa 2-03 TIMES A [facility] - (PARCOPA) 00:00: DAY Medical 25-100 mg 00 [place] per disintegrat ing tablet tamsulosin Yes AT BEDTIME [facility] (FLOMAX) 1-20 [facility] - 0.4 mg Cap 00:00: Medical 24 hr 00 [place] capsule PARoxetine Yes AT BEDTIME [facility] (PAXIL) 40 1-20 [facility] - MG tablet 00:00: Medical 00 Center donepezil Yes AT BEDTIME [facility] (ARICEPT) 5 1-20 [facility] - MG tablet 00:00: Medical 00 Center bisacodyl [address] [facility] mg Tab 1-20 NEEDED PRN [facility] - 00:00: For Medical 00 Constipati Center on aspirin 81 2015-08 Yes 81mg QD Take [address] MG EC 2-14 by mouth [facility] - tablet 17:19: daily. Medical 57 Center DULoxetine 2015-08 Yes 30mg Take [address] (CYMBALTA) 2-14 by mouth [facility] - 30 MG 17:19: once at Medical capsule 57 bedtime. Center gabapentin 2015-08 Yes 800mg [id number] Take [address] (NEURONTIN) 2-14 [id number] mg by L ukes - 800 MG 17:19: 3D mouth 3 Medical tablet 57 (three) Center times daily. finasteride 2015-08 Yes 5mg QD Take [address] (PROSCAR) 5 2-14 by mouth [facility] - mg tablet 17:19: daily. Medica l 57 Center Procedures This patient has no known procedures. Results Test Description Test Time Test Comments Results Result Comments Source POCT-GLUCOSE METER 2018-12-24 18:12:00 Test Item Value Reference Range Interpretation Comme nts POC-GLUCOSE METER ([employer]) (test 178 mg/dL 70-110 H TESTED AT [address] code = 1538) [facility] [address] 0 POCT-GLUCOSE [id number] 13:20:00 Test Item Value Reference Range Interpretation Comments POC-GLUCOSE METER 286 mg/dL 70-110 H TESTED AT [facility] [employer] ([employer]) (test code = MIGUELITO Haji [facility] 1538) [address] POCT-GLUCOSE [id number] 10:35:00 Test Item Value Reference Range Interpretation Comments POC-GLUCOSE METER 267 mg/dL 70-110 H TESTED AT [place] [address] ([employer]) (test code = MIGUELITO Haji [facility] 1538) [address] POCT-GLUCOSE [id number] 21:15:00 Test Item Value Reference Range Interpretation Comments POC-GLUCOSE METER 249 mg/dL 70-110 H TESTED AT [place] [address] ([facility]) (test code = MIGUELITO Haji [facility] 1538) [id number] POCT-GLUCOSE [id number] 17:08:00 Test Item Value Reference Range Interpretation Comments POC-GLUCOSE METER 160 mg/dL 70-110 H TESTED AT [place] [address] ([facility]) (test code = MIGUELITO Haji [facility] 1538) [address] POCT-GLUCOSE [id number] 12:15:00 Test Item Value Reference Range Interpretation Comments POC-GLUCOSE METER 322 mg/dL 70-110 H Verify [facility] ([facility]) (test code = draw/T ESTED AT [place] [address]) [address] [facility] [address] POCT-GLUCOSE [id number] 08:32:00 Test Item Value Reference Range Interpretation Comments POC-GLUCOSE METER 282 mg/dL 70-110 H TESTED AT [place] [address] ([facility]) (test code = ROXANNAME Raissa [facility] 1538) [address] POCT-GLUCOSE [id number] 21:09:00 Test Item Value Reference Range Interpretation Comments POC-GLUCOSE METER 163 mg/dL 70-110 H TESTED AT [place] [address] ([facility]) (test code = MIGUELITO Haji [facility] 1538) [address] POCT-GLUCOSE [id number] 17:20:00 Test Item Value Reference Range Interpretation Comments POC-GLUCOSE METER 393 mg/dL 70-110 H TESTED AT [place] [address] ([facility]) (test code = [facility] Raissa [facility] 1538) [address] POCT-GLUCOSE [id number] 13:10:00 Test Item Value Reference Range Interpretation Comments POC-GLUCOSE METER 344 mg/dL 70-110 H Notified R Edison NUNEZ/TESTED ([facility]) (test code = AT [place] [address]80838) [place] [address] POCT-GLUCOSE [id number] 08:54:00 Test Item Value Reference Range Interpretation Comments POC-GLUCOSE METER 245 mg/dL 70-110 H TESTED AT [place] [address] ([facility]) (test code = ROXANNAME Raissa [facility] 1538) [address] BASIC METABOLIC [id number] 04:26:00 Test Item Value Reference Range Interpretation Comments SODIUM (BEAKER) 138 meq/L 136-145 (test code = 381) POTASSIUM (BEAKER) 4.3 meq/L 3.5-5.1 (test code = 379) CHLORIDE (BEAKER) 109 meq/L 98-107 H (test code = 382) CO2 (BEAKER) (test 23 meq/L 22-29 code = 355) BLOOD UREA NITROGEN 29 mg/dL 7-21 H (BEAKER) (test code = 354) CREATININE (BEAKER) 1.17 mg/dL 0.57-1.25 (test code = 358) GLUCOSE RANDOM 220 mg/dL 70-105 H (BEAKER) (test code = 652) CALCIUM (BEAKER) 9.3 mg/dL 8.4-10.2 (test code = 697) EGFR (BEAKER) (test 61 mL/min/1.73 ESTIMA JAKE GFR IS code = 1092) sq m NOT ACCURATE CREATININE CLEARANCE IN PREDICTING GLOMERULAR FILTRATION RATE . ESTIMATED GFR I S NOT APPLICABLE FOR DIALYSIS PATIEN TS. CBC W/PLT COUNT & AUTO [id number] 04:05:00 Test Item Value Reference Range Interpretation Comments WHITE BLOOD CELL COUNT (BEAKER) 6.6 K/ L 3.5-10.5 (test code = 775) RED BLOOD CELL COUNT (BEAKER) 3.97 M/ L 4.63-6.08 L (test code = 761) HEMOGLOBIN (BEAKER) (test code = 12.0 GM/DL 13.7-17.5 L 410) HEMATOCRIT (BEAKER) (test code = 36.7 % 40.1-51.0 L 411) MEAN CORPUSCULAR VOLUME (BEAKER) 92.4 fL 79.0-92.2 H (test code = 753) MEAN CORPUSCULAR HEMOGLOBIN 30.2 pg 25.7-32.2 (BEAKER) (test code = 751) MEAN CORPUSCULAR HEMOGLOBIN CONC 32.7 GM/DL 32.3-36.5 (BEAKER) (test code = 752) RED CELL DISTRIBUTION WIDTH 13.0 % 11.6-14.4 (BEAKER) (test code = 412) PLATELET COUNT (BEAKER) (test 174 K/CU MM 150-450 code = 756) MEAN PLATELET VOLUME (BEAKER) 10.0 fL 9.4-12.4 (test code = 754) NUCLEATED RED BLOOD CELLS 0 /100 WBC 0-0 (BEAKER) (test code = 413) NEUTROPHILS RELATIVE PERCENT 66 % (BEAKER) (test code = 429) LYMPHOCYTES RELATIVE PERCENT 20 % (BEAKER) (test code = 430) MONOCYTES RELATIVE PERCENT 10 % (BEAKER) (test code = 431) EOSINOPHILS RELATIVE PERCENT 3 % (BEAKER) (test code = 432) BASOPHILS RELATIVE PERCENT 1 % (BEAKER) (test code = 437) NEUTROPHILS ABSOLUTE COUNT 4.32 K/ L 1.78-5.38 (BEAKER) (test code = 670) LYMPHOCYTES ABSOLUTE COUNT 1.31 K/ L 1.32-3.57 L (BEAKER) (test code = 414) MONOCYTES ABSOLUTE COUNT (BEAKER) 0.66 K/ L 0.30-0.82 (test code = 415) EOSINOPHILS ABSOLUTE COUNT 0.22 K/ L 0.04-0.54 (BEAKER) (test code = 416) BASOPHILS ABSOLUTE COUNT (BEAKER) 0.03 K/ L 0.01-0.08 (test code = 417) IMMATURE GRANULOCYTES-RELATIVE 0 % 0-1 PERCENT (BEAKER) (test code = 2801) POCT-GLUCOSE [id number] 22:36:00 Test Item Value Reference Range Interpretation Comments POC-GLUCOSE METER 231 mg/dL 70-110 H TESTED AT [place] [address] ([facility]) (test code = [facility] Raissa [facility] 1538) [id number] POCT-GLUCOSE [id number] 18:13:00 Test Item Value Reference Range Interpretation Comments POC-GLUCOSE METER 258 mg/dL 70-110 H TESTED AT [place] [address] ([facility]) (test code = [facility] Raissa [facility] 1538) [address] POCT-GLUCOSE [id number] 12:31:00 Test Item Value Reference Range Interpretation Comments POC-GLUCOSE METER 264 mg/dL 70-110 H TESTED AT [place] [address] ([facility]) (test code = [facility] 1538) [address] POCT-GLUCOSE [id number] 08:18:00 Test Item Value Reference Range Interpretation Comments POC-GLUCOSE METER 238 mg/dL 70-110 H TESTED AT [place] [address] ([facility]) (test code = [facility] 1538) [address] BASIC METABOLIC [id number] 07:43:00 Test Item Value Reference Range Interpretation Comments SODIUM (BEAKER) 138 meq/L 136-145 (test code = 381) POTASSIUM (BEAKER) 4.5 meq/L 3.5-5.1 Specimen slightly (test code = 379) hemolyzed CHLORIDE (BEAKER) 108 meq/L 98-107 H (test code = 382) CO2 (BEAKER) (test 23 meq/L 22-29 code = 355) BLOOD UREA NITROGEN 20 mg/dL 7-21 (BEAKER) (test code = 354) CREATININE (BEAKER) 1.12 mg/dL 0.57-1.25 Specimen slightly (test code = 358) hemolyzed GLUCOSE RANDOM 207 mg/dL 70-105 H (BEAKER) (test code = 652) CALCIUM (BEAKER) 9.4 mg/dL 8.4-10.2 (test code = 697) EGFR (BEAKER) (test 65 mL/min/1.73 ESTIMA JAKE GFR IS code = 1092) sq m NOT ACCURATE CREATININE CLEARANCE IN PREDICTING GLOMERULAR FILTRATION RATE . ESTIMATED GFR I S NOT APPLICABLE FOR DIALYSIS PATIEN TS. CBC W/PLT COUNT & AUTO [id number] 05:36:00 Test Item Value Reference Range Interpretation Comments WHITE BLOOD CELL COUNT (BEAKER) 6.6 K/ L 3.5-10.5 (test code = 775) RED BLOOD CELL COUNT (BEAKER) 4.18 M/ L 4.63-6.08 L (test code = 761) HEMOGLOBIN (BEAKER) (test code = 12.7 GM/DL 13.7-17.5 L 410) HEMATOCRIT (BEAKER) (test code = 38.5 % 40.1-51.0 L 411) MEAN CORPUSCULAR VOLUME (BEAKER) 92.1 fL 79.0-92.2 (test code = 753) MEAN CORPUSCULAR HEMOGLOBIN 30.4 pg 25.7-32.2 (BEAKER) (test code = 751) MEAN CORPUSCULAR HEMOGLOBIN CONC 33.0 GM/DL 32.3-36.5 (BEAKER) (test code = 752) RED CELL DISTRIBUTION WIDTH 12.9 % 11.6-14.4 (BEAKER) (test code = 412) PLATELET COUNT (BEAKER) (test 179 K/CU MM 150-450 code = 756) MEAN PLATELET VOLUME (BEAKER) 9.8 fL 9.4-12.4 (test code = 754) NUCLEATED RED BLOOD CELLS 0 /100 WBC 0-0 (BEAKER) (test code = 413) NEUTROPHILS RELATIVE PERCENT 62 % (BEAKER) (test code = 429) LYMPHOCYTES RELATIVE PERCENT 23 % (BEAKER) (test code = 430) MONOCYTES RELATIVE PERCENT 10 % (BEAKER) (test code = 431) EOSINOPHILS RELATIVE PERCENT 3 % (BEAKER) (test code = 432) BASOPHILS RELATIVE PERCENT 1 % (BEAKER) (test code = 437) NEUTROPHILS ABSOLUTE COUNT 4.11 K/ L 1.78-5.38 (BEAKER) (test code = 670) LYMPHOCYTES ABSOLUTE COUNT 1.53 K/ L 1.32-3.57 (BEAKER) (test code = 414) MONOCYTES ABSOLUTE COUNT (BEAKER) 0.68 K/ L 0.30-0.82 (test code = 415) EOSINOPHILS ABSOLUTE COUNT 0.22 K/ L 0.04-0.54 (BEAKER) (test code = 416) BASOPHILS ABSOLUTE COUNT (BEAKER) 0.05 K/ L 0.01-0.08 (test code = 417) IMMATURE GRANULOCYTES-RELATIVE 0 % 0-1 PERCENT (BEAKER) (test code = 2801) MR, BRAIN, WITHOUT [id number] 02:37:00Reason for exam:->strokeFINAL REPORT MR, BRAIN, WITHOUT [...] the periventricular andsubcortical white matter are nonspecific, however, statistically represent [...] with similarly restricted diffusion (which is a rele vant consideration considering intraventricular blood products) Chronic appearing right MCA infarct Layering blood products within the lateral ventricles. No hydrocephalus. Findings regarding layering blood products within the lateral ventricles were discussed with neurology by Dr. Henry 2:33 AM. Re portedly, CT and CT angiogram from outside institution were acquired better not available currently for review (not yet uploaded to PACS) Signed: Alfreda Henry Verified Date/Time: 12/21/2018 02:37:32 Reading Location: [address] Neuro Reading Room POCT-GLUCOSE [id number] 23:22:00 Test Item Value Reference Range Interpretation Comments POC-GLUCOSE METER 214 mg/dL 70-110 H TESTED AT [place] [address] ([facility]) (test code = MIGUELITO Haji [facility] 1538) [address] [id number] 21:29:00 Test Item Value Reference Range Interpretation Comments RPR SCREEN ([facility]) (test code = Nonreactive Nonreactive 420) POCT-GLUCOSE [id number] 17:29:00 Test Item Value Reference Range Interpretation Comments POC-GLUCOSE METER 243 mg/dL 70-110 H TESTED AT [place] [address] ([facility]) (test code = MIGUELITO Haji [facility] 1538) [address] POCT-GLUCOSE [id number] 16:32:00 Test Item Value Reference Range Interpretation Comments POC-GLUCOSE METER 221 mg/dL 70-110 H TESTED AT [place] [address] ([facility]) (test code = ROXANNADON Raissa [facility] 1538) [address] HEMOGLOBIN [id number] 12:18:00 Test Item Value Reference Range Interpretation Comments HEMOGLOBIN A1C ([facility]) (test code = 10.9 % 4.3-6.1 H 368) POCT-GLUCOSE [id number] 11:59:00 Test Item Value Reference Range Interpretation Comments POC-GLUCOSE METER 165 mg/dL 70-110 H TESTED AT [facility] 6720 (BEAKER) (test code = [place]ITO [place] 1538) [address] POCT-GLUCOSE [id number] 10:11:00 Test Item Value Reference Range Interpretation Comments POC-GLUCOSE METER 191 mg/dL 70-110 H TESTED AT [facility] 6720 (BEAKER) (test code = MIGUELITO Haji [place] 1538) [address] BASIC METABOLIC [id number] 07:30:00 Test Item Value Reference Range Interpretation Comments SODIUM (BEAKER) 138 meq/L 136-145 (test code = 381) POTASSIUM (BEAKER) 4.3 meq/L 3.5-5.1 Specimen slightly (test code = 379) hemolyzed CHLORIDE (BEAKER) 106 meq/L 98-107 (test code = 382) CO2 (BEAKER) (test 19 meq/L 22-29 L code = 355) BLOOD UREA NITROGEN 23 mg/dL 7-21 H (BEAKER) (test code = 354) CREATININE (BEAKER) 1.23 mg/dL 0.57-1.25 Specimen slightly (test code = 358) hemolyzed GLUCOSE RANDOM 232 mg/dL 70-105 H (BEAKER) (test code = 652) CALCIUM (BEAKER) 9.2 mg/dL 8.4-10.2 (test code = 697) EGFR (BEAKER) (test 58 mL/min/1.73 ESTIMA JAKE GFR IS code = 1092) sq m NOT ACCURATE CREATININE CLEARANCE IN PREDICTING GLOMERULAR FILTRATION RATE . ESTIMATED GFR I S NOT APPLICABLE FOR DIALYSIS PATIEN TS. TSH/FREE T4 IF [id number] 06:32:00 Test Item Value Reference Range Interpretation Comments THYROID STIMULATING HORMONE 0.73 uIU/mL 0.35-4.94 (BEAKER) (test code = 772) VITAMIN B12 AND [id number] 06:32:00 Test Item Value Reference Range Interpretation Comments VITAMIN B12 (BEAKER) (test code = 540 pg/mL 213-816 774) FOLATE (BEAKER) (test code = 362) 12.0 ng/mL >=7.0 POCT-GLUCOSE [id number] 06:29:00 Test Item Value Reference Range Interpretation Comments POC-GLUCOSE METER 236 mg/dL 70-110 H TESTED AT [facility] 6720 (BEAKER) (test code = [place] 1538) [address] LIPID [id number] 06:05:00 Test Item Value Reference Range Interpretation Comments TRIGLYCERIDES (BEAKER) 108 mg/dL Speci men slightly (test code = 540) hemolyzed CHOLESTEROL (BEAKER) 148 mg/dL Specime n slightly (test code = 631) hemolyzed HDL CHOLESTEROL (BEAKER) 38 mg/dL (test code = 976) LDL CHOLESTEROL 88 mg/dL CALCULATED (BEAKER) (test code = 633) Triglyceride Reference Range: Low Risk <150 Borderline 150-199 High Risk 200-499 Very High Risk >=500Cholesterol Reference Range: Low Risk <200 Borderline 200-239 High Risk >240HDL Cholesterol Reference Range: Low Risk >=60 High Risk <40LDL Cholesterol Reference Range: Optimal <100 Near Optimal 100-129 Borderline 130-159 High 160-189 Very High >=190HEPATIC FUNCTION [id number] 06:05:00 Test Item Value Reference Range Interpretation Comments TOTAL PROTEIN (BEAKER) 5.8 gm/dL 6.0-8.3 L Speci men slightly (test code = 770) hemolyzed ALBUMIN (BEAKER) (test 3.4 g/dL 3.5-5.0 L Speci men slightly code = 1145) hemolyzed BILIRUBIN TOTAL 0.4 mg/dL 0.2-1.2 Specimen sli ghtly (BEAKER) (test code = hemoly zed 377) BILIRUBIN DIRECT 0.2 mg/dL 0.1-0.5 Specimen sl ightly (BEAKER) (test code = hemoly zed 706) ALKALINE PHOSPHATASE 118 U/L 40-150 (BEAKER) (test code = 346) AST (SGOT) (BEAKER) 15 U/L 5-34 Specimen slightly (test code = 353) hemolyzed ALT (SGPT) (BEAKER) 9 U/L 6-55 Specimen slightly (test code = 347) hemolyzed
[2020-01-16 20:11] LABS: Absolute Lymphocytes (CBC) 1.1 K/uL (0.7-4.9); Basophils % 0.5 % (0-1.3); Hematocrit 39.8 % (39.6-49.0); Lymphocytes % 14.8 % (15.3-44.8); MPV 8.8 fL (7.6-11.3); RBC Red Blood Cell Count 4.41 M/uL (4.33-5.43)
[2020-01-16 20:15] LABS: Protime INR 0.97
--- NOTE | 2020-01-16 20:20 | RAD REPORT ---
EXAM DESCRIPTION: RAD - Chest Single View - 01/16/2020 8:15 pm CLINICAL HISTORY: CHEST PAIN Chest pain. COMPARISON: Chest Single View dated 12/20/2018; Chest Single View dated 06/17/2018; Abdomen 1 View ([facility]) dated 09/18/2017; Chest Single View dated 06/12/2017 FINDINGS: Portable technique limits examination quality. The lungs are grossly clear. The heart is normal in size. No displaced fractures.Mildly tortuous thor acic aorta, unchanged. IMPRESSION: No acute intrathoracic process suspected.
[2020-01-16 20:27] LABS: ALT/SGPT 32 U/L (12-78); AST/SGOT 31 U/L (15-37); Albumin 3.8 g/dL (3.4-5.0); Alkaline Phosphatase 102 U/L (45-117); BUN Blood Urea Nitrogen 24 mg/dL (7-18); Bicarbonate 19 mmol/L (21-32); Bilirubin Direct 0.3 mg/dL (0-0.2); Bilirubin Total 1.1 mg/dL (0.2-1.0); Glucose Level 257 mg/dL (74-106); Magnesium 1.7 mg/dL (1.8-2.4); NT PRO-BNP 440 pg/mL (<125); Potassium 3.9 mmol/L (3.5-5.1); Protein, Total 7.1 g/dL (6.4-8.2); Sodium Level 142 mmol/L (136-145); Troponin (Emerg Dept Use Only) < 0.02 ng/mL (0.0-0.045)
--- NOTE | 2020-01-16 20:49 | ER ---
Nurse's Notes [facility] Name: Clay Gagnon Jr Age: 74 yrs Sex: Male : 1945 Arrival Date: 01/16/2020 Time: 19:42 Bed 5 Private MD: Diagnosis: Chest pain, unspecified Presentation: 01/15 19:42 Chief complaint: Patient states: CHEST PAIN IS SHARP, ON AND OFF, ON THE RIGHT ANTERIOR rv CHEST WALL THAT RADIATES TO THE RIGHT ARM, 10/10 PAIN SCALE. EMS states: CHEST PAIN STARTED LAST NIGHT, ON AND OFF. CHEST PAIN ALL THROUGH OUT THE DAY. NO HISTORY OF A-FIB. PATIENT IS RUNNING A-FIB IN RVR. NO SOB. GIVEN ASPIRIN 324 MG PO. Coronavirus screen: Proceed with normal triage. Ebola Screen: No symptoms or risks identified at this time. Initial Sepsis Screen: Does the patient meet any 2 criteria? No. Patient's initial sepsis screen is negative. Does the patient have a suspected source of infection? No. Patient's initial sepsis screen is negative. Risk Assessment: Do you want to hurt yourself or someone else? Patient reports no desire to harm self or others. Onset of symptoms was January 15, 2020 at 20:00. 19:42 Method Of Arrival: EMS: [facility] 19:42 Acuity: URIAH 2 rv Triage Assessment: 19:47 General: Appears uncomfortable, Behavior is calm, cooperative. Pain: Complains of pain rv in anterior aspect of right upper chest Pain radiates to right arm Pain currently is 10 out of 10 on a pain scale. Quality of pain is described as sharp, Pain began 1 day ago. Is intermittent. EENT: No signs and/or symptoms were reported regarding the EENT system. Neuro: Level of Consciousness is awake, alert, obeys commands, Oriented to person, place, time, situation. Cardiovascular: Patient's skin is warm and dry. Rhythm is sinus rhythm. Respiratory: Airway is patent Respiratory effort is even, unlabored, Respiratory pattern is regular, symmetrical. Derm: Skin is intact. Musculoskeletal: No signs and/or symptoms reported regarding the musculoskeletal system. Historical: - Allergies: 19:47 NKA; rv - PMHx: 19:47 CAD; CVA; Dementia; Diabetes - IDDM; High Cholesterol; Parkinsons; rv - PSHx: 19:47 None; rv - Immunization history:: Adult Immunizations up to date. - Social history:: Smoking status: Patient denies any tobacco usage or history of. Screenin:48 Abuse screen: Denies threats or abuse. Denies injuries from another. Nutritional rv screening: No deficits noted. Tuberculosis screening: No symptoms or risk factors identified. Fall Risk No fall in past 12 months (0 pts). Secondary diagnosis (15 points) CVA, No IV (0 pts). Ambulatory Aid- Crutches/Cane/Walker (15 pts). Gait- Normal/Bed Rest/Wheelchair (0 pts) Mental Status- Oriented to own ability (0 pts). Total Morgan Fall Scale indicates Low Risk Score (25-44 pts). Fall prevention measures have been instituted. Side Rails Up X 2 Placed close to Nursing Station Frequent Obs/Assesments occuring As available Patient and Family Educated on Fall Prevention Program and strategies. Assessment: 21:00 Reassessment: Spoke with patient's , Carisa Gagnon at [phone]; Updated on lp1 patient admission; Told that patient's daughter Chary has POA. Vital Signs: 19:42 BP 147 / 73; Pulse 81; Resp 20; Temp 97.5; Pulse Ox 100% on R/A; Weight 74.84 kg (R); rv Pain 10/10; 21:32 BP 107 / 81; Pulse 87; Resp 13; Temp 97.5; Pulse Ox 100% on R/A; rv ED Course: 19:42 Patient arrived in ED. rv 19:46 Triage completed. rv 19:47 Arm band placed on Patient placed in the treatment room, on a stretcher, Patient rv notified of wait time. 19:48 Patient has correct armband on for positive identification. Placed in gown. Bed in low rv position. Call light in reach. Side rails up X 1. environmental monitoring specialist on. Pulse ox on. NIBP on. 19:48 EKG done, by ED staff. rv 19:50 Lokesh Vasquez RN is Primary Nurse. rv 19:52 Ted Borjas MD is Attending Physician. mh7 20:00 Inserted saline lock: 20 gauge in right wrist, using aseptic technique. tt3 20:15 XRAY Chest (1 view) In Process Unspecified. EDMS 20:48 Anh Estrada MD is Hospitalizing Provider. [facility] 21:32 No provider procedures requiring assistance completed. IV is patent, with fluids rv infusing freely, with good blood return, Patient admitted, IV remains in place. Administered Medications: No medications were administered Outcome: 20:48 Decision to Hospitalize by Provider. [facility] 21:32 Admitted to Med/surg accompanied by tech, via wheelchair, room 213, Report called to fariha PORTER RN 21:32 Condition: good 21:32 Instructed on the need for admit. 21:44 Patient left the ED. rv Signatures: Dispatcher [employer] EDMS Fernanda Chanel RN RN lp1 Lokesh Vasquez RN RN rv Ted Borjas MD MD 7 Lupillo Barnett tt3
--- NOTE | 2020-01-16 20:50 | EDPHYS ---
Physician Documentation [facility] Name: Clay Gagnon Jr Age: 74 yrs Sex: Male : 1945 Arrival Date: 01/16/2020 Time: 19:42 Bed 5 Private MD: ED Physician Ted Borjas HPI: 01/15 20:08 This 74 yrs old Male presents to ER via EMS with complaints of Chest Pain. mh7 20:08 The patient or guardian reports chest pain that is located primarily in the anterior mh7 chest wall, bilaterally. Onset: last night. The pain radiates to the right arm. Associated signs and symptoms: Pertinent positives: shortness of breath, Pertinent negatives: abdominal pain, cough, diaphoresis, dizziness, headache, lower extremity pain, lower extremity swelling, lightheadedness, nausea, near syncope, palpitations, recent travel, syncope, vomiting. The chest pain is described as a heaviness. Duration: The patient or guardian reports multiple episodes, that are intermittent, that wax and wane, with no pattern. Modifying factors: The symptoms are alleviated by nothing. the symptoms are aggravated by nothing. Severity of pain: At its worst the pain was moderate just prior to arrival, today, in the emergency department the pain has improved moderately. EMS care prior to arrival includes: aspirin. Historical: - Allergies: 19:47 NKA; rv - PMHx: 19:47 CAD; CVA; Dementia; Diabetes - IDDM; High Cholesterol; Parkinsons; rv - PSHx: 19:47 None; rv - Immunization history:: Adult Immunizations up to date. - Social history:: Smoking status: Patient denies any tobacco usage or history of. ROS: 20:08 Constitutional: Negative for fever, chills, and weight loss, Eyes: Negative for injury, mh7 pain, redness, and discharge, ENT: Negative for injury, pain, and discharge, Neck: Negative for injury, pain, and swelling, Abdomen/GI: Negative for abdominal pain, nausea, vomiting, diarrhea, and constipation, Back: Negative for injury and pain, : Negative for injury, bleeding, discharge, and swelling, MS/Extremity: Negative for injury and deformity, Skin: Negative for injury, rash, and discoloration, Neuro: Negative for headache, weakness, numbness, tingling, and seizure, Psych: Negative for depression, anxiety, suicide ideation, homicidal ideation, and hallucinations, Allergy/Immunology: Negative for hives, rash, and allergies, Endocrine: Negative for neck swelling, polydipsia, polyuria, polyphagia, and marked weight changes, Hematologic/Lymphatic: Negative for swollen nodes, abnormal bleeding, and unusual bruising. Exam: 20:08 Constitutional: This is a well developed, well nourished patient who is awake, alert, mh7 and in no acute distress. Head/Face: Normocephalic, atraumatic. Eyes: Pupils equal round and reactive to light, extra-ocular motions intact. Lids and lashes normal. Conjunctiva and sclera are non-icteric and not injected. Cornea within normal limits. Periorbital areas with no swelling, redness, or edema. Neck: Trachea midline, no thyromegaly or masses palpated, and no cervical lymphadenopathy. Supple, full range of motion without nuchal rigidity, or vertebral point tenderness. No Meningismus. Chest/axilla: Normal chest wall appearance and motion. Nontender with no deformity. No lesions are appreciated. Cardiovascular: Regular rate and rhythm with a normal S1 and S2. No gallops, murmurs, or rubs. Normal PMI, no JVD. No pulse deficits. Respiratory: Lungs have equal breath sounds bilaterally, clear to auscultation and percussion. No rales, rhonchi or wheezes noted. No increased work of breathing, no retractions or nasal flaring. Abdomen/GI: Soft, non-tender, with normal bowel sounds. No distension or tympany. No guarding or rebound. No evidence of tenderness throughout. Back: No spinal tenderness. No costovertebral tenderness. Full range of motion. Skin: Warm, dry with normal turgor. Normal color with no rashes, no lesions, and no evidence of cellulitis. MS/ Extremity: Pulses equal, no cyanosis. Neurovascular intact. Full, normal range of motion. 20:13 ECG was reviewed by the Attending Physician. [facility] 20:49 Neuro: Awake and alert, GCS 15, oriented to person, place, time, and situation. mh7 Cranial nerves II-XII grossly intact. Motor strength 5/5 in all extremities. Sensory grossly intact. Cerebellar exam normal. Normal gait. Psych: Awake, alert, with orientation to person, place and time. Behavior, mood, and affect are within normal limits. Vital Signs: 19:42 BP 147 / 73; Pulse 81; Resp 20; Temp 97.5; Pulse Ox 100% on R/A; Weight 74.84 kg (R); rv Pain 10/10; 21:32 BP 107 / 81; Pulse 87; Resp 13; Temp 97.5; Pulse Ox 100% on R/A; rv MDM: 20:00 Patient medically screened. 7 20:46 Differential diagnosis: abnormal EKG, coronary artery disease chest wall pain, mh7 congestive heart failure myocarditis, pericarditis, pneumonia, stable angina, unstable angina. HEART Score: History: Moderately Suspicious (1), ECG: Non specific repolarization disturbance / LBTB / PM (1), Age: > or = 65 years (2), Risk Factors: > or = 3 Risk factors for atherosclerotic disease (2), [Hypercholesterolemia] [Hypertension] [DM] Troponin: < or = 1 x Normal Limit (0), Total Score = 6. Data reviewed: vital signs, nurses notes, EMS record, old medical records, lab test result(s), cardiac enzymes, CBC, electrolytes, urinalysis, EKG, radiologic studies, plain films. Data interpreted: overhauler: rate is 81 beats/min, rhythm is normal sinus rhythm, regular, Interpretation: normal rate, normal rhythm, Pulse oximetry: on room air is 100 %. Interpretation: normal. Counseling: I had a detailed discussion with the patient and/or guardian regarding: the historical points, exam findings, and any diagnostic results supporting the discharge/admit diagnosis, the presence of at least one elevated blood pressure reading (>120/80) during this emergency department visit, lab results, radiology results, the need for further work-up and treatment in the hospital. 01/15 19:47 Order name: Basic Metabolic Panel; Complete Time: 20:41 01/15 19:47 Order name: CBC with Diff; Complete Time: 20:41 01/15 19:47 Order name: LFT's; Complete Time: 20:41 01/15 19:47 Order name: Magnesium; Complete Time: 20:41 01/15 19:47 Order name: NT PRO-BNP; Complete Time: 20:41 01/15 19:47 Order name: PT-INR; Complete Time: 20:41 01/15 19:47 Order name: Troponin (emerg Dept Use Only); Complete Time: 20:41 01/15 21:21 Order name: Basic Metabolic Panel [facility] 01/15 21:21 Order name: Basic Metabolic Panel [facility] 01/15 21:21 Order name: Lipid Profile [facility] 01/15 21:21 Order name: Lipid Profile [facility] 01/15 21:21 Order name: Troponin I [facility] 01/15 21:21 Order name: Troponin I [facility] 01/15 21:21 Order name: Troponin I [facility] 01/15 19:47 Order name: XRAY Chest (1 view); Complete Time: 20:41 01/15 19:47 Order name: EKG; Complete Time: 19:49 01/15 19:47 Order name: Cardiac monitoring; Complete Time: 19:51 01/15 19:47 Order name: EKG - Nurse/Tech; Complete Time: 19:51 01/15 19:47 Order name: IV Saline Lock; Complete Time: 19:51 01/15 19:47 Order name: Labs collected and sent; Complete Time: 19:51 01/15 19:47 Order name: O2 Per Protocol; Complete Time: 19:51 01/15 19:47 Order name: O2 Sat Monitoring; Complete Time: 19:51 01/15 21:21 Order name: CONS Physician Consult [facility] 01/15 21:21 Order name: Heart Healthy [facility] 01/15 21:21 Order name: Echo with Doppler [facility] 01/15 21:22 Order name: EKG Electrocardiogram [facility] 01/15 21:22 Order name: EKG Electrocardiogram [facility] EC:13 Rate is 84 beats/min. Rhythm is regular. QRS is negative in leads II, III, aVF. MA mh7 interval is normal. QRS interval is normal. QT interval is prolonged at 484 msec. No Q waves. T waves are Normal. No ST changes noted. Clinical impression: NSR w/ Non-specific ST/T Changes. Administered Medications: No medications were administered Disposition: 01/16/20 20:48 Hospitalization ordered by Anh Estrada for Observation. Preliminary diagnosis is Chest pain, unspecified. - Bed requested for Telemetry/MedSurg (observation). - Status is Observation. rv - Condition is Stable. - Problem is new. - Symptoms have improved. Signatures: Dispatcher [employer] EDMS Faiza Humphrey RN RN mw Lokesh Vasquez RN RN rv Ted Borjas MD MD mh7 Corrections: (The following items were deleted from the chart) 20:59 20:48 Hospitalization Ordered by Anh Estrada MD for Observation. Preliminary mw diagnosis is Chest pain, unspecified. Bed requested for Telemetry/MedSurg (observation). Status is Observation. Condition is Stable. Problem is new. Symptoms have improved. mh7 21:44 20:59 01/16/2020 20:48 Hospitalization Ordered by Anh Estrada MD for Observation. rv Preliminary diagnosis is Chest pain, unspecified. Bed requested for Telemetry/MedSurg (observation). Status is Observation. Condition is Stable. Problem is new. Symptoms have improved. mw
[2020-01-16] MEDS ORDERED: ACETAMINOPHEN 500 MG TAB PO PRN (21:17)
[2020-01-16 22:39] VITALS: BMI 21.5
[2020-01-16] MEDS: MORPHINE 2 MG/ML SYR IV PRN (23:07)
[2020-01-17 04:55] LABS: Absolute Lymphocytes (CBC) 1.4 K/uL (0.7-4.9); Basophils % 0.6 % (0-1.3); Hematocrit 34.4 % (39.6-49.0); Lymphocytes % 23.3 % (15.3-44.8); MPV 8.4 fL (7.6-11.3); RBC Red Blood Cell Count 3.87 M/uL (4.33-5.43)
[2020-01-17 05:10] LABS: BUN Blood Urea Nitrogen 23 mg/dL (7-18); Bicarbonate 24 mmol/L (21-32); Glucose Level 227 mg/dL (74-106); Potassium 3.5 mmol/L (3.5-5.1); Sodium Level 143 mmol/L (136-145); Troponin I < 0.02 ng/mL (0.0-0.045)
[2020-01-17] MEDS: METOPROLOL TAR 50 MG TAB PO SCH ×2 (05:51→08:23)
[2020-01-17] MEDS: CARBIDOPA/LEVODOPA 25/100 TAB PO SCH ×2 (07:30→12:52)
--- NOTE | 2020-01-17 07:46 | EKG ---
Test Date: 2020-01-16 Test Time: 19:41:42 Tools Programmer: ZOILA MEASUREMENT RESULTS: Intervals: Rate: 84 IL: 172 QRSD: 110 QT: 410 QTc: 484 [place]: P: 46 IL: 172 QRS: -75 T: 42 INTERPRETIVE STATEMENTS: Normal sinus rhythm Left anterior fascicular block Prolonged QT Abnormal ECG Compared to ECG 12/19/2018 23:53:44 Left anterior fascicular block now present Prolonged QT interval now present Left-axis deviation no longer present Left ventricular hypertrophy no longer present Electronically Signed On 01-17-20 07:44:37 CDT by Yrn Kurtz
[2020-01-17] MEDS: MORPHINE 2 MG/ML SYR IV PRN (08:18)
[2020-01-17] MEDS: GABAPENTIN 400 MG CAP PO SCH ×2 (08:23→12:52)
[2020-01-17] MEDS ORDERED: TAMSULOSIN 0.4 MG SR CAP PO SCH (09:00)
[2020-01-17] MEDS ORDERED: FINASTERIDE 5 MG TAB PO SCH (09:00)
[2020-01-17] MEDS ORDERED: CLOPIDOGREL 75 MG TABLET PO SCH (09:00)
[2020-01-17] MEDS ORDERED: ASPIRIN 81 MG CHEWABLE TABLET PO SCH (09:00)
[2020-01-17] MEDS ORDERED: METFORMIN HCL 500 MG TAB PO SCH (09:00)
[2020-01-17] MEDS ORDERED: ASPIRIN EC 81 MG TAB PO SCH (09:00)
[2020-01-17] MEDS ORDERED: SITAGLIPTIN PHOS 100 MG TAB PO SCH (09:00)
[2020-01-17] MEDS ORDERED: MULTIVITAMIN TAB PO SCH (09:00)
[2020-01-17] MEDS ORDERED: ATORVASTATIN 80 MG TAB PO SCH (09:00)
[2020-01-17] MEDS ORDERED: MIDODRINE HCL 5 MG TABLET PO SCH (09:00)
[2020-01-17] MEDS ORDERED: ENOXAPARIN 40 MG/0.4 ML SQ SCH (09:00)
[2020-01-17] MEDS ORDERED: GLUCAGON 1 MG/VIAL IM PRN ×2 (10:43→12:57)
[2020-01-17] MEDS ORDERED: D50W 25 GM/50 ML SYRINGE/VIAL IV PRN ×2 (10:43→12:57)
[2020-01-17] MEDS ORDERED: INSULIN -REGULAR HUMAN 50 UNIT/0.5 ML ML SQ SCH ×2 (12:00→16:30)
--- NOTE | 2020-01-17 12:53 | RAD REPORT ---
EXAM DESCRIPTION: NM - Rest Stress Cardiac Imaging - 01/17/2020 12:44 pm CLINICAL HISTORY: CP Chest pain. COMPARISON: No comparisons TECHNIQUE: The patient was administered approximately 10mCi of Tc 99m Sestamibi prior to resting SPE CT imaging of the heart. The patient was then administered approximately 30 mCi of Tc 99m Sestamibi f ollowing exercise or pharmacologic stress. Multiplanar SPECT images were reviewed. FINDINGS: No stress induced ischemic defect is seen to suggest stress induced ischemia. Large fixed defect is seen involving the inferior wall likely related to scarring from prior infarct. The end diastolic volume is 67 ml, the end systolic volume is 22 ml, and the ejection fraction is 68 %. IMPRESSION: No stress induced ischemia. Fixed defect involving the inferior wall is noted likely representing scar tissue from prior infarcti on.
--- NOTE | 2020-01-17 13:53 | P.HP ---
Certification for Inpatient Patient admitted to: Observation With expected LOS: <2 Midnights Patient will require the following post-hospital care: None Practitioner: I am a practitioner with admitting privileges, knowledge of patient current condition, hospital course, and medical plan of care. Services: Services provided to patient in accordance with Admission requirements found in Title 42 Section 412.3 of the Code of Federal Regulations Patient History Date of Service: 01/15/20 Reason for admission: Chest pain rule out acute coronary syndrome History of Present Illness: Patient is a 74-year-old gentleman who came into the hospital with chest discomfort. Pain was mainly the sternal region. No radiation of the chest pain. Pain was worse on palpation. Denies any reflux. Patient has a history of Parkinson's and has some musculoskeletal pain diffusely. At this time, patient will be admitted to the hospital for further evaluation. Patient has not had a stress test recently. I will go ahead and get an echocardiogram and stress testing. Patient will be admitted for observation. Allergies No Known Allergies Allergy (Verified 01/16/20 23:38) Home Medications: Aspirin Chewable [Aspirin Chewable*] 81 mg PO DAILY 01/16/20 Atorvastatin Calcium [Lipitor] 80 mg PO DAILY 01/16/20 Carbidopa/Levodopa [Carbidopa-Levodopa 25-100 Tab] 1 tab PO TID 01/16/20 Clopidogrel Bisulfate [Plavix*] 75 mg PO DAILY 01/16/20 Donepezil [Aricept*] 5 mg PO BEDTIME 01/16/20 Duloxetine HCl [Cymbalta] 30 mg PO BEDTIME 01/16/20 Finasteride [Proscar*] 5 mg PO DAILY 01/16/20 Gabapentin [Neurontin] 800 mg PO TID 01/16/20 Metformin HCl [Glucophage] 1,000 mg PO BID 01/16/20 Midodrine HCl 2.5 mg PO DAILY 01/16/20 Multivit-Min/FA/Lycopen/Lutein [Centrum Silver Men Tablet] 1 tab PO DAILY 01/16/20 Sitagliptin Phosphate [Januvia*] 100 mg PO DAILY 01/16/20 Tamsulosin HCl [Flomax] 0.4 mg PO BID 01/16/20 - Past Medical/Surgical History Has patient received pneumonia vaccine in the past: Yes Diabetic: Yes -: CAD -: MCA CVA -: Diabetes -: HIgh Cholesterol -: Parkinsons -: depression -: TIA -: BPH -: appendectomy - Family History Brother Medical History: Diabetes Sister Medical History: Diabetes Mother Medical History: Heart disease, Hypertension, Diabetes, Stroke, Cancer, Kidney disease Notes: Father Medical History: Cancer Notes: - Social History Smoking Status: Never smoker Alcohol use: No Place of Residence: Home Review of Systems 10-point ROS is otherwise unremarkable Physical Examination - Vital Signs Temperature: 97.2 F Blood Pressure: 148/70 Pulse: 54 Respirations: 18 Pulse Ox (%): 100 - Physical Exam General: Alert, In no apparent distress, Oriented x3 HEENT: Atraumatic, PERRLA, Mucous membr. moist/pink, EOMI, Sclerae nonicteric Neck: Supple, 2+ carotid pulse no bruit, No LAD, Without JVD or thyroid abnormality Respiratory: Clear to auscultation bilaterally, Normal air movement Cardiovascular: Regular rate/rhythm, Normal S1 S2, No murmurs Gastrointestinal: Normal bowel sounds, Soft and benign, Non-distended, No tenderness Musculoskeletal: No clubbing, No swelling, No tenderness Integumentary: No rashes Neurological: Normal gait, Normal speech, Normal strength at 5/5 x4 extr, Normal tone, Sensation intact, Cranial nerves 3-12 intact, Normal affect Lymphatics: No axilla or inguinal lymphadenopathy - Studies Laboratory Data (last 24 hrs) 01/16/20 19:56: PT 11.5, INR 0.97 01/16/20 19:56: WBC 7.3, Hgb 13.4 L, Hct 39.8, Plt Count 174 01/16/20 19:56: Sodium 142, Potassium 3.9, BUN 24 H, Creatinine 1.17, Glucose 257 H, Magnesium 1.7 L, Total Bilirubin 1.1 H, AST 31, ALT 32, Alkaline Phosphatase 102 Assessment & Plan - Problems (Diagnosis) (1) Chest pain, rule out acute myocardial infarction Current Visit: Yes Status: Acute (2) Parkinson disease Current Visit: Yes Status: Acute - Plan Plan: - Serial troponins and EKG - Appreciate Cardiology consultation - Echocardiogram and stress test if cardiology is agreeable - Anti-platelet therapy, anti coagulation, beta-bindu, statin, and O2 as needed - IV morphine for pain - Nitro p.r.n. Discharge Plan: Home Plan to discharge in: 24 Hours - Advance Directives Does patient have a Living Will: Yes Does patient have a Durable POA for Healthcare: Yes - Code Status/Comfort Care Code Status Assessed: Yes Code Status: Full Code Critical Care: No Time Spent Managing PTS Care (In Minutes): 45
--- NOTE | 2020-01-17 14:10 | P.DS ---
Discharge Date: 01/17/20 Disposition: ROUTINE DISCHARGE Discharge Condition: GOOD Reason for Admission: Chest pain rule out acute coronary syndrome Consultations: Cardiology - Problems (1) Chest pain, rule out acute myocardial infarction Current Visit: Yes Status: Acute (2) Parkinson disease Current Visit: Yes Status: Acute Brief History of Present Illness: Patient is a 74-year-old gentleman who came into the hospital with chest discomfort. Pain was mainly the sternal region. No radiation of the chest pain. Pain was worse on palpation. Denies any reflux. Patient has a history of Parkinson's and has some musculoskeletal pain diffusely. At this time, patient will be admitted to the hospital for further evaluation. Patient has not had a stress test recently. I will go ahead and get an echocardiogram and stress testing. Patient will be admitted for observation. Hospital Course: Patient stress test was negative. At the time patient is stable for discharge home with outpatient follow up. Vital Signs/Physical Exam: Temp Pulse Resp BP Pulse Ox 97.2 F 54 18 148/70 H 100 01/17/20 14:04 01/17/20 14:04 01/17/20 14:04 01/17/20 14:04 01/17/20 14:04 General: Alert, In no apparent distress, Oriented x3 Laboratory Data at Discharge: WBC 5.8 K/uL (4.3-10.9) D 01/17/20 04:20 Hgb 11.9 g/dL (13.6-17.9) L 01/17/20 04:20 Hct 34.4 % (39.6-49.0) L 01/17/20 04:20 Plt Count 165 K/uL (152-406) 01/17/20 04:20 PT 11.5 SECONDS (9.5-12.5) 01/16/20 19:56 INR 0.97 01/16/20 19:56 Sodium 143 mmol/L (136-145) 01/17/20 04:20 Potassium 3.5 mmol/L (3.5-5.1) 01/17/20 04:20 BUN 23 mg/dL (7-18) H 01/17/20 04:20 Creatinine 0.95 mg/dL (0.55-1.3) 01/17/20 04:20 Glucose 227 mg/dL (74-106) H 01/17/20 04:20 Magnesium 1.7 mg/dL (1.8-2.4) L 01/16/20 19:56 Total Bilirubin 1.1 mg/dL (0.2-1.0) H 01/16/20 19:56 AST 31 U/L (15-37) 01/16/20 19:56 ALT 32 U/L (12-78) 01/16/20 19:56 Alkaline Phosphatase 102 U/L (45-117) 01/16/20 19:56 Troponin I < 0.02 ng/mL (0.0-0.045) 01/17/20 04:20 Triglycerides 81 mg/dL (<150) 01/17/20 04:20 Cholesterol 120 mg/dL (<200) 01/17/20 04:20 HDL Cholesterol 59 mg/dL (40-60) 01/17/20 04:20 Cholesterol/HDL Ratio 2.03 01/17/20 04:20 Home Medications: Aspirin Chewable [Aspirin Chewable*] 81 mg PO DAILY 01/16/20 Atorvastatin Calcium [Lipitor] 80 mg PO DAILY 01/16/20 Carbidopa/Levodopa [Carbidopa-Levodopa 25-100 Tab] 1 tab PO TID 01/16/20 Clopidogrel Bisulfate [Plavix*] 75 mg PO DAILY 01/16/20 Donepezil [Aricept*] 5 mg PO BEDTIME 01/16/20 Duloxetine HCl [Cymbalta] 30 mg PO BEDTIME 01/16/20 Finasteride [Proscar*] 5 mg PO DAILY 01/16/20 Gabapentin [Neurontin] 800 mg PO TID 01/16/20 Metformin HCl [Glucophage] 1,000 mg PO BID 01/16/20 Midodrine HCl 2.5 mg PO DAILY 01/16/20 Multivit-Min/FA/Lycopen/Lutein [Centrum Silver Men Tablet] 1 tab PO DAILY 01/16/20 Sitagliptin Phosphate [Januvia*] 100 mg PO DAILY 01/16/20 Tamsulosin HCl [Flomax] 0.4 mg PO BID 01/16/20 Codeine/APAP [Tylenol W/Codeine #3 tab] 1 tab PO Q8HP PRN #30 tab 01/17/20 Pantoprazole [Protonix Tab] 40 mg PO DAILY #30 tab 01/17/20 New Medications: Pantoprazole [Protonix Tab] 40 mg PO DAILY #30 tab Codeine/APAP [Tylenol W/Codeine #3 tab] 1 tab PO Q8HP PRN #30 tab PRN Reason: Pain Patient Discharge Instructions: OK TO DC IV AND DC HOME. FOLLOW-UP WITH PRIMARY CARE PROVIDER IN 1-2 WEEKS. FOLLOW-UP WITH CARDIOLOGY IN 1-2 WEEKS. Please call in meds to pharmacy please. RETURN TO THE ER IF symptoms worsen. CALL or TEXT DR. SESAY AT [phone] IF ANY QUESTIONS REGARDING HOSPITAL STAY. PLEASE CALL THE FLOOR AT [phone] IF ANY MEDICATION OR NURSING QUESTIONS. Diet: AHA Activity: Fall precautions Time spent managing pt's care (in minutes): 15
--- NOTE | 2020-01-17 14:24 | CON ---
Date of Consultation: 01/17/2020 Reason For Consultation: Chest pain. History Of Present Illness: A 74-year-old male with a medical history of diabetes, coronary artery d isease, CVA, dementia, dyslipidemia, and Parkinson, who presented to the emergency room with chest pa in, both sides of the chest and radiates to the right arm along with some shortness of breath. Denie s having any nausea, vomiting, diarrhea, and headache. No dizziness. There is no relationship to ac tivities and does not get relieved by any specific. It just goes away on its own. Denies having any other complaints. Past Medical History: As outlined above in the HPI. Medications: Refer to reconciliation sheet for detailed list. Allergies: NO KNOWN DRUG ALLERGIES. Social History: Does not smoke or drink. Does not use any drugs. Family History: No premature coronary artery disease or cancer. Review of Systems: All systems reviewed and they were negative except what is mentioned in the HPI. Physical Examination: Vital Signs: Showed temperature is 97.2, pulse 54, breathing at 18, blood pressure 148/70, saturatin g 100% on room air. General: Pleasant elderly male in no apparent distress. HEENT and Neck: Pupils are equal and reactive to light. Intact eye movements. No JVD. No cervical lymphadenopathy. Neck is supple. Thyroid is not enlarged. Lungs: Clear to auscultation bilaterally. No rhonchi, rales, or crackles. No accessory muscle use. Heart: Regular rate and rhythm. No extra sounds. Abdomen: Soft, nontender. Bowel sounds positive. No organomegaly. No masses or hernia. No rigidi ty or rebound. Extremities: No edema, clubbing, or cyanosis. Intact pulses. Skin: No rash. Neurologic: Alert, awake, oriented. No new focal deficits appreciated. Investigations: Labs were reviewed. Troponin is less than 0.02. Creatinine 0.95. Hemoglobin is 11 .9. His EKG; no significant ST-T wave abnormalities. Assessment And Plan: 1.Chest pain with significant risk factors. A stress test was already ordered. We will follow resu lts and plan accordingly. Recommend to obtain echocardiogram. Start aspirin 81 mg and high-intensit y statin. 2.Hypertension, which is borderline after resuming his home medications. We will further evaluate i f there is any need to further adjust. SR/MODL Voice ID: [id number] Report ID: [id number]
--- NOTE | 2020-01-17 14:42 | ECHO ---
HEIGHT: 5 ft 11 in WEIGHT: 154 lb 8 oz DATE OF STUDY: 01/17/[address]: Anh Estrada MD 2-DIMENSIONAL: YES M.MODE: YES DOPPLER: YES COLOR FLOW: YES TDS: YES PORTABLE: NO DEFINITY: NO BUBBLE STUDY: NO DIAGNOSIS: CHEST PAIN CARDIAC HISTORY: CATHERIZATION: NO SURGERY: NO PROSTHETIC VALVE: NO PACEMAKER: NO MEASUREMENTS (cm) DIASTOLIC (NORMALS) SYSTOLIC (NORMALS) IVSd 0.9 (0.6-1.2) LA Diam (1.9-4.0) LVEF 79% LVIDd 3.9 (3.5-5.7) LVIDs 2.1 (2.0-3.5) %FS 47% LVPWd 1.1 (0.6-1.2) Ao Diam 3.3 (2.0-3.7) 2 DIMENSIONAL ASSESSMENT: RIGHT ATRIUM: NORMAL LEFT ATRIUM: NORMAL RIGHT VENTRICLE: NORMAL LEFT VENTRICLE: NORMAL TRICUSPID VALVE: NORMAL MITRAL VALVE: MITRAL ANNULAR CALCIFICATION PULMONIC VALVE: NORMAL AORTIC VALVE: CALCIFIED, NO AORTIC STENOSIS PERICARDIAL EFFUSION: NONE AORTIC ROOT: NORMAL. LEFT VENTRICULAR WALL MOTION: NORMAL. DOPPLER/COLOR FLOW: NORMAL. COMMENTS: NORMAL LEFT VENTRICULAR EJECTION FRACTION WITH NORMAL WALL MOTION. DIASTOLIC DYSFUNCTION. AORTIC SCLEROSIS WITH NO AORTIC STENOSIS. TECHNOLOGIST: JACE WEINBERG
--- NOTE | 2020-01-17 14:54 | TREADPHA ---
DX: CHEST PAIN Date of Study: 01/17/2020 Ht: 5' 11 " Wt: 154 lb 8 oz Consulting Physician: NIKITA MEDICATIONS: TYLENOL, ASPIRIN, LIPITOR, SINEMET, PLAVIX, ARICEPT, CYMBALTA, LOVENOX, PROSCAR, NEURONTIN, GLUCOPHAGE, LOPRESSOR, PROAMATINE, MORPHINE, CENTRUM, JANUVIA, FLOWMAX. HISTORY: 74 YEAR OLD MALE PATIENT ADMITTED FOR CHEST PAIN. HISTORY OF CORONARY ARTERY DISEASE, CEREBRAL VASCULAR ACCIDENT, INSULIN DEPENDENT DIABETES MELLITUS, PARKINSONS. PATIENT ALSO REPORTS ATRIAL FIBRILLATION ON THIS ADMIT. PHYSICIAL EXAMINATION: RESTING B.P.: 159/82 RESTING H.R.: 67 RESTING EKG: NORMAL SINUS RHYTHM, SIGNIFICANT ST-T WAVE ABNORMALITIES. PROTOCOL: LEXISCAN EXERCISE TIME: 3:30 B.P. AT [place] STRESS: 118/63 IMPRESSION: LEXISCAN STRESS TEST PERFORMED. CARDIOLITE INJECTED PER PROTOCOL. NO VENTRICULAR TACHYCARDIA OR SUPRA VENTRICULAR TACHYCARDIA. SINUS ARRHYTHMIA NOTED. PATIENT DENIED CHEST PAIN, RESPIRATIONS EVEN AND NON LABORED. TOLERATED WELL. SEE NUCLEAR MEDICINE REPORT. NO EKG CHANGES WITH LEXISCAN.
[2020-01-17 17:46] VITALS: O2SAT 100
[2020-01-17 18:58] VITALS: BP 123/59; TEMP 97.3
[2020-01-17] MEDS ORDERED: DULOXETINE 30 MG CAP PO SCH (21:00)
[2020-01-17] MEDS ORDERED: DONEPEZIL HCL 5 MG TAB PO SCH (21:00)
== END 2020-01-17 17:41 | disposition home or self-care (01) ==
LOC: ER 19:38 → 2ND 21:33
PROVIDERS: ADMIT Hospitalist; ATTEND Hospitalist
DX: R07.9 Chest pain, unspecified (principal); R03.0 Elevated blood-pressure reading, without diagnosis of hypertension; I70.0 Atherosclerosis of aorta; I44.0 Atrioventricular block, first degree; R94.31 Abnormal electrocardiogram [ECG] [EKG]; G20 Parkinson's disease; E11.9 Type 2 diabetes mellitus without complications; E78.5 Hyperlipidemia, unspecified; F32.9 Major depressive disorder, single episode, unspecified; I25.10 Atherosclerotic heart disease of native coronary artery without angina pectoris; N40.0 Benign prostatic hyperplasia without lower urinary tract symptoms; Z11.59 Encounter for screening for other viral diseases; Z79.82 Long term (current) use of aspirin; Z79.02 Long term (current) use of antithrombotics/antiplatelets; Z79.84 Long term (current) use of oral hypoglycemic drugs; Z79.899 Other long term (current) drug therapy; Z86.73 Personal history of transient ischemic attack (TIA), and cerebral infarction without residual deficits
CPT/HCPCS: 93005 ×2; 93017; 93306; 85025 ×2; 80048 ×2; 36415; 83735; 85610; 80061; 82947 ×3; 80076; 84484 ×3; 83880; 71045; 78452; 99285; U0002; J1650; J2270 ×2; A9500; G0378 ×3

== ENCOUNTER 2020-01-28 08:45 | Emergency (ER) | payer OTHER ==
--- OUTSIDE RECORDS SUMMARY | 2020-01-28 09:32 | XMS REPORT | Clinical Summary ---
:1945 Author Organization [facility] Address [address] [place] [address] Care Team Providers Name Role Phone Pcp [...] 0 12/24/2018 Active BLOOD GLUCOSE METER) sugar. [facility] blood sugar 1 strip by 100 strip [...] post administration of tPA (rtPA) in a [facility] facility within 07/24/2016 the last 24 hours [facility] Diabetes mellitus Depression BPH (benign prostatic [...] Not on file Results Not on fileafter 01/27/2019 Insurance Payer Benefit Plan / Group Subscriber ID Type Phone A ddress MEDICARE MEDICARE A B xxxxxxxxxxx Medicare AETNA - MGD CARE AETNA INDEMNITY NON CONTR xxxxxxxxx Comm Advance Directives For more information, please contact:[address] [phone] Code Status Date Activated Date Inactivated Comments Full Code 12/20/2018 4:47 AM 12/24/2018 9:09 PM This code status was determined by: Patient Full Code 07/24/2016 2:48 PM 07/29/2016 7:23 PM This code status was determined by: Patient
--- OUTSIDE RECORDS SUMMARY | 2020-01-28 09:33 | XMS REPORT | Continuity of Care Document ---
:1945 Author Organization [facility] t Address [address] [place] [address] Care Team Providers Name Role Phone Pcp Primary Care Physician Unavailable CAROLYN PRESLEY Attending Clinician Unavailable CAROLYN PRESLEY Admitting Clinician Unavailable Problems Condition Condition Condition Status Onset Resolution Last Treating Co mments Source Name Details Category Date Date Treatment Clinician Date Stroke Stroke Disease [facility] Received Received Disease Active 2018[facility]12 [place] [facility] - s tissue s tissue 00:00: Medica l plasminoge plasminoge 00 Ce nter n n activator activator (tPA) in (tPA) in emergency emergency department department Essential Essential Disease Active [facility] hypertensi hypertensi 5-12 [place] - on on 00:00: Medical 00 [place] Acute Acute Disease Active [facility] ischemic ischemic 5-12 [facility] - stroke stroke 00:00: Medical 00 [place] Parkinson' Parkinson' Disease Active [facility] s disease s disease 5-12 [facility] - 00:00: Medical 00 [place] Acute Acute Disease Active 2015-[address] [facility] [...] Disease Active [facility] mellitus mellitus [facility] Depression Depression Disease Active [facility] BPH BPH Disease Active [facility] (benign (benign [facility] - prostatic prostatic Medi mahsa hyperplasi hyperplasi Ce nter a) a) Allergies, Adverse Reactions, Alerts This patient has no known allergies or adverse reactions. Social History Social Habit Start Date Stop Date Quantity Comments Source Sex Assigned At [facility] Smoking Status Start Date Stop Date [facility] [place] Medications Ordered Filled Start Stop Current Ordering [...] [facility] - GLUCOSE 00:00: blood Medical METER) Misc 00 sugar. [place] blood sugar Yes 1{strip [id number] 1 strip by [facility] diagnostic 5-16 } [id number] Miscellane [facility] - (COOL 00:00: 3D ous route Medical GLUCOSE 00 3 (three) [place] TEST STRIP) times Strp daily. lancets Yes Use to [facility] (SURE-TOUCH 5-16 check [facility] - LANCET) 00:00: blood Medical Misc 00 sugar. [place] metFORMIN Yes [facility] (GLUCOPHAGE 4-23 [facility] - ) 1000 MG 00:00: Medical tablet 00 [place] atorvastati Yes [facility] n (LIPITOR) 3-08 [facility] - 80 MG 00:00: Medical tablet 00 [place] midodrine 2016-[address] 1.25 MG 1-02 TIMES A [facility] - halftab 00:00: DAY Medical half tablet 00 [place] carbidopa-l Yes THREE [facility] evodopa 2-03 TIMES A [facility] - (PARCOPA) 00:00: DAY Medical 25-100 mg 00 [place] per disintegrat ing tablet tamsulosin Yes AT BEDTIME [facility] (FLOMAX) 1-20 [facility] - 0.4 mg Cap 00:00: Medical 24 hr 00 [place] capsule PARoxetine Yes AT BEDTIME [facility] (PAXIL) 40 1-20 [facility] - MG tablet 00:00: Medical 00 Center donepezil Yes AT BEDTIME [facility] (ARICEPT) 5 1-20 [facility] - MG tablet 00:00: Medical 00 [place] bisacodyl [address] [facility] [...] 57 bedtime. Center gabapentin 2015-08 Yes 800mg [id number] Take [address] (NEURONTIN) 2-14 [id number] mg by L ukes - 800 MG [...] Reference Range Interpretation Comme nts POC-GLUCOSE METER (Zin.gl) (test 178 mg/dL 70-110 H TESTED AT [address] code = 1538) [facility] 7703 0 POCT-GLUCOSE [id number] 13:20:00 Test Item Value Reference Range Interpretation Comments POC-GLUCOSE METER 286 mg/dL 70-110 H TESTED AT [place] [address] (Zin.gl) (test code = MIGUELITO Haji [facility] 1538) [address] POCT-GLUCOSE [id number] 10:35:00 Test Item Value Reference Range Interpretation Comments POC-GLUCOSE METER 267 mg/dL 70-110 H TESTED AT [place] [address] (Zin.gl) (test code = MIGUELITO Haji [facility] 1538) [id number] POCT-GLUCOSE [id number] 21:15:00 Test Item Value Reference Range Interpretation Comments POC-GLUCOSE METER 249 mg/dL 70-110 H TESTED AT [place] [address] ([facility]) (test code = MIGUELITO Haji [facility] 1538) [address] POCT-GLUCOSE [id number] 17:08:00 Test Item Value Reference Range Interpretation Comments POC-GLUCOSE METER 160 mg/dL 70-110 H TESTED AT [place] [address] ([facility]) (test code = MIGUELITO Haji [facility] 1538) [address]15[address] POCT-GLUCOSE [id number] 12:15:00 Test Item Value Reference Range Interpretation Comments POC-GLUCOSE METER 322 mg/dL 70-110 H Verify [facility] ([facility]) (test code = draw/T ESTED AT [place] [address]) [address] [facility] [address] POCT-GLUCOSE [id number] 08:32:00 Test Item Value Reference Range Interpretation Comments POC-GLUCOSE METER 282 mg/dL 70-110 H TESTED AT [place] [address] ([facility]) (test code = MIGUELITO Haji [facility] 1538) [address] POCT-GLUCOSE [id number] 21:09:00 Test Item Value Reference Range Interpretation Comments POC-GLUCOSE METER 163 mg/dL 70-110 H TESTED AT [place] [address] ([facility]) (test code = MIGUELITO Haji [facility] 1538) [address] POCT-GLUCOSE [id number] 17:20:00 Test Item Value Reference Range Interpretation Comments POC-GLUCOSE METER 393 mg/dL 70-110 H TESTED AT [place] [address] ([facility]) (test code = ROXANNAAZ Raissa [facility] 1538) [address] POCT-GLUCOSE [id number] 13:10:00 Test Item Value Reference Range Interpretation Comments POC-GLUCOSE METER 344 mg/dL 70-110 H Notified R Edison NUNEZ/TESTED ([facility]) (test code = AT [place] 303808) [place] [address] POCT-GLUCOSE [id number] 08:54:00 Test Item Value Reference Range Interpretation Comments POC-GLUCOSE METER 245 mg/dL 70-110 H TESTED AT [place] [address] ([facility]) (test code = MIGUELITO Haji [facility] 1538) [address] BASIC METABOLIC [id number] 04:26:00 Test Item Value Reference Range Interpretation Comments SODIUM ([facility]) 138 meq/L 136-145 (test code = 381) [...] PATIEN TS. CBC W/PLT COUNT & AUTO [id number] 04:05:00 Test Item Value Reference Range Interpretation [...] PERCENT (BEAKER) (test code = 2801) POCT-GLUCOSE [id number] 22:36:00 Test Item Value Reference Range Interpretation Comments POC-GLUCOSE METER 231 mg/dL 70-110 H TESTED AT [place] [address] ([facility]) (test code = MIGUELITO Haji [facility] 1538) [address] POCT-GLUCOSE [id number] 18:13:00 Test Item Value Reference Range Interpretation Comments POC-GLUCOSE METER 258 mg/dL 70-110 H TESTED AT [place] [address] ([facility]) (test code = MIGUELITO Haji [facility] 1538) [address] POCT-GLUCOSE [id number] 12:31:00 Test Item Value Reference Range Interpretation Comments POC-GLUCOSE METER 264 mg/dL 70-110 H TESTED AT [place] [address] ([facility]) ([facility] 1538) [address] POCT-GLUCOSE [id number] 08:18:00 Test Item Value Reference Range Interpretation Comments POC-GLUCOSE METER 238 mg/dL 70-110 H TESTED AT [place] [address] ([facility]) (test code = MIGUELITO Haji [facility] 1538) [address] BASIC METABOLIC [id number] 07:43:00 Test Item Value Reference Range Interpretation [...] PATIEN TS. CBC W/PLT COUNT & AUTO [id number] 05:36:00 Test Item Value Reference Range Interpretation [...] (test code = 2801) MR, BRAIN, WITHOUT [id number] 02:37:00Reason for exam:->strokeFINAL REPORT MR, BRAIN, WITHOUT [...] Henry Verified Date/Time: 12/21/2018 02:37:32 Reading Location: [facility] C013V Neuro Reading Room POCT-GLUCOSE [id number] 23:22:00 Test Item Value Reference Range Interpretation Comments POC-GLUCOSE METER 214 mg/dL 70-110 H TESTED AT [place] [address] ([facility]) (test code = MIGUELITO Haji [facility] 1538) [address] [id number] 21:29:00 Test Item Value Reference Range Interpretation Comments RPR SCREEN ([facility]) (test code = Nonreactive Nonreactive 420) POCT-GLUCOSE [id number] 17:29:00 Test Item Value Reference Range Interpretation Comments POC-GLUCOSE METER 243 mg/dL 70-110 H TESTED AT [place] [address] ([facility]) (test code = MIGUELITO Haji [place] 1538) [address] POCT-GLUCOSE [id number] 16:32:00 Test Item Value Reference Range Interpretation Comments POC-GLUCOSE METER 221 mg/dL 70-110 H TESTED AT [place] [address] ([facility]) (test code = MIGUELITO Haji [facility] 1538) [address] HEMOGLOBIN [id number] 12:18:00 Test Item Value Reference Range Interpretation Comments HEMOGLOBIN A1C ([facility]) (test code = 10.9 % 4.3-6.1 H 368) POCT-GLUCOSE [id number] 11:59:00 Test Item Value Reference Range Interpretation Comments POC-GLUCOSE METER 165 mg/dL 70-[address] [facility] [address] (BEAKER) (test code = [place] 1538) [address] POCT-GLUCOSE [id number] 10:11:00 Test Item Value Reference Range Interpretation Comments POC-GLUCOSE METER 191 mg/dL 70-[address] [facility] [address] (BEAKER) (test code = [place] 1538) [address] BASIC METABOLIC [id number] 07:30:00 Test Item Value Reference Range Interpretation [...] FOR DIALYSIS PATIEN TS. TSH/FREE T4 IF [id number] 06:32:00 Test Item Value Reference Range Interpretation Comments THYROID STIMULATING HORMONE 0.73 uIU/mL 0.35-4.94 (BEAKER) (test code = 772) VITAMIN B12 AND [id number] 06:32:00 Test Item Value Reference Range Interpretation Comments VITAMIN B12 (BEAKER) (test code = 540 pg/mL 213-816 774) FOLATE (BEAKER) (test code = 362) 12.0 ng/mL >=7.0 POCT-GLUCOSE [id number] 06:29:00 Test Item Value Reference Range Interpretation Comments POC-GLUCOSE METER 236 mg/dL 70-[address] [facility] [address] (BEAKER) (test code = [place] 1538) [address] LIPID [id number] 06:05:00 Test Item Value Reference Range Interpretation [...] 130-159 High 160-189 Very High >=190HEPATIC FUNCTION [id number] 06:05:00 Test Item Value Reference Range Interpretation [...]
[2020-01-28] MEDS ORDERED: LORazepam 2 MG/ML VIAL ONE (09:40)
[2020-01-28 10:15] LABS: Absolute Lymphocytes (CBC) 1.3 K/uL (0.7-4.9); Basophils % 0.8 % (0-1.3); Hematocrit 36.5 % (39.6-49.0); Lymphocytes % 28.8 % (15.3-44.8); MPV 8.4 fL (7.6-11.3); RBC Red Blood Cell Count 4.13 M/uL (4.33-5.43)
[2020-01-28 10:16] LABS: Protime INR 1.03
[2020-01-28 10:37] LABS: ALT/SGPT 8 U/L (12-78); AST/SGOT 16 U/L (15-37); Albumin 3.7 g/dL (3.4-5.0); Alkaline Phosphatase 103 U/L (45-117); BUN Blood Urea Nitrogen 19 mg/dL (7-18); Bicarbonate 21 mmol/L (21-32); Bilirubin Direct 0.2 mg/dL (0-0.2); Bilirubin Total 0.8 mg/dL (0.2-1.0); Glucose Level 239 mg/dL (74-106); Magnesium 1.9 mg/dL (1.8-2.4); NT PRO-BNP 247 pg/mL (<125); Potassium 3.4 mmol/L (3.5-5.1); Protein, Total 6.9 g/dL (6.4-8.2); Sodium Level 140 mmol/L (136-145); Troponin (Emerg Dept Use Only) < 0.02 ng/mL (0.0-0.045)
--- NOTE | 2020-01-28 10:52 | RAD REPORT ---
EXAM DESCRIPTION: CT - Head Brain Wo Cont - 01/28/2020 10:19 am CLINICAL HISTORY: AMS;Confused COMPARISON: Ct Stroke Brain Wo Cont dated 12/20/2018 TECHNIQUE: Axial 5 mm thick images of the head were obtained without IV contrast. All CT scans are performed using dose optimization technique as appropriate and may include automated exposure control or mA/KV adjustment according to patient size. FINDINGS: No intracranial hemorrhage, mass, edema or shift of mid-line structures. No acute cortical based infarction. No cortical edema or sulcal effacement. Patient has right parietal encephalomalaci a from prior CVA. This matches comparison. Mild to moderate atrophy changes are present. Ventriculome jaleel is seen. This is stable but does remain out of proportion to the amount of volume loss. Correlat ion is needed with any normal pressure hydrocephalus exam findings. Patient appears to have encephalo malacia in the anterior margin of the left temporal lobe as well. This is a stable finding. No abnorm al extra-axial fluid collections. Mastoid air cells and visualized portions of the paranasal sinuses are clear. No acute bony findings. IMPRESSION: No hemorrhage or acute intracranial finding identifiable. 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 These are stable findings. Stable ventriculomegaly. This is out of proportion to volume loss and correlation is needed with any normal pressure hydrocephalus exam findings.
--- NOTE | 2020-01-28 10:55 | RAD REPORT ---
EXAM DESCRIPTION: RAD - Chest Single View - 01/28/2020 10:01 am CLINICAL HISTORY: CHEST PAIN COMPARISON: January 16, 2020 TECHNIQUE: AP portable chest image was obtained 01/28/2020 10:01 am . FINDINGS: No focal lung parenchymal process. No failure or volume overload. Interstitial pattern mat ches comparison. Heart and vasculature are normal. No measurable pleural effusion and no pneumothorax . No acute bony abnormality seen. No acute aortic findings suspected. IMPRESSION: No acute cardiopulmonary process. Mild baseline interstitial pattern matches comparison.
--- NOTE | 2020-01-28 11:58 | ER ---
Nurse's Notes [facility] Name: Clay Gagnon Jr Age: 74 yrs Sex: Male : 1945 Arrival Date: 01/28/2020 Time: 08:46 Bed 3 Private MD: Diagnosis: Anxiety disorder, unspecified;Chest pain, unspecified Presentation: 01/27 08:47 Chief complaint: EMS states: EMS called for complaint of anxiety, pt found to have ph slightly labored respirations and c/o R sided chest pain, pt mentioned to EMS that he was having thoughts of hurting someone, upon further questioning pt reported feeling stressed because of domestic issues, states, " My just keeps nagging and nagging me." Denies SI, VSS. Coronavirus screen: Patient denies a cough. Patient reports shortness of breath or difficulty breathing. Patient denies measured and/or subjective temperature greater than 100.4F prior to today's visit. Patient denies travel on a cruise ship or to a country the [facility] currently lists as an affected area. Patient denies contact with known and/or suspected case of COVID-19. Ebola Screen: No symptoms or risks identified at this time. Initial Sepsis Screen: Does the patient meet any 2 criteria? No. Patient's initial sepsis screen is negative. Does the patient have a suspected source of infection? No. Patient's initial sepsis screen is negative. Risk Assessment: Do you want to hurt yourself or someone else? Other: pt stated to EMS that he was having thoughts of hurting someone, denies these thoughts at this time, also denies suicidal thoughts. Onset of symptoms was January 28, 2020. 08:47 Method Of Arrival: EMS: [facility] ph 08:47 Acuity: [facility] 3 ph Historical: - Allergies: 09:03 NKA; ph - Home Meds: 09:03 midodrine 2.5 mg oral tab 1 tab 3 times per day [Active]; donepezil 5 mg Oral tab 1 tab ph nightly [Active]; gabapentin 800 mg Oral tab 1 tab 3 times per day [Active]; carbidopa-levodopa 25-100 mg Oral tab 1 tab 3 times per day [Active]; clopidogrel 75 mg Oral tab 1 tab once daily [Active]; atorvastatin 80 mg Oral tab 1 tab nightly [Active]; metformin 1,000 mg Oral tab 1 tab 2 times per day [Active]; finasteride 5 mg Oral tab 1 tab once daily [Active]; Centrum Silver 0.4-300-250 mg-mcg-mcg Oral tab daily [Active]; duloxetine 30 mg Oral cpDR 1 cap once daily [Active]; Januvia 100 mg Oral tab 1 tab once daily [Active]; tamsulosin 0.4 mg Oral cp24 2 caps nightly [Active]; aspirin 81 mg oral TbEC 1 tab once daily [Active]; Senokot 8.6 mg Oral tab 1 tabs twice daily [Active]; Novolin 70/30 [place] Sub-Q 20 unit daily [Active]; Dulcolax (bisacodyl) 5 mg Oral TbEC 2 tabs daily prn [Active]; lisinopril 20 mg Oral tab 1 tab once daily [Active]; pantoprazole 40 mg oral TbEC 1 tab once daily [Active]; simvastatin 40 mg Oral tab 1 tab once daily [Active]; - PMHx: 09:03 CAD; CVA; Dementia; Diabetes - IDDM; High Cholesterol; Parkinsons; ph - Immunization history:: Adult Immunizations unknown. - Social history:: Smoking status: unknown. Screenin:57 Abuse screen: Denies threats or abuse. Denies injuries from another. Nutritional ph screening: No deficits noted. Tuberculosis screening: No symptoms or risk factors identified. Fall Risk No fall in past 12 months (0 pts). Secondary diagnosis (15 points) dementia, IV access (20 points). Ambulatory Aid- None/Bed Rest/Nurse Assist (0 pts). Gait- Normal/Bed Rest/Wheelchair (0 pts) Mental Status- Oriented to own ability (0 pts). Total Morgan Fall Scale indicates Low Risk Score (25-44 pts). Fall prevention measures have been instituted. Side Rails Up X 2 Placed close to Nursing Station Frequent Obs/Assesments occuring As available Patient and Family Educated on Fall Prevention Program and strategies. Assessment: 09:04 General: Appears in no apparent distress. uncomfortable, slender, Behavior is ph cooperative, anxious. Pain: Complains of pain in anterior aspect of right upper chest Pain radiates to right lateral anterior chest Pain began 2 hours ago. Neuro: Level of Consciousness is awake, alert, obeys commands, Oriented to person, place. Cardiovascular: Reports chest pain, Capillary refill < 3 seconds in bilateral fingers Patient's skin is warm and dry. Respiratory: Airway is patent Respiratory effort is even, labored, Respiratory pattern is tachypnea. GI: No signs and/or symptoms were reported involving the gastrointestinal system. Derm: Skin is intact, Skin is pink, warm \\T\\ dry. Musculoskeletal: Circulation, motion, and sensation intact. Range of motion: intact in all extremities. 09:42 Reassessment: Patient appears in no apparent distress at this time. Patient and/or ph family updated on plan of care and expected duration. Pain level reassessed. Pt appears anxious, keeps repeating " Help me, I need help", but is then unable to state what he needs help w/, pt cleaned of urinary incontinence and placed in a dry brief, continues to c/o R sided chest pain, ERP notified, see MAR for medication order Patient denies pain at this time. 11:05 Reassessment: Patient appears in no apparent distress at this time. Patient and/or ph family updated on plan of care and expected duration. Pain level reassessed. Pt resting comfortably, assisted to stand at bedside to use urinal, reports that R sided chest pain has improved, VSS. 12:00 Reassessment: Patient appears in no apparent distress at this time. Patient and/or ph family updated on plan of care and expected duration. Pain level reassessed. Pt awake and alert, repeatedly attempting to get up from bed, encouraged to stay in bed, reports that chest pain has improved, given sandwich and chips, tolerating well. 13:00 Reassessment: Patient appears in no apparent distress at this time. Patient and/or ph family updated on plan of care and expected duration. Pain level reassessed. awaiting ride home from family. Vital Signs: 08:47 BP 147 / 74; Pulse 66; Resp 22; Temp 97.0; Pulse Ox 100% on R/A; ph 09:44 BP 158 / 71; Pulse 62; Resp 18; Pulse Ox 100% on R/A; ph 11:05 BP 168 / 74; Pulse 67; Resp 18; Pulse Ox 100% on R/A; ph 12:30 BP 163 / 78; Pulse 64; Resp 18; Temp 97.9; Pulse Ox 100% on R/A; ph ED Course: 08:46 Patient arrived in ED. ph 08:46 Can Villatoro MD is Attending Physician. kdr 08:57 Triage completed. ph 08:58 Patient has correct armband on for positive identification. Placed in gown. Bed in low ph position. Call light in reach. Side rails up X2. security monitor on. Pulse ox on. NIBP on. Door closed. Noise minimized. Warm blanket given. Head of bed lowered. 08:59 Patient maintains SpO2 saturation greater than 95% on room air. ph 09:03 EKG done, by ED staff, reviewed by Can Villatoro MD. dh3 09:04 Nanda Bang, RN is Primary Nurse. ph 09:05 Arm band placed on. ph 09:59 XRAY Chest (1 view) In Process Unspecified. EDMS 10:20 CT Head Brain wo Cont In Process Unspecified. EDMS 13:27 No provider procedures requiring assistance completed. IV discontinued, intact, ph bleeding controlled, No redness/swelling at site. Pressure dressing applied. Administered Medications: 09:41 Drug: Ativan 0.5 mg Route: IVP; Site: left forearm; ph 10:08 Follow up: Response: No adverse reaction; Anxiety decreased ph Outcome: 11:57 Discharge ordered by MD. kdr 13:27 Discharged to home via wheelchair, with family. ph 13:27 Condition: good 13:27 Discharge instructions given to patient, family, Instructed on discharge instructions, follow up and referral plans. medication usage, Demonstrated understanding of instructions, follow-up care. 13:28 Patient left the ED. ph Signatures: Dispatcher [employer] EDMS Can Villatoro MD MD kdr Nanda Bang, RN RN Lilly Pizarro 3 Corrections: (The following items were deleted from the chart) 19:16 12:00 Reassessment: Patient appears in no apparent distress at this time. Patient ph and/or family updated on plan of care and expected duration. Pain level reassessed. Pt awake and alert, repeatedly attempting to get up from bed, encouraged to stay in bed, reports that chest pain has improved ph 19:17 13:00 Reassessment: Patient appears in no apparent distress at this time. Patient ph and/or family updated on plan of care and expected duration. Pain level reassessed. ph
--- NOTE | 2020-01-28 11:58 | EDPHYS ---
Physician Documentation [facility] Name: Clay Gagnon Jr Age: 74 yrs Sex: Male : 1945 Arrival Date: 01/28/2020 Time: 08:46 Bed 3 Private MD: ED Physician Can Villatoro HPI: 01/27 10:05 This 74 yrs old Male presents to ER via EMS with complaints of Chest Pain, kdr Anxiety. 10:05 The patient or guardian reports chest pain that is located primarily in the anterior kdr chest wall, right. Onset: this morning. Patient's called EMS because he was having CP. She also reports that he has been anxious per EMS. The patient appears to be anxious is is having difficulty expressing himself. He is able to start sentences but not complete them. He sometimes appears to answer his own questions. He will often repeat the beginning of a sentence over and over again. The pain does not radiate. Onset: The symptoms/episode began/occurred this morning. Associated signs and symptoms: Pertinent positives: shortness of breath, AMS. The chest pain is described as aching, a pressure. Duration: The patient or guardian reports a single episode, that is still ongoing. Modifying factors: The symptoms are alleviated by nothing. the symptoms are aggravated by nothing. Severity of pain: At its worst the pain was mild moderate just prior to arrival, in the emergency department the pain is unchanged. Historical: - Allergies: 09:03 NKA; ph - Home Meds: 09:03 midodrine 2.5 mg oral tab 1 tab 3 times per day [Active]; donepezil 5 mg Oral tab 1 tab ph nightly [Active]; gabapentin 800 mg Oral tab 1 tab 3 times per day [Active]; carbidopa-levodopa 25-100 mg Oral tab 1 tab 3 times per day [Active]; clopidogrel 75 mg Oral tab 1 tab once daily [Active]; atorvastatin 80 mg Oral tab 1 tab nightly [Active]; metformin 1,000 mg Oral tab 1 tab 2 times per day [Active]; finasteride 5 mg Oral tab 1 tab once daily [Active]; Centrum Silver 0.4-300-250 mg-mcg-mcg Oral tab daily [Active]; duloxetine 30 mg Oral cpDR 1 cap once daily [Active]; Januvia 100 mg Oral tab 1 tab once daily [Active]; tamsulosin 0.4 mg Oral cp24 2 caps nightly [Active]; aspirin 81 mg oral TbEC 1 tab once daily [Active]; Senokot 8.6 mg Oral tab 1 tabs twice daily [Active]; Novolin 70/30 [place] Sub-Q 20 unit daily [Active]; Dulcolax (bisacodyl) 5 mg Oral TbEC 2 tabs daily prn [Active]; lisinopril 20 mg Oral tab 1 tab once daily [Active]; pantoprazole 40 mg oral TbEC 1 tab once daily [Active]; simvastatin 40 mg Oral tab 1 tab once daily [Active]; - PMHx: 09:03 CAD; CVA; Dementia; Diabetes - IDDM; High Cholesterol; Parkinsons; ph - Immunization history:: Adult Immunizations unknown. - Social history:: Smoking status: unknown. ROS: 10:05 Constitutional: Negative for fever, chills, and weight loss, Eyes: Negative for injury, kdr pain, redness, and discharge, ENT: Negative for injury, pain, and discharge, Neck: Negative for injury, pain, and swelling, Respiratory: Negative for shortness of breath, cough, wheezing, and pleuritic chest pain, Abdomen/GI: Negative for abdominal pain, nausea, vomiting, diarrhea, and constipation, Back: Negative for injury and pain, : Negative for injury, bleeding, discharge, and swelling, MS/Extremity: Negative for injury and deformity, Skin: Negative for injury, rash, and discoloration, Psych: Negative for depression, anxiety, suicide ideation, homicidal ideation, and hallucinations, Allergy/Immunology: Negative for hives, rash, and allergies, Endocrine: Negative for neck swelling, polydipsia, polyuria, polyphagia, and marked weight changes, Hematologic/Lymphatic: Negative for swollen nodes, abnormal bleeding, and unusual bruising. 10:05 Cardiovascular: Positive for chest pain, Negative for edema, orthopnea, palpitations, paroxysmal nocturnal dyspnea. 10:05 Neuro: Positive for altered mental status, weakness. Exam: 10:05 Constitutional: This is a well developed, well nourished patient who is awake, alert, kdr and in moderate distress. Head/Face: Normocephalic, atraumatic. Eyes: Pupils equal round and reactive to light, extra-ocular motions intact. Lids and lashes normal. Conjunctiva and sclera are non-icteric and not injected. Cornea within normal limits. Periorbital areas with no swelling, redness, or edema. Neck: Trachea midline, no thyromegaly or masses palpated, and no cervical lymphadenopathy. Supple, full range of motion without nuchal rigidity, or vertebral point tenderness. No Meningismus. Chest/axilla: Normal chest wall appearance and motion. Nontender with no deformity. No lesions are appreciated. Cardiovascular: Regular rate and rhythm with a normal S1 and S2. No gallops, murmurs, or rubs. Normal PMI, no JVD. No pulse deficits. Respiratory: Lungs have equal breath sounds bilaterally, clear to auscultation and percussion. No rales, rhonchi or wheezes noted. No increased work of breathing, no retractions or nasal flaring. Abdomen/GI: Soft, non-tender, with normal bowel sounds. No distension or tympany. No guarding or rebound. No evidence of tenderness throughout. Back: No spinal tenderness. No costovertebral tenderness. Full range of motion. Skin: Warm, dry with normal turgor. Normal color with no rashes, no lesions, and no evidence of cellulitis. MS/ Extremity: Pulses equal, no cyanosis. Neurovascular intact. Full, normal range of motion. Neuro: Awake and alert, GCS 15, oriented to person, place, time, and situation. Cranial nerves II-XII grossly intact. Motor strength 5/5 in all extremities. Sensory grossly intact. Cerebellar exam normal. Normal gait. 10:05 Psych: Behavior/mood is cooperative, anxious, inappropriate for age, Affect is flat, animated, Oriented to person, place. Vital Signs: 08:47 BP 147 / 74; Pulse 66; Resp 22; Temp 97.0; Pulse Ox 100% on R/A; ph 09:44 BP 158 / 71; Pulse 62; Resp 18; Pulse Ox 100% on R/A; ph 11:05 BP 168 / 74; Pulse 67; Resp 18; Pulse Ox 100% on R/A; ph 12:30 BP 163 / 78; Pulse 64; Resp 18; Temp 97.9; Pulse Ox 100% on R/A; ph MDM: 10:05 Data reviewed: vital signs, nurses notes, lab test result(s), radiologic studies. [facility] Counseling: I had a detailed discussion with the patient and/or guardian regarding: the historical points, exam findings, and any diagnostic results supporting the discharge/admit diagnosis, lab results, radiology results, the need for outpatient follow up. 11:57 Patient medically screened. [facility] 01/27 09:45 Order name: Basic Metabolic Panel; Complete Time: 11:27 [facility] 01/27 09:45 Order name: CBC with Diff; Complete Time: 10:35 [facility] 01/27 09:45 Order name: LFT's; Complete Time: 11:27 [facility] 01/27 09:45 Order name: Magnesium; Complete Time: 11:27 [facility] 01/27 09:45 Order name: NT PRO-BNP; Complete Time: 11:27 [facility] 01/27 09:45 Order name: PT-INR; Complete Time: 10:35 [facility] 01/27 09:45 Order name: Troponin (emerg Dept Use Only); Complete Time: 11:27 [facility] 01/27 09:45 Order name: XRAY Chest (1 view); Complete Time: 11:27 [facility] 01/27 09:45 Order name: EKG; Complete Time: 09:46 [facility] 01/27 09:45 Order name: Cardiac monitoring; Complete Time: 10:07 [facility] 01/27 09:45 Order name: EKG - Nurse/Tech; Complete Time: 10: [facility] 01/27 09:45 Order name: IV Saline Lock; Complete Time: 10: [facility] 01/27 10:05 Order name: CT Head Brain wo Cont; Complete Time: 11:27 [facility] 01/27 09:45 Order name: Labs collected and sent; Complete Time: 10: [facility] 01/27 09:45 Order name: O2 Per Protocol; Complete Time: 10: [facility] 01/27 09:45 Order name: O2 Sat Monitoring; Complete Time: 10:07 kdr Administered Medications: 09:41 Drug: Ativan 0.5 mg Route: IVP; Site: left forearm; ph 10:08 Follow up: Response: No adverse reaction; Anxiety decreased ph Disposition: 01/28/20 11:57 Discharged to Home. Impression: Anxiety disorder, unspecified, Chest pain, unspecified. - Condition is Stable. - Discharge Instructions: Panic Attacks, Nonspecific Chest Pain, [id number], Generalized Anxiety Disorder. - Medication Reconciliation Form, Thank You Letter form. - Follow up: Private Physician; When: 2 - 3 days; Reason: If symptoms return, Further diagnostic work-up, Recheck today's complaints, Continuance of care, Re-evaluation by your physician. - Problem is new. - Symptoms are resolved. Signatures: Dispatcher [employer] EDMS Can Villatoro MD MD kdr Nanda Bang RN RN ph Corrections: (The following items were deleted from the chart) 13:28 11:57 01/28/2020 11:57 Discharged to Home. Impression: Anxiety disorder, unspecified; ph Chest pain, unspecified. Condition is Stable. Forms are Medication Reconciliation Form, Thank You Letter, Antibiotic Education, Prescription Opioid Use. Follow up: Private Physician; When: 2 - 3 days; Reason: If symptoms return, Further diagnostic work-up, Recheck today's complaints, Continuance of care, Re-evaluation by your physician. Problem is new. Symptoms are resolved. kdr
[2020-01-28 13:34] VITALS: TEMP 97; O2SAT 100
[2020-01-28 13:37] VITALS: BP 168/74
[2020-01-28] MEDS ORDERED: AZITHROMYCIN 500 MG INJ IVPB ONE (23:45)
[2020-01-28] MEDS ORDERED: NA CHLORIDE 0.9% 250 ML ONE (23:45)
[2020-01-28] MEDS ORDERED: CEFTRIAXONE/SWI 1gm 1 GM/10 ML SYR ONE (23:45)
--- NOTE | 2020-01-29 05:55 | EKG ---
Test Date: 2020-01-28 Test Time: 09:03:16 In Store Demonstrator: CHARLES MEASUREMENT RESULTS: Intervals: Rate: 66 GA: 178 QRSD: 102 QT: 442 QTc: 463 [place]: P: 58 GA: 178 QRS: -56 T: -2 INTERPRETIVE STATEMENTS: Normal sinus rhythm Incomplete right bundle branch block Left anterior fascicular block Nonspecific ST abnormality Abnormal ECG Compared to ECG 01/16/2020 22:47:11 Incomplete right bundle-branch block now present ST (T wave) deviation now present Atrial premature complex(es) no longer present Electronically Signed On 01-29-20 05:53:55 CDT by Yrn Kurtz
[2020-02-07] MEDS ORDERED: BUPIVACA 0.25%/EPI 0.0005%/PF 30 ML VIAL ONE (09:56)
== END 2020-01-28 13:28 | disposition home or self-care (01) ==
LOC: ER 08:45
DX: R07.9 Chest pain, unspecified (principal); F41.9 Anxiety disorder, unspecified; E11.9 Type 2 diabetes mellitus without complications; E78.00 Pure hypercholesterolemia, unspecified; I25.10 Atherosclerotic heart disease of native coronary artery without angina pectoris
CPT/HCPCS: 93005; 85025; 80048; 36415; 83735; 85610; 80076; 84484; 83880; 70450; 71045; 96374; 99285; J0456; J0696; J7030

== ENCOUNTER 2020-08-14 15:41 | Inpatient (IN) | payer OTHER ==
--- OUTSIDE RECORDS SUMMARY | 2020-08-14 15:43 | XMS REPORT | Clinical Summary ---
:1945 Author Organization [facility] Address [address] [place] [address] Care Team Providers Name Role Phone Pcp, Primary Care Provider Unavailable Allergies No Known [...] 0 12/24/2018 Active BLOOD GLUCOSE METER) sugar. [facility] blood sugar 1 strip by 100 strip 0 12/24/2018 Active diagnostic (COOL Miscellaneous route GLUCOSE TEST STRIP) 3 (three) times Strp daily. lancets (SURE-TOUCH Use to check blood 100 each 0 12/24/2018 Active LANCET) [facility] sugar. Active Problems Problem Noted Date Stroke 12/20/2018 Received intravenous tissue plasminogen activator (tPA ) in emergency 12/20/2018 department Essential hypertension 12/20/2018 Acute ischemic stroke 12/20/2018 Parkinson's disease 12/20/2018 Acute ischemic stroke 07/28/2016 Status post administration of tPA (rtPA) in a [facility] facility within 07/24/2016 the last 24 hours [facility] Diabetes mellitus Depression BPH (benign prostatic hyperplasia) Social History Tobacco Use Types Packs/Day Years Used Date Never Smoker Alcohol Use Drinks/Week oz/Week Comments No Sex Assigned at Date Recorded Not on file Last Filed Vital Signs Not on file Plan of Treatment Health Maintenance Due Date Last Done Comments COLON CANCER SCREENING COLONOSCOPY 1945 DIABETIC EYE EXAM 1957 DIABETIC FOOT EXAM 1957 URINE MICROALBUMIN 1957 PNEUMOCOCCAL 65+ YRS (1 of - 2012 [id number]) MEDICARE ANNUAL WELLNESS (YEAR 2 or FIRST 06/12/2013 YEAR if no IPPE) HEMOGLOBIN A1C 03/22/2019 12/20/2018, 07/24/2016 INFLUENZA VACCINE (#1) 2020 Results Not on fileafter 08/14/2019 Insurance Payer Benefit Plan / Subscriber ID Effective Dates Phone Addre ss Type Group MEDICARE MEDICARE A B [id number] 2012-Presen Medicare t [employer]ET[employer] - MGD CARE AET[employer] INDEMNITY [id number] 2013-Present Comm NON CONTR Advance Directives For more information, please contact: [phone] Code Status Date Activated Date Inactivated Comments Full Code 12/20/2018 4:47 AM 12/24/2018 9:09 PM This code status was determined by: Patient Full Code 07/24/2016 2:48 PM 07/29/2016 7:23 PM This code status was determined by: Patient
--- OUTSIDE RECORDS SUMMARY | 2020-08-14 15:44 | XMS REPORT | Continuity of Care Document ---
:1945 Author Organization [facility] t Address [address] [place] [address] Care Team Providers Name Role Phone Pcp [...] kes - on on 00:00: Medical 00 [place] Acute Acute Disease Active [facility] ischemic ischemic 5-12 [facility] - stroke stroke 00:00: Medical 00 [place] Parkinson' Parkinson' Disease Active [facility] [...] current facility facility Diabetes Diabetes Disease Active [facility] S t mellitus mellitus [facility] Depression Depression Disease Active [facility] BPH BPH Disease Active [facility] (benign (benign [facility] - prostatic prostatic Medi mahsa hyperplasi hyperplasi Ce nter a) a) Allergies, Adverse Reactions, Alerts This patient has no known allergies or adverse reactions. Social History Social Habit Start Date Stop Date Quantity Comments Source Sex Assigned At [facility] kes - [facility] Alcohol intake 2016-07-24 2016-07-24 Current [facility] es - 00:00:00 00:00:00 non-drinker of [facility] nter alcohol (finding) Smoking Status Start Date Stop Date Source Never smoker [facility] Medications Ordered Filled Start Stop Current Ordering Indication Dosage Frequency Signature Comments Components Source Medication Medication Date Date Medication? Clinician (SIG) Name Name aspirin 81 2018- Yes 81mg QD Take [address] MG EC 5-16 by mouth [facility] - tablet 19:09: daily. [address] DULoxetine Yes 30mg Take [address] (CYMBALTA) 5-16 by mouth [facility] - 30 MG 19:09: once at Medical capsule 35 bedtime. [place] gabapentin Yes 800mg [id number] Take [address] (NEURONTIN) 5-16 [id number] mg by L ukes - 800 MG 19:09: 3D mouth 3 Medical tablet 35 (three) Center times daily. finasteride Yes 5mg QD Take [address] (PROSCAR) 5 5-16 by mouth Luke s - mg tablet 19:09: daily. Medica l [address] [place] [address] JANUVIA 100 2018- Yes 50mg QD Take 0.[address] mg tablet 5-16 tablets [facility] - 00:00: (50 mg Medical 00 total) by Center mouth daily. glucometer Yes Use to [facility] (COOL BLOOD 5-16 check [facility] - GLUCOSE 00:00: blood Medical METER) [facility] [place] sugar. [place] blood sugar 2018- Yes 1{strip [id number] 1 strip by [facility] diagnostic 5-16 } [id number] Miscellane [facility] - (COOL 00:00: 3D ous route Medical GLUCOSE 00 3 (three) Center TEST STRIP) times Strp daily. lancets Yes Use to [facility] (SURE-TOUCH 5-16 check [facility] - LANCET) 00:00: blood Medical Misc 00 sugar. [place] metFORMIN Yes [facility] (GLUCOPHAGE 4-23 [facility] - ) 1000 MG 00:00: Medical tablet 00 Center atorvastati Yes [facility] (LIPITOR) 3-08 [facility] - 80 MG 00:00: Medical tablet 00 [place] midodrine 2016-[address] 1.25 MG 1-02 TIMES A [facility] - halftab 00:00: DAY Medical half tablet 00 [place] carbidopa-l Yes THREE [facility] evodopa 2-03 TIMES A [facility] - (PARCOPA) 00:00: DAY Medical 25-100 mg 00 [place] per disintegrat ing tablet tamsulosin Yes AT BEDTIME [facility] (FLOMAX) 1-20 [facility] - 0.4 mg Cap 00:00: Medical 24 hr 00 [place] capsule PARoxetine Yes AT BEDTIME [facility] (PAXIL) 40 1-20 [facility] - MG tablet 00:00: Medical 00 [place] donepezil Yes AT BEDTIME [facility] (ARICEPT) 5 1-20 [facility] - MG tablet 00:00: Medical 00 [place] bisacodyl [address] [facility] mg Tab 1-20 NEEDED PRN [facility] - 00:00: For Medical 00 Constipati Center on Procedures This patient has no known procedures. Plan of Care Planned Activity Planned Date Details Comments Source Future Scheduled 2020-04-11 INFLUENZA VACCINE (#1) [facility] - Test 00:00:00 [code = INFLUENZA Medical Ce nter VACCINE (#1)] Future Scheduled 2019-03-[address] [facility] - Test 00:00:00 measurement Medical Center (procedure) [code = 81633623] Future Scheduled 2013-06-[address] [facility] - Test 00:00:00 WELLNESS (YEAR 2 or Medical Center FIRST YEAR if no IPPE) [code = MEDICARE ANNUAL WELLNESS (YEAR 2 or FIRST YEAR if no IPPE)] Future Scheduled 2012 PNEUMOCOCCAL 65+ YRS [facility] - Test 00:00:00 (1 of 1 - Medical Center [id number] PCV13) [code = PNEUMOCOCCAL 65+ YRS (1 of 1 - [id number] PCV13)] Future Scheduled [address] DIABETIC EYE EXAM [facility] - Test 00:00:00 [code = DIABETIC EYE Medical Center EXAM] Future Scheduled [address] [facility] - Test 00:00:00 examination Medical Center (regime/therapy) [code = 784395001] Future Scheduled 1957 Urine screening for [facility] - Test 00:00:00 protein (procedure) Medical Center [code = 292641691] Future Scheduled [address] [facility] - Test 00:00:00 malignant neoplasm of Medica l Center colon (procedure) [code = 408700728] Results Test Description Test Time Test Comments Results Result Comments Source POCT-GLUCOSE METER 2018-12-24 18:12:00 Test Item Value Reference Range Interpretation Comme nts POC-GLUCOSE METER ([employer]) (test 178 mg/dL 70-110 H TESTED AT [facility] [address] [facility] code = 1538) [facility] 7703 0 POCT-GLUCOSE [id number] 13:20:00 Test Item Value Reference Range Interpretation Comments POC-GLUCOSE METER 286 mg/dL 70-110 H TESTED AT [facility] 6720 ([employer]) (test code = MIGUELITO Haji [facility] 1538) [address] POCT-GLUCOSE [id number] 10:35:00 Test Item Value Reference Range Interpretation Comments POC-GLUCOSE METER 267 mg/dL 70-110 H TESTED AT [facility] 6720 ([employer]) (test code = MIGUELITO Haji [facility] 1538) [address] POCT-GLUCOSE [id number] 21:15:00 Test Item Value Reference Range Interpretation Comments POC-GLUCOSE METER 249 mg/dL 70-110 H TESTED AT [facility] 6720 ([employer]) (test code = MIGUELITO Haji [facility] 1538) [address] POCT-GLUCOSE [id number] 17:08:00 Test Item Value Reference Range Interpretation Comments POC-GLUCOSE METER 160 mg/dL 70-[address] [facility] ([employer]) (test code = MIGUELITO Haji [facility] 1538) [address] POCT-GLUCOSE [id number] 12:15:00 Test Item Value Reference Range Interpretation Comments POC-GLUCOSE METER 322 mg/dL 70-110 H Verify wit h Lab ([facility]) (test code = draw/T ESTED AT [place] [address]) [address] [facility] [address] POCT-GLUCOSE [id number] 08:32:00 Test Item Value Reference Range Interpretation Comments POC-GLUCOSE METER 282 mg/dL 70-110 H TESTED AT [place] [address] ([facility]) (test code = [place] [address]) [address] POCT-GLUCOSE [id number] 21:09:00 Test Item Value Reference Range Interpretation Comments POC-GLUCOSE METER 163 mg/dL 70-110 H TESTED AT [place] [address] ([facility]) (test code = [place] [address]4318) [address] POCT-GLUCOSE [id number] 17:20:00 Test Item Value Reference Range Interpretation Comments POC-GLUCOSE METER 393 mg/dL 70-110 H TESTED AT [place] [address] ([facility]) (test code = [place] [address]) [address] POCT-GLUCOSE [id number] 13:10:00 Test Item Value Reference Range Interpretation Comments POC-GLUCOSE METER 344 mg/dL 70-110 H Notified R Edison NUNEZ/TESTED ([facility]) (test code = AT [place] [address]) [facility] 7703 0 POCT-GLUCOSE [id number] 08:54:00 Test Item Value Reference Range Interpretation Comments POC-GLUCOSE METER 245 mg/dL 70-110 H TESTED AT [place] [address] ([facility]) (test code = [place] [address]43[address]) [address] BASIC METABOLIC [id number] 04:26:00 Test Item Value Reference Range Interpretation Comments SODIUM (BEAKER) 138 meq/L 136-145 (test code = 381) POTASSIUM (BEAKER) 4.3 meq/L 3.5-5.1 (test code = 379) CHLORIDE (BEAKER) 109 meq/L 98-107 H (test code = 382) CO2 (BEAKER) (test 23 meq/L 22-29 code = 355) BLOOD UREA NITROGEN 29 mg/dL 7-21 [facility] (test code = 354) CREATININE (BEAKER) 1.17 [...] PATIEN TS. CBC W/PLT COUNT & AUTO [id number] 04:05:00 Test Item Value Reference Range Interpretation [...] PERCENT (BEAKER) (test code = 2801) POCT-GLUCOSE [id number] 22:36:00 Test Item Value Reference Range Interpretation Comments POC-GLUCOSE METER 231 mg/dL 70-110 H TESTED AT [place] [address] ([facility]) (test code = [facility] 1538) [address] POCT-GLUCOSE [id number] 18:13:00 Test Item Value Reference Range Interpretation Comments POC-GLUCOSE METER 258 mg/dL 70-110 H TESTED AT [place] [address] ([facility]) (test code = [facility] 1538) [address] POCT-GLUCOSE [id number] 12:31:00 Test Item Value Reference Range Interpretation Comments POC-GLUCOSE METER 264 mg/dL 70-110 H TESTED AT [place] [address] ([facility]) (test code = [facility] 1538) [address] POCT-GLUCOSE [id number] 08:18:00 Test Item Value Reference Range Interpretation Comments POC-GLUCOSE METER 238 mg/dL 70-110 H TESTED AT [place] [address] ([facility]) (test code = [facility] 1538) [address] BASIC METABOLIC [id number] 07:43:00 Test Item Value Reference Range Interpretation [...] PATIEN TS. CBC W/PLT COUNT & AUTO [id number] 05:36:00 Test Item Value Reference Range Interpretation [...] (test code = 2801) MR, BRAIN, WITHOUT [id number] 02:37:00Reason for exam:->strokeFINAL REPORT MR, BRAIN, WITHOUT [...] Henry Verified Date/Time: 12/21/2018 02:37:32 Reading Location: [address] Neuro Reading Room POCT-GLUCOSE [id number] 23:22:00 Test Item Value Reference Range Interpretation Comments POC-GLUCOSE METER 214 mg/dL 70-110 H TESTED AT [place] [address] ([facility]) (test code = [place] 1538) [address] [id number] 21:29:00 Test Item Value Reference Range Interpretation Comments RPR SCREEN ([facility]) (test code = Nonreactive Nonreactive 420) POCT-GLUCOSE [id number] 17:29:00 Test Item Value Reference Range Interpretation Comments POC-GLUCOSE METER 243 mg/dL 70-110 H TESTED AT [place] [address] ([facility]) (test code = BERTNE R [place] 1538) [address] POCT-GLUCOSE [id number] 16:32:00 Test Item Value Reference Range Interpretation Comments POC-GLUCOSE METER 221 mg/dL 70-110 H TESTED AT [place] [address] ([facility]) (test code = [place]ANNANE [place] 1538) [address] HEMOGLOBIN [id number] 12:18:00 Test Item Value Reference Range Interpretation Comments HEMOGLOBIN A1C ([facility]) (test code = 10.9 % 4.3-6.1 H 368) POCT-GLUCOSE [id number] 11:59:00 Test Item Value Reference Range Interpretation Comments POC-GLUCOSE METER 165 mg/dL 70-110 H TESTED AT [place] [address] ([facility]) (test code = [place] 1538) [address] POCT-GLUCOSE [id number] 10:11:00 Test Item Value Reference Range Interpretation Comments POC-GLUCOSE METER 191 mg/dL 70-110 H TESTED AT [place] [address] ([facility]) (test code = [place] 1538) [address] BASIC METABOLIC [id number] 07:30:00 Test Item Value Reference Range Interpretation [...] FOR DIALYSIS PATIEN TS. TSH/FREE T4 IF [id number] 06:32:00 Test Item Value Reference Range Interpretation Comments THYROID STIMULATING HORMONE 0.73 uIU/mL 0.35-4.94 (BEAKER) (test code = 772) VITAMIN B12 AND [id number] 06:32:00 Test Item Value Reference Range Interpretation Comments VITAMIN B12 (BEAKER) (test code = 540 pg/mL 213-816 774) FOLATE (BEAKER) (test code = 362) 12.0 ng/mL >=7.0 POCT-GLUCOSE [id number] 06:29:00 Test Item Value Reference Range Interpretation Comments POC-GLUCOSE METER 236 mg/dL 70-110 H TESTED AT [facility] 6720 (BEAKER) (test code = MIGUELITO [place] 8133) [address] LIPID [id number] 06:05:00 Test Item Value Reference Range Interpretation [...] 130-159 High 160-189 Very High >=190HEPATIC FUNCTION [id number] 06:05:00 Test Item Value Reference Range Interpretation [...]
--- NOTE | 2020-08-14 16:53 | RAD REPORT ---
EXAM DESCRIPTION: Guillermo Single View08/14/2020 4:48 pm CLINICAL HISTORY: Cough COMPARISON: January 2020 FINDINGS: The lungs appear clear of acute infiltrate. The heart is normal size IMPRESSION: No acute abnormalities displayed. If patient's symptoms persist PA and lateral chest se camron would be recommended
--- NOTE | 2020-08-14 16:55 | RAD REPORT ---
EXAM DESCRIPTION: CT - Head Brain Wo Cont - 08/14/2020 4:45 pm CLINICAL HISTORY: Alteration of awareness/confusion COMPARISON: January 2020 TECHNIQUE: Computed axial tomography of the head was obtained. IV contrast was not requested. All CT scans are performed using dose optimization technique as appropriate and may include automated exposure control or mA/KV adjustment according to patient size. FINDINGS: An intracranial bleed is not seen . The ventricles are normal in caliber. No extra-axial fluid collection is noted. Low-density areas within the cerebrum bilaterally unchanged likely old infarcts. Fluid within the sinuses/ mastoids is not seen. IMPRESSION: No acute intracranial abnormality is seen. If patient's symptoms persist MRI of the bra in would be recommended.
[2020-08-14 16:58] LABS: Absolute Lymphocytes (CBC) 0.4 K/uL (0.7-4.9); Basophils % 0.4 % (0-1.3); Hematocrit 34.6 % (39.6-49.0); Lymphocytes % 4.4 % (15.3-44.8); MPV 8.5 fL (7.6-11.3); RBC Red Blood Cell Count 3.75 M/uL (4.33-5.43)
[2020-08-14 16:59] LABS: Protime INR 0.98
[2020-08-14 17:10] LABS: ALT/SGPT 34 U/L (12-78); AST/SGOT 29 U/L (15-37); Albumin 3.4 g/dL (3.4-5.0); Alkaline Phosphatase 145 U/L (45-117); BUN Blood Urea Nitrogen 23 mg/dL (7-18); Bicarbonate 23 mmol/L (21-32); Bilirubin Direct 0.2 mg/dL (0-0.2); Bilirubin Total 0.4 mg/dL (0.2-1.0); Glucose Level 190 mg/dL (74-106); Lipase 91 U/L (73-393); Magnesium 1.7 mg/dL (1.8-2.4); NT PRO-BNP 1008 pg/mL (<125); Potassium 4.7 mmol/L (3.5-5.1); Protein, Total 7.2 g/dL (6.4-8.2); Sodium Level 139 mmol/L (136-145); Troponin (Emerg Dept Use Only) < 0.02 ng/mL (0.0-0.045)
[2020-08-14] MEDS ORDERED: NA CHLORIDE 0.9% 1,000 ML ONE ×2 (17:41→18:14)
[2020-08-14] MEDS ORDERED: FAMOTIDINE 20 MG/2 ML VIAL IV ONE (17:41)
[2020-08-14] MEDS ORDERED: THIAMINE 200 MG/2 ML INJ ONE (17:41)
[2020-08-14] MEDS ORDERED: CEFTRIAXONE/SWI 1gm 1 GM/10 ML SYR ONE (17:42)
[2020-08-14] MEDS ORDERED: FOLIC ACID 5 MG/ML VIAL ONE (17:42)
[2020-08-14] MEDS ORDERED: MAGNESIUM SULFATE 1 gm IVPB 1 GM/100 ML BAG IV ONE (18:14)
--- NOTE | 2020-08-14 18:18 | ER ---
Nurse's Notes [facility] Name: Clay Gagnon Jr Age: 75 yrs Sex: Male : 1945 Arrival Date: 08/14/2020 Time: 15:45 Bed 19 Private MD: Diagnosis: Altered mental status, unspecified;Dementia in other diseases classified elsewhere;Hypomagnesemia;Diarrhea, unspecified;Type 1 diabetes mellitus;Unspecified kidney failure-insufficency Presentation: 08/14 15:47 Chief complaint: Chief complaint: EMS states: Possible seizure/AMS. He sat on the table ca1 and knocked out his coffee, pooped on himself and just laid there ad gazed according to the family. BGL 236. HR 80s. EKG12L NSR. 18G RFA. Coronavirus screen: Client denies travel out of the [place] in the last 14 days. At this time, the client does not indicate any symptoms associated with coronavirus-19. Ebola Screen: Patient negative for fever greater than or equal to 101.5 degrees Fahrenheit, and additional compatible Ebola Virus Disease symptoms Patient denies exposure to infectious person. Patient denies travel to an Ebola-affected area in the 21 days before illness onset. No symptoms or risks identified at this time. Initial Sepsis Screen: Does the patient meet any 2 criteria? No. Patient's initial sepsis screen is negative. Does the patient have a suspected source of infection? No. Patient's initial sepsis screen is negative. Risk Assessment: Do you want to hurt yourself or someone else? Patient reports no desire to harm self or others. Onset of symptoms was August 14, 2020. 15:47 Method Of Arrival: EMS: [facility] ca1 15:47 Acuity: URIAH 3 ca1 Triage Assessment: 16:12 General: Appears in no apparent distress. comfortable, unkempt, Behavior is calm, ca1 cooperative, appropriate for age. Pain: Complains of pain in scalp Pain currently is 4 out of 10 on a pain scale. Pain began 10 minutes ago. EENT: No signs and/or symptoms were reported regarding the EENT system. Neuro: Level of Consciousness is awake, alert, obeys commands, confused, Oriented to person, Clinic Physician are equal bilaterally Moves all extremities. Speech is normal, Facial symmetry appears normal, Pupils are PERRLA, Intact Reports headache occipital area. Cardiovascular: Heart tones S1 S2 present Capillary refill < 3 seconds Patient's skin is warm and dry. Rhythm is. Respiratory: Airway is patent Respiratory effort is even, unlabored, Respiratory pattern is regular, symmetrical, Breath sounds are clear bilaterally. GI: Abdomen is flat, non-distended, Bowel sounds present X 4 quads. Abd is soft and non tender X 4 quads. : No signs and/or symptoms were reported regarding the genitourinary system. Derm: Skin is intact, is healthy with good turgor, Skin is pink, warm \T\ dry. Musculoskeletal: Circulation, motion, and sensation intact. Capillary refill < 3 seconds. Historical: - Allergies: 16:12 NKA; ca1 - PMHx: 16:12 CAD; CVA; Dementia; Diabetes - IDDM; High Cholesterol; Parkinsons; ca1 - Immunization history:: Flu vaccine is not up to date. - Social history:: Smoking status: Patient denies any tobacco usage or history of. - Family history:: not pertinent. Screenin:14 Abuse screen: Denies threats or abuse. Denies injuries from another. Nutritional ca1 screening: No deficits noted. Tuberculosis screening: No symptoms or risk factors identified. Fall Risk IV access (20 points). Mental Status- Overestimates/Forgets Limitations (15 pts.). Assessment: 16:14 Reassessment: Cleaned pt. See triage notes. ca1 17:38 Reassessment: Patient appears in no apparent distress at this time. No changes from ca1 previously documented assessment. Patient and/or family updated on plan of care and expected duration. Pain level reassessed. 19:30 Reassessment: Patient and/or family updated on plan of care and expected duration. Pain ll2 level reassessed. 20:35 Reassessment: Patient and/or family updated on plan of care and expected duration. Pain ll2 level reassessed. pt sleeping. 21:48 Reassessment: attempted to give report, instructed by LUZ gonzalez to call back in a few ll2 minutes. 22:45 Reassessment: Patient and/or family updated on plan of care and expected duration. Pain ll2 level reassessed. 23:43 Reassessment: Patient and/or family updated on plan of care and expected duration. Pain ll2 level reassessed. attempted to call report, requested by LUZ Ferrari to wait until he can call back. 08/15 00:13 Reassessment: report given to LUZ Ferrari. ll2 Vital Signs: 08/14 15:47 BP 136 / 63; Pulse 68; Resp 18 S; Temp 99(O); Pulse Ox 100% on R/A; Weight 68.95 kg ca1 (R); Height 5 ft. 10 in. (177.80 cm) (R); 17:38 BP 127 / 58; Pulse 73; Resp 20; Pulse Ox 100% on R/A; ca1 18:35 BP 105 / 60; Pulse 67; Resp 14; Pulse Ox 100% on R/A; ll2 19:40 BP 135 / 58; Pulse 66; Resp 17; Pulse Ox 100% on R/A; ll2 20:44 BP 104 / 63; Pulse 73; Resp 15; Pulse Ox 98% on R/A; ll2 22:00 BP 115 / 55; Pulse 67; Resp 16; Pulse Ox 100% on R/A; ll2 23:00 BP 141 / 64; Pulse 63; Resp 16; Pulse Ox 100% on R/A; ll2 15:47 Body Mass Index 21.81 (68.95 kg, 177.80 cm) ca1 ED Course: 15:45 Patient arrived in ED. ca1 16:00 Maintain EMS IV. Dressing intact. Good blood return noted. Site clean \T\ dry. Gauge \T\ ca 1 site: 20 G LFA. 16:04 Cristian Feliciano MD is Attending Physician. [facility] 16:07 Kierra Parnell, LUZ is Primary Nurse. ca1 16:11 Triage completed. ca1 16:12 Arm band placed on right wrist. ca1 16:14 Patient has correct armband on for positive identification. Placed in gown. Bed in low ca1 position. Call light in reach. Side rails up X2. manager spring on. Pulse ox on. NIBP on. Warm blanket given. 16:40 Inserted saline lock: 20 gauge in left antecubital area, using aseptic technique. Blood ca1 collected. 16:40 Initial lab(s) drawn, by me, sent to lab. First set of blood cultures drawn by me. ca1 16:46 CT Head Brain wo Cont In Process Unspecified. EDMS 16:49 XRAY Chest (1 view) In Process Unspecified. EDMS 18:15 Beni Garcia is Hospitalizing Provider. [facility] 18:27 pt daughter cell [phone]. bd 18:31 COVID swab sent to lab. em1 19:34 Report given to LUZ Amor. ca1 Administered Medications: 16:22 Drug: Pepcid 20 mg Route: IVP; Site: left forearm; ca1 16:28 Drug: foLIC Acid 1 mg Route: IVPB; Site: right forearm; ca1 16:30 Drug: NS 0.9% 1000 ml Route: IV; Rate: 1 bolus; Site: left forearm; ca1 16:30 Drug: Thiamine 100 mg Route: IV; Rate: bolus; Site: right forearm; ca1 17:10 Drug: Rocephin 1 grams Route: IV; Rate: per protocol; Site: left forearm; ca1 18:00 Drug: NS 0.9% 1000 ml Route: IV; Rate: 1 bolus; Site: right forearm; ca1 18:05 Drug: Magnesium Sulfate 1 grams Route: IVPB; Infused Over: 1 hrs; Site: right forearm; ca1 Outcome: 18:17 Decision to Hospitalize by Provider. [facility] 08/15 00:29 Patient left the ED. ll2 Signatures: Dispatcher [employer] EDMS Pauline Soto Cristian Larsen MD MD cha Martinez, Eric em1 Kierra Parnell RN RN ca1 Zuleyma Baron RN RN ll2 Corrections: (The following items were deleted from the chart) 08/14 17:33 15:40 Maintain EMS IV. Dressing intact. Good blood return noted. Site clean \T\ dry. ca1 Gauge \T\ site: 20 G LFA. ca1 08/15 00:14 08/14 23:43 Reassessment: Patient and/or family updated on plan of care and expected ll2 duration. Pain level reassessed. attempted to call report, requested by LUZ Loza to wait until he can call back. ll2
--- NOTE | 2020-08-14 18:18 | EDPHYS ---
Physician Documentation [facility] Name: Clay Gagnon Jr Age: 75 yrs Sex: Male : 1945 Arrival Date: 08/14/2020 Time: 15:45 Bed 19 Private MD: ED Physician Cristian Feliciano HPI: 08/14 16:20 This 75 yrs old Male presents to ER via EMS with complaints of diarrhea, ams melinda and weakness. 16:20 The patient presents to the emergency department with diarrhea, that is intermittent. melinda Onset: The symptoms/episode began/occurred 1 day(s) ago. Possible causes: unknown. The symptoms are aggravated by nothing. The symptoms are alleviated by nothing. weak, ams, diarrhea. The patient presents with decreased responsiveness, trouble concentrating. Onset: The symptoms/episode began/occurred today. Possible causes: CVA or TIA, drug use, alcohol, head injury, low blood sugar, sepsis. Associated signs and symptoms: Pertinent positives: diarrhea, dizziness, lightheadedness, nausea, vomiting. Historical: - Allergies: 16:12 NKA; ca1 - PMHx: 16:12 CAD; CVA; Dementia; Diabetes - IDDM; High Cholesterol; Parkinsons; ca1 - Immunization history:: Flu vaccine is not up to date. - Social history:: Smoking status: Patient denies any tobacco usage or history of. - Family history:: not pertinent. ROS: 16:20 Constitutional: Negative for fever, chills, and weight loss, Eyes: Negative for injury, melinda pain, redness, and discharge, ENT: Negative for injury, pain, and discharge, Neck: Negative for injury, pain, and swelling, Cardiovascular: Negative for chest pain, palpitations, and edema, Respiratory: Negative for shortness of breath, cough, wheezing, and pleuritic chest pain, Back: Negative for injury and pain, : Negative for injury, bleeding, discharge, and swelling, MS/Extremity: Negative for injury and deformity, Psych: Negative for depression, anxiety, suicide ideation, homicidal ideation, and hallucinations, Allergy/Immunology: Negative for hives, rash, and allergies, Endocrine: Negative for neck swelling, polydipsia, polyuria, polyphagia, and marked weight changes, Hematologic/Lymphatic: Negative for swollen nodes, abnormal bleeding, and unusual bruising. 16:20 Abdomen/GI: Positive for nausea, diarrhea. 16:20 Skin: Positive for pallor. 16:20 Neuro: Positive for headache, seizure activity, weakness. Exam: 16:23 Constitutional: This is a well developed, well nourished patient who is awake, alert, melinda and in no acute distress. Head/Face: Normocephalic, atraumatic. Eyes: Pupils equal round and reactive to light, extra-ocular motions intact. Lids and lashes normal. Conjunctiva and sclera are non-icteric and not injected. Cornea within normal limits. Periorbital areas with no swelling, redness, or edema. ENT: Nares patent. No nasal discharge, no septal abnormalities noted. Tympanic membranes are normal and external auditory canals are clear. Oropharynx with no redness, swelling, or masses, exudates, or evidence of obstruction, uvula midline. Mucous membranes moist. Neck: Trachea midline, no thyromegaly or masses palpated, and no cervical lymphadenopathy. Supple, full range of motion without nuchal rigidity, or vertebral point tenderness. No Meningismus. Chest/axilla: Normal chest wall appearance and motion. Nontender with no deformity. No lesions are appreciated. Cardiovascular: Regular rate and rhythm with a normal S1 and S2. No gallops, murmurs, or rubs. Normal PMI, no JVD. No pulse deficits. Respiratory: Lungs have equal breath sounds bilaterally, clear to auscultation and percussion. No rales, rhonchi or wheezes noted. No increased work of breathing, no retractions or nasal flaring. Abdomen/GI: Soft, non-tender, with normal bowel sounds. No distension or tympany. No guarding or rebound. No evidence of tenderness throughout. Back: No spinal tenderness. No costovertebral tenderness. Full range of motion. Male : Normal genitalia with no discharge or lesions. MS/ Extremity: Pulses equal, no cyanosis. Neurovascular intact. Full, normal range of motion. Psych: Awake, alert, with orientation to person, place and time. Behavior, mood, and affect are within normal limits. 16:23 Neck: ROM/movement: is normal, no acute changes, limited range of motion, is not appreciated, Meningeal signs: are not present, Kernig's sign is negative, Brudzinski's sign is negative. 16:23 Skin: Appearance: Color: pale. 16:23 Neuro: Orientation: to person, place, time, situation, seems slow, hx of dementia, Mentation: slow to respond, Memory: immediate memory is impaired, remote memory is impaired, recent memory is impaired, Cranial nerves: grossly normal, is grossly normal based on the patient's age, no acute changes, Cerebellar function: is grossly normal, is grossly normal based on the patient's age, no acute changes, Motor: is normal, is grossly normal based on the patient's age, no acute changes, moves all fours, Sensation: no obvious gross deficits, appropriate no acute changes, Gait: not tested. Babinski testing is normal, seizure activity, is not displayed by the patient. 18:13 ECG was reviewed by the Attending Physician. [facility] [place] Vital Signs: 15:47 BP 136 / 63; Pulse 68; Resp 18 S; Temp 99(O); Pulse Ox 100% on R/A; Weight 68.95 kg ca1 (R); Height 5 ft. 10 in. (177.80 cm) (R); 17:38 BP 127 / 58; Pulse 73; Resp 20; Pulse Ox 100% on R/A; ca1 18:35 BP 105 / 60; Pulse 67; Resp 14; Pulse Ox 100% on R/A; ll2 19:40 BP 135 / 58; Pulse 66; Resp 17; Pulse Ox 100% on R/A; ll2 20:44 BP 104 / 63; Pulse 73; Resp 15; Pulse Ox 98% on R/A; ll2 22:00 BP 115 / 55; Pulse 67; Resp 16; Pulse Ox 100% on R/A; ll2 23:00 BP 141 / 64; Pulse 63; Resp 16; Pulse Ox 100% on R/A; ll2 15:47 Body Mass Index 21.81 (68.95 kg, 177.80 cm) ca1 MDM: 16:04 Patient medically screened. [facility] [place] 16:26 Differential diagnosis: Nonspecific abd pain, gastritis, pancreatitis, viral melinda gastroenteritis, gastroenteritis. Differential Diagnosis altered mental status, sepsis. Differential Diagnosis: electrolyte abnormality, alcohol intoxication, hypoglycemia, meningitis, pneumonia, TIA, UTI, volume depletion. Data reviewed: vital signs, nurses notes, old medical records, lab test result(s), EKG, radiologic studies, CT scan, plain films. Data interpreted: site monitor: rate is 68 beats/min, rhythm is regular, Pulse oximetry: on room air is 10 %. Test interpretation: by ED physician or midlevel provider: ECG, plain radiologic studies. Counseling: I had a detailed discussion with the patient and/or guardian regarding: the historical points, exam findings, and any diagnostic results supporting the discharge/admit diagnosis, lab results, radiology results. Medical screen evaluation completed. [facility] emergency medical condition absent. Medical screen evaluation completed. [facility] emergency medical condition absent. 08/14 16:17 Order name: Basic Metabolic Panel; Complete Time: 17:48 [facility] [place] 08/14 16:17 Order name: CBC with Diff [facility] [place] 08/14 16:17 Order name: LFT's; Complete Time: 17:48 [facility] [place] 08/14 16:17 Order name: Magnesium; Complete Time: 17:48 [facility] [place] 08/14 16:17 Order name: NT PRO-BNP; Complete Time: 17:48 [facility] [place] 08/14 16:17 Order name: PT-INR; Complete Time: 17:48 [facility] [place] 08/14 16:17 Order name: Troponin (emerg Dept Use Only); Complete Time: 17:48 [facility] [place] 08/14 16:17 Order name: Lipase; Complete Time: 17:48 [facility] [place] 08/14 16:17 Order name: Blood Culture Adult (2) [facility] [place] 08/14 16:17 Order name: Stool Culture [facility] [place] 08/14 16:17 Order name: Fecal Leukocyte Stain [facility] [place] 08/14 16:17 Order name: Lactate; Complete Time: 17:48 [facility] [place] 08/14 17:43 Order name: Urine Dipstick--Ancillary (enter results); Complete Time: 22:23 08/14 16:17 Order name: XRAY Chest (1 view); Complete Time: 17:48 [facility] [place] 08/14 16:17 Order name: EKG; Complete Time: 16:18 [facility] [place] 08/14 16:17 Order name: Cardiac monitoring; Complete Time: 17:04 [facility] [place] 08/14 16:17 Order name: EKG - Nurse/Tech; Complete Time: 17:04 [facility] [place] 08/14 16:17 Order name: IV Saline Lock; Complete Time: 16:43 [facility] [place] 08/14 16:17 Order name: CT Head Brain wo Cont; Complete Time: 17:48 [facility] [place] 08/14 19:15 Order name: SARS-COV-2 RT PCR EDFL 01/04 19:54 Order name: CBC Smear Scan [facility] 08/14 19:59 Order name: Lactate Sepsis 2 HR Follow-up [facility] 08/14 16:17 Order name: Labs collected and sent; Complete Time: 16:43 [facility] [place] 08/14 16:17 Order name: O2 Per Protocol; Complete Time: 16:43 [facility] [place] 08/14 16:17 Order name: O2 Sat Monitoring; Complete Time: 16:43 [facility] [place] 08/14 16:17 Order name: Urine Dipstick-Ancillary (obtain specimen); Complete Time: 17:32 [facility] [place] EC:13 Rate is 70 beats/min. Rhythm is regular. QRS [place] is Normal. NC interval is normal. QRS melinda interval is normal. QT interval is normal. No Q waves. T waves are Normal. No ST changes noted. Clinical impression: NSR w/ Non-specific ST/T Changes and No evidence of ischemia. Interpreted by me. Reviewed by me. Administered Medications: 16:22 Drug: Pepcid 20 mg Route: IVP; Site: left forearm; ca1 16:28 Drug: foLIC Acid 1 mg Route: IVPB; Site: right forearm; ca1 16:30 Drug: NS 0.9% 1000 ml Route: IV; Rate: 1 bolus; Site: left forearm; ca1 16:30 Drug: Thiamine 100 mg Route: IV; Rate: bolus; Site: right forearm; ca1 17:10 Drug: Rocephin 1 grams Route: IV; Rate: per protocol; Site: left forearm; ca1 18:00 Drug: NS 0.9% 1000 ml Route: IV; Rate: 1 bolus; Site: right forearm; ca1 18:05 Drug: Magnesium Sulfate 1 grams Route: IVPB; Infused Over: 1 hrs; Site: right forearm; ca1 Disposition: 08/14/20 18:17 Hospitalization ordered by Beni Garcia for Observation. Preliminary diagnosis are Altered mental status, unspecified, Dementia in other diseases classified elsewhere, Hypomagnesemia, Diarrhea, unspecified, Type 1 diabetes mellitus, Unspecified kidney failure - insufficency. - Bed requested for Telemetry/MedSurg (Inpatient). - Status is Observation. ll2 - Condition is Fair. - Problem is new. - Symptoms have improved. Signatures: Dispatcher [employer] [facility] Faiza Humphrey RN RN mw Anderson, Corey, MD MD cha Attema, Lee, DOOR HANGER-C DOOR HANGER-Cla1 Kierra Parnell, RN RN ca1 Zuleyma Baron, RN RN ll2 Corrections: (The following items were deleted from the chart) 18:22 18:17 Hospitalization Ordered by Beni Garcia for Observation. Preliminary diagnosis melinda is Altered mental status, unspecified; Dementia in other diseases classified elsewhere; Hypomagnesemia; Diarrhea, unspecified; Type 1 diabetes mellitus. Bed requested for Telemetry/MedSurg (observation). Status is Observation. Condition is Fair. Problem is new. Symptoms have improved. melinda 18:26 16:18 CORONAVIRUS+MR.LAB.BRZ ordered. EDFL EDMS 19:25 18:22 08/14/2020 18:17 Hospitalization Ordered by Beni Garcia for Observation. Preliminary diagnosis is Altered mental status, unspecified; Dementia in other diseases classified elsewhere; Hypomagnesemia; Diarrhea, unspecified; Type 1 diabetes mellitus; Unspecified kidney failure - insufficency. Bed requested for Telemetry/MedSurg (observation). Status is Observation. Condition is Fair. Problem is new. Symptoms have improved. melinda 21:41 19:25 08/14/2020 18:17 Hospitalization Ordered by Beni Garcia for Observation. Preliminary diagnosis is Altered mental status, unspecified; Dementia in other diseases classified elsewhere; Hypomagnesemia; Diarrhea, unspecified; Type 1 diabetes mellitus; Unspecified kidney failure - insufficency. Bed requested for [facility] ER HOLD. Status is Observation. Condition is Fair. Problem is new. Symptoms have improved. 08/15 00:29 08/14 21:41 08/14/2020 18:17 Hospitalization Ordered by Beni Garcia for Observation. ll2 Preliminary diagnosis is Altered mental status, unspecified; Dementia in other diseases classified elsewhere; Hypomagnesemia; Diarrhea, unspecified; Type 1 diabetes mellitus; Unspecified kidney failure - insufficency. Bed requested for Telemetry/MedSurg (Inpatient). Status is Observation. Condition is Fair. Problem is new. Symptoms have improved.
[2020-08-14 18:30] LABS: Urine Blood NEGATIVE (NEG); Urine Glucose NEGATIVE (NEG); Urine Protein 1+ (NEG)
--- NOTE | 2020-08-14 18:42 | P.HP ---
Certification for Inpatient Patient admitted to: Observation With expected LOS: <2 Midnights Patient will require the following post-hospital care: None Practitioner: I am a practitioner with admitting privileges, knowledge of patient current condition, hospital course, and medical plan of care. Services: Services provided to patient in accordance with Admission requirements found in Title 42 Section 412.3 of the Code of Federal Regulations Patient History Date of Service: 08/14/20 Primary Care Provider: Unknown Reason for admission: Syncope, AMS History of Present Illness: 75-year-old male with history of dementia, CVA, diabetes mellitus type 2, hypertension, hyperlipidemia presents to the emergency department for syncope, confusion. Family not at bedside for interview, did not answer the phone when I called so history is based on combination of chart reviewed and report from physician, nurses and interview of patient although he does not recall all the events. Patient was reportedly at home where he lives with his daughter and had an episode where he fell backwards spilling his coffee and having bowel movement followed by an episode of having glazed over appearance in not being fully responsive. Patient was transported to the emergency department, at this time patient is awake, alert, following commands, oriented times 2. Unknown baseline mental status. Patient with history of multiple CVA, home medications not available for review at this time. Patient without any focal neurological deficits but does report that his vision has been Foggy for the past couple of weeks, patient denies any diplopia or visual field loss but hard to complete full neurological exam due to patient's cooperation. Patient moving all extremities well, face appears symmetrical. Labs only remarkable for chronic renal insufficiency stage III with creatinine 1.33 GFR 53, urinalysis was negative for infection CT head without acute findings, CBC unremarkable lactic acid 3.2, patient was given Rocephin in the emergency department and IV fluids, patient does appear very dry. ED provider wishes to admit patient for further evaluation and management. Allergies No Known Allergies Allergy (Verified 01/16/20 23:38) Home Medications: Aspirin Chewable [Aspirin Chewable*] 81 mg PO DAILY 01/16/20 Atorvastatin Calcium [Lipitor] 80 mg PO DAILY 01/16/20 Carbidopa/Levodopa [Carbidopa-Levodopa 25-100 Tab] 1 tab PO TID 01/16/20 Clopidogrel Bisulfate [Plavix*] 75 mg PO DAILY 01/16/20 Donepezil [Aricept*] 5 mg PO BEDTIME 01/16/20 Duloxetine HCl [Cymbalta] 30 mg PO BEDTIME 01/16/20 Finasteride [Proscar*] 5 mg PO DAILY 01/16/20 Gabapentin [Neurontin] 800 mg PO TID 01/16/20 Metformin HCl [Glucophage] 1,000 mg PO BID 01/16/20 Midodrine HCl 2.5 mg PO DAILY 01/16/20 Multivit-Min/FA/Lycopen/Lutein [Centrum Silver Men Tablet] 1 tab PO DAILY Sitagliptin Phosphate [Januvia*] 100 mg PO DAILY 01/16/20 Tamsulosin HCl [Flomax] 0.4 mg PO BID 01/16/20 Codeine/APAP [Tylenol W/Codeine #3 tab] 1 tab PO Q8HP PRN #30 tab 01/17/20 Pantoprazole [Protonix Tab] 40 mg PO DAILY #30 tab 01/17/20 - Past Medical/Surgical History Diabetic: Yes -: CAD -: MCA CVA -: Diabetes -: HIgh Cholesterol -: Parkinsons -: depression -: TIA -: BPH -: appendectomy Psychosocial/ Personal History: Patient currently lives with his daughter - Family History Brother -: Diabetes Sister -: Diabetes Mother -: Heart disease, Hypertension, Diabetes, Stroke, Cancer, Kidney disease Notes: Father -: Cancer Notes: - Social History Alcohol use: No CD- Drugs: No Caffeine use: Yes Place of Residence: Home Review of Systems is unable to be obtained Physical Examination - Physical Exam General: Alert, In no apparent distress, Oriented x2, Cooperative HEENT: Atraumatic, Normocephalic, Other (Mucous membranes dry) Neck: Supple Respiratory: Clear to auscultation bilaterally, Normal air movement Cardiovascular: No edema, Regular rate/rhythm, Normal S1 S2 Capillary refill: <2 Seconds Gastrointestinal: Normal bowel sounds, No ascites, No tenderness, No masses, No rebound, No guarding Musculoskeletal: No erythema, No tenderness, No warmth Integumentary: No tenderness/swelling, No erythema, No warmth Neurological: Normal speech, Normal strength at 5/5 x4 extr, Normal tone, Sensation intact, Normal affect, Dementia - Studies Laboratory Data (last 24 hrs) 08/14/20 16:40: PT 11.6, INR 0.98 08/14/20 16:40: WBC 8.1, Hgb 11.5 L, Hct 34.6 L, Plt Count 166 08/14/20 16:40: Sodium 139, Potassium 4.7, BUN 23 H, Creatinine 1.33 H, Glucose 190 H, Magnesium 1.7 L, Total Bilirubin 0.4, AST 29, ALT 34, Alkaline Phosphatase 145 H, Lipase 91 Assessment and Plan - Plan Assessment Syncope, altered mental status Diabetes mellitus type 2 Hypertension Hyperlipidemia History of CVA Dementia CKD stage III Plan Syncope, altered mental status: Unknown baseline mental status, patient is awake, alert, oriented x1-2 currently. Following commands moving all extremities. Echo, MRI ordered for morning. Continue to monitor on telemetry. Patient denies any chest pain, shortness of breath, palpitations. Patient does appear very dry, will obtain orthostatics vital signs and hydrated overnight. Patient without focal neurological deficits at this time, consult neurology as necessary. Attempted to speak with family but nobody answered, will continue to try to reach out to family to ascertain baseline mental status and more detailed history. Heparin 5000 units subcutaneous twice daily for DVT prophylaxis. Diabetes mellitus type 2: A.c. HS Accu-Cheks scale insulin therapy. Hypertension: Obtain and continue home medications as appropriate Hyperlipidemia: Obtain and continue home medications as appropriate History of CVA: Obtain and continue home medications as appropriate, patient was previously on Plavix, will have nursing staff verify and continue. Dementia: Unknown baseline while the patient does seem moderately confused. Will need to speak with family to ascertain baseline mental status. Continue home medications as appropriate. Fall and aspiration precautions. CKD stage III: Patient close to baseline renal function, does appear dry. Will continue with IV fluids overnight. Discharge Plan: Home Plan to discharge in: 24 Hours - Advance Directives Does patient have a Living Will: Yes Does patient have a Durable POA for Healthcare: Yes - Code Status/Comfort Care Code Status Assessed: Yes (Full code) Critical Care: No Time Spent Managing Pts Care (In Minutes): 55
[2020-08-14 19:53] LABS: Anisocytosis 1+; Blood Morphology Comment NOTED (NOT SEEN); Platelet Estimate ADEQ; Poikilocytosis 2+; White Blood Cell Scan OK (OK)
[2020-08-15] MEDS ORDERED: ATORVASTATIN 40 MG TAB PO SCH (00:55)
[2020-08-15] MEDS: INSULIN -REGULAR HUMAN 50 UNIT/0.5 ML ML SQ SCH ×5 (00:55→21:00)
[2020-08-15] MEDS: ONDANSETRON 4 MG/2 ML VIAL IV PRN (02:15)
[2020-08-15] MEDS: HEPARIN 5000 UNIT/ML 1 ML VIAL SQ SCH ×3 (02:15→20:34)
[2020-08-15] MEDS: NA CHLORIDE 0.9% 1,000 ML IV SCH ×2 (02:20→13:14)
[2020-08-15 04:01] LABS: Absolute Lymphocytes (CBC) 0.7 K/uL (0.7-4.9); Basophils % 0.1 % (0-1.3); Lymphocytes % 9.2 % (15.3-44.8); MPV 8.4 fL (7.6-11.3); RBC Red Blood Cell Count 3.34 M/uL (4.33-5.43)
[2020-08-15 04:43] LABS: Albumin 2.7 g/dL (3.4-5.0); Bilirubin Total 0.4 mg/dL (0.2-1.0); C-Reactive Protein 82.3 mg/L (<3.00); Magnesium 1.9 mg/dL (1.8-2.4); Potassium 4.3 mmol/L (3.5-5.1); Protein, Total 5.8 g/dL (6.4-8.2); Thyroid Stimulating Hormone 0.982 uIU/mL (0.360-3.740)
--- NOTE | 2020-08-15 08:18 | EKG ---
Test Date: 2020-08-14 Test Time: 17:02:03 [employer]: [employer] MEASUREMENT RESULTS: Intervals: Rate: 70 SD: 174 QRSD: 112 QT: 406 QTc: 438 [place]: P: 57 SD: 174 QRS: -56 T: 5 INTERPRETIVE STATEMENTS: Normal sinus rhythm Incomplete right bundle branch block Left anterior fascicular block Abnormal ECG Compared to ECG 01/28/2020 09:03:16 ST (T wave) deviation no longer present Electronically Signed On 08-15-20 08:17:26 [employer] by Yrn Kurtz
[2020-08-15] MEDS ORDERED: ASPIRIN EC 81 MG TAB PO SCH (09:00)
[2020-08-15] MEDS: FOLIC ACID 1 MG TABLET PO SCH (09:05)
[2020-08-15] MEDS: CARBIDOPA/LEVODOPA 25/100 TAB PO SCH ×2 (13:13→20:32)
--- NOTE | 2020-08-15 19:07 | P.PN ---
Subjective Date of Service: 08/15/20 Primary Care Provider: Unknown Chief Complaint: Syncope, AMS Subjective: No new changes (pt does not recall events leading to hospitalization. feels "ok" this morning. 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 denies any new weakness/numbness/tingling) Review of Systems 10-point ROS is otherwise unremarkable Physical Examination - Vital Signs Temperature: 99.9 F Blood Pressure: 163/70 Pulse: 79 Respirations: 18 Pulse Ox (%): 96 - Physical Exam General: Alert, In no apparent distress, Oriented x2 HEENT: Sclerae nonicteric Respiratory: Clear to auscultation bilaterally Cardiovascular: No edema, Regular rate/rhythm Gastrointestinal: Soft and benign, No tenderness Musculoskeletal: No tenderness Integumentary: No rashes Neurological: Normal speech, Normal strength at 5/5 x4 extr, Cranial nerves 3-12 intact - Studies Laboratory Data (last 24 hrs) 08/14/20 16:40: WBC 8.1, Hgb 11.5 L, Hct 34.6 L, Plt Count 166 Assessment & Plan Physician Review Additional Text: Syncope, altered mental status vs ?seizure Covid+ Diabetes mellitus type 2 Hypertension Hyperlipidemia History of CVA Dementia CKD stage III Plan Syncope, altered mental status vs ?seizure: discussed with step-daughter - reports h/o dementia but mostly oriented 2-3 stated patient had eyes rolling back to head, loss bowel function, and then was unresponsive - entire episode lasting 5-10 minutes (witnessed by step-sister, unavailable to talk today) Echo, MRI ordered briefly reviewed with neurology - will order EEG as well, concern for seizure activity, pt with h/o CVA x2 in past, start keppra continue aspirin/plavix speech eval PT/OT ordered COVID+ - will start patient on pred 20mg BID Diabetes mellitus type 2: A.c. HS Accu-Cheks scale insulin therapy. HTN, HLD, h/o CVA, dementia/ parkinson's - pt unaware of medications, advised daughter to obtain list and give to nursing staff. CKD stage III: Patient close to baseline renal function, improved overnight with IVF, dc now Dispo: family report pt getting weaker, more difficult to care for at home consult PT/OT, SW/CM for possible placement pending further eval Time Spent Managing Pts Care (In Minutes): 40
--- NOTE | 2020-08-15 20:12 | RAD REPORT ---
EXAM DESCRIPTION: US - CP - 08/15/2020 7:55 pm CLINICAL HISTORY: ?CVA COMPARISON: Neck Angio dated 12/20/2018 TECHNIQUE: Real-time sonographic evaluation of bilateral carotid and vertebral systems was performed . Keller scale and Doppler interrogation were performed with waveform tracing bilaterally. FINDINGS: Normal high resistance waveforms are noted in both external carotid arteries. The common c arotid arteries and internal carotid arteries show normal low resistance waveforms. Calcified plaquing changes are present in the right carotid bulb and proximal most ICA. Less prominen t plaquing seen in the left carotid vasculature. Visually there is no significant luminal narrowing. Peak systolic and end diastolic velocity values and the ICA/CCA ratios are in the non-hemodynamically significant range. Antegrade flow seen in both vertebral arteries. Velocity values and ratios were recorded and are retained in the patient's imaging records. IMPRESSION: Bilateral plaquing changes are present relatively mild with no visual evidence of signif icant luminal narrowing. Velocity values and ratios also indicate no hemodynamically significant stenoses.
[2020-08-15] MEDS: levETIRAcetam 500 MG in NA CHLORIDE 0.9% 100 ML IV SCH (20:32)
[2020-08-15] MEDS: ACETAMINOPHEN 500 MG TAB PO PRN (20:32)
[2020-08-15] MEDS: ATORVASTATIN 80 MG TAB PO SCH (20:32)
[2020-08-15] MEDS: DONEPEZIL HCL 5 MG TAB PO SCH (20:33)
[2020-08-15] MEDS: predniSONE 20 MG TAB PO SCH (20:34)
[2020-08-16] MEDS: ONDANSETRON 4 MG/2 ML VIAL IV PRN (00:53)
[2020-08-16 03:54] LABS: Absolute Lymphocytes (CBC) 0.4 K/uL (0.7-4.9); Basophils % 0.1 % (0-1.3); Hematocrit 28.9 % (39.6-49.0); Lymphocytes % 6.6 % (15.3-44.8); MPV 8.7 fL (7.6-11.3); RBC Red Blood Cell Count 3.19 M/uL (4.33-5.43)
[2020-08-16 04:33] LABS: Magnesium 1.8 mg/dL (1.8-2.4); Potassium 3.9 mmol/L (3.5-5.1)
--- NOTE | 2020-08-16 09:01 | ECHO ---
HEIGHT: 5 ft 11 in WEIGHT: 153 lb 12.8 oz DATE OF STUDY: 08/15/[address]: Ben Giron NP 2-DIMENSIONAL: YES M.MODE: YES DOPPLER: YES COLOR FLOW: YES TDS: YES PORTABLE: NO DEFINITY: NO BUBBLE STUDY: NO DIAGNOSIS: SYNCOPE CARDIAC HISTORY: CATHERIZATION: SURGERY: PROSTHETIC VALVE: PACEMAKER: MEASUREMENTS (cm) DIASTOLIC (NORMALS) SYSTOLIC (NORMALS) IVSd (0.6-1.2) LA Diam (1.9-4.0) LVEF NORMAL% LVIDd (3.5-5.7) LVIDs (2.0-3.5) %FS % LVPWd (0.6-1.2) Ao Diam 3.2 (2.0-3.7) 2 DIMENSIONAL ASSESSMENT: RIGHT ATRIUM: NORMAL LEFT ATRIUM: NORMAL RIGHT VENTRICLE: NORMAL LEFT VENTRICLE: NORMAL TRICUSPID VALVE: NORMAL MITRAL VALVE: MITRAL ANNULAR CALCIFICATION PULMONIC VALVE: NORMAL AORTIC VALVE: SCLEROSIS PERICARDIAL EFFUSION: NONE AORTIC ROOT: NORMAL LEFT VENTRICULAR WALL MOTION: NORMAL DOPPLER/COLOR FLOW: NORMAL COMMENTS: MITRAL ANNULAR CALCIFICATION. AORTIC SCLEROSIS WITH NO STENOSIS. NO WALL MOTION ABNORMALITY. NORMAL LEFT VENTRICULAR SIZE AND FUNCTION. NO EFFUSION. TECHNOLOGIST: Abdon WHITE
[2020-08-16] MEDS: levETIRAcetam 500 MG in NA CHLORIDE 0.9% 100 ML IV SCH ×2 (09:21→22:32)
[2020-08-16] MEDS: ASPIRIN 81 MG CHEWABLE TABLET PO SCH (09:21)
[2020-08-16] MEDS: CLOPIDOGREL 75 MG TABLET PO SCH (09:22)
[2020-08-16] MEDS: CARBIDOPA/LEVODOPA 25/100 TAB PO SCH ×3 (09:22→22:18)
[2020-08-16] MEDS: predniSONE 20 MG TAB PO SCH (09:22)
[2020-08-16] MEDS: INSULIN -REGULAR HUMAN 50 UNIT/0.5 ML ML SQ SCH ×4 (09:22→23:02)
[2020-08-16] MEDS: FOLIC ACID 1 MG TABLET PO SCH (09:22)
[2020-08-16] MEDS: HEPARIN 5000 UNIT/ML 1 ML VIAL SQ SCH ×2 (09:23→22:18)
--- NOTE | 2020-08-16 19:56 | P.PN ---
Subjective Date of Service: 08/16/20 Primary Care Provider: Unknown Chief Complaint: Syncope, AMS Subjective: No new changes (with some confusion overnight / delirium, family does report h/o . unable to get MRI yesterday due to nausea/vomiting, unable to lay still) Review of Systems 10-point ROS is otherwise unremarkable Physical Examination - Vital Signs Temperature: 97.8 F Blood Pressure: 124/64 Pulse: 55 Respirations: 20 Pulse Ox (%): 95 - Physical Exam General: Alert, Oriented x2, Confused HEENT: Sclerae nonicteric Respiratory: Other (non-labored on RA) Cardiovascular: No edema, Regular rate/rhythm Gastrointestinal: Soft and benign, No tenderness Musculoskeletal: No tenderness Integumentary: No rashes Neurological: Normal strength at 5/5 x4 extr - Studies Laboratory Data (last 24 hrs) 08/16/20 03:00: Sodium 140, Potassium 3.9, BUN 18, Creatinine 1.06, Glucose 238 H, Magnesium 1.8 08/16/20 03:00: WBC 5.5 D, Hgb 10.1 L, Hct 28.9 L, Plt Count 140 L Assessment & Plan Physician Review Additional Text: Syncope, altered mental status vs ?seizure Covid+ Diabetes mellitus type 2 Hypertension Hyperlipidemia History of CVA Dementia CKD stage III autonomic instability / orthostasis Plan Syncope, altered mental status vs ?seizure: discussed with step-daughter - reports h/o dementia but mostly oriented 2-3, h/o , able to have conversations, occasionally has mild confusion of certain things stated patient had eyes rolling back to head, loss bowel function, and then was unresponsive - entire episode lasting 5-10 minutes (witnessed by step-sister) Echo pending today, will attempt to get MRI when less confused/agitated neurology consulted - EEG ordered due to concern for seizure activity at home, non seizure here, started on keppra 500 BID, h/o CVA x2 in past daughter denies prior history of seizures continue aspirin/plavix speech eval PT/OT ordered unclear if COVID is playing a role in this will add seroquel at bedtime COVID+ -CRP increasing, pt on RA, will increase steroids. breathing comfortably on RA, will obtain CXR tomorrow Diabetes mellitus type 2: A.c. HS Accu-Cheks scale insulin therapy. HTN, HLD, h/o CVA, dementia/ parkinson's - pt unaware of medications, advised daughter to obtain list and give to nursing staff. reviewed some over the phone and restarted. CKD stage III: Patient close to baseline renal function Dispo: family report pt getting weaker, more difficult to care for at home, interested in placement after this acute issue has been resolved consult PT/OT, SW/CM for possible placement pending further eval Time Spent Managing Pts Care (In Minutes): 45
[2020-08-16] MEDS: ATORVASTATIN 80 MG TAB PO SCH (22:17)
[2020-08-16] MEDS: GABAPENTIN 300 MG CAP PO SCH (22:18)
[2020-08-16] MEDS: QUETIAPINE 25 MG TAB PO SCH (22:18)
[2020-08-16] MEDS: DONEPEZIL HCL 5 MG TAB PO SCH (22:18)
[2020-08-16] MEDS: TAMSULOSIN 0.4 MG SR CAP PO SCH (22:31)
[2020-08-16] MEDS: MIDODRINE HCL 5 MG TABLET PO SCH (22:43)
[2020-08-17] MEDS: METHYLPREDNISOLONE 40 MG INJ IV SCH ×3 (01:00→17:05)
[2020-08-17] MEDS ORDERED: METHYLPREDNISOLONE 40 MG INJ IV SCH (01:00)
[2020-08-17 03:46] LABS: Absolute Lymphocytes (CBC) 0.4 K/uL (0.7-4.9); Basophils % 0.1 % (0-1.3); Hematocrit 28.7 % (39.6-49.0); Lymphocytes % 9.6 % (15.3-44.8); MPV 8.4 fL (7.6-11.3); RBC Red Blood Cell Count 3.16 M/uL (4.33-5.43)
[2020-08-17 04:42] LABS: AST/SGOT 24 U/L (15-37); Albumin 2.4 g/dL (3.4-5.0); Alkaline Phosphatase 71 U/L (45-117); BUN Blood Urea Nitrogen 28 mg/dL (7-18); Bicarbonate 24 mmol/L (21-32); Bilirubin Total 0.4 mg/dL (0.2-1.0); Ferritin 342.4 ng/mL (26-388); Glucose Level 187 mg/dL (74-106); Magnesium 2.1 mg/dL (1.8-2.4); Protein, Total 5.5 g/dL (6.4-8.2); Sodium Level 144 mmol/L (136-145)
[2020-08-17 04:44] LABS: ALT/SGPT < 6 U/L (12-78)
--- NOTE | 2020-08-17 08:55 | RAD REPORT ---
EXAM DESCRIPTION: RAD - Chest Single View - 08/17/2020 6:41 am CLINICAL HISTORY: COVID+ Chest pain. COMPARISON: Chest Single View dated 08/14/2020; Chest Single View dated 01/28/2020; Chest Single View d ated 01/16/2020; Chest Single View dated 12/20/2018 FINDINGS: Portable technique limits examination quality. Assessment is limited by patient rotation. The lungs are grossly clear. The heart is mildly prominent size. No displaced fractures.
[2020-08-17] MEDS ORDERED: PARoxetine HCL 10 MG TAB PO SCH (09:00)
[2020-08-17] MEDS: MIDODRINE HCL 5 MG TABLET PO SCH ×2 (09:00→21:00)
[2020-08-17] MEDS: PARoxetine HCL 10 MG TAB PO SCH (10:17)
[2020-08-17] MEDS: INSULIN -REGULAR HUMAN 50 UNIT/0.5 ML ML SQ SCH ×4 (10:17→21:00)
[2020-08-17] MEDS: FINASTERIDE 5 MG TAB PO SCH (10:17)
[2020-08-17] MEDS: CLOPIDOGREL 75 MG TABLET PO SCH (10:18)
[2020-08-17] MEDS: TAMSULOSIN 0.4 MG SR CAP PO SCH ×2 (10:18→22:09)
[2020-08-17] MEDS: CARBIDOPA/LEVODOPA 25/100 TAB PO SCH ×3 (10:18→22:09)
[2020-08-17] MEDS: FOLIC ACID 1 MG TABLET PO SCH (10:18)
[2020-08-17] MEDS: ASPIRIN 81 MG CHEWABLE TABLET PO SCH (10:18)
[2020-08-17] MEDS: HEPARIN 5000 UNIT/ML 1 ML VIAL SQ SCH ×2 (10:19→22:09)
[2020-08-17] MEDS: levETIRAcetam 500 MG in NA CHLORIDE 0.9% 100 ML IV SCH ×2 (10:21→22:12)
[2020-08-17] MEDS ORDERED: LORazepam 2 MG/ML VIAL IV ONE (10:41)
[2020-08-17] MEDS: LORazepam 2 MG/ML VIAL IV ONE ×2 (11:47→12:00)
--- NOTE | 2020-08-17 13:48 | RAD REPORT ---
EXAM DESCRIPTION: MRI - Brain W/Wo Cont - 08/17/2020 12:59 pm CLINICAL HISTORY: Syncope COMPARISON: August 14, [address] TECHNIQUE: Axial, sagittal, and coronal magnetic images of the brain were obtained. 15 cc MultiHance administered intravenously FINDINGS: Large area of abnormal signal within the right frontal and right parietal lobes compatible with old infarction. Additional small old left cerebral infarcts. Small old right basal ganglia infa rction Cerebral atrophy is present. Prominence of the ventricles likely related to white matter atrophy Diffusion-weighted/ ADC mapping sequences do not demonstrate evidence of an acute infarction. No abnormal enhancement within the brain is seen. An extra-axial fluid collection is not noted. Fluid within the sinuses/mastoids is not seen IMPRESSION: No acute abnormality displayed
--- NOTE | 2020-08-17 13:58 | RAD REPORT ---
EXAM DESCRIPTION: MRI - MRA Head Wo Cont - 08/17/2020 12:59 pm CLINICAL HISTORY: Syncope COMPARISON: None. TECHNIQUE: Magnetic resonance angiogram was performed. 3D MIPS reconstruction performed FINDINGS: Areas of narrowing involves the right and left middle cerebral arteries as well as the rig ht posterior cerebral artery. Diminished flow present throughout the left posterior cerebral artery. Basilar, internal carotid and anterior cerebral arteries appear unremarkable. An aneurysm is not displayed. IMPRESSION: Areas of narrowing involves the right and left middle cerebral arteries as well as the r ight posterior cerebral artery. Diminished flow present throughout the left posterior cerebral artery . These all appear to be chronic findings
[2020-08-17] MEDS: GABAPENTIN 300 MG CAP PO SCH ×2 (14:28→22:09)
--- NOTE | 2020-08-17 14:58 | EEG ---
CHART: [id number] TEST ID#: [id number] DATE OF STUDY: 08/16/2020 THE EEG WAS RECORDED PORTABLE IN THE PATIENT'S ROOM ON A 17 CHANNEL MACHINE. ELECTRODES WERE APPLIED IN THE USUAL MANNER USING THE INTERNATIONAL 10-20 SYSTEM. THE WAKING BACKGROUND RHYTHM IN THIS RECORD CONSISTS OF POORLY DEVELOPED AND POORLY ORGANIZED WAVES OF 5-6 HZ., IN A WIDE DISTRIBUTION WHICH DOES NOT ATTENUATE NORMALLY WITH EYE OPENING. MODERATE VOLTAGE 1.5-3 HZ ACTIVITY IS EXPRESSED IN THE FRONTAL REGIONS. THERE ARE NO FOCAL OR LATERALIZING FEATURES. NO EPILEPTIFORM ACTIVITY APPEARS. SLEEP DID NOT OCCUR. HYPERVENTILATION WAS NOT PERFORMED. PHOTIC STIMULATION PRODUCED NO DRIVING BILATERALLY. IMPRESSION: THIS IS A MODERATELY ABNORMAL AWAKE ROUTINE EEG DUE TO A MODERATE SLOW BACKGROUND. THIS IS A NON-SPECIFIC FINDING INDICATING THE PRESENCE OF A MODERATE DIFFUSE DISTURBANCE IN CEREBRAL FUNCTION.
--- NOTE | 2020-08-17 18:24 | P.PN ---
Subjective Date of Service: 08/17/20 Primary Care Provider: Unknown Chief Complaint: Syncope, AMS Subjective: Improving (no acute events overnight. pt more alert / oriented / conversive this morning) Review of Systems 10-point ROS is otherwise unremarkable Physical Examination - Vital Signs Temperature: 97.5 F Blood Pressure: 150/70 Pulse: 50 Respirations: 18 Pulse Ox (%): 92 - Physical Exam General: Alert, Oriented x2, Confused HEENT: PERRLA, Sclerae nonicteric Cardiovascular: No edema, Regular rate/rhythm Gastrointestinal: Soft and benign, No tenderness Musculoskeletal: No tenderness Integumentary: No rashes Assessment & Plan Physician Review Additional Text: Syncope, altered mental status vs ?seizure Covid+ Diabetes mellitus type 2 Hypertension Hyperlipidemia History of CVA Dementia CKD stage III autonomic instability / orthostasis Plan Syncope, altered mental status vs ?seizure: discussed with step-daughter - reports h/o dementia but mostly oriented 2-3, h/o , able to have conversations, occasionally has mild confusion of certain things concern for seizure like activity, daughter denies h/o seizures neuro consulted, EEG read pending, on keppra 500 BID, h/o CVA x 2 in past feeling better today, likely can get MRI done continue aspirin/plavix PT/OT ordered unclear if COVID is playing a role in this seroquel qHS added yesterday, slept well COVID+ -CRP improving on higher dose steroids, breathing comfortably on RA, CXR negative this morning Diabetes mellitus type 2: A.c. HS Accu-Cheks scale insulin therapy. HTN, HLD, h/o CVA, dementia/ parkinson's - restarted CKD stage III: Patient close to baseline renal function Dispo: family report pt getting weaker, more difficult to care for at home, interested in placement after this acute issue has been resolved consult PT/OT, SW/CM for possible placement pending further eval Time Spent Managing Pts Care (In Minutes): 35
[2020-08-17] MEDS ORDERED: GLUCAGON 1 MG/VIAL IM PRN (18:26)
[2020-08-17] MEDS ORDERED: D50W 25 GM/50 ML SYRINGE IV PRN (18:26)
--- NOTE | 2020-08-17 20:58 | RAD REPORT ---
EXAM DESCRIPTION: MRI - MRA Neck W/Wo Cont - 08/17/2020 12:59 pm CLINICAL HISTORY: Syncope COMPARISON: None. TECHNIQUE: Magnetic resonance angiogram of the neck was performed. 19 cc MultiHance was administered intravenously. 3D MIPS reconstruction performed FINDINGS: Images are degraded by patient motion artifact. Apparent marked narrowing left carotid bul b Short segment moderate narrowing distal right common carotid artery. The vertebral arteries are codominant without visualization of an abnormality. IMPRESSION: Apparent marked narrowing of the left carotid bulb. It is uncertain whether this is seco ndary to artifact or severe stenosis. Repeat imaging is recommended. If the patient can't lay still f or the MRA, CT angiogram would be recommended Short-segment moderate narrowing distal right common carotid artery. It is unclear if this is seconda ry to artifact or pathology can can be evaluated on subsequent imaging NASCET criteria used. Mild 0-49% stenosis Moderate 50-69% stenosis Severe 70-99% stenosis
[2020-08-17] MEDS: DONEPEZIL HCL 5 MG TAB PO SCH (22:09)
[2020-08-17] MEDS: ATORVASTATIN 80 MG TAB PO SCH (22:09)
[2020-08-17] MEDS: QUETIAPINE 25 MG TAB PO SCH (22:09)
[2020-08-18] MEDS: METHYLPREDNISOLONE 40 MG INJ IV SCH ×3 (01:41→16:18)
[2020-08-18 06:38] LABS: Absolute Lymphocytes (CBC) 0.3 K/uL (0.7-4.9); Basophils % 0.1 % (0-1.3); Hematocrit 33.4 % (39.6-49.0); Lymphocytes % 3.8 % (15.3-44.8); MPV 8.5 fL (7.6-11.3); RBC Red Blood Cell Count 3.64 M/uL (4.33-5.43)
[2020-08-18 07:00] LABS: C-Reactive Protein 42.9 mg/L (<3.00); Ferritin 403.4 ng/mL (26-388); Magnesium 2.2 mg/dL (1.8-2.4); Potassium 4.5 mmol/L (3.5-5.1)
[2020-08-18] MEDS: INSULIN -REGULAR HUMAN 50 UNIT/0.5 ML ML SQ SCH ×4 (07:30→21:00)
[2020-08-18] MEDS ORDERED: INSULIN 70/30 100 UNITS/ML SQ SCH (08:00)
[2020-08-18] MEDS: SITAGLIPTIN PHOS 100 MG TAB PO SCH (08:59)
[2020-08-18] MEDS: CARBIDOPA/LEVODOPA 25/100 TAB PO SCH ×3 (08:59→21:28)
[2020-08-18] MEDS: FOLIC ACID 1 MG TABLET PO SCH (08:59)
[2020-08-18] MEDS: TAMSULOSIN 0.4 MG SR CAP PO SCH ×2 (09:00→21:28)
[2020-08-18] MEDS: CLOPIDOGREL 75 MG TABLET PO SCH (09:00)
[2020-08-18] MEDS: HEPARIN 5000 UNIT/ML 1 ML VIAL SQ SCH ×2 (09:00→21:28)
[2020-08-18] MEDS: MIDODRINE HCL 5 MG TABLET PO SCH ×2 (09:00→21:00)
[2020-08-18] MEDS: PARoxetine HCL 10 MG TAB PO SCH (09:00)
[2020-08-18] MEDS: FINASTERIDE 5 MG TAB PO SCH (09:00)
[2020-08-18] MEDS: GABAPENTIN 300 MG CAP PO SCH ×3 (09:00→21:28)
[2020-08-18] MEDS: ASPIRIN 81 MG CHEWABLE TABLET PO SCH (09:50)
[2020-08-18] MEDS: levETIRAcetam 500 MG in NA CHLORIDE 0.9% 100 ML IV SCH ×2 (09:51→21:32)
[2020-08-18] MEDS ORDERED: D50W 25 GM/50 ML VIAL IV PRN (17:33)
[2020-08-18] MEDS: ATORVASTATIN 80 MG TAB PO SCH (21:27)
[2020-08-18] MEDS: QUETIAPINE 25 MG TAB PO SCH (21:28)
[2020-08-18] MEDS: DONEPEZIL HCL 5 MG TAB PO SCH (21:29)
--- NOTE | 2020-08-18 23:25 | P.PN ---
Subjective Date of Service: 08/18/20 Primary Care Provider: Unknown Chief Complaint: Syncope, AMS Subjective: Improving (more awake/alert this morning, without complaints, continues with confusion, does not recall events from earlier in hospitalization. denies nausea/vomiting.) Review of Systems 10-point ROS is otherwise unremarkable Physical Examination - Vital Signs Temperature: 98.1 F Blood Pressure: 133/58 Pulse: 54 Respirations: 17 Pulse Ox (%): 98 - Physical Exam General: Alert, In no apparent distress, Oriented x2 HEENT: Sclerae nonicteric Respiratory: Clear to auscultation bilaterally Cardiovascular: No edema, Regular rate/rhythm Gastrointestinal: Soft and benign, No tenderness Musculoskeletal: No tenderness Integumentary: No rashes Neurological: Normal speech, Normal strength at 5/5 x4 extr Assessment & Plan Physician Review Additional Text: Syncope, altered mental status vs ?seizure Covid+ Diabetes mellitus type 2 Hypertension Hyperlipidemia History of CVA Dementia CKD stage III autonomic instability / orthostasis Plan Syncope, altered mental status vs ?seizure: discussed with step-daughter - reports h/o dementia but mostly oriented 2-3, h/o sundowning, able to have conversations, occasionally has mild confusion of certain things concern for seizure like activity, daughter denies h/o seizures neuro consulted, EEG with nonspecific slow waves, on keppra 500BID, h/o CVA x2 in past MRI/MRA negative for stroke continue aspirin/plavix PT/OT ordered - pt continues with orthostatic hypotension - likely contributing to nausea/vomiting and intermittent confusion unclear if COVID is playing a role in this Seroquel added - seems to help COVID+ -CRP improving on higher dose steroids, breathing comfortably on RA, CXR negative this morning Diabetes mellitus type 2: A.c. HS Accu-Cheks scale insulin therapy. restarted shiva 70/30, increase as needed HTN, HLD, h/o CVA, dementia/ parkinson's - restarted CKD stage III: Patient close to baseline renal function Dispo: family report pt getting weaker, more difficult to care for at home, interested in placement after this acute issue has been resolved consult PT/OT, SW/CM for placement Time Spent Managing Pts Care (In Minutes): 35
[2020-08-19] MEDS: METHYLPREDNISOLONE 40 MG INJ IV SCH ×3 (01:34→17:02)
[2020-08-19 07:30] LABS: Hematocrit 33.4 % (39.6-49.0); MPV 8.6 fL (7.6-11.3); RBC Red Blood Cell Count 3.69 M/uL (4.33-5.43)
[2020-08-19 07:42] LABS: C-Reactive Protein 25.9 mg/L (<3.00); Ferritin 381.5 ng/mL (26-388); Magnesium 2.1 mg/dL (1.8-2.4); Potassium 4.2 mmol/L (3.5-5.1)
[2020-08-19] MEDS ORDERED: NA CHLORIDE 0.9% 500 ML IV ONE (08:00)
[2020-08-19] MEDS: HEPARIN 5000 UNIT/ML 1 ML VIAL SQ SCH ×2 (09:00→20:26)
[2020-08-19] MEDS: ASPIRIN 81 MG CHEWABLE TABLET PO SCH (09:45)
[2020-08-19] MEDS: levETIRAcetam 500 MG in NA CHLORIDE 0.9% 100 ML IV SCH ×2 (09:45→20:25)
[2020-08-19] MEDS: SITAGLIPTIN PHOS 100 MG TAB PO SCH (09:46)
[2020-08-19] MEDS: CLOPIDOGREL 75 MG TABLET PO SCH (09:46)
[2020-08-19] MEDS: FINASTERIDE 5 MG TAB PO SCH (09:46)
[2020-08-19] MEDS: CARBIDOPA/LEVODOPA 25/100 TAB PO SCH ×3 (09:46→20:26)
[2020-08-19] MEDS: MIDODRINE HCL 5 MG TABLET PO SCH ×2 (09:46→20:26)
[2020-08-19] MEDS: GABAPENTIN 300 MG CAP PO SCH ×3 (09:46→20:26)
[2020-08-19] MEDS: TAMSULOSIN 0.4 MG SR CAP PO SCH ×2 (09:46→20:26)
[2020-08-19] MEDS: FOLIC ACID 1 MG TABLET PO SCH (09:46)
[2020-08-19] MEDS: INSULIN 70/30 100 UNITS/ML SQ SCH (09:47)
[2020-08-19] MEDS: PARoxetine HCL 10 MG TAB PO SCH (09:47)
[2020-08-19] MEDS: INSULIN -REGULAR HUMAN 50 UNIT/0.5 ML ML SQ SCH ×4 (09:48→20:27)
[2020-08-19] MEDS: ATORVASTATIN 80 MG TAB PO SCH (20:26)
[2020-08-19] MEDS: QUETIAPINE 25 MG TAB PO SCH (20:26)
[2020-08-19] MEDS: DONEPEZIL HCL 5 MG TAB PO SCH (20:26)
--- NOTE | 2020-08-19 20:41 | P.PN ---
Subjective Date of Service: 08/19/20 Primary Care Provider: Unknown Chief Complaint: Syncope, AMS Subjective: Improving (alert/awake this morning. no acute events overnight, slept well. Patient reports feeling better today, still with confusion. does not seem to recall some events from yesterday) Review of Systems 10-point ROS is otherwise unremarkable Physical Examination - Vital Signs Temperature: 98 F Blood Pressure: 117/58 Pulse: 61 Respirations: 18 Pulse Ox (%): 96 - Physical Exam General: Alert, In no apparent distress, Oriented x2 HEENT: Sclerae nonicteric Respiratory: Other (nonlabored on RA) Cardiovascular: Regular rate/rhythm Gastrointestinal: Soft and benign, No tenderness Musculoskeletal: No tenderness Integumentary: No rashes Neurological: Normal speech, Normal affect - Studies Microbiology Data (last 24 hrs): 08/14/20 17:09 Blood - Blood Aerobic Blood Culture - Final No growth in 5 days. 08/14/20 17:09 Blood - Blood Anaerobic Blood Culture - Final No growth in 5 days. 08/14/20 16:40 Blood - Blood Aerobic Blood Culture - Final No growth in 5 days. 08/14/20 16:40 Blood - Blood Anaerobic Blood Culture - Final No growth in 5 days. Assessment & Plan Physician Review Additional Text: Syncope, altered mental status vs ?seizure Covid+ Diabetes mellitus type 2 Hypertension Hyperlipidemia History of CVA Dementia CKD stage III autonomic instability / orthostasis Plan Syncope, altered mental status vs ?seizure: h/o dementia, mostly oriented 2-3, h/o , has mild confusion / forgetfulness of certain things concern for seizure like activity - reportedly had eyes rolling back into head, some convulsing followed by unresponsiveness, daughter denies h/o seizures neuro consulted, EEG with nonspecific slow waves, on keppra 500BID, h/o CVA x2 in past MRI/MRA negative for stroke continue aspirin/plavix PT/OT ordered - pt continues with orthostatic hypotension - likely contributing to nausea/vomiting and intermittent confusion, will give 500cc bolus today, repeat orhostatics Seroquel added - seems to help COVID+ -CRP improving on higher dose steroids, breathing comfortably on RA, CXR negative this morning, CRP improving, will decrease solumedrol dose Diabetes mellitus type 2: A.c. HS Accu-Cheks scale insulin therapy. restarted shiva 70/30, increase as needed HTN, HLD, h/o CVA, dementia/ parkinson's - restarted CKD stage III: Patient close to baseline renal function Dispo: family report pt getting weaker, more difficult to care for at home, interested in placement consult PT/OT, SW/CM for placement Time Spent Managing Pts Care (In Minutes): 35
[2020-08-20] MEDS: METHYLPREDNISOLONE 40 MG INJ IV SCH ×3 (00:41→22:17)
[2020-08-20 07:14] LABS: C-Reactive Protein 22.2 mg/L (<3.00); Ferritin 431.8 ng/mL (26-388); Magnesium 1.9 mg/dL (1.8-2.4); Potassium 4.2 mmol/L (3.5-5.1)
[2020-08-20] MEDS: NA CHLORIDE 0.9% 1,000 ML IV SCH (09:00)
[2020-08-20] MEDS: HEPARIN 5000 UNIT/ML 1 ML VIAL SQ SCH ×2 (09:00→22:18)
[2020-08-20] MEDS: FOLIC ACID 1 MG TABLET PO SCH (09:00)
[2020-08-20] MEDS: TAMSULOSIN 0.4 MG SR CAP PO SCH ×2 (09:49→22:15)
[2020-08-20] MEDS: MIDODRINE HCL 5 MG TABLET PO SCH ×2 (09:50→22:16)
[2020-08-20] MEDS: PARoxetine HCL 10 MG TAB PO SCH (09:50)
[2020-08-20] MEDS: GABAPENTIN 300 MG CAP PO SCH ×2 (09:50→14:30)
[2020-08-20] MEDS: FINASTERIDE 5 MG TAB PO SCH (09:50)
[2020-08-20] MEDS: CLOPIDOGREL 75 MG TABLET PO SCH (09:50)
[2020-08-20] MEDS: SITAGLIPTIN PHOS 100 MG TAB PO SCH (09:51)
[2020-08-20] MEDS: ASPIRIN 81 MG CHEWABLE TABLET PO SCH (09:51)
[2020-08-20] MEDS: CARBIDOPA/LEVODOPA 25/100 TAB PO SCH ×3 (09:51→22:16)
[2020-08-20] MEDS: levETIRAcetam 500 MG in NA CHLORIDE 0.9% 100 ML IV SCH (09:52)
[2020-08-20] MEDS: INSULIN -REGULAR HUMAN 50 UNIT/0.5 ML ML SQ SCH ×4 (09:52→22:32)
[2020-08-20] MEDS: INSULIN 70/30 100 UNITS/ML SQ SCH (09:53)
--- NOTE | 2020-08-20 21:04 | P.PN ---
Subjective Date of Service: 08/20/20 Primary Care Provider: Unknown Chief Complaint: Syncope, AMS Subjective: No new changes (feeling well, continues with significant orthostasis, with nausea this morning. otherwise more alert/oriented) Review of Systems 10-point ROS is otherwise unremarkable Physical Examination - Vital Signs Temperature: 97.4 F Blood Pressure: 126/65 Pulse: 60 Respirations: 18 Pulse Ox (%): 95 - Physical Exam General: Alert, In no apparent distress, Oriented x2 HEENT: Sclerae nonicteric Respiratory: Clear to auscultation bilaterally Cardiovascular: No edema, Regular rate/rhythm Gastrointestinal: Soft and benign, Non-distended, No tenderness Musculoskeletal: No tenderness Integumentary: No significant lesion Neurological: Normal speech - Studies Microbiology Data (last 24 hrs): 08/14/20 17:09 Blood - Blood Aerobic Blood Culture - Final No growth in 5 days. 08/14/20 17:09 Blood - Blood Anaerobic Blood Culture - Final No growth in 5 days. 08/14/20 16:40 Blood - Blood Aerobic Blood Culture - Final No growth in 5 days. 08/14/20 16:40 Blood - Blood Anaerobic Blood Culture - Final No growth in 5 days. Assessment & Plan Physician Review Additional Text: Syncope, altered mental status vs ?seizure Covid+ Diabetes mellitus type 2 Hypertension Hyperlipidemia History of CVA Dementia CKD stage III autonomic instability / orthostasis Plan Syncope, altered mental status vs ?seizure: h/o dementia, mostly oriented 2-3, h/o , has mild confusion / forgetfulness of certain things concern for seizure like activity, neuro consulted, EEG: nonspecific slow waves; h/o CVA x2 in past neuro consulted, EEG with nonspecific slow waves, started on keppra 500 bid, will decrease to 250 BID today, minimize medications that contribute to orthostasis, check level in AM MRI/MRA negative for stroke continue aspirin/plavix PT/OT ordered - pt continues with orthostatic hypotension - likely contributing to nausea/vomiting and intermittent confusion, s/p 500cc bolus yesterday, start IVF today, increase midodrine from BID to TID decrease Keppra from 500mg BID to 250mg BID dc Seroquel COVID+ -patient has been asymptomatic since admission. CXR without evidence of pneumo bijal -patient has not required any oxygen since admission -CRP improving, ferritin increasing, decrease solumedrol to 40 BID Diabetes mellitus type 2: A.c. HS Accu-Cheks scale insulin therapy. restarted shiva 70/30, increase as needed HTN, HLD, h/o CVA, dementia/ parkinson's - restarted CKD stage III: Patient close to baseline renal function Dispo: family report pt getting weaker, more difficult to care for at home, interested in placement. updated daughter today consult PT/OT, SW/CM for placement Time Spent Managing Pts Care (In Minutes): 35
[2020-08-20] MEDS: ATORVASTATIN 80 MG TAB PO SCH (22:15)
[2020-08-20] MEDS: DONEPEZIL HCL 5 MG TAB PO SCH (22:15)
[2020-08-20] MEDS: levETIRAcetam 500 MG TAB PO SCH (22:16)
[2020-08-21 04:22] LABS: Ferritin 401.9 ng/mL (26-388); Magnesium 1.9 mg/dL (1.8-2.4); Potassium 4.2 mmol/L (3.5-5.1)
[2020-08-21] MEDS: INSULIN -REGULAR HUMAN 50 UNIT/0.5 ML ML SQ SCH ×4 (08:00→21:00)
[2020-08-21] MEDS: ASPIRIN 81 MG CHEWABLE TABLET PO SCH (09:00)
[2020-08-21] MEDS: levETIRAcetam 500 MG TAB PO SCH ×2 (09:26→21:05)
[2020-08-21] MEDS: CLOPIDOGREL 75 MG TABLET PO SCH (09:26)
[2020-08-21] MEDS: MIDODRINE HCL 5 MG TABLET PO SCH ×3 (09:27→21:06)
[2020-08-21] MEDS: PARoxetine HCL 10 MG TAB PO SCH (09:27)
[2020-08-21] MEDS: FINASTERIDE 5 MG TAB PO SCH (09:27)
[2020-08-21] MEDS: SITAGLIPTIN PHOS 100 MG TAB PO SCH (09:27)
[2020-08-21] MEDS: TAMSULOSIN 0.4 MG SR CAP PO SCH ×2 (09:27→21:05)
[2020-08-21] MEDS: METFORMIN HCL 500 MG TAB PO SCH ×2 (09:28→17:35)
[2020-08-21] MEDS: FOLIC ACID 1 MG TABLET PO SCH (09:28)
[2020-08-21] MEDS: INSULIN 70/30 100 UNITS/ML SQ SCH (09:29)
[2020-08-21] MEDS: CARBIDOPA/LEVODOPA 25/100 TAB PO SCH ×3 (09:30→21:05)
[2020-08-21] MEDS: METHYLPREDNISOLONE 40 MG INJ IV SCH ×2 (10:00→21:06)
[2020-08-21] MEDS: NA CHLORIDE 0.9% 1,000 ML IV SCH (11:40)
[2020-08-21] MEDS: ACETAMINOPHEN 500 MG TAB PO PRN (16:14)
--- NOTE | 2020-08-21 18:40 | P.PN ---
Subjective Date of Service: 08/21/20 Primary Care Provider: Unknown Chief Complaint: Syncope, AMS Subjective: No new changes (patient reports feeling ok, without complaints this morning. No acute events overnight, denies shortness of breath Still with lightheadedness/orthostasis) Review of Systems 10-point ROS is otherwise unremarkable Physical Examination - Vital Signs Temperature: 99.4 F Blood Pressure: 132/63 Pulse: 72 Respirations: 16 Pulse Ox (%): 96 - Physical Exam General: Alert, In no apparent distress, Oriented x2 HEENT: Sclerae nonicteric Respiratory: Clear to auscultation bilaterally Cardiovascular: No edema, Regular rate/rhythm Gastrointestinal: Soft and benign, No tenderness Musculoskeletal: No tenderness Neurological: Normal speech Assessment & Plan Physician Review Additional Text: Syncope, altered mental status vs ?seizure h/o moderate-severe orthostasis / autonomic dysfunction Covid+ Diabetes mellitus type 2 Hypertension Hyperlipidemia History of CVA Dementia CKD stage III autonomic instability / orthostasis Plan Syncope, altered mental status vs ?seizure: h/o moderate-severe orthostasis / autonomic dysfunction h/o dementia, mostly oriented 2-3, h/o sundowning, has mild confusion / forgetfulness of certain things concern for seizure like activity, neuro consulted, EEG: nonspecific slow waves; h/o CVA x2 in past neuro consulted, EEG with nonspecific slow waves, started on keppra 500 bid, however decreased to 250 BID on 08/20 - to minimize medications that contribute to orthostasis MRI/MRA negative for stroke continue aspirin/plavix PT/OT ordered - pt continues with orthostatic hypotension - likely contributing to nausea/vomiting and intermittent confusion, s/p 500cc bolus, further iVF, midodrine from BID to TID ordered for abdominal binder and leg compression stockings briefly discussed with neruology - could be further progression of his autonomic dysfunction, new baseline may be bed-wheelchair only, and would benefit from PT to work on transfers can possibly try floricef if binder/compression stockings don't help hesitant to further increase midodrine due to supine hypertension - at times 180-190 systolic COVID+ -patient has been asymptomatic since admission. CXR without evidence of pneumonia -patient has not required any oxygen since admission -CRP improving, ferritin increasing, solumedrol 40 BID -possibly contributing to autonomic dysfunction Diabetes mellitus type 2: A.c. HS Accu-Cheks scale insulin therapy. restarted shiva 70/30, increase as needed HTN, HLD, h/o CVA, dementia/ parkinson's - restarted CKD stage III: Patient close to baseline renal function Dispo: family report pt getting weaker, more difficult to care for at home, interested in placement. consult PT/OT, SW/CM for placement Time Spent Managing Pts Care (In Minutes): 35
[2020-08-21] MEDS: DONEPEZIL HCL 5 MG TAB PO SCH (21:05)
[2020-08-21] MEDS: ATORVASTATIN 80 MG TAB PO SCH (21:06)
[2020-08-21] MEDS: GLUCERNA SHAKE 237 ML CAN PO SCH (21:35)
[2020-08-22] MEDS: GLUCERNA SHAKE 237 ML CAN PO SCH ×2 (09:00→21:52)
[2020-08-22] MEDS: CARBIDOPA/LEVODOPA 25/100 TAB PO SCH ×3 (09:36→21:50)
[2020-08-22] MEDS: INSULIN -REGULAR HUMAN 50 UNIT/0.5 ML ML SQ SCH ×4 (09:36→21:00)
[2020-08-22] MEDS: SITAGLIPTIN PHOS 100 MG TAB PO SCH (09:36)
[2020-08-22] MEDS: FINASTERIDE 5 MG TAB PO SCH (09:36)
[2020-08-22] MEDS: ASPIRIN 81 MG CHEWABLE TABLET PO SCH (09:36)
[2020-08-22] MEDS: TAMSULOSIN 0.4 MG SR CAP PO SCH ×2 (09:37→21:50)
[2020-08-22] MEDS: MIDODRINE HCL 5 MG TABLET PO SCH ×3 (09:37→21:50)
[2020-08-22] MEDS: FOLIC ACID 1 MG TABLET PO SCH (09:37)
[2020-08-22] MEDS: CLOPIDOGREL 75 MG TABLET PO SCH (09:37)
[2020-08-22] MEDS: METFORMIN HCL 500 MG TAB PO SCH ×2 (09:37→16:53)
[2020-08-22] MEDS: PARoxetine HCL 10 MG TAB PO SCH (09:37)
[2020-08-22] MEDS: levETIRAcetam 500 MG TAB PO SCH ×2 (09:37→21:50)
[2020-08-22] MEDS: INSULIN 70/30 100 UNITS/ML SQ SCH (09:41)
[2020-08-22] MEDS: METHYLPREDNISOLONE 40 MG INJ IV SCH ×2 (09:42→21:49)
[2020-08-22] MEDS: ACETAMINOPHEN 500 MG TAB PO PRN (15:00)
--- NOTE | 2020-08-22 17:27 | P.PN ---
Subjective Date of Service: 08/22/20 Primary Care Provider: Unknown Chief Complaint: Syncope, AMS Patient remain confused. No issues overnight. Physical Examination - Vital Signs Temperature: 100.0 F Blood Pressure: 128/62 Pulse: 74 Respirations: 18 Pulse Ox (%): 93 - Physical Exam General: In no apparent distress, Confused HEENT: Mucous membr. moist/pink Neck: Supple, JVD not distended Respiratory: Clear to auscultation bilaterally, Normal air movement Cardiovascular: Regular rate/rhythm, Normal S1 S2 Gastrointestinal: Soft and benign, Non-distended Musculoskeletal: No swelling Integumentary: No rashes Neurological: Other (No focal deficit.) Assessment And Plan Physician Review Additional Text: Syncope, altered mental status vs ?seizure h/o moderate-severe orthostasis / autonomic dysfunction Covid+ Diabetes mellitus type 2 Hypertension Hyperlipidemia History of CVA Dementia CKD stage III autonomic instability / orthostasis Plan Syncope, altered mental status vs ?seizure: h/o moderate-severe orthostasis / autonomic dysfunction h/o dementia, mostly oriented 2-3, h/o , has mild confusion / forgetfulness of certain things concern for seizure like activity, neuro consulted, EEG: nonspecific slow waves; h/o CVA x2 in past Patient started on Keppra 250 BID on 08/20. MRI/MRA negative for stroke continue aspirin/plavix PT/OT ordered - pt continues with orthostatic hypotension. Patient started on midodrine TID Also abdominal binder and leg compression stockings Orthostasis suspected to be secondary to autonomic dysfunction. New baseline may be bed-wheelchair only, and would benefit from PT to work on transfers Next to add [facility] if orthostasis persist. COVID+ -patient has been asymptomatic since admission. CXR without evidence of pneumonia -patient has not required any oxygen since admission -CRP improving. -continue solumedrol 40 BID -possibly contributing to autonomic dysfunction Diabetes mellitus type 2: A.c. HS Accu-Cheks scale insulin therapy. restarted home 70/30, and titrate. HTN, HLD, h/o CVA, dementia/ parkinson's - restarted. Sinemet can contribute to the orthostasis. CKD stage III: Patient close to baseline renal function Dispo: family report pt getting weaker, more difficult to care for at home, interested in placement. skip pit worker assisting with SNF placement.
[2020-08-22] MEDS: ATORVASTATIN 80 MG TAB PO SCH (21:49)
[2020-08-22] MEDS: DONEPEZIL HCL 5 MG TAB PO SCH (21:49)
[2020-08-23] MEDS: GABAPENTIN 100 MG CAP PO PRN ×2 (01:41→18:54)
[2020-08-23] MEDS: INSULIN -REGULAR HUMAN 50 UNIT/0.5 ML ML SQ SCH ×4 (07:30→21:16)
[2020-08-23] MEDS: METFORMIN HCL 500 MG TAB PO SCH (08:00)
[2020-08-23] MEDS: GLUCERNA SHAKE 237 ML CAN PO SCH ×2 (08:25→21:20)
[2020-08-23] MEDS: TAMSULOSIN 0.4 MG SR CAP PO SCH ×2 (08:29→21:04)
[2020-08-23] MEDS: METHYLPREDNISOLONE 40 MG INJ IV SCH ×2 (08:29→21:03)
[2020-08-23] MEDS: FINASTERIDE 5 MG TAB PO SCH (08:29)
[2020-08-23] MEDS: PARoxetine HCL 10 MG TAB PO SCH (08:29)
[2020-08-23] MEDS: MIDODRINE HCL 5 MG TABLET PO SCH ×3 (08:30→21:18)
[2020-08-23] MEDS: ASPIRIN 81 MG CHEWABLE TABLET PO SCH (08:30)
[2020-08-23] MEDS: FOLIC ACID 1 MG TABLET PO SCH (08:30)
[2020-08-23] MEDS: CLOPIDOGREL 75 MG TABLET PO SCH (08:30)
[2020-08-23] MEDS: CARBIDOPA/LEVODOPA 25/100 TAB PO SCH ×3 (08:30→21:19)
[2020-08-23] MEDS: levETIRAcetam 500 MG TAB PO SCH ×2 (08:30→21:03)
[2020-08-23] MEDS: SITAGLIPTIN PHOS 100 MG TAB PO SCH (08:34)
[2020-08-23] MEDS ORDERED: QUETIAPINE 25 MG TAB PO ONE (12:43)
--- NOTE | 2020-08-23 16:38 | P.PN ---
Subjective Date of Service: 08/23/20 Primary Care Provider: Unknown Chief Complaint: Syncope, AMS Patient has been yelling periodically. He has been eating more today. He had episodes of low blood sugar from yesterday evening. No issues overnight. Physical Examination - Vital Signs Temperature: 99.1 F Blood Pressure: 121/76 Pulse: 84 Respirations: 20 Pulse Ox (%): 90 - Physical Exam General: In no apparent distress, Confused, Other (Awake) Respiratory: Normal air movement, Diminished Cardiovascular: No edema, Regular rate/rhythm, Normal S1 S2 Gastrointestinal: Soft and benign, Non-distended Musculoskeletal: No swelling, No tenderness Neurological: Other (No focal deficit) Assessment And Plan Physician Review Additional Text: Syncope, altered mental status vs ?seizure h/o moderate-severe orthostasis / autonomic dysfunction Covid+ Diabetes mellitus type 2 Hypertension Hyperlipidemia History of CVA Dementia CKD stage III autonomic instability / orthostasis Parkinson's disease Plan Syncope, altered mental status vs ?seizure: h/o moderate-severe orthostasis / autonomic dysfunction h/o dementia, mostly oriented 2-3, h/o , has mild confusion. concern for seizure like activity, neuro consulted, EEG: nonspecific slow waves; h/o CVA x2 in past Patient started on Keppra 250 BID on 08/20. MRI/MRA negative for stroke continue aspirin/plavix PT/OT ordered - pt continues with orthostatic hypotension. Patient started on midodrine TID Also abdominal binder and leg compression stockings Orthostasis suspected to be secondary to autonomic dysfunction. Sinemet also contributing to the orthostasis. New baseline may be bed-wheelchair only, and would benefit from PT to work on transfers Next to add is Roselyn if orthostasis persist. Started Seroquel today for behavioral disturbance. COVID+ -patient has been asymptomatic since admission. CXR without evidence of pneumonia -patient has not required any oxygen since admission -CRP improving. -change IV steroids to oral prednisone. Diabetes mellitus type 2: A.c. HS Accu-Cheks scale insulin therapy. restarted home 70/30, and titrate. HTN, HLD, h/o CVA, dementia/ parkinson's - restarted. Sinemet can contribute to the orthostasis. CKD stage III: Patient close to baseline renal function Dispo: SNF rehab. ecclesiastical worker assisting with SNF placement.
[2020-08-23] MEDS: DONEPEZIL HCL 5 MG TAB PO SCH (21:03)
[2020-08-23] MEDS: ATORVASTATIN 80 MG TAB PO SCH (21:04)
[2020-08-24] MEDS: GABAPENTIN 100 MG CAP PO PRN (00:54)
[2020-08-24 04:03] LABS: Absolute Lymphocytes (CBC) 0.1 K/uL (0.7-4.9); Basophils % 0.5 % (0-1.3); Hematocrit 32.9 % (39.6-49.0); MPV 8.1 fL (7.6-11.3); RBC Red Blood Cell Count 3.64 M/uL (4.33-5.43)
[2020-08-24 04:17] LABS: Potassium 4.1 mmol/L (3.5-5.1)
[2020-08-24 04:54] LABS: Blood Morphology Comment NOTED (NOT SEEN); Burr Cells 3+; Ovalocytes 1+; Platelet Estimate ADEQ
[2020-08-24] MEDS: MIDODRINE HCL 5 MG TABLET PO SCH ×3 (09:00→20:47)
[2020-08-24] MEDS: GLUCERNA SHAKE 237 ML CAN PO SCH ×2 (09:00→20:50)
[2020-08-24] MEDS: METHYLPREDNISOLONE 40 MG INJ IV SCH ×2 (09:09→20:48)
[2020-08-24] MEDS: FINASTERIDE 5 MG TAB PO SCH (09:09)
[2020-08-24] MEDS: PARoxetine HCL 10 MG TAB PO SCH (09:10)
[2020-08-24] MEDS: CLOPIDOGREL 75 MG TABLET PO SCH (09:10)
[2020-08-24] MEDS: levETIRAcetam 500 MG TAB PO SCH ×2 (09:10→20:48)
[2020-08-24] MEDS: CARBIDOPA/LEVODOPA 25/100 TAB PO SCH ×3 (09:10→20:47)
[2020-08-24] MEDS: FOLIC ACID 1 MG TABLET PO SCH (09:11)
[2020-08-24] MEDS: ASPIRIN 81 MG CHEWABLE TABLET PO SCH (09:11)
[2020-08-24] MEDS: ACETAMINOPHEN 500 MG TAB PO PRN (09:11)
[2020-08-24] MEDS: TAMSULOSIN 0.4 MG SR CAP PO SCH ×2 (09:11→20:48)
[2020-08-24] MEDS: INSULIN -REGULAR HUMAN 50 UNIT/0.5 ML ML SQ SCH ×4 (09:12→20:49)
--- NOTE | 2020-08-24 18:15 | P.PN ---
Subjective Date of Service: 08/24/20 Primary Care Provider: Unknown Chief Complaint: Syncope, AMS Patient is less agitated and yelling less since Seroquel was started. His blood sugar has been stable since yesterday. Physical Examination - Vital Signs Temperature: 98.1 F Blood Pressure: 119/55 Pulse: 73 Respirations: 22 Pulse Ox (%): 91 - Physical Exam General: In no apparent distress, Confused, Other (Awake.) Neck: JVD not distended Cardiovascular: No edema, Regular rate/rhythm Gastrointestinal: Soft and benign, Non-distended Musculoskeletal: No swelling Integumentary: No rashes Neurological: Other (No focal deficit.) Assessment And Plan Physician Review Additional Text: Syncope, altered mental status vs ?seizure h/o moderate-severe orthostasis / autonomic dysfunction Covid+ Diabetes mellitus type 2 Hypertension Hyperlipidemia History of CVA Dementia CKD stage III autonomic instability / orthostasis Parkinson's disease Plan Syncope, altered mental status vs ?seizure: h/o moderate-severe orthostasis / autonomic dysfunction h/o dementia, mostly oriented 2-3, h/o , has mild confusion. concern for seizure like activity, neuro consulted, EEG: nonspecific slow waves; h/o CVA x2 in past Patient started on Keppra 250 BID on 08/20. MRI/MRA negative for stroke continue aspirin/plavix PT/OT. On midodrine TID for orthostatic hypotension. Also abdominal binder and leg compression stockings Orthostasis suspected to be secondary to autonomic dysfunction. Sinemet contributing to the orthostasis. New baseline may be bed-wheelchair only, and would benefit from PT to work on transfers Next to add is Genetf if orthostasis persist. Continue Seroquel today for behavioral disturbance. Case discussed with Dr. Johns. He agrees with Seroquel and recommended outpatient therapy with Nuplazid. COVID+ -patient has been asymptomatic since admission. CXR without evidence of pneumonia -patient has not required any oxygen since admission -CRP improving. -change IV steroids to oral prednisone. Diabetes mellitus type 2: Insulin therapy discontinued earlier due to episodes of hypoglycemia. Resume insulin sliding scale. HTN, HLD, h/o CVA, dementia/ parkinson's - restarted. Sinemet contributing to the orthostasis. CKD stage 3 Serum creatinine is normal. Dispo: SNF rehab. paste worker assisting with SNF placement.
[2020-08-24] MEDS: ATORVASTATIN 80 MG TAB PO SCH (20:48)
[2020-08-24] MEDS: DONEPEZIL HCL 5 MG TAB PO SCH (20:48)
[2020-08-25] MEDS: GLUCERNA SHAKE 237 ML CAN PO SCH ×2 (09:00→21:00)
[2020-08-25] MEDS: FOLIC ACID 1 MG TABLET PO SCH (09:00)
[2020-08-25] MEDS: INSULIN -REGULAR HUMAN 50 UNIT/0.5 ML ML SQ SCH ×3 (09:09→16:30)
[2020-08-25] MEDS: CLOPIDOGREL 75 MG TABLET PO SCH (09:10)
[2020-08-25] MEDS: TAMSULOSIN 0.4 MG SR CAP PO SCH ×2 (09:11→21:19)
[2020-08-25] MEDS: levETIRAcetam 500 MG TAB PO SCH ×2 (09:11→21:18)
[2020-08-25] MEDS: FINASTERIDE 5 MG TAB PO SCH (09:11)
[2020-08-25] MEDS: MIDODRINE HCL 5 MG TABLET PO SCH ×3 (09:11→21:00)
[2020-08-25] MEDS: PARoxetine HCL 10 MG TAB PO SCH (09:11)
[2020-08-25] MEDS: CARBIDOPA/LEVODOPA 25/100 TAB PO SCH ×3 (09:12→21:19)
[2020-08-25] MEDS: ASPIRIN 81 MG CHEWABLE TABLET PO SCH (09:12)
[2020-08-25] MEDS: GABAPENTIN 100 MG CAP PO PRN ×2 (09:12→14:37)
--- NOTE | 2020-08-25 15:45 | P.PN ---
Subjective Date of Service: 08/25/20 Primary Care Provider: Unknown Chief Complaint: Syncope, AMS Patient has been calm since last night His blood sugar has been stable but moderately elevated. Physical Examination - Vital Signs Temperature: 97.6 F Blood Pressure: 106/55 Pulse: 70 Respirations: 18 Pulse Ox (%): 92 - Physical Exam General: Oriented x1, Other (Awake) HEENT: Mucous membr. moist/pink Respiratory: Clear to auscultation bilaterally, Normal air movement Cardiovascular: No edema Gastrointestinal: Soft and benign, Non-distended Musculoskeletal: No swelling Integumentary: No rashes Neurological: Normal speech, Normal strength at 5/5 x4 extr Assessment And Plan Physician Review Additional Text: Syncope, altered mental status vs ?seizure h/o moderate-severe orthostasis / autonomic dysfunction Covid+ Diabetes mellitus type 2 Hypertension Hyperlipidemia History of CVA Dementia CKD stage III autonomic instability / orthostasis Parkinson's disease Plan Syncope, altered mental status vs ?seizure: h/o moderate-severe orthostasis / autonomic dysfunction h/o dementia, mostly oriented 2-3, h/o . More calm since last night. concern for seizure like activity, neuro consulted, EEG: nonspecific slow waves; h/o CVA x2 in past Patient started on Keppra 250 BID on 08/20. MRI/MRA negative for stroke continue aspirin/plavix PT/OT. On midodrine TID for orthostatic hypotension. Also abdominal binder and leg compression stockings Orthostasis suspected to be secondary to autonomic dysfunction. Sinemet contributing to the orthostasis. New baseline may be bed-wheelchair only, and would benefit from PT to work on transfers Next to add is Roselyn if orthostasis persist. Continue Seroquel today for behavioral disturbance. Case discussed with Dr. Johns. He agrees with Seroquel and recommended outpatient therapy with Nu plazid the past. COVID+ -patient has been asymptomatic since admission. CXR without evidence of pneumonia -patient has not required any oxygen since admission -CRP improving. -On oral prednisone prophylactically. Diabetes mellitus type 2: Insulin therapy discontinued earlier due to episodes of hypoglycemia. Continue insulin sliding scale. HTN, HLD, h/o CVA, dementia/ parkinson's - restarted. Sinemet contributing to the orthostasis. CKD stage 3 Serum creatinine is normal. Dispo: SNF rehab. youth worker assisting with SNF placement.
[2020-08-25] MEDS: ACETAMINOPHEN 500 MG TAB PO PRN (17:21)
[2020-08-25] MEDS: ATORVASTATIN 80 MG TAB PO SCH (21:00)
[2020-08-25] MEDS: DONEPEZIL HCL 5 MG TAB PO SCH (21:19)
[2020-08-26] MEDS: INSULIN -REGULAR HUMAN 50 UNIT/0.5 ML ML SQ SCH ×5 (04:52→21:10)
[2020-08-26] MEDS: MIDODRINE HCL 5 MG TABLET PO SCH ×3 (09:00→21:00)
[2020-08-26] MEDS: GLUCERNA SHAKE 237 ML CAN PO SCH ×2 (09:29→21:08)
[2020-08-26] MEDS: levETIRAcetam 500 MG TAB PO SCH ×2 (09:30→21:02)
[2020-08-26] MEDS: FINASTERIDE 5 MG TAB PO SCH (09:30)
[2020-08-26] MEDS: ASPIRIN 81 MG CHEWABLE TABLET PO SCH (09:31)
[2020-08-26] MEDS: TAMSULOSIN 0.4 MG SR CAP PO SCH ×2 (09:31→21:02)
[2020-08-26] MEDS: CLOPIDOGREL 75 MG TABLET PO SCH (09:31)
[2020-08-26] MEDS: CARBIDOPA/LEVODOPA 25/100 TAB PO SCH ×3 (09:31→21:03)
[2020-08-26] MEDS: FOLIC ACID 1 MG TABLET PO SCH (09:31)
[2020-08-26] MEDS: PARoxetine HCL 10 MG TAB PO SCH (09:31)
--- NOTE | 2020-08-26 12:27 | P.DS ---
Admission Date: 08/16/20 Discharge Date: 08/26/20 Primary Care Provider: Unknown Disposition: TRANSFER TO INTERMEDIATE Discharge Condition: FAIR Reason for Admission: Syncope, AMS Consultations: Neurology-Dr. Johns - Problems (1) Orthostatic hypotension Current Visit: Yes Status: Acute (2) Diabetes mellitus type 2 in nonobese Current Visit: Yes Status: Acute (3) Dementia with behavioral disturbance Current Visit: Yes Status: Acute (4) Parkinson disease Current Visit: No Status: Acute (5) Syncope Current Visit: No Status: Acute (6) COVID-19 virus infection Current Visit: Yes Status: Acute Brief History of Present Illness: 75-year-old patient with a history of dementia, CVA, diabetes mellitus type 2, hypertension, hyperlipidemia was brought to the emergency department due to syncope and confusion. Per report patient had an episode where he fell backwards and also another moment where patient was blank and staring and not being fully responsive. In the emergency department patient had no focal deficits. Blood work showed mildly elevated serum creatinine. CT head was negative for any acute findings. Patient was started on IV fluid and admitted for further management. Hospital Course: Patient admitted to the medical floor. He tested positive for COVID 19 but patient was asymptomatic throughout the hospital stay. He has a history of orthostatics hypotension. Patient was orthostatics from the hospital stay. There was a concern for seizures. Neurology was consulted and patient evaluated by Dr. Johns. EEG was performed which showed slow background and nonspecific finding. Patient was placed on Keppra for possible seizures. He would occasionally yell but his mental status was considered to be at base line. He was placed on insulin sliding scale and Lantus insulin. Patient developed intermittent episodes of low blood sugar so Lantus insulin was discontinued and his blood sugar management with insulin sliding scale. He is on metformin and Januvia at home which is resumed on discharge. Patient has been asymptomatic with regards to the COVID 19 infection. His orthostasis is chronic. He is prescribed pressure stockings. He is also on midodrine. Patient is deemed clinically stable. Vital Signs/Physical Exam: Temp Pulse Resp BP Pulse Ox 97.6 F 71 16 168/73 H 93 08/26/20 08:00 08/26/20 08:00 08/26/20 08:00 08/26/20 08:00 08/26/20 08:00 General: Confused, Other (Awake) HEENT: Mucous membr. moist/pink Neck: Supple Cardiovascular: No edema, Regular rate/rhythm Gastrointestinal: Soft and benign, Non-distended Musculoskeletal: No swelling, No tenderness Integumentary: No rashes Neurological: Other (No focal motor deficit.) Laboratory Data at Discharge: WBC 6.8 K/uL (4.3-10.9) 08/24/20 03:40 Hgb 10.6 g/dL (13.6-17.9) L 08/24/20 03:40 Hct 32.9 % (39.6-49.0) L 08/24/20 03:40 Plt Count 242 K/uL (152-406) D 08/24/20 03:40 PT 11.6 SECONDS (9.5-12.5) 08/14/20 16:40 INR 0.98 08/14/20 16:40 Sodium 137 mmol/L (136-145) 08/24/20 03:40 Potassium 4.1 mmol/L (3.5-5.1) 08/24/20 03:40 BUN 27 mg/dL (7-18) H 08/24/20 03:40 Creatinine 0.94 mg/dL (0.55-1.3) 08/24/20 03:40 Glucose 220 mg/dL (74-106) H 08/24/20 03:40 Magnesium 1.9 mg/dL (1.8-2.4) 08/21/20 02:56 Total Bilirubin 0.4 mg/dL (0.2-1.0) 08/17/20 03:04 AST 24 U/L (15-37) 08/17/20 03:04 ALT < 6 U/L (12-78) L 08/17/20 03:04 Alkaline Phosphatase 71 U/L (45-117) 08/17/20 03:04 Troponin I < 0.02 ng/mL (0.0-0.045) 08/15/20 07:45 Triglycerides 36 mg/dL (<150) 08/15/20 03:56 Cholesterol 87 mg/dL (<200) 08/15/20 03:56 HDL Cholesterol 55 mg/dL (40-60) 08/15/20 03:56 Cholesterol/HDL Ratio 1.58 08/15/20 03:56 Lipase 91 U/L (73-393) 08/14/20 16:40 Home Medications: Aspirin Chewable [Aspirin Chewable*] 81 mg PO DAILY 01/16/20 Atorvastatin Calcium [Lipitor] 80 mg PO DAILY 01/16/20 Carbidopa/Levodopa [Carbidopa-Levodopa 25-100 Tab] 1 tab PO TID 01/16/20 Clopidogrel Bisulfate [Plavix*] 75 mg PO DAILY 01/16/20 Donepezil [Aricept*] 5 mg PO BEDTIME 01/16/20 Finasteride [Proscar*] 5 mg PO DAILY 01/16/20 Metformin HCl [Glucophage] 1,000 mg PO BID 01/16/20 Midodrine HCl 2.5 mg PO TID 01/16/20 Sitagliptin Phosphate [Januvia*] 100 mg PO DAILY 01/16/20 Tamsulosin HCl [Flomax] 0.4 mg PO BID 01/16/20 Gabapentin [Neurontin*] 100 mg PO TID PRN cap 08/26/20 Glucerna Shake [Glucerna*] 237 ml PO BID #60 can 08/26/20 PARoxetine HCL [Paxil*] 40 mg PO DAILY #30 tab 08/26/20 levETIRAcetam [Keppra*] 250 mg PO BID #60 tab 08/26/20 New Medications: Glucerna Shake [Glucerna*] 237 ml PO BID #60 can levETIRAcetam [Keppra*] 250 mg PO BID #60 tab PARoxetine HCL [Paxil*] 40 mg PO DAILY #30 tab Diet: ADA Activity: Orthostatic precautions. Followup: Unknown,U [Primary Care Provider] - Jose Johns MD [ASSOCIATE-ACTIVE - CAN ADMIT] - (within 2 weeks.)
--- NOTE | 2020-08-26 12:53 | P.PN ---
Subjective Date of Service: 08/26/20 Primary Care Provider: Unknown Chief Complaint: Syncope, AMS Patient has been calm over the past 2 days His blood sugar has been stable but moderately elevated. He is eating well. Physical Examination - Vital Signs Temperature: 97.6 F Blood Pressure: 168/73 Pulse: 71 Respirations: 16 Pulse Ox (%): 93 - Physical Exam General: Confused, Other (Awake) Neck: JVD not distended Cardiovascular: No edema, Regular rate/rhythm, Normal S1 S2 Gastrointestinal: Soft and benign, No tenderness Musculoskeletal: No swelling, No tenderness Integumentary: No rashes Neurological: Other (No focal deficit) Assessment And Plan - Current Problems (Diagnosis) (1) Orthostatic hypotension Current Visit: Yes Status: Acute (2) Diabetes mellitus type 2 in nonobese Current Visit: Yes Status: Acute (3) Dementia with behavioral disturbance Current Visit: Yes Status: Acute (4) Parkinson disease Current Visit: No Status: Acute (5) Syncope Current Visit: No Status: Acute (6) COVID-19 virus infection Current Visit: Yes Status: Acute Physician Review Additional Text: Syncope, altered mental status vs ?seizure h/o moderate-severe orthostasis / autonomic dysfunction Covid+ Diabetes mellitus type 2 Hypertension Hyperlipidemia History of CVA Dementia CKD stage III autonomic instability / orthostasis Parkinson's disease Plan Syncope, altered mental status vs ?seizure: h/o moderate-severe orthostasis / autonomic dysfunction h/o dementia, mostly oriented 2-3, h/o . More calm over the past 2 days. concern for seizure like activity, neuro consulted, EEG: nonspecific slow waves; h/o CVA x2 in past Patient on Keppra 250 BID since 08/20. MRI/MRA negative for stroke continue aspirin/plavix PT/OT. On midodrine TID for orthostatic hypotension. Also abdominal binder and leg compression stockings Orthostasis suspected to be secondary to autonomic dysfunction. Sinemet contributing to the orthostasis. New baseline may be bed-wheelchair only, and would benefit from PT to work on transfers Continue Seroquel for behavioral disturbance. Case discussed with Dr. Johns. He agrees with Seroquel and recommended outpatient therapy with Nuplazid the past. COVID+ -patient has been asymptomatic since admission. CXR without evidence of pneumonia -patient has not required any oxygen since admission -no longer on prednisone as patient has been asymptomatic. Diabetes mellitus type 2: Insulin therapy discontinued earlier due to episodes of low blood sugar. Continue insulin sliding scale. HTN, HLD, h/o CVA, dementia/ parkinson's - restarted. Sinemet contributing to the orthostasis. CKD stage 3 Serum creatinine is normal. Dispo: SNF rehab. demurrage worker assisting with SNF placement.
[2020-08-26] MEDS: DONEPEZIL HCL 5 MG TAB PO SCH (21:03)
[2020-08-26] MEDS: ATORVASTATIN 80 MG TAB PO SCH (21:03)
[2020-08-27] MEDS: MIDODRINE HCL 5 MG TABLET PO SCH ×3 (09:00→20:48)
[2020-08-27] MEDS: FOLIC ACID 1 MG TABLET PO SCH (09:15)
[2020-08-27] MEDS: PARoxetine HCL 10 MG TAB PO SCH (09:15)
[2020-08-27] MEDS: TAMSULOSIN 0.4 MG SR CAP PO SCH ×2 (09:15→20:47)
[2020-08-27] MEDS: levETIRAcetam 500 MG TAB PO SCH ×2 (09:15→20:46)
[2020-08-27] MEDS: INSULIN -REGULAR HUMAN 50 UNIT/0.5 ML ML SQ SCH ×4 (09:16→20:52)
[2020-08-27] MEDS: ASPIRIN 81 MG CHEWABLE TABLET PO SCH (09:16)
[2020-08-27] MEDS: CARBIDOPA/LEVODOPA 25/100 TAB PO SCH ×3 (09:16→20:47)
[2020-08-27] MEDS: FINASTERIDE 5 MG TAB PO SCH (09:16)
[2020-08-27] MEDS: GLUCERNA SHAKE 237 ML CAN PO SCH ×2 (09:17→20:54)
[2020-08-27] MEDS: CLOPIDOGREL 75 MG TABLET PO SCH (09:18)
--- NOTE | 2020-08-27 10:54 | P.PN ---
Subjective Date of Service: 08/27/20 Primary Care Provider: Unknown Chief Complaint: Syncope, AMS No major changes. His blood sugar has been stable but moderately elevated. He is eating well. Physical Examination - Vital Signs Temperature: 97.4 F Blood Pressure: 160/80 Pulse: 98 Respirations: 20 Pulse Ox (%): 97 - Physical Exam General: Confused HEENT: Mucous membr. moist/pink Respiratory: Clear to auscultation bilaterally, Diminished Cardiovascular: No edema, Regular rate/rhythm, Normal S1 S2 Gastrointestinal: Normal bowel sounds, Soft and benign, Non-distended, No tenderness Musculoskeletal: No swelling Neurological: Other (No focal motor deficit.) Assessment And Plan - Current Problems (Diagnosis) (1) Orthostatic hypotension Current Visit: Yes Status: Acute (2) Diabetes mellitus type 2 in nonobese Current Visit: Yes Status: Acute (3) Dementia with behavioral disturbance Current Visit: Yes Status: Acute (4) Parkinson disease Current Visit: No Status: Acute (5) Syncope Current Visit: No Status: Acute (6) COVID-19 virus infection Current Visit: Yes Status: Acute Physician Review Additional Text: Syncope, altered mental status vs ?seizure h/o moderate-severe orthostasis / autonomic dysfunction Covid+ Diabetes mellitus type 2 Hypertension Hyperlipidemia History of CVA Dementia CKD stage III autonomic instability / orthostasis Parkinson's disease Plan Syncope, altered mental status vs ?seizure: h/o moderate-severe orthostasis / autonomic dysfunction h/o dementia, mostly oriented 2-3, h/o . More calm over the past 2 days. concern for seizure like activity, neuro consulted, EEG: nonspecific slow waves; h/o CVA x2 in past Patient on Keppra 250 BID since 08/20. MRI/MRA negative for stroke continue aspirin/plavix PT/OT. On midodrine TID for orthostatic hypotension. Also abdominal binder and leg compression stockings Orthostasis suspected to be secondary to autonomic dysfunction. Sinemet contributing to the orthostasis. New baseline may be bed-wheelchair only, and would benefit from PT to work on transfers Continue Seroquel for behavioral disturbance. Case discussed with Dr. Johns. He agrees with Seroquel and recommended outpatient therapy with Nuplazid the past. COVID+ -patient has been asymptomatic since admission. CXR without evidence of pneumonia -patient has not required any oxygen since admission -no longer on prednisone as patient has been asymptomatic. Diabetes mellitus type 2: Insulin therapy discontinued earlier due to episodes of low blood sugar. Continue insulin sliding scale. HTN, HLD, h/o CVA, dementia/ parkinson's - Sinemet contributing to the orthostasis. CKD stage 3 Serum creatinine is normal. Dispo: SNF rehab. Await SNF placement.
[2020-08-27] MEDS: DONEPEZIL HCL 5 MG TAB PO SCH (20:46)
[2020-08-27] MEDS: ATORVASTATIN 80 MG TAB PO SCH (20:47)
[2020-08-27] MEDS: GABAPENTIN 100 MG CAP PO PRN (20:48)
[2020-08-28] MEDS: ASPIRIN 81 MG CHEWABLE TABLET PO SCH (08:20)
[2020-08-28] MEDS: CLOPIDOGREL 75 MG TABLET PO SCH (08:20)
[2020-08-28] MEDS: levETIRAcetam 500 MG TAB PO SCH ×2 (08:20→22:05)
[2020-08-28] MEDS: INSULIN -REGULAR HUMAN 50 UNIT/0.5 ML ML SQ SCH ×4 (08:20→21:00)
[2020-08-28] MEDS: TAMSULOSIN 0.4 MG SR CAP PO SCH ×2 (08:20→22:05)
[2020-08-28] MEDS: FINASTERIDE 5 MG TAB PO SCH (08:21)
[2020-08-28] MEDS: MIDODRINE HCL 5 MG TABLET PO SCH ×3 (08:22→21:00)
[2020-08-28] MEDS: FOLIC ACID 1 MG TABLET PO SCH (08:22)
[2020-08-28] MEDS: PARoxetine HCL 10 MG TAB PO SCH (08:22)
[2020-08-28] MEDS: GLUCERNA SHAKE 237 ML CAN PO SCH ×2 (08:23→22:08)
[2020-08-28] MEDS: CARBIDOPA/LEVODOPA 25/100 TAB PO SCH ×3 (08:24→22:05)
--- NOTE | 2020-08-28 16:51 | P.PN ---
Subjective Date of Service: 08/28/20 Primary Care Provider: Unknown Chief Complaint: Syncope, AMS No major changes. Patient occasionally has borderline low blood sugar levels. Physical Examination - Vital Signs Temperature: 97.7 F Blood Pressure: 133/60 Pulse: 61 Respirations: 17 Pulse Ox (%): 92 - Physical Exam General: In no apparent distress, Confused, Other HEENT: Mucous membr. moist/pink Respiratory: Clear to auscultation bilaterally, Normal air movement Cardiovascular: No edema, Regular rate/rhythm Gastrointestinal: Soft and benign, Non-distended Musculoskeletal: No swelling Neurological: Other (No focal neurologic deficit) Assessment And Plan - Current Problems (Diagnosis) (1) Orthostatic hypotension Current Visit: Yes Status: Acute (2) Diabetes mellitus type 2 in nonobese Current Visit: Yes Status: Acute (3) Dementia with behavioral disturbance Current Visit: Yes Status: Acute (4) Parkinson disease Current Visit: No Status: Acute (5) Syncope Current Visit: No Status: Acute (6) COVID-19 virus infection Current Visit: Yes Status: Acute Physician Review Additional Text: Syncope, altered mental status vs ?seizure h/o moderate-severe orthostasis / autonomic dysfunction Covid+ Diabetes mellitus type 2 Hypertension Hyperlipidemia History of CVA Dementia CKD stage III autonomic instability / orthostasis Parkinson's disease Plan Syncope, altered mental status vs ?seizure: h/o moderate-severe orthostasis / autonomic dysfunction h/o dementia, mostly oriented 2-3, h/o . More calm over the past 2 days. concern for seizure like activity, neuro consulted, EEG: nonspecific slow waves; h/o CVA x2 in past Patient on Keppra 250 BID since 08/20. MRI/MRA negative for stroke continue aspirin/plavix PT/OT. On midodrine TID for orthostatic hypotension. Also abdominal binder and leg compression stockings Orthostasis suspected to be secondary to autonomic dysfunction. Sinemet contributing to the orthostasis. New baseline may be bed-wheelchair only, and would benefit from PT to work on transfers Seroquel for behavioral disturbance. Case discussed with Dr. Johns. He agrees with Seroquel and recommended outpatient therapy with Nuplazid COVID+ -patient has been asymptomatic since admission. CXR without evidence of pneumonia -patient has not required any oxygen since admission -no longer on prednisone as patient has been asymptomatic. Diabetes mellitus type 2: Insulin therapy discontinued earlier due to episodes of low blood sugar. Continue insulin sliding scale. HTN, HLD, h/o CVA, dementia/ parkinson's - Sinemet contributing to the orthostasis. CKD stage 3 Serum creatinine is normal. Dispo: SNF rehab. Patient is clinically stable for discharge. Await SNF placement.
[2020-08-28] MEDS: ATORVASTATIN 80 MG TAB PO SCH (22:05)
[2020-08-28] MEDS: DONEPEZIL HCL 5 MG TAB PO SCH (22:05)
[2020-08-29 06:31] LABS: Absolute Lymphocytes (CBC) 0.4 K/uL (0.7-4.9); Basophils % 0.6 % (0-1.3); Hematocrit 26.9 % (39.6-49.0); MPV 7.5 fL (7.6-11.3); RBC Red Blood Cell Count 3.03 M/uL (4.33-5.43)
[2020-08-29 06:46] LABS: Potassium 3.8 mmol/L (3.5-5.1)
[2020-08-29 08:20] LABS: Blood Morphology Comment NOTED (NOT SEEN); Platelet Estimate ADEQ; White Blood Cell Scan OK (OK)
[2020-08-29 08:21] LABS: Ovalocytes 1+; Poikilocytosis 2+
[2020-08-29] MEDS: CLOPIDOGREL 75 MG TABLET PO SCH (08:54)
[2020-08-29] MEDS: PARoxetine HCL 10 MG TAB PO SCH (08:54)
[2020-08-29] MEDS: CARBIDOPA/LEVODOPA 25/100 TAB PO SCH ×3 (08:54→21:16)
[2020-08-29] MEDS: FINASTERIDE 5 MG TAB PO SCH (08:55)
[2020-08-29] MEDS: ASPIRIN 81 MG CHEWABLE TABLET PO SCH (08:55)
[2020-08-29] MEDS: MIDODRINE HCL 5 MG TABLET PO SCH ×4 (08:55→21:16)
[2020-08-29] MEDS: TAMSULOSIN 0.4 MG SR CAP PO SCH ×2 (08:55→21:16)
[2020-08-29] MEDS: FOLIC ACID 1 MG TABLET PO SCH (08:55)
[2020-08-29] MEDS: INSULIN -REGULAR HUMAN 50 UNIT/0.5 ML ML SQ SCH ×4 (08:56→21:18)
[2020-08-29] MEDS: levETIRAcetam 500 MG TAB PO SCH ×2 (08:56→21:17)
[2020-08-29] MEDS: GLUCERNA SHAKE 237 ML CAN PO SCH ×2 (08:56→21:18)
--- NOTE | 2020-08-29 09:03 | RAD REPORT ---
EXAM DESCRIPTION: Guillermo Single View08/29/2020 8:56 am CLINICAL HISTORY: Shortness of breath COMPARISON: August 17, 2020 FINDINGS: Moderate bilateral patchy lung opacities. Heart is normal size IMPRESSION: Moderate bilateral patchy lung opacities likely pneumonia
[2020-08-29] MEDS: GABAPENTIN 100 MG CAP PO PRN ×2 (10:49→17:10)
--- NOTE | 2020-08-29 11:35 | P.PN ---
Subjective Date of Service: 08/29/20 Primary Care Provider: Unknown Chief Complaint: Syncope, AMS Subjective: Other (no significant changes overnight. review of EMR, pt with oxygen requirement continues with intermittent confusion / yelling out for assistance at times) Review of Systems 10-point ROS is otherwise unremarkable Physical Examination - Vital Signs Temperature: 98.9 F Blood Pressure: 154/69 Pulse: 82 Respirations: 17 Pulse Ox (%): 93 Assessment & Plan Physician Review Additional Text: Physical Exam: Gen: NAD, AAOx2 (self and place), confused, weak HEENT: sclera anicteric CV: RRR, no m/r/g Pulm: diminished bilaterally at bases, on 2L NC Abd: soft, nontender, nondistended Ext: no edema Problem List Syncope, altered mental status vs ?seizure h/o moderate-severe orthostasis / autonomic dysfunction Covid+ Diabetes mellitus type 2 Hypertension Hyperlipidemia History of CVA Dementia CKD stage III autonomic instability / orthostasis Parkinson's disease Plan Syncope, altered mental status vs ?seizure: h/o moderate-severe orthostasis / autonomic dysfunction h/o dementia, mostly oriented 2-3, h/o . Concerned for Seizure like activity at home, neuro consulted, EEG: nonspecific slow waves; h/o CVA x2 in past Patient on Keppra 250 BID since 08/20. MRI/MRA negative for stroke continue aspirin/plavix PT/OT. On midodrine TID for orthostatic hypotension. as well as, compression stockings an abdominal binder Orthostasis suspected to be secondary to autonomic dysfunction. Sinemet contributing to the orthostasis. New baseline may be bed-wheelchair only, and would benefit from PT to work on transfers Seroquel for behavioral disturbance. Case discussed with Dr. Johns. He agrees with Seroquel and recommended outpatient therapy with Nuplazid Hypoxia COVID+ -patient has been asymptomatic since admission. CXR without evidence of pneumonia initially -patient now requiring O2 since 08/26 per chart review -possible COVID pneumonia involvement vs aspiration -pt witnessed to have difficulty with swallowing eggs with breakfast today - concern for aspiration -will obtain CXR, speech therapy consult, ferritin/CRP, Procal -afebrile, but Tmax to 100.3 a few days ago -start unasyn if procal elevated / CXR suggestive of R sided consolidation Diabetes mellitus type 2: Insulin therapy discontinued earlier due to episodes of low blood sugar. Continue insulin sliding scale. HTN, HLD, h/o CVA, dementia/ parkinson's - Sinemet contributing to the orthostasis. CKD stage 3: Serum creatinine is normal. Dispo: [facility] working on SNF placement Time Spent Managing Pts Care (In Minutes): 35
[2020-08-29] MEDS ORDERED: AMPICILLIN/SULBACT 3 GM in NA CHLORIDE 0.9% 100 ML IVPB SCH (12:00)
[2020-08-29 12:42] LABS: Ferritin 607.8 ng/mL (26-388)
[2020-08-29] MEDS ORDERED: POTASSIUM CL SA 10 MEQ TAB PO ONE (14:00)
[2020-08-29] MEDS ORDERED: IVERMECTIN 3 MG TABS PO ONE (18:00)
[2020-08-29] MEDS: DONEPEZIL HCL 5 MG TAB PO SCH (21:16)
[2020-08-29] MEDS: ATORVASTATIN 80 MG TAB PO SCH (21:16)
[2020-08-29] MEDS: METHYLPREDNISOLONE 125 MG INJ IV SCH (21:17)
[2020-08-29] MEDS: QUETIAPINE 25 MG TAB PO SCH (21:17)
[2020-08-30 07:54] LABS: Absolute Lymphocytes (CBC) 0.2 K/uL (0.7-4.9); Basophils % 0.2 % (0-1.3); Hematocrit 29.2 % (39.6-49.0); Lymphocytes % 3.5 % (15.3-44.8); MPV 7.9 fL (7.6-11.3); RBC Red Blood Cell Count 3.25 M/uL (4.33-5.43)
[2020-08-30 08:45] LABS: Ferritin 603.6 ng/mL (26-388); Potassium 4.3 mmol/L (3.5-5.1)
[2020-08-30] MEDS: MIDODRINE HCL 5 MG TABLET PO SCH ×3 (09:00→20:36)
[2020-08-30] MEDS: GLUCERNA SHAKE 237 ML CAN PO SCH ×2 (09:00→20:39)
[2020-08-30] MEDS: CLOPIDOGREL 75 MG TABLET PO SCH (09:05)
[2020-08-30] MEDS: PARoxetine HCL 10 MG TAB PO SCH (09:05)
[2020-08-30] MEDS: levETIRAcetam 500 MG TAB PO SCH ×2 (09:06→20:31)
[2020-08-30] MEDS: ASPIRIN 81 MG CHEWABLE TABLET PO SCH (09:06)
[2020-08-30] MEDS: CARBIDOPA/LEVODOPA 25/100 TAB PO SCH ×3 (09:06→20:34)
[2020-08-30] MEDS: FOLIC ACID 1 MG TABLET PO SCH (09:06)
[2020-08-30] MEDS: TAMSULOSIN 0.4 MG SR CAP PO SCH ×2 (09:06→20:31)
[2020-08-30] MEDS: METHYLPREDNISOLONE 125 MG INJ IV SCH (09:07)
[2020-08-30] MEDS: INSULIN -REGULAR HUMAN 50 UNIT/0.5 ML ML SQ SCH ×4 (09:11→20:38)
[2020-08-30] MEDS: FINASTERIDE 5 MG TAB PO SCH (09:37)
[2020-08-30] MEDS: ACETAMINOPHEN 500 MG TAB PO PRN (16:22)
[2020-08-30] MEDS: GABAPENTIN 100 MG CAP PO PRN (16:23)
[2020-08-30] MEDS ORDERED: D50W 25 GM/50 ML SYRINGE IV PRN (20:24)
--- NOTE | 2020-08-30 20:28 | P.PN ---
Subjective Date of Service: 08/30/20 Primary Care Provider: Unknown Chief Complaint: Syncope, AMS Subjective: No new changes (doing ok, slept better last night after receiving seroquel. without complaints this morning. on 2 LNC) Review of Systems 10-point ROS is otherwise unremarkable Physical Examination - Vital Signs Temperature: 97.9 F Blood Pressure: 149/79 Pulse: 88 Respirations: 20 Pulse Ox (%): 95 Assessment & Plan Physician Review Additional Text: Physical Exam: Gen: NAD, AAOx2 (self and place), confused, weak HEENT: sclera anicteric CV: RRR, no m/r/g Pulm: diminished bilaterally at bases, on 2L NC Abd: soft, nontender, nondistended Ext: no edema Problem List Syncope, altered mental status vs ?seizure h/o moderate-severe orthostasis / autonomic dysfunction Covid+ Diabetes mellitus type 2 Hypertension Hyperlipidemia History of CVA Dementia CKD stage III autonomic instability / orthostasis Parkinson's disease Plan Syncope, altered mental status vs ?seizure: h/o moderate-severe orthostasis / autonomic dysfunction h/o dementia, mostly oriented 2-3, h/o . Concerned for Seizure like activity at home, neuro consulted, EEG: nonspecific slow waves; h/o CVA x2 in past Patient on Keppra 250 BID since 08/20. MRI/MRA negative for stroke continue aspirin/plavix PT/OT. On midodrine TID for orthostatic hypotension. as well as, compression stockings Orthostasis secondary to autonomic dysfunction. Sinemet contributing to the orthostasis. New baseline may be bed-wheelchair only, and would benefit from PT to work on transfers Seroquel for behavioral disturbance. Case discussed with Dr. Johns. He agrees with Seroquel and recommended outpatient therapy with Nuplazid restarted low dose qHS 12.5mg seroquel on 08/29 Hypoxia COVID+ -patient has been asymptomatic since admission. CXR without evidence of pneumonia initially -patient now requiring O2 since 08/26 per chart review -CXR on 08/29 consistent with COVID pneumonia -elevated ferritin/CRP, continue solumedrol -afebrile, but Tmax to 100.3 a few days ago Diabetes mellitus type 2: SSI, lantus 10u tonight for elevated glc - due to steroid use HTN, HLD, h/o CVA, dementia/ parkinson's - Sinemet contributing to the orthostasis. CKD stage 3: Serum creatinine is normal. Dispo: SW/CM working on SNF placement discussed with daughter, will talk more with SW Time Spent Managing Pts Care (In Minutes): 40
[2020-08-30] MEDS: QUETIAPINE 25 MG TAB PO SCH (20:31)
[2020-08-30] MEDS: ATORVASTATIN 80 MG TAB PO SCH (20:31)
[2020-08-30] MEDS: DONEPEZIL HCL 5 MG TAB PO SCH (20:32)
[2020-08-30] MEDS ORDERED: INSULIN GLARGINE 100 UNITS/ML SQ SCH (21:00)
[2020-08-30] MEDS: METHYLPREDNISOLONE 40 MG INJ IV SCH (23:05)
[2020-08-31 02:06] VITALS: BMI 1038.8
[2020-08-31 07:33] LABS: C-Reactive Protein 87.7 mg/L (<3.00); Ferritin 701.8 ng/mL (26-388); Magnesium 2.3 mg/dL (1.8-2.4); Potassium 3.9 mmol/L (3.5-5.1)
[2020-08-31] MEDS: INSULIN -REGULAR HUMAN 50 UNIT/0.5 ML ML SQ SCH ×4 (08:50→20:14)
[2020-08-31] MEDS: CARBIDOPA/LEVODOPA 25/100 TAB PO SCH ×4 (08:51→23:32)
[2020-08-31] MEDS: FOLIC ACID 1 MG TABLET PO SCH (08:51)
[2020-08-31] MEDS: PARoxetine HCL 10 MG TAB PO SCH (08:51)
[2020-08-31] MEDS: FINASTERIDE 5 MG TAB PO SCH (08:51)
[2020-08-31] MEDS: CLOPIDOGREL 75 MG TABLET PO SCH (08:51)
[2020-08-31] MEDS: levETIRAcetam 500 MG TAB PO SCH ×2 (08:51→19:55)
[2020-08-31] MEDS: MIDODRINE HCL 5 MG TABLET PO SCH ×4 (08:52→23:32)
[2020-08-31] MEDS: ASPIRIN 81 MG CHEWABLE TABLET PO SCH (08:52)
[2020-08-31] MEDS: TAMSULOSIN 0.4 MG SR CAP PO SCH ×2 (08:52→19:55)
[2020-08-31] MEDS: METHYLPREDNISOLONE 40 MG INJ IV SCH ×2 (08:53→19:56)
[2020-08-31] MEDS: GLUCERNA SHAKE 237 ML CAN PO SCH ×3 (09:00→20:15)
[2020-08-31] MEDS ORDERED: POTASSIUM CL SA 10 MEQ TAB PO ONE (13:00)
[2020-08-31] MEDS: GABAPENTIN 100 MG CAP PO PRN ×2 (13:00→19:56)
--- NOTE | 2020-08-31 15:46 | P.PN ---
Subjective Date of Service: 08/31/20 Primary Care Provider: Unknown Chief Complaint: Syncope, AMS Subjective: No new changes (continues on 2L NC, oriented x 2. without complaints. nursing reports intermittent yelling for help - some times improves with re-orientation) Review of Systems 10-point ROS is otherwise unremarkable Physical Examination - Vital Signs Temperature: 97.8 F Blood Pressure: 160/74 Pulse: 75 Respirations: 16 Pulse Ox (%): 92 Assessment & Plan Physician Review Additional Text: Physical Exam: Gen: NAD, AAOx2 (self and place, president), confused HEENT: sclera anicteric CV: RRR, no m/r/g Pulm: diminished bilaterally at bases, on 2L NC Abd: soft, nontender, nondistended Ext: no edema, no rash Problem List Syncope, altered mental status vs ?seizure h/o moderate-severe orthostasis / autonomic dysfunction Covid+ Diabetes mellitus type 2 Hypertension Hyperlipidemia History of CVA Dementia CKD stage III autonomic instability / orthostasis Parkinson's disease Plan Syncope, possible seizure: h/o moderate-severe orthostasis / autonomic dysfunction Parkinson's Disease h/o dementia, mostly oriented 2-3, h/o sundowning. Concerned for Seizure like activity at home, neuro consulted, EEG: nonspecific slow waves; h/o CVA x2 in past Patient on Keppra 250 BID since 08/20 after discussion with neurology MRI/MRA negative for stroke, continue aspirin/plavix PT/OT - recommended bed to wheelchair On midodrine TID for orthostatic hypotension. as well as, compression stockings Orthostasis secondary to autonomic dysfunction, progressive disease of his parkinson's disease. New baseline seems to be bed-wheelchair only, and would benefit from PT to work on transfers Seroquel for behavioral disturbance. Case discussed with Dr. Johns. He agrees with Seroquel for now, and recommended outpatient therapy with Nuplazid restarted low dose qHS 12.5mg seroquel on 08/29, will increase to BID tomorrow - pt continues with intermittent screaming / agitation Hypoxia COVID+ -pt was initially asymptomatic for first ~10 days, but then began to require O2 on 08/26 -CXR on 08/29 consistent with COVID pneumonia -elevated ferritin/CRP, continue solumedrol - at 40 BID, O2 requirement improving / stable -afebrile for now, slight elevated procal, do not suspect bacterial infection at this time Diabetes mellitus type 2: SSI, lantus 10u yesterday, increase to 20u tonight, steroid induced hyperglycemia HTN, HLD, h/o CVA, dementia/ parkinson's - Sinemet contributing to the orthostasis. CKD stage 3: Serum creatinine is normal. Dispo: SW/CM working on SNF placement discussed with daughter, will talk more with SW Time Spent Managing Pts Care (In Minutes): 40
[2020-08-31] MEDS ORDERED: IVERMECTIN 3 MG TABLET PO ONE (16:00)
[2020-08-31] MEDS: ATORVASTATIN 80 MG TAB PO SCH (19:54)
[2020-08-31] MEDS: DONEPEZIL HCL 5 MG TAB PO SCH (19:55)
[2020-08-31] MEDS: QUETIAPINE 25 MG TAB PO SCH (19:56)
[2020-08-31] MEDS ORDERED: INSULIN GLARGINE 100 UNITS/ML SQ SCH (21:00)
[2020-09-01 06:51] LABS: Absolute Lymphocytes (CBC) 0.9 K/uL (0.7-4.9); Basophils % 0.5 % (0-1.3); Hematocrit 31.5 % (39.6-49.0); Lymphocytes % 6.5 % (15.3-44.8); MPV 7.5 fL (7.6-11.3); RBC Red Blood Cell Count 3.48 M/uL (4.33-5.43)
[2020-09-01 07:10] LABS: Bilirubin Total 0.6 mg/dL (0.2-1.0); C-Reactive Protein 69.1 mg/L (<3.00); Ferritin 751.2 ng/mL (26-388); Magnesium 2.1 mg/dL (1.8-2.4); Potassium 4.3 mmol/L (3.5-5.1); Protein, Total 6.2 g/dL (6.4-8.2)
[2020-09-01] MEDS: INSULIN -REGULAR HUMAN 50 UNIT/0.5 ML ML SQ SCH ×2 (07:30→11:57)
[2020-09-01 07:51] LABS: Blood Morphology Comment NOT SEEN (NOT SEEN); Platelet Estimate ADEQ
[2020-09-01] MEDS: PARoxetine HCL 10 MG TAB PO SCH (08:47)
[2020-09-01] MEDS: FINASTERIDE 5 MG TAB PO SCH (08:48)
[2020-09-01] MEDS: FOLIC ACID 1 MG TABLET PO SCH (08:48)
[2020-09-01] MEDS: ASPIRIN 81 MG CHEWABLE TABLET PO SCH (08:48)
[2020-09-01] MEDS: QUETIAPINE 25 MG TAB PO SCH (08:48)
[2020-09-01] MEDS: CLOPIDOGREL 75 MG TABLET PO SCH (08:48)
[2020-09-01] MEDS: levETIRAcetam 500 MG TAB PO SCH (08:48)
[2020-09-01] MEDS: CARBIDOPA/LEVODOPA 25/100 TAB PO SCH ×2 (08:48→14:57)
[2020-09-01] MEDS: TAMSULOSIN 0.4 MG SR CAP PO SCH (08:48)
[2020-09-01] MEDS: GLUCERNA SHAKE 237 ML CAN PO SCH (08:49)
[2020-09-01] MEDS: METHYLPREDNISOLONE 40 MG INJ IV SCH (08:49)
[2020-09-01] MEDS: MIDODRINE HCL 5 MG TABLET PO SCH ×2 (08:49→14:00)
[2020-09-01 09:30] VITALS: TEMP 99.8
--- NOTE | 2020-09-01 09:42 | RAD REPORT ---
EXAM DESCRIPTION: RAD - Chest Single View - 09/01/2020 8:02 am CLINICAL HISTORY: SOB, pneumonia Chest pain. COMPARISON: Chest Single View dated 08/29/2020; Chest Single View dated 08/17/2020; Chest Single View d ated 08/14/2020; Chest Single View dated 01/28/2020 FINDINGS: Portable technique limits examination quality. Mild improvement in bilateral pulmonary opacities are seen since comparative study. Findings likely a re related to underlying infection. The heart is normal in size. No displaced fractures. IMPRESSION: Mild improvement in lung aeration since comparative examination.
[2020-09-01 11:09] VITALS: O2SAT 90
--- NOTE | 2020-09-01 11:56 | P.DS ---
Admission Date: 08/16/20 Discharge Date: 09/01/20 Primary Care Provider: Unknown Disposition: TRANSFER TO SNF - MEDICAL Discharge Condition: FAIR Reason for Admission: Syncope, AMS Consultations: Neurology - Dr. Johns Procedures: CXR (08/14): No acute abnormalities displayed CT Head (08/14): No acute intracranial abnormality is seen. TTE (08/15): normal EF. mitral annular calcification. aortic sclerosis with no stenosis. no wall motion abnormality. EEG (08/15): moderate slow background, nonspecific finding indicating the presence of amoderate diffuse disturbance in cerebral function Carotid U/S (08/15): Bilateral plaquing changes are present relatively mild with no visual evidence of significant luminal narrowing. MRI Brain (08/17): No acute abnormality displayed. Large area of abnormal signal within the right frontal and right parietal lobes compatible with old infarction. Additional small old left cerebral infarcts. Small old right basal ganglia infarction MRA Brain (08/17): Areas of narrowing involves the right and left middle cerebral arteries as well as the right posterior cerebral artery. Diminished flow present throughout the left posterior cerebral artery. These all appear to be chronic findings MRA Neck (08/17): Short-segment moderate narrowing distal right common carotid artery. It is unclear if this is secondary to artifact or pathology can can be evaluated on subsequent imaging CXR (08/17): The lungs are grossly clear. The heart is mildly prominent size. No displaced fractures. CXR (08/29): Moderate bilateral patchy lung opacities likely pneumonia CXR (09/01): Mild improvement in lung aeration since comparative examination. Problem List: Syncope, altered mental status vs possible seizure h/o moderate-severe orthostasis / autonomic dysfunction acute hypoxemic respiratory failure secondary to Covid-19 pneumonia Diabetes mellitus type 2 Hypertension Hyperlipidemia History of CVA Dementia CKD stage III autonomic instability / orthostasis Parkinson's disease Brief History of Present Illness: 75yo M, presented to ED for syncope and confusion. Patient was reportedly at home where he lives with his daughter and had an episode where he fell backwards spilling his coffee and having bowel movement followed by an episode of having glazed over appearance in not being fully responsive. Patient was transported to the emergency department, at this time patient is awake, alert, following commands, oriented times 2. Patient with history of multiple CVA, home medications not available for review at this time. Patient without any focal neurological deficits but does report that his vision has been Foggy for the past couple of weeks, patient denies any diplopia or visual field loss but hard to complete full neurological exam due to patient's cooperation. Patient moving all extremities well, face appears symmetrical. Labs only remarkable for chronic renal insufficiency stage III with creatinine 1.33 GFR 53, urinalysis was negative for infection CT head without acute findings, CBC unremarkable lactic acid 3.2, patient was given Rocephin in the emergency department and IV fluids, patient does appear very dry. ED provider wishes to admit patient for further evaluation and management. Hospital Course: Syncopal event -patient was admitted and underwent syncope workup. CT head, MRI/MRA Head/neck were all negative for acute abnormalities. -after further discussion with daughter, the patient may have had seizure-like activity and was started on Keppra, which was eventually weaned down due to its sedating effects -Neurology was consulted, EEG performed - negative fora cute pathology, however patient without any seizure-like activity during his hospitalization. -Patient continued with severe orthostasis, his midodrine was increased to TID and compression stockings were placed -evaluated by PT/OT who recommended [id number] tranfer only -on further discussion with neurology - this is likely progression of patient's autonomic dysfunction / Parkinsons -it was difficult to decrease medications that could be contritubing due to his multiple comorbidities necessitating some of these medications -patient was treated with 12.5mg seroquel for mild behavioral disturbance. Neurology recommended Nuplazid as outpatient therapy - we do not have on formulary and would have less interaction with his Parkinson medication COVID Pneumonia -patient was found to be positive for COVID-19 on admission, however did not have any symptoms until >10 days after admission. -he became hypoxic and required up to 3-4 L NC. He was able to be weaned back to room air within a few days and otherwise did well. -he was treated with steroids and O2 as needed. He was noted to have steroid induced hyperglycemia in addition to his diabetes, and this was temporarily covered with insulin while on steroids for his COVID pneumonia -he also had a mildly elevated procalcitonin and was noted to have a mild/brief choking episode while eating breakfast. He was covered with antibiotics during this time as well and discharged with 7 days of Augmentin to cover for possible aspiration pneumonia. Vital Signs/Physical Exam: Temp Pulse Resp BP Pulse Ox 99.8 F 93 H 24 H 129/59 L 87 L 09/01/20 08:00 09/01/20 08:00 09/01/20 08:00 09/01/20 08:00 09/01/20 08:00 General: Alert, In no apparent distress, Oriented x2 HEENT: Sclerae nonicteric Respiratory: Clear to auscultation bilaterally Cardiovascular: No edema, Regular rate/rhythm Gastrointestinal: Soft and benign, Non-distended Musculoskeletal: No tenderness Integumentary: No rashes Neurological: Normal speech Laboratory Data at Discharge: WBC 13.3 K/uL (4.3-10.9) H D 09/01/20 06:19 Hgb 10.3 g/dL (13.6-17.9) L 09/01/20 06:19 Hct 31.5 % (39.6-49.0) L 09/01/20 06:19 Plt Count 263 K/uL (152-406) 09/01/20 06:19 PT 11.6 SECONDS (9.5-12.5) 08/14/20 16:40 INR 0.98 08/14/20 16:40 Sodium 141 mmol/L (136-145) 09/01/20 06:19 Potassium 4.3 mmol/L (3.5-5.1) 09/01/20 06:19 BUN 28 mg/dL (7-18) H 09/01/20 06:19 Creatinine 1.04 mg/dL (0.55-1.3) 09/01/20 06:19 Glucose 115 mg/dL (74-106) H 09/01/20 06:19 Magnesium 2.1 mg/dL (1.8-2.4) 09/01/20 06:19 Total Bilirubin 0.6 mg/dL (0.2-1.0) 09/01/20 06:19 AST 25 U/L (15-37) 09/01/20 06:19 ALT 9 U/L (12-78) L 09/01/20 06:19 Alkaline Phosphatase 115 U/L (45-117) 09/01/20 06:19 Troponin I < 0.02 ng/mL (0.0-0.045) 08/15/20 07:45 Triglycerides 36 mg/dL (<150) 08/15/20 03:56 Cholesterol 87 mg/dL (<200) 08/15/20 03:56 HDL Cholesterol 55 mg/dL (40-60) 08/15/20 03:56 Cholesterol/HDL Ratio 1.58 08/15/20 03:56 Lipase 91 U/L (73-393) 08/14/20 16:40 Home Medications: Aspirin Chewable [Aspirin Chewable*] 81 mg PO DAILY 01/16/20 Atorvastatin Calcium [Lipitor] 80 mg PO DAILY 01/16/20 Carbidopa/Levodopa [Carbidopa-Levodopa 25-100 Tab] 1 tab PO TID 01/16/20 Clopidogrel Bisulfate [Plavix*] 75 mg PO DAILY 01/16/20 Donepezil [Aricept*] 5 mg PO BEDTIME 01/16/20 Finasteride [Proscar*] 5 mg PO DAILY 01/16/20 Metformin HCl [Glucophage] 1,000 mg PO BID 01/16/20 Midodrine HCl 2.5 mg PO TID 01/16/20 Sitagliptin Phosphate [Januvia*] 100 mg PO DAILY 01/16/20 Tamsulosin HCl [Flomax] 0.4 mg PO BID 01/16/20 Gabapentin [Neurontin*] 100 mg PO TID PRN cap 08/26/20 Glucerna Shake [Glucerna*] 237 ml PO BID #60 can 08/26/20 PARoxetine HCL [Paxil*] 40 mg PO DAILY #30 tab 08/26/20 levETIRAcetam [Keppra*] 250 mg PO BID #60 tab 08/26/20 Amoxicillin/Potassium Clav [Augmentin 875-125 Tablet] 1 each PO DAILY 7 Days #7 tablet 09/01/20 Insulin Glargine Human [Lantus*] 10 units SQ BEDTIME ml 09/01/20 Quetiapine [Seroquel*] 12.5 mg PO BID 30 Days #60 tab 09/01/20 predniSONE [Deltasone] 20 mg PO SEECOM 14 Days #21 tab 09/01/20 New Medications: Amoxicillin/Potassium Clav [Augmentin 875-125 Tablet] 1 each PO DAILY 7 Days #7 tablet Glucerna Shake [Glucerna*] 237 ml PO BID #60 can levETIRAcetam [Keppra*] 250 mg PO BID #60 tab PARoxetine HCL [Paxil*] 40 mg PO DAILY #30 tab predniSONE [Deltasone] 20 mg PO SEECOM 14 Days #21 tab Quetiapine [Seroquel*] 12.5 mg PO BID 30 Days #60 tab Patient Discharge Instructions: You were found to have worsening of your Parkinson's and autonomic dysfunction (orthostatic hypotension). Continue medications as prescribed. You were also found to have COVID-19 and became symptomatic in the last few days. You have been stable on 2 L nasal cannula. You are prescribed prednisone for 14 days. You are also prescribed augmentin 875 twice a day for 7 days to cover for possible aspiration pneumonia. pureed solids, thin liquids, crushed meds with strict ASPIRATION PRECAUTIONS. Diet: ADA (pureed solids, thin liquids, crushed meds with strict ASPIRATION PRECAUTIONS) Activity: bed to wheelchair only Followup: Jose Johns MD [ASSOCIATE-ACTIVE - CAN ADMIT] - (within 2 weeks.) Time spent managing pt's care (in minutes): 40
[2020-09-01] MEDS ORDERED: AMOX/K CLAV 875 MG TAB PO SCH (12:00)
[2020-09-01 12:36] VITALS: BP 134/60
[2020-09-01] MEDS ORDERED: INSULIN GLARGINE 100 UNITS/ML SQ SCH (21:00)
== END 2020-09-01 15:40 | DRG 312 ==
LOC: ER 15:41 → ERHOLD 18:27 → 4TH 22:02 → OBSVTOIN 08-16 13:26
PROVIDERS: ADMIT Internal Medicine; ATTEND Hospitalist
DX: I95.2 Hypotension due to drugs (principal); J96.01 Acute respiratory failure with hypoxia; U07.1 COVID-19; J12.82 Pneumonia due to coronavirus disease 2019; F03.91 Unspecified dementia, unspecified severity, with behavioral disturbance; T42.8X5A Adverse effect of antiparkinsonism drugs and other central muscle-tone depressants, initial encounter; I12.9 Hypertensive chronic kidney disease with stage 1 through stage 4 chronic kidney disease, or unspecified chronic kidney disease; N18.30 Chronic kidney disease, stage 3 unspecified; E11.22 Type 2 diabetes mellitus with diabetic chronic kidney disease; E11.649 Type 2 diabetes mellitus with hypoglycemia without coma; I25.10 Atherosclerotic heart disease of native coronary artery without angina pectoris; G20 Parkinson's disease; E78.5 Hyperlipidemia, unspecified; R55 Syncope and collapse; Z79.82 Long term (current) use of aspirin; Z79.02 Long term (current) use of antithrombotics/antiplatelets; Z79.899 Other long term (current) drug therapy; Z86.73 Personal history of transient ischemic attack (TIA), and cerebral infarction without residual deficits; Z79.84 Long term (current) use of oral hypoglycemic drugs; Z90.49 Acquired absence of other specified parts of digestive tract; Z79.52 Long term (current) use of systemic steroids
CPT/HCPCS: 36415; 70450; 70544; 70549; 70553; 71045; 80048; 80053; 80061; 80076; 80177; 81003; 82728; 82947; 83605; 83690; 83735; 83880; 84145; 84439; 84443; 84484; 85025; 85027; 85610; 86140; 87040; 92610; 93005; 93306; 93880; 95816; 97112; 97161; 97164; 97530; 99284; A9577; G0378; J0295; J0696; J1644; J1815; J1953; J2405; J2920; J2930; J3411; J3475; J7030; J7040; J7512; U0003